=== PATIENT | male | born 1955 | race Caucasian/White ===

== ENCOUNTER 2017-02-14 07:30 | Day surgery (SDC) | payer MEDICARE, OTHER ==
[2017-02-11 13:57] VITALS: BMI 28.8
[~2017-02-14 07:30] MED LIST: LACTATED RINGERS 1,000 ML IV SCH; LIDOCAINE 1% 20 ML VIAL (10MG/ML) FOR IV START INTRADERMA PRN
[2017-02-14 07:47] VITALS: TEMP 98
[2017-02-14] MEDS ORDERED: LACTATED RINGERS 1,000 ML IV ONE ×2 (07:50)
[2017-02-14] MEDS ORDERED: PHENYLEPHRINE-0.9% NACL SYG 1 MG/10 ML SYRINGE ONE (08:23)
[2017-02-14] MEDS ORDERED: LIDOCAINE 1% INJ 10MG/ML (20 ML MDV) ONE (08:23)
[2017-02-14] MEDS ORDERED: PROPOFOL 10 MG/ML 20 ML VIAL IV ONE (08:23)
--- NOTE | 2017-02-14 08:54 | P.OP ---
Date of Procedure: 02/14/17 Preoperative Diagnosis: Screening for colon cancer Postoperative Diagnosis: Descending colon and rectosgmoid polyp Internal hemorrhoids grade 2 not bleeding. Procedure(s) Performed: Colonoscopy with polypectomy using cold biopsy forceps Implants: Anesthesia: VINCENT Surgeon: Bernardo Wong Pathology: other Condition: stable Indications for Procedure: Operative Findings: Description of Procedure: The patient was brought to the endoscopy suite and placed in lateral decubitus position. IV sedation was given as per anesthesia team. A timeout was performed to verify correct patient and correct procedure.Perianal examination did not reveal any external hemorrhoids. Digital rectal examination was performed. moderately enlarged prostate. A well- lubricated endoscope was passed per rectally and was gradually advanced beyond the sigmoid colon, splenic flexure, transverse colon, hepatic flexure and cecum. The ileocecal valve was visualized. The scope was then withdrawn and inspected in detail. There were no diverticula. Polyps were noted in the descending colon and in the lower part of the sigmoid at the rectosigmoid junction. Both polyps were less than 5 mm and completely removed with the help of a cold biopsy forceps. There were no other polyps or masses cluster malformations or diverticula.. Bowel prep was good. No other polyps or masses noted. Retroflexed in the rectum and large internal hemorrhoid was noted which was not bleeding at this time.The scope was gradually withdrawn. Patient tolerated the procedure well and was taken to post anesthesia care unit in stable condition. Recommend repeat colonoscopy in 5 years Plan - Discharge Summary New Discharge Prescriptions: No Action Warfarin [Coumadin] 10 mg PO SUMOWEFRSA Warfarin 12.5 mg PO TUTH Risperdal 1 tab PO BID Metoprolol 1 tab PO TID Discharge Medication List Metoprolol 1 tab PO TID 02/11/17 [History] Risperdal 1 tab PO BID 02/11/17 [History] Warfarin 12.5 mg PO TUTH 02/11/17 [History] Warfarin [Coumadin] 10 mg PO SUMOWEFRSA 02/11/17 [History] Follow up Appointment(s)/Referral(s): Bernardo Wong MD [STAFF PHYSICIAN] - As Needed Patient Instructions/Handouts: *[facility] - (Anesthesia) Endoscopy Discharge Instructions, Colonoscopy (DC)
[2017-02-14 09:08] VITALS: RESP 18
[2017-02-14 09:21] VITALS: BP 99/75; PULSE 71
== END 2017-02-14 09:55 | disposition home or self-care (01) ==
LOC: ORWHC2ENDO 07:30
PROVIDERS: ATTEND Surgery
DX: Z12.11 Encounter for screening for malignant neoplasm of colon (principal); K63.5 Polyp of colon; D12.5 Benign neoplasm of sigmoid colon; K64.1 Second degree hemorrhoids; R19.4 Change in bowel habit; E78.00 Pure hypercholesterolemia, unspecified; F31.9 Bipolar disorder, unspecified; F43.23 Adjustment disorder with mixed anxiety and depressed mood; F34.1 Dysthymic disorder; F43.10 Post-traumatic stress disorder, unspecified; I12.9 Hypertensive chronic kidney disease with stage 1 through stage 4 chronic kidney disease, or unspecified chronic kidney disease; N18.2 Chronic kidney disease, stage 2 (mild); Z95.810 Presence of automatic (implantable) cardiac defibrillator; I25.10 Atherosclerotic heart disease of native coronary artery without angina pectoris; I25.2 Old myocardial infarction; K21.9 Gastro-esophageal reflux disease without esophagitis; J44.9 Chronic obstructive pulmonary disease, unspecified; F17.200 Nicotine dependence, unspecified, uncomplicated; Z79.01 Long term (current) use of anticoagulants; Z79.899 Other long term (current) drug therapy; Z88.8 Allergy status to other drugs, medicaments and biological substances
CPT/HCPCS: 88305; 45380; J2001; J2370; J2704

== ENCOUNTER 2018-02-11 03:06 | Observation (INO) | payer MEDICARE, OTHER ==
[2018-02-11] MEDS ORDERED: NITROGLYCERIN OINT 1 INCH/GM PACKET TOPICAL STA (03:24)
[2018-02-11] MEDS ORDERED: ASPIRIN 81 MG PO STA (03:24)
--- NOTE | 2018-02-11 03:26 | ED ---
General Adult HPI - General Chief complaint: Chest Pain Stated complaint: Chest discomfort Time Seen by Provider: 02/11/18 03:17 Source: patient, RN notes reviewed Mode of arrival: wheelchair Limitations: no limitations - History of Present Illness Initial comments: Patient is a pleasant 62-year-old male presenting to the emergency Department with complaints of chest discomfort. Patient states onset was prior to arrival. Symptoms lasted around 3 minutes and then resolved. Patient has a difficult time describing the type of discomfort he had. Patient states his pacemaker and questions if something was wrong with a pacemaker. Patient states he does not have a defibrillator. No associated dyspnea, nausea, or diaphoresis. - Related Data Home Medications Medication Instructions Recorded Confirmed Warfarin [Coumadin] 10 mg PO SUMOWEFRSA 02/11/17 02/11/18 risperiDONE [RisperDAL] 1 mg PO BID 02/11/18 02/11/18 Allergies Allergy/AdvReac Type Severity Reaction Status Date / Time haloperidol [From Haldol] Allergy Unknown Verified 02/11/17 13:52 haloperidol lactate Allergy Unknown Verified 02/11/17 13:52 [From Haldol] Review of Systems ROS Statement: Those systems with pertinent positive or pertinent negative responses have been documented in the HPI. ROS Other: All systems not noted in ROS Statement are negative. Constitutional: Denies: fever Eyes: Denies: eye pain ENT: Denies: ear pain Respiratory: Denies: cough, dyspnea Cardiovascular: Reports: chest pain Endocrine: Denies: fatigue Gastrointestinal: Denies: abdominal pain Genitourinary: Denies: dysuria Musculoskeletal: Denies: back pain Skin: Denies: rash Neurological: Denies: weakness Past Medical History Past Medical History: Deep Vein Thrombosis (DVT), Hypertension Additional Past Medical History / Comment(s): HX DVT IN LEG History of Any Multi-Drug Resistant Organisms: MRSA Date of last positivie culture/infection: 04/27/2014 MDRO Source:: Right Arm Past Surgical History: Back Surgery, Hernia Repair, Pacemaker, Tonsillectomy Past Anesthesia/Blood Transfusion Reactions: Previous Problems w/ Anesthesia Additional Past Anesthesia/Blood Transfusion Reaction / Comment(s): STATES " HARD TIME BREATHING LAYING FLAT, I'M A MOUTH BREATHER" Type of Cardiac Device: Permanent Pacemaker Device Placement Date:: 2015 Past Psychological History: Bipolar Smoking Status: Current every day smoker Past Alcohol Use History: None Reported, Rare Past Drug Use History: None Reported General Exam Limitations: no limitations General appearance: alert, in no apparent distress Head exam: Present: atraumatic Eye exam: Present: normal appearance, PERRL ENT exam: Present: normal oropharynx Neck exam: Present: normal inspection Respiratory exam: Present: normal lung sounds bilaterally, other (No tenderness or swelling or color changes near the pacemaker site.). Absent: chest wall tenderness Cardiovascular Exam: Present: normal rhythm, tachycardia Expanded Peripheral pulses: 2+: Radial (R), Radial (L), Dorsalis Pedis (R), Dorsalis Pedis (L) GI/Abdominal exam: Present: soft. Absent: tenderness Extremities exam: Present: normal inspection. Absent: pedal edema, calf tenderness Neurological exam: Present: alert Psychiatric exam: Present: manic Skin exam: Present: normal color Course Vital Signs 02/11/18 03:09 Temperature 98.6 F Pulse Rate 110 H Respiratory 20 Rate Blood Pressure 150/90 O2 Sat by Pulse 97 Oximetry - Reevaluation(s) Reevaluation #1: 02/11/18 05:33 Repeat EKG shows sinus tachycardia 108. VT 152. QRS 94. QT 348. QTC 466. Left axis. Normal QRS. No acute ST change. EKG Findings - EKG Comments: EKG Findings:: Sinus tachycardia 108. VT 142. QRS 96. QT 352. QTC 471. Normal axis. Normal QRS. No acute ST change. Medical Decision Making - Medical Decision Making Patient reevaluated and resting comfortably in bed. Patient updated on results and plan. Case discussed with Dr. castañeda, who will admit for Dr. pandey - Lab Data Result diagrams: 02/11/18 04:06 02/11/18 04:06 Lab Results 02/11/18 02/11/18 02/11/18 Range/Units 04:06 04:06 04:06 WBC 9.1 (3.8-10.6) k/uL RBC 4.53 (4.30-5.90) m/uL Hgb 13.3 (13.0-17.5) gm/dL Hct 41.5 (39.0-53.0) % MCV 91.7 (80.0-100.0) fL MCH 29.3 (25.0-35.0) pg MCHC 31.9 (31.0-37.0) g/dL RDW 14.1 (11.5-15.5) % Plt Count 166 (150-450) k/uL Neutrophils % 68 % Lymphocytes % 18 % Monocytes % 9 % Eosinophils % 1 % Basophils % 0 % Neutrophils # 6.2 (1.3-7.7) k/uL Lymphocytes # 1.6 (1.0-4.8) k/uL Monocytes # 0.9 (0-1.0) k/uL Eosinophils # 0.1 (0-0.7) k/uL Basophils # 0.0 (0-0.2) k/uL PT (9.0-12.0) sec INR (<1.2) APTT (22.0-30.0) sec Sodium 137 (137-145) mmol/L Potassium 4.8 (3.5-5.1) mmol/L Chloride 104 (98-107) mmol/L Carbon Dioxide 23 (22-30) mmol/L Anion Gap 10 mmol/L BUN 26 H (9-20) mg/dL Creatinine 1.90 H (0.66-1.25) mg/dL Est GFR (CKD-EPI)AfAm 43 (>60 ml/min/1.73 sqM) Est GFR (CKD-EPI)NonAf 37 (>60 ml/min/1.73 sqM) Glucose 94 (74-99) mg/dL Calcium 9.6 (8.4-10.2) mg/dL Magnesium 1.8 (1.6-2.3) mg/dL Total Bilirubin 0.7 (0.2-1.3) mg/dL AST 64 H (17-59) U/L ALT 32 (21-72) U/L Alkaline Phosphatase 111 (38-126) U/L Total Creatine Kinase 1398 H (55-170) U/L CK-MB (CK-2) 7.6 H* (0.0-2.4) ng/mL CK-MB (CK-2) Rel Index 0.5 Troponin I 0.018 (0.000-0.034) ng/mL Total Protein 7.3 (6.3-8.2) g/dL Albumin 4.3 (3.5-5.0) g/dL 02/11/18 Range/Units 04:06 WBC (3.8-10.6) k/uL RBC (4.30-5.90) m/uL Hgb (13.0-17.5) gm/dL Hct (39.0-53.0) % MCV (80.0-100.0) fL MCH (25.0-35.0) pg MCHC (31.0-37.0) g/dL RDW (11.5-15.5) % Plt Count (150-450) k/uL Neutrophils % % Lymphocytes % % Monocytes % % Eosinophils % % Basophils % % Neutrophils # (1.3-7.7) k/uL Lymphocytes # (1.0-4.8) k/uL Monocytes # (0-1.0) k/uL Eosinophils # (0-0.7) k/uL Basophils # (0-0.2) k/uL PT 16.8 H (9.0-12.0) sec INR 1.8 H (<1.2) APTT 32.4 H (22.0-30.0) sec Sodium (137-145) mmol/L Potassium (3.5-5.1) mmol/L Chloride (98-107) mmol/L Carbon Dioxide (22-30) mmol/L Anion Gap mmol/L BUN (9-20) mg/dL Creatinine (0.66-1.25) mg/dL Est GFR (CKD-EPI)AfAm (>60 ml/min/1.73 sqM) Est GFR (CKD-EPI)NonAf (>60 ml/min/1.73 sqM) Glucose (74-99) mg/dL Calcium (8.4-10.2) mg/dL Magnesium (1.6-2.3) mg/dL Total Bilirubin (0.2-1.3) mg/dL AST (17-59) U/L ALT (21-72) U/L Alkaline Phosphatase (38-126) U/L Total Creatine Kinase (55-170) U/L CK-MB (CK-2) (0.0-2.4) ng/mL CK-MB (CK-2) Rel Index Troponin I (0.000-0.034) ng/mL Total Protein (6.3-8.2) g/dL Albumin (3.5-5.0) g/dL - Radiology Data Radiology results: image reviewed (Chest x-ray shows nonspecific interstitial prominence.) Disposition Clinical Impression: Chest pain Disposition: ADMITTED IP TO THIS HOSP Is patient prescribed a controlled substance at d/c from ED?: No Referrals: Jaspal Melgoza MD [Primary Care Provider] - 1-2 days Decision Time: 05:37
[2018-02-11 04:33] LABS: Basophils % (A) 0 %; Eosinophils # (A) 0.1 k/uL (0-0.7); Eosinophils % (A) 1 %; HCT 41.5 % (39.0-53.0); HGB 13.3 gm/dL (13.0-17.5); Lymphocytes # (A) 1.6 k/uL (1.0-4.8); Lymphocytes % (A) 18 %; MCH 29.3 pg (25.0-35.0); MCHC 31.9 g/dL (31.0-37.0); MCV 91.7 fL (80.0-100.0); Mean Platelet Volume 7.6; Monocytes # (A) 0.9 k/uL (0-1.0); Monocytes % (A) 9 %; Neutrophils # (A) 6.2 k/uL (1.3-7.7); Neutrophils % (A) 68 %; Platelet Count 166 k/uL (150-450); RBC 4.53 m/uL (4.30-5.90); RDW 14.1 % (11.5-15.5); WBC 9.1 k/uL (3.8-10.6)
--- NOTE | 2018-02-11 04:36 | XR ---
EXAM: XR Chest, 2 Views CLINICAL HISTORY: Chest Pain TECHNIQUE: Frontal and lateral views of the chest. COMPARISON: No relevant prior studies available. FINDINGS: Lungs: Bilateral interstitial prominence is nonspecific and can be seen in the setting of mild interstitial edema or chronic interstitial lung disease. No focal consolidation. Pleural space: Unremarkable. No pneumothorax. Heart: Unremarkable. No cardiomegaly. Mediastinum: Unremarkable. Bones/joints: No acute osseous abnormality. Vasculature: Tortuosity and/or ectasia of the thoracic aorta. Tubes, lines and devices: Left chest wall pacemaker. IMPRESSION: Bilateral interstitial prominence is nonspecific and can be seen in the setting of mild interstitial edema or chronic interstitial lung disease.
[2018-02-11 04:43] LABS: Albumin 4.3 g/dL (3.5-5.0); Calcium 9.6 mg/dL (8.4-10.2); Magnesium 1.8 mg/dL (1.6-2.3); Potassium 4.8 mmol/L (3.5-5.1); Total Bilirubin 0.7 mg/dL (0.2-1.3); Total Protein 7.3 g/dL (6.3-8.2)
[2018-02-11 04:58] LABS: INR 1.8 (<1.2); Partial Thromboplastin Time 32.4 sec (22.0-30.0); Prothrombin Time 16.8 sec (9.0-12.0)
[2018-02-11 05:18] LABS: Troponin I 0.018 ng/mL (0.000-0.034)
[2018-02-11 05:19] LABS: Creatine Kinase MB 7.6 ng/mL (0.0-2.4)
[2018-02-11] MEDS ORDERED: NITROGLYCERIN SL TABS 0.4 MG TAB SUBLINGUAL PRN (05:37)
[2018-02-11] MEDS ORDERED: ASPIRIN 325 MG TAB PO SCH (09:00)
--- NOTE | 2018-02-11 10:50 | ECHOF ---
Referral Reason: MEASUREMENTS -------- HEIGHT: 190.5 cm WEIGHT: 106.6 kg BP: 135/84 IVSd: 1.1 cm (0.6 - 1.1) LVIDd: 4.9 cm (3.9 - 5.3) LVPWd: 1.3 cm (0.6 - 1.1) IVSs: 1.6 cm LVIDs: 1.9 cm LVPWs: 1.7 cm LAESV Index (A-L): 15.81 ml/m Ao Diam: 4.4 cm (2.0 - 3.7) AV Cusp: 2.5 cm (1.5 - 2.6) LA Diam: 2.7 cm (2.7 - 3.8) MV E Jae: 0.67 m/s MV DecT: 214 ms MV A Jae: 0.77 m/s MV E/A Ratio: 0.86 RAP: 5.00 mmHg RVSP: 33.75 mmHg FINDINGS -------- Resting tachycardia (HR>100bpm). This was a technically adequate study. The left ventricular size is normal. There is mild concentric left ventricular hypertrophy. Overa ll left ventricular systolic function is normal with, an EF between 55 - 60 %. The right ventricle is normal in size and function. Normal LA size by volume 22+/-6 ml/m2. The right atrium is normal in size. Electronic pacemaker lead seen in the right atrial cavity. Aortic valve is trileaflet and is mildly thickened. There is no evidence of aortic regurgitation. There is no evidence of aortic stenosis. The mitral valve leaflets are mildly thickened. There is trace to mild mitral regurgitation. Trace tricuspid regurgitation present. Right ventricular systolic pressure is normal at < 35 mmHg. There is no evidence of pulmonary hypertension. The pulmonic valve was not well visualized. The aortic root is borderline dilated, up to 3.7 cm. Normal inferior vena cava with normal inspiratory collapse consistent with estimated right atrial pre ssure of 5 mmHg. There is no pericardial effusion. CONCLUSIONS -------- 1. Resting tachycardia (HR>100bpm). 2. This was a technically adequate study. 3. The left ventricular size is normal. 4. There is mild concentric left ventricular hypertrophy. 5. Overall left ventricular systolic function is normal with, an EF between 55 - 60 %. 6. Normal LA size by volume 22+/-6 ml/m2. 7. Electronic pacemaker lead seen in the right atrial cavity. 8. Aortic valve is trileaflet and is mildly thickened. 9. The mitral valve leaflets are mildly thickened. 10. There is trace to mild mitral regurgitation. 11. Trace tricuspid regurgitation present. 12. Right ventricular systolic pressure is normal at < 35 mmHg. 13. There is no evidence of pulmonary hypertension. 14. The pulmonic valve was not well visualized. 15. The aortic root is borderline dilated, up to 3.7 cm. 16. There is no pericardial effusion. SAFETY COMPANION: Mario Alberto Mendiola RDCS
[2018-02-11 11:15] LABS: Troponin I 0.022 ng/mL (0.000-0.034)
[2018-02-11 11:20] LABS: Creatine Kinase MB 9.8 ng/mL (0.0-2.4)
[2018-02-11] MEDS ORDERED: NITROGLYCERIN OINT 1 INCH/GM PACKET TOPICAL SCH (12:00)
--- NOTE | 2018-02-11 12:31 | P.CRDCN ---
History of Present Illness History of present illness: Mr. Arndt is a 62-year-old male past medical history significant paroxysmal atrial fibrillation on long-term anticoagulation, hypertension, bipolar and chronic nicotine dependence. He follows with Dr. Lopez in the office. We have been asked to see him in consultation for chest pain. He states yesterday he felt an odd sensation in his chest lasting less than 4 minutes. He denies that it was a pain but more of a prickly feeling. He denies shortness of breath, nausea, vomiting, diaphoresis, palpitations or dizziness. He is quite manic at the time of my exam walking around the room very aggressively, speaking loudly and being hostile about being in the hospital. Security is present during my exam and he is cooperating. Echocardiogram obtained this morning reveals preserved left ventricular systolic function with ejection fraction 55-60%, pacemaker lead seen in the right atrial cavity and mildly thickened aortic valve. EKG reveals sinus tachycardia [address] or T wave abnormalities noted. Chest x-ray reveals bilateral interstitial prominence. Laboratory data reviewed, hemoglobin 13.3, platelets 166, INR 1.8, sodium 137, potassium 4.8, magnesium 1.8, creatinine 1.9, troponins negative 2, elevated CK -MB 7.6 and 9.8, with a total CK elevation of 1398 and 1441. Current cardiac medications include Coumadin 5 mg daily and Lopressor 25 mg 3 times a day. The patient underwent a Lexiscan stress test October 2016 which was negative for reversible cardiac ischemia. Review of Systems At the time of my exam: CONSTITUTIONAL: Denies fever. Denies chills. EYES: Denies blurred vision. Denies vision changes. Denies eye pain. EARS, NOSE, MOUTH & THROAT: Denies headache. Denies sore throat. Denies ear pain. CARDIOVASCULAR: Denies chest pain. Denies shortness of breath. Denies orthopnea. Denies PND. Denies palpitations. RESPIRATORY: Denies cough. GASTROINTESTINAL: Denies abdominal pain. Denies diarrhea. Denies constipation. Denies nausea. Denies vomiting. MUSCULOSKELETAL: Denies myalgias. INTEGUMENTARY: Denies pruitis. Denies rash. NEUROLOGIC: Denies numbness. Denies tingling. Denies weakness. PSYCHIATRIC: Denies anxiety. Denies depression. ENDOCRINE: Denies fatigue. Denies weight change. Denies polydipsia. Denies polyurina. GENITOURINARY: Denies burning, hematuria or urgency with micturation. HEMATOLOGIC: Denies history of anemia. Denies bleeding. Past Medical History Past Medical History: Deep Vein Thrombosis (DVT), Hypertension Additional Past Medical History / Comment(s): HX DVT IN LEG History of Any Multi-Drug Resistant Organisms: MRSA Date of last positivie culture/infection: 04/27/2014 MDRO Source:: Right Arm Past Surgical History: Back Surgery, Hernia Repair, Pacemaker, Tonsillectomy Past Anesthesia/Blood Transfusion Reactions: Previous Problems w/ Anesthesia Additional Past Anesthesia/Blood Transfusion Reaction / Comment(s): STATES " HARD TIME BREATHING LAYING FLAT, I'M A MOUTH BREATHER" Type of Cardiac Device: Permanent Pacemaker Device Placement Date:: 2015 Past Psychological History: Bipolar Smoking Status: Unknown if ever smoked Past Alcohol Use History: None Reported, Rare Additional Past Alcohol Use History / Comment(s): SMOKES 1/2 PPD FROM TEENS Past Drug Use History: None Reported - Past Family History Father History Unknown: Yes Mother History Unknown: Yes Medications and Allergies Home Medications Medication Instructions Recorded Confirmed Type Doxepin HCl [SINEquan] 200 mg PO HS 02/11/18 02/11/18 History Lubiprostone [Amitiza] 24 mcg PO BID 02/11/18 02/11/18 History Metoprolol Tartrate [Lopressor] 25 mg PO TID 02/11/18 02/11/18 History Warfarin [Coumadin] 5 mg PO HS 02/11/18 02/11/18 History risperiDONE [RisperDAL] 1 mg PO AC-TID 02/11/18 02/11/18 History Allergies Allergy/AdvReac Type Severity Reaction Status Date / Time haloperidol [From Haldol] Allergy Unknown Verified 02/11/18 08:37 haloperidol lactate Allergy Unknown Verified 02/11/18 08:37 [From Haldol] Physical Exam Vitals: Vital Signs Temp Pulse Pulse Resp BP BP Pulse Ox 02/11/18 06:49 97.4 F L 107 H 18 135/84 94 L 02/11/18 06:16 98.3 F 103 H 17 142/88 97 02/11/18 03:09 98.6 F 110 H 20 150/90 97 Intake and Output 02/10/18 02/11/18 02/11/18 22:59 06:59 14:59 Other: Weight 106.594 kg Blood pressure 135/84 heart rate 107 afebrile maintaining oxygen saturation on room air GENERAL: This is a 62-year-old male in no apparent distress at the time of my examination. HEENT: Head is atraumatic, normocephalic. Pupils are equal, round. Sclerae anicteric. Conjunctivae are clear. Mucous membranes of the mouth are moist. Neck is supple. There is no jugular venous distention. No carotid bruit is heard. LUNGS: Clear to auscultation no wheezes, rales or rhonchi. No chest wall tenderness is noted on palpation or with deep breathing. HEART: Regular rate and rhythm without murmurs, rubs or gallops. S1 and S2 heard. ABDOMEN: Soft, nontender. Bowel sounds are heard. No organomegaly noted. EXTREMITIES: No evidence of peripheral edema and no calf tenderness noted. VASCULAR: Radial and dorsalis pedis pulses palpated, no evidence of clubbing. NEUROLOGIC: Patient is awake, alert and oriented x3. Results 02/11/18 04:06 02/11/18 04:06 Cardiac Enzymes 02/11/18 02/11/18 02/11/18 Range/Units 04:06 04:06 10:17 AST 64 H (17-59) U/L CK-MB (CK-2) 7.6 H* 9.8 H* (0.0-2.4) ng/mL Troponin I 0.018 0.022 (0.000-0.034) ng/mL Coagulation 02/11/18 Range/Units 04:06 PT 16.8 H (9.0-12.0) sec APTT 32.4 H (22.0-30.0) sec CBC 02/11/18 Range/Units 04:06 WBC 9.1 (3.8-10.6) k/uL RBC 4.53 (4.30-5.90) m/uL Hgb 13.3 (13.0-17.5) gm/dL Hct 41.5 (39.0-53.0) % Plt Count 166 (150-450) k/uL Comprehensive Metabolic Panel 02/11/18 Range/Units 04:06 Sodium 137 (137-145) mmol/L Potassium 4.8 (3.5-5.1) mmol/L Chloride 104 (98-107) mmol/L Carbon Dioxide 23 (22-30) mmol/L BUN 26 H (9-20) mg/dL Creatinine 1.90 H (0.66-1.25) mg/dL Glucose 94 (74-99) mg/dL Calcium 9.6 (8.4-10.2) mg/dL AST 64 H (17-59) U/L ALT 32 (21-72) U/L Alkaline Phosphatase 111 (38-126) U/L Total Protein 7.3 (6.3-8.2) g/dL Albumin 4.3 (3.5-5.0) g/dL Current Medications Generic Name Dose Route Start Last Admin Trade Name Freq PRN Reason Stop Dose Admin Aspirin 325 mg 02/11/18 09:00 02/11/18 08:42 Aspirin PO 325 mg DAILY GLENNY Administration Nitroglycerin 1 inch 02/11/18 12:00 Nitro-Bid Oint TOPICAL Q6HR GLENNY Nitroglycerin 0.4 mg 02/11/18 05:37 Nitrostat SUBLINGUAL Q5M PRN Chest Pain Sodium Chloride 10 ml 02/11/18 09:00 Saline Flush IV BID GLENNY Intake and Output 02/10/18 02/11/18 02/11/18 22:59 06:59 14:59 Other: Weight 106.594 kg 02/11/18 04:06 02/11/18 04:06 Assessment and Plan Assessment: ASSESSMENT Chest pain, atypical. No EKG evidence of ischemia and negative troponin 2 with elevated CK and CK-MB indicative of musculoskeletal injury. History of paroxysmal atrial fibrillation on intermodal dispatcher anticoagulation, currently maintaining sinus mechanism Hypertension Chronic nicotine dependence Bipolar PLAN Echocardiogram has been reviewed and is normal. Continue to obtain serial cardiac enzymes rule out an acute coronary event. Third set of troponin is negative and acute coronary event will have been ruled out and he is stable from a cardiac perspective for ongoing mental health evaluation. Discontinue aspirin and Nitropaste. Resume Coumadin and Lopressor at home doses. Follow-up with Dr. John delgado. Thank you kindly for this consultation. The above impression and plan of care have been discussed and directed by the signing physician. Judit Marquez, nurse practitioner, acting as scribe for signing physician.
[2018-02-11] MEDS: METOPROLOL TARTRATE 25 MG TAB PO SCH ×2 (16:06→20:33)
[2018-02-11 17:14] LABS: Troponin I 0.018 ng/mL (0.000-0.034)
[2018-02-11 17:20] LABS: Creatine Kinase MB 8.9 ng/mL (0.0-2.4)
--- NOTE | 2018-02-11 18:01 | HP ---
HISTORY AND PHYSICAL DATE OF ADMISSION: 02/11/2018 PRESENTING COMPLAINT: Chest pain. HISTORY OF PRESENTING COMPLAINT: This is a 62-year-old patient of Dr. Melgoza from [place]. The patient's chronic stable medical conditions include left leg DVT for which patient is on Coumadin, hypertension, chronic kidney disease. The patient has a pacemaker. The patient is rather in a manic mood and keeps laughing and talking to himself and keeps going off the topic, difficult to get a history. The patient is having pain over the pacemaker, could not really tell me if he is having dizzy spells or passing out or palpitations and Cardiology was consulted earlier today, who did come to check out the pacemaker. The patient keeps laughing and making jokes and keeps totally going off. Otherwise, patient ate rather well and he laughs loudly, somewhat uncontrollably. REVIEW OF SYSTEMS: CONSTITUTIONAL: None. HEENT: None. CARDIOVASCULAR: As above. GASTROINTESTINAL: None: GENITOURINARY: None. MUSCULOSKELETAL: None. DERMATOLOGICAL: None. HEMATOLOGIC: None. LYMPHATIC: None. PSYCHIATRY: As above. NEUROLOGICAL: None. PAST MEDICAL HISTORY: Left leg DVT, hypertension, MRSA infection, chronic kidney disease, bipolar disorder with manic episodes. PAST SURGICAL HISTORY: Back surgery, hernia repair, pacemaker, tonsillectomy. SOCIAL HISTORY: Notes reflect patient drank 24-ounce beer yesterday, but only drinks occasionally. Used marijuana a long time ago. Smokes about half a pack a day for close to 50 years. It is unclear who he states he lives. Nurse did inform me she did call a number listed on his chart. The patient apparently does not have a legal guardian. We are looking more into that. FAMILY HISTORY: Reviewed with the patient. Noncontributory. HOME MEDICATIONS: 1. Risperdal 1 mg p.o. t.i.d. 2. Coumadin 5 mg q.h.s. 3. Lopressor 25 mg p.o. t.i.d. 4. Amitiza 25 mcg t.i.d. 5. Senokot 200 mg q.h.s. ALLERGIES: To HALDOL. EXAMINATION: Temperature 97.4, pulse 107, respirations 18, blood pressure 135/84, pulse ox 94% on room air. GENERAL APPEARANCE: Average build, lying in bed, laughing loudly, does not appear in any distress. EYES: Pupils equal. Conjunctivae normal. HEENT: External appearance of nose and ears normal. Oral cavity normal. NECK: JVD not raised. Mass not palpable. RESPIRATORY: Effort normal. LUNGS: Slightly decreased breath sounds. CARDIOVASCULAR: First and second sounds normal. No edema. ABDOMEN: Soft, nontender. Liver and spleen not palpable. LYMPHATIC: No lymph node palpable in neck or axillae. PSYCHIATRY: The patient is rather manic, going from one topic to the other topic, laughing out loudly, some time as if talking into the phone on the TV remote. MUSCULOSKELETAL: No tenderness over the pacemaker site. INVESTIGATIONS: White count 9.1, hemoglobin 13.3, INR 1.8. Potassium 4.8, BUN 26, creatinine 1.90, troponin 0.018, 0.022. EKG tracing reviewed by me shows sinus tachycardia. Chest x- ray: Nonspecific bilateral prominence. ASSESSMENT: 1. Bipolar disorder with acute flare-up of manic episode. The patient is rather uncontrolled from the same. 2. Chronic left leg deep venous thrombosis, chronically on Coumadin. 3. Coumadin monitoring. 4. Chronic kidney disease stage 3, probably from nephrosclerosis. 5. Pain over the pacemaker site per Cardiology. The pacemaker is doing fine. PLAN: Home medications are resumed. Coumadin is resumed. Psychiatry is consulted. The patient definitely is having a manic flare-up. The patient may need a psychiatry evaluation for possible admission. MMODL / IJN: [id number] /
[2018-02-11] MEDS: risperiDONE 1 MG TAB PO SCH (18:28)
[2018-02-11 19:15] VITALS: TEMP 98.1
[2018-02-11] MEDS ORDERED: DOXEPIN 25 MG CAP PO SCH (21:00)
[2018-02-11] MEDS ORDERED: WARFARIN 5 MG TAB PO SCH (21:00)
[2018-02-12 01:50] LABS: Cholesterol 251 mg/dL (<200); HDL Cholesterol 39 mg/dL (40-60); LDL Cholesterol,Calculated 143 mg/dL (0-99); Triglycerides 343 mg/dL (<150)
[2018-02-12] MEDS: NON-FORMULARY DRUG (Lubiprostone [Amitiza] 24 MCG) PO SCH ×2 (04:37→09:53)
[2018-02-12 07:59] VITALS: BP 103/73; PULSE 85; RESP 18
[2018-02-12] MEDS: risperiDONE 1 MG TAB PO SCH (09:53)
[2018-02-12] MEDS: METOPROLOL TARTRATE 25 MG TAB PO SCH (09:53)
[2018-02-12] MEDS ORDERED: ZIPRASIDONE 20 MG VIAL IM STA (10:34)
[2018-02-12] MEDS ORDERED: LORazepam 2 MG/ML INJ IM STA (10:35)
--- NOTE | 2018-02-12 21:51 | DS ---
DISCHARGE SUMMARY DATE OF ADMISSION: 02/11/2018 DATE OF DISCHARGE: 02/12/2018 FINAL DIAGNOSES: 1. Bipolar disorder with acute flareup of manic episode, uncontrolled. 2. Chronic left leg deep venous thrombosis, chronically on Coumadin. 3. Coumadin monitoring. 4. Chronic kidney disease, stage III, probably from nephrosclerosis. 5. Musculoskeletal pain over the pacemaker site. CONSULTATION: Dr. Rober Umana from Cardiology. HOSPITAL COURSE: This patient, who has got bipolar, presented with a manic episode, laughing, singing, going from one topic to the other topic, moving about, restless. Also complained of some pain of the left anterior chest wall over the pacemaker site. The patient was seen by Cardiology. Two-D echocardiogram was unremarkable. Cleared by them. Patient was seen by Psychiatry, EPS nurse, and patient will be taken down to Psychiatry for further management. Two-D echo shows preserved LV function. On examination, the patient is rather manic, laughing, joking, going from one topic to another topic. Lungs are clear. CARDIOVASCULAR: First and second sounds normal. DISCHARGE MEDICATIONS: 1. Sinequan 200 mg at bedtime. 2. Amitiza 24 mcg p.o. b.i.d. 3. Lopressor 25 p.o. t.i.d. 4. Coumadin 5 mg p.o. at bedtime. 5. Risperdal 1 mg p.o. before meals t.i.d. DISPOSITION: [facility] at [facility]. Follow up with Dr. Lopez in 1 week. Follow up with Dr. Jaspal Melgoza in [place] after discharge from the hospital. MMODL / IJN: [id number] /
== END 2018-02-12 14:15 ==
LOC: EC 03:06 → EEVIPCON 03:06 → 3OBS 05:37
PROVIDERS: ADMIT Hospitalist; ATTEND Hospitalist
DX: R07.89 Other chest pain (principal); F31.9 Bipolar disorder, unspecified; Z79.01 Long term (current) use of anticoagulants; I82.502 Chronic embolism and thrombosis of unspecified deep veins of left lower extremity; I48.0 Paroxysmal atrial fibrillation; N18.3 Chronic kidney disease, stage 3 (moderate); I12.9 Hypertensive chronic kidney disease with stage 1 through stage 4 chronic kidney disease, or unspecified chronic kidney disease; R74.8 Abnormal levels of other serum enzymes; F17.210 Nicotine dependence, cigarettes, uncomplicated; Z95.0 Presence of cardiac pacemaker; R45.1 Restlessness and agitation; Z79.899 Other long term (current) drug therapy; Z88.8 Allergy status to other drugs, medicaments and biological substances; Z86.14 Personal history of Methicillin resistant Staphylococcus aureus infection
CPT/HCPCS: 99285; 96372; 36415; 93005; 93306; 80061; 80053; 82550; 82553; 83735; 84484; 85025; 85610; 85730; 71046; G0378 ×2; J2060; J3486

== ENCOUNTER 2018-02-12 13:40 | Inpatient (IN) | payer MEDICARE, OTHER ==
[2018-02-12 15:31] VITALS: BMI 28.8
[2018-02-12] MEDS ORDERED: ZIPRASIDONE 20 MG VIAL IM PRN (15:38)
[2018-02-12] MEDS ORDERED: MAGNESIUM HYDROXIDE 2,400 MG/10 ML CUP PO PRN (15:38)
[2018-02-12] MEDS ORDERED: MAG HYDROX/AL HYDROX/SIMETH 30 ML CUP PO PRN (15:38)
[2018-02-12] MEDS ORDERED: ACETAMINOPHEN TAB 325 MG TAB PO PRN (15:38)
[2018-02-12] MEDS ORDERED: LORazepam 2 MG/ML INJ IM PRN (15:45)
[2018-02-12] MEDS ORDERED: NITROGLYCERIN SL TABS 0.4 MG TAB SUBLINGUAL PRN (15:47)
[2018-02-12] MEDS: risperiDONE 1 MG TAB PO SCH (17:39)
[2018-02-12] MEDS: METOPROLOL TARTRATE 25 MG TAB PO SCH ×2 (17:40→21:56)
[2018-02-12] MEDS ORDERED: WARFARIN 5 MG TAB PO SCH (21:00)
[2018-02-12] MEDS: LORazepam 1 MG TAB PO PRN (23:48)
[2018-02-13] MEDS: risperiDONE 1 MG TAB PO SCH ×3 (06:33→16:53)
[2018-02-13 08:27] LABS: INR 1.6 (<1.2); Prothrombin Time 15.1 sec (9.0-12.0)
[2018-02-13] MEDS: METOPROLOL TARTRATE 25 MG TAB PO SCH ×3 (08:49→20:39)
[2018-02-13] MEDS: LORazepam 1 MG TAB PO PRN ×2 (09:18→20:41)
[2018-02-13] MEDS ORDERED: WATER FOR INJECTION, STERILE 10 ML IV ONE (09:38)
--- NOTE | 2018-02-13 10:29 | P.HP ---
Psychiatric H&P - . History & Physical: Allergies Allergy/AdvReac Type Severity Reaction Status Date / Time haloperidol [From Haldol] Allergy Unknown Verified 02/12/18 16:01 haloperidol lactate Allergy Unknown Verified 02/12/18 16:01 [From Haldol] Vital Signs Temp 98.3 F 02/12/18 23:52 Pulse 88 02/13/18 08:54 Resp 18 02/13/18 08:54 BP 115/77 02/13/18 08:54 Pulse Ox 96 02/12/18 15:15 Intake & Output 02/12/18 02/13/18 02/13/18 18:59 06:59 18:59 Weight 107.275 kg Laboratory Last Values PT 15.1 sec (9.0-12.0) H 02/13/18 08:02 INR 1.6 (<1.2) H 02/13/18 08:02 TSH 1.880 mIU/L (0.465-4.680) 02/13/18 08:02 02/13/18 10:19 IDENTIFYING DATA: This patient is a 62-year-old male who presents with symptoms of acute kaley and psychosis. HPI: . The patient presents with a petition completed by the psychiatric nurse stating "the patient is manic and delusional, he states he 1 $2 million and has to go home, he is tangential with flight of ideas and is restless, spit on the floor, says marines are always at carnivals, closes his eyes and started singing." The patient is found in the hallway. He has just received an injection of Geodon because of agitated behavior. The patient does partially cooperate with the session and is seated in the library. He has pressured ongoing speech that is difficult to direct. He is focused on issues related to the [employer]. He is focused on our Pres. Daniel Clancy. He does state that he is very wealthy as he won lottery money and resides with a [facility]. The patient is very disorganized in conversation and struggles with answering questions. Over the years he is well known to this mental health services although he has not been here for approximately 4 years. He has had numerous admissions. He has an established diagnosis of bipolar 1 disorder as he has presented to the hospital with kaley and psychosis previously. PAST PSYCHIATRIC HISTORY: He patient has had at least 10 psychiatric admissions at this hospital. Last admission was in 2013. No documented suicide attempts. No other self-injurious behavior intentionally. He has been on numerous different medications to stabilize his mood. It appears he has most recently been on Risperdal. He is known to stabilize on Depakote over the years. He states he's been on lithium in the past as well. He reports having no outpatient mental health services at this time or for the last year. He has been court ordered several times in the past for treatment. PMH: History of DVT, hypertension ALLERGIES: Haldol MEDICATIONS: Refer to [facility] CHEMICAL DEPENDENCY HISTORY: The patient denies any use of alcohol or illicit drugs FAMILY PSYCHIATRIC HISTORY: None reported, no suicides in the family FAMILY CHEMICAL DEPENDENCY HISTORY: His father was alcohol dependent SOCIAL HISTORY: The patient is 62 years old he was born in [facility] he is a . He was in the [employer] and reports an honorable discharge. He reports having a so security income. He denies history of legal problems he denies history of abuse. He reports living with a male relative. MENTAL STATUS EXAM: The patient's is a disheveled 62-year-old male appearing his stated age. Hygiene and grooming are poor and he is malodorous. He is dressed in his own clothing. He demonstrates bizarre behavior ambulating in the hallway. Speech is fluent spontaneous pressured at times, loud at times. He demonstrates loose associations and flight of ideas. He appears manic. He endorses grandiose delusions and some persecutory thinking. He reports no hallucinations. He denies having any suicidal or homicidal ideation but he is observed to be aggressive at times. He is disoriented. Although he is aware he is in the hospital. He was not aggressive with me during our session. He demonstrates no abnormal involuntary movements. Insight into his current symptoms is poor judgment subsequently impaired. He is not able to tolerate any further cognitive testing at this time. STRENGTHS/WEAKNESSES: Inc.'s: Presumed income, presumed housing weaknesses: Acute kaley and psychosis causing dysfunction INTELLECTUAL FUNCTIONING: Average IMPRESSIONS: [] 1. Bipolar 1 disorder most recent manic with psychosis 2. History of DVT, hypertension 3. Significant psychosocial dysfunction due to current symptoms PLAN: The patient has been admitted to the mental health unit in voluntarily. I will complete a second clinical certificate. The patient will continue on Risperdal 1 mg 3 times daily and I will add Depakote ER 1000 mg at bedtime. He has been known to stabilize with Depakote in the past. Baseline labs reviewed AST mildly elevated we will continue to monitor. He will be seen by internal medicine for routine history and physical exam. The patient will be monitored for safety we will provide reality orientation when possible.
--- NOTE | 2018-02-13 14:19 | CONS ---
CONSULTATION DATE OF CONSULTATION: 02/13/18. REASON FOR CONSULTATION: Medical management requested by Dr. Ramirez. CONSULTATION: This is a pleasant 62-year-old patient who was admitted to the medical service with chest pain over the pacemaker. Pacemaker was checked out. Really patient has had a flare up of her manic episode and bipolar, laughing, joking, jumping from one topic to the another topic, restless, getting about. Therefore patient was transferred to inpatient psychiatry unit. Chronic stable medical conditions include left leg DVT for which patient is on Coumadin, hypertension, chronic kidney disease. The patient is walking about in the hallway. Rather cheerful, in a rather upbeat mood. REVIEW OF SYSTEMS: CONSTITUTIONAL: None. HEENT: None. RESPIRATORY: None. CARDIOVASCULAR: None. GASTROINTESTINAL: None. GENITOURINARY: None. MUSCULOSKELETAL: None. DERMATOLOGIC, HEMATOLOGIC, LYMPHATIC: None. PSYCHIATRY: As above. NEUROLOGICAL: None. PAST MEDICAL HISTORY: Left leg DVT, hypertension, MRSA infection, chronic kidney disease, bipolar disorder with manic episode. PAST SURGICAL HISTORY: Back surgery, hernia repair, pacemaker, tonsillectomy. SOCIAL HISTORY: The patient did marijuana in the past. Smokes a half pack for close to 50 years. Drinks alcohol occasionally. FAMILY HISTORY: Reviewed with the patient, noncontributory. CURRENT MEDICATIONS: Depakote ER 1000 mg q.h.s., Ativan p.r.n., Lopressor 25 mg b.i.d., Nitrostat 0.4 sublingual p.r.n., Amitiza 24 mcg p.o. b.i.d., Risperdal 1 mg t.i.d., Coumadin 5 mg in the evening, Geodon p.r.n. 20 mg IM. ALLERGIES: To HALDOL. PHYSICAL EXAMINATION: Temperature 98.3, pulse 80, respiratory 18, blood pressure 115/77, pulse 96%. GENERAL APPEARANCE: Sitting up comfortable, awake. EYES: Pupils equal. Conjunctivae normal. HEENT: External appearance of nose and ears normal. Oral cavity normal. NECK: JVD not raised. Mass not palpable. RESPIRATORY: Effort normal. Lungs, slightly decreased breath sounds. CARDIOVASCULAR: 1st and 2nd sounds, no edema. ABDOMEN: Soft, nontender. Liver and spleen not palpable. LYMPHATIC: No lymph nod palpable in the neck or axillae. PSYCHIATRY: The patient is rather hyper excited going from one topic to another topic, sometimes not making sense. MUSCULOSKELETAL: None. INVESTIGATIONS: INR 1.6. Recent LDL was 143. TSH was 1.8. ASSESSMENT: 1. Bipolar disorder with acute flare-up of manic episode, recurrent. 2. Chronic leg deep venous thrombosis, chronic, on Coumadin. 3. Coumadin monitoring. 4. Chronic kidney disease stage 3 probably from nephrosclerosis. 5. Chronic nicotine dependence. Patient is a cigarette smoker. PLAN: Continue current medication and treatment plan. The patient will be given a nicotine patch. Thank you, Dr. Ramirez. The patient should follow up with his family doctor upon discharge. MMODL / IJN: [id number] /
[2018-02-13] MEDS ORDERED: WARFARIN 7.5 MG TAB PO ONE (18:00)
[2018-02-13] MEDS: DIVALPROEX ER 500 MG TAB.ER.24H PO SCH (20:39)
[2018-02-14] MEDS: risperiDONE 1 MG TAB PO SCH ×3 (08:39→16:39)
[2018-02-14] MEDS: METOPROLOL TARTRATE 25 MG TAB PO SCH ×3 (08:39→20:21)
[2018-02-14 09:12] LABS: INR 1.7 (<1.2); Prothrombin Time 15.7 sec (9.0-12.0)
[2018-02-14] MEDS: WARFARIN 5 MG TAB PO SCH (17:36)
[2018-02-14] MEDS: DIVALPROEX ER 500 MG TAB.ER.24H PO SCH (20:21)
[2018-02-14] MEDS: LORazepam 1 MG TAB PO PRN (23:09)
[2018-02-15] MEDS: METOPROLOL TARTRATE 25 MG TAB PO SCH ×3 (08:18→21:46)
[2018-02-15] MEDS: risperiDONE 1 MG TAB PO SCH ×3 (08:18→16:25)
[2018-02-15 08:27] LABS: INR 1.6 (<1.2); Prothrombin Time 14.5 sec (9.0-12.0)
--- NOTE | 2018-02-15 12:48 | PN ---
PROGRESS NOTE The patient has been interviewed, found still very hyperverbal. He reports that his mood has been getting a little better. He is not as agitated. He is not as angry. He still hyperverbal. He still has flight of ideas. He brought me a map of his house where he is throwing a Halloween republican. He insisted that I should come there. He is going from 1 topic to another and hard to redirect at times, but fairly well controlled. He did not sleep good last night. He denies hearing voices or seeing things. MENTAL STATUS EXAM: Patient is alert, awake, oriented x3. He has fair eye contact. Speech hyperverbal. Pressured speech. Mood irritable with common affect. He denies any suicidal ideation and I have not seen responding to internal stimuli. Insight and judgment improving slowing gradually. ASSESSMENT: Bipolar disorder type 1, most recent episode manic with psychotic features. PLAN: We will continue to adjust medications accordingly. Encourage to attend groups and meetings. Supportive therapy provided. We may titrate up this Risperdal if his psychosis does not resolve in a few days. MMODL / IJN: [id number] /
[2018-02-15] MEDS: WARFARIN 5 MG TAB PO SCH (18:43)
[2018-02-15] MEDS: DIVALPROEX ER 500 MG TAB.ER.24H PO SCH (21:45)
[2018-02-15] MEDS: LORazepam 1 MG TAB PO PRN (23:22)
[2018-02-16] MEDS: risperiDONE 1 MG TAB PO SCH ×3 (08:44→17:02)
[2018-02-16] MEDS: METOPROLOL TARTRATE 25 MG TAB PO SCH ×3 (08:44→20:42)
[2018-02-16 08:48] LABS: INR 1.5 (<1.2); Prothrombin Time 13.7 sec (9.0-12.0)
[2018-02-16] MEDS: WARFARIN 5 MG TAB PO SCH (17:02)
--- NOTE | 2018-02-16 19:19 | PN ---
PROGRESS NOTE Today is February 16, 2018. SUBJECTIVE: Patient seen and interviewed. Found still hyper. He is still fixated about Halloween democrat who he is planning to have once he gets home. He is inviting everybody on the unit. He still is not sleeping as good, though he claims he has been sleeping better. He denies hearing voices, seeing things. Denies any other issues. Medication compliant. MENTAL STATUS EXAMINATION: Patient is alert and oriented x4. Has fair eye contact. Speech is hyperverbal, pressured speech. Mood is elated, irritable with congruent affect. He denies any suicidal ideations. I have not seen responding to internal stimuli. Insight, judgment, improving slowly and gradually. ASSESSMENT: Bipolar disorder type 1, most recent episode manic with psychotic features. PLAN: We will continue to adjust medications accordingly. Encourage to attend groups and meetings. Support therapy provided. ROSEMARIE / SANDEE: [id number] /
[2018-02-16] MEDS: DIVALPROEX ER 500 MG TAB.ER.24H PO SCH (20:42)
[2018-02-17 08:40] LABS: INR 1.5 (<1.2); Prothrombin Time 14.2 sec (9.0-12.0)
[2018-02-17] MEDS: risperiDONE 1 MG TAB PO SCH ×3 (08:59→17:16)
[2018-02-17] MEDS: METOPROLOL TARTRATE 25 MG TAB PO SCH ×3 (08:59→20:18)
--- NOTE | 2018-02-17 11:02 | P.PN ---
Progress Note - Text Interval history: The patient is found in the hallway he follows me to an interview room. He indicates his mood is better. He states he slept 7 hours last night appetite is stable. He had previously called his energy attorney to call me and again to discuss the option of a deferral. I was informed that the patient did in fact sign a deferral after the second meeting with his energy attorney. We reviewed his psychotropic medications as questions were answered. We discussed that we will draw a Depakote level tomorrow. The patient is focused on being discharged and he is hoping he will leave in the next 1-2 days. Mental status exam: The patient is alert hygiene grooming are improved. He is dressed in his own clothing. He is hyperverbal but more directable. He demonstrated no agitated behavior during the session. He does continue to have grandiose thinking that his known to be part of his Delusional thought content. He is reporting no homicidal ideation intent or plan now suicidal ideation intent or plan. Insight and judgment limited. He is oriented to person place and date. He demonstrates an expansive affect. He is reporting no auditory or visual hallucinations. Plan: We will continue his psychotropic medications as written. We will draw a Depakote level and check his liver enzymes in the morning. We will monitor him for safety. It does appear that he starting to approximate his baseline function. Vital signs reviewed.
[2018-02-17] MEDS: WARFARIN 5 MG TAB PO SCH (17:16)
[2018-02-17] MEDS: DIVALPROEX ER 500 MG TAB.ER.24H PO SCH (20:18)
[2018-02-17] MEDS: LORazepam 1 MG TAB PO PRN (22:37)
[2018-02-18] MEDS: risperiDONE 1 MG TAB PO SCH ×3 (08:36→17:44)
[2018-02-18 08:37] LABS: Valproic Acid (Depakene) 49.6 ug/mL
[2018-02-18] MEDS: METOPROLOL TARTRATE 25 MG TAB PO SCH ×3 (09:21→20:07)
--- NOTE | 2018-02-18 09:33 | P.PN ---
Progress Note - Text Interval history: The patient is found in the desktop publishing operator he follows me to an interview room. He reports his mood is stable. He spontaneously states that he is not having racing thoughts. He had some difficulty sleeping overnight but he states when he adds up the hours he slept throughout the day he slept 6- 7 hours. Appetite is stable. He is compliant with his medication. Depakote levels back at approximate 49. He has been attending groups. He is observed helping other patients by pushing wheelchairs etc. Mental status exam: The patient is a tall overweight male appearing his stated age. He is dressed in his own clothing. Hygiene and grooming are adequate. He is wearing his eyeglasses. Speech is fluent spontaneous he is less verbose. He is able to remain seated in the chair without speaking for longer periods of time. He is reporting no suicidal or homicidal ideation intent or plan. He does continue to have some grandiose thinking but again that is likely part of his chronic baseline. He can have some tangential thinking at times but he is more linear. He demonstrates no verbal or physical aggressiveness he demonstrates no abnormal involuntary movements. Insight and judgment improving. He is fully oriented to person place and date. Plan: The patient will continue on his current medications. We will monitor him for safety. He is stabilizing. Hygiene has improved he is more directable. In our sessions he is demonstrating no aggressiveness verbally or physically. We will consider discharging him in the next 1-2 days. I will confer with the treatment team regarding his behavior over the last 24 hours. Vital signs reviewed.
[2018-02-18] MEDS: WARFARIN 5 MG TAB PO SCH (17:45)
[2018-02-18] MEDS: DIVALPROEX ER 500 MG TAB.ER.24H PO SCH (20:07)
[2018-02-19 06:50] VITALS: TEMP 98.2
--- NOTE | 2018-02-19 08:58 | P.DS ---
Providers Date of admission: 02/12/18 14:24 Expected date of discharge: 02/19/18 Attending physician: Marcel Ramirez Consults: 02/12/18 15:38 Consult Physician Routine Consulting Provider: Earl Curry Consult Reason/Comments: H & P and medical management Do you want consulting provider notified?: Yes Primary care physician: Jaspal Melgoza - Discharge Diagnosis(es) (1) Bipolar I, recurrent manic episode, severe with psychotic behavior Current Visit: Yes Status: Acute Priority: High Hospital Course: Brief summary of admission note: This patient is a 62-year-old male who was admitted with symptoms of acute kaley and psychosis. The patient is well known to this inpatient service. He was reporting grandiose thoughts he demonstrated tangential thinking and flight of ideas. Upon initial evaluation he was found to be manic he had pressured speech and was difficult to direct. He required a Geodon injection in the emergency room due to agitated behavior. He presented with poor ADLs he was malodorous and quite disheveled. For full details please refer to the psychiatric evaluation dated 02/13/2018. Summary of hospital course: The patient was admitted to the mental health unit in voluntarily. A second clinical certificate was completed. An initial deferral conference was held and the patient did not to further court hearing. Subsequently the patient contacted his heat transfer technician again they held another meeting and the patient decided to defer. The patient was continued on his Risperdal 1 mg 3 times daily and Depakote ER was reinstituted at 1000 mg at bedtime. During the hospitalization the patient's acute symptoms of kaley resolved. He is known at baseline to have hypomanic features as well as delusional thought area he has been able to sit through groups and not interrupt he has been pleasant and cooperative and much more directable. He is showering he is eating. He is reporting no thoughts of harming himself or others. He is aware that he is on a deferral agreement and is willing to follow up with outpatient services. Mental status exam: The patient is alert he is dressed in his own clothing hygiene grooming are much improved. Eye contact is appropriate. He is able to sit in his chair and tolerate the interview. He is able to sit quietly while I speak without interrupting. He can be verbose but is easily directed. He is not demonstrating any flight of ideas or loose associations. He will at times demonstrated tangential thought. He reports no suicidal or homicidal ideation intent or plan. He is reporting no auditory or visual hallucinations. He does continue to demonstrate delusional thought that is mainly grandiose. Again the patient is known to have delusional thoughts as part of his baseline. He demonstrates no verbal or physical aggressiveness. He demonstrates no abnormal involuntary movements. He remains oriented to person place and date. Affect is appropriately expressive expansive at times. Impressions 1. Bipolar 1 disorder most recent manic with psychosis 2. History of DVT, hypertension Plan: The patient will be discharged from the mental health unit today and will return to his residence. Social work has conducted a support meeting with his roommate. The patient will continue on Risperdal 1 mg 3 times daily and Depakote ER 1000 mg at bedtime. We discussed the implications of the deferral agreement. He is instructed to use no alcohol marijuana or any other illicit drugs as they can destabilize him and elevate his safety risk area at this time his acute symptoms appear much improved and he is appropriate for transition back to outpatient care. He is instructed to return to the hospital with any acute safety concerns. He will follow up with primary care as needed. Patient Condition at Discharge: Stable Plan - Discharge Summary Discharge Rx Participant: No New Discharge Prescriptions: New Divalproex ER [Depakote ER] 1,000 mg PO HS #60 tab.er.24h Continue Metoprolol Tartrate [Lopressor] 25 mg PO TID Lubiprostone [Amitiza] 24 mcg PO BID Warfarin [Coumadin] 5 mg PO HS risperiDONE [RisperDAL] 1 mg PO AC-TID #45 tab Discontinued Doxepin HCl [SINEquan] 200 mg PO HS Discharge Medication List Lubiprostone [Amitiza] 24 mcg PO BID 02/11/18 [History] Metoprolol Tartrate [Lopressor] 25 mg PO TID 02/11/18 [History] Warfarin [Coumadin] 5 mg PO HS 02/11/18 [History] Divalproex ER [Depakote ER] 1,000 mg PO HS #60 tab.er.24h 02/19/18 [Rx] risperiDONE [RisperDAL] 1 mg PO AC-TID #45 tab 02/19/18 [Rx]
[2018-02-19] MEDS: METOPROLOL TARTRATE 25 MG TAB PO SCH (09:00)
[2018-02-19] MEDS: risperiDONE 1 MG TAB PO SCH ×2 (09:00→12:27)
[2018-02-19 13:08] VITALS: BP 148/91; PULSE 113; RESP 20
== END 2018-02-19 13:34 | disposition home or self-care (01) | DRG 885 ==
LOC: 3MHU 14:24
PROVIDERS: ADMIT Psychiatry & Neurology Psychiatry; ATTEND Psychiatry & Neurology Psychiatry
DX: F31.2 Bipolar disorder, current episode manic severe with psychotic features (principal); F17.210 Nicotine dependence, cigarettes, uncomplicated; I12.9 Hypertensive chronic kidney disease with stage 1 through stage 4 chronic kidney disease, or unspecified chronic kidney disease; N18.3 Chronic kidney disease, stage 3 (moderate); Z79.01 Long term (current) use of anticoagulants; Z79.899 Other long term (current) drug therapy; Z86.14 Personal history of Methicillin resistant Staphylococcus aureus infection; Z86.718 Personal history of other venous thrombosis and embolism; E66.3 Overweight
CPT/HCPCS: 80164; 84443; 84450; 84460; 85610

== ENCOUNTER 2018-02-21 04:14 | Emergency (ER) | payer MEDICARE, OTHER ==
[2018-02-21 04:28] VITALS: BP 174/84; RESP 20; TEMP 97.7
[2018-02-21 04:40] VITALS: PULSE 103
--- NOTE | 2018-02-21 04:40 | ED ---
General Adult HPI - General Chief complaint: Extremity Injury, Lower Stated complaint: Needs leg brace Source: patient Mode of arrival: ambulatory Limitations: no limitations - History of Present Illness Initial comments: Dictation was produced using [employer] dictation software. please excuse any grammatical, word or spelling errors. Chief Complaint: 60-year-old male presents with request for ankle brace. History of Present Illness: Patient is a 62-year-old male with past medical history of hypertension, kidney disease presents with foot pain. He is requesting ankle brace. Patient states he had an ankle brace that he received 5 years ago however he lost it. He states that he got an ankle brace here. Patient complains of pain over the heel of his right ankle. He points to the distal insertion of his Achilles tendon. The ROS documented in this emergency department record has been reviewed and confirmed by me. Those systems with pertinent positive or negative responses have been documented in the HPI. All other systems are other negative and/or noncontributory. - Related Data Home Medications Medication Instructions Recorded Confirmed Lubiprostone [Amitiza] 24 mcg PO BID 02/11/18 02/12/18 Metoprolol Tartrate [Lopressor] 25 mg PO TID 02/11/18 02/12/18 Warfarin [Coumadin] 5 mg PO HS 02/11/18 02/12/18 Previous Rx's Medication Instructions Recorded Divalproex ER [Depakote ER] 1,000 mg PO HS #60 tab.er.24h 02/19/18 risperiDONE [RisperDAL] 1 mg PO AC-TID #45 tab 02/19/18 Allergies Allergy/AdvReac Type Severity Reaction Status Date / Time haloperidol [From Haldol] Allergy Unknown Verified 02/21/18 04:29 haloperidol lactate Allergy Unknown Verified 02/21/18 04:29 [From Haldol] Review of Systems ROS Statement: Those systems with pertinent positive or pertinent negative responses have been documented in the HPI. ROS Other: All systems not noted in ROS Statement are negative. 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 Curry's report) History of Any Multi-Drug Resistant Organisms: MRSA Date of last positivie culture/infection: 04/27/2014 MDRO Source:: Right Arm Past Surgical History: Back Surgery, Hernia Repair, Pacemaker, Tonsillectomy Past Anesthesia/Blood Transfusion Reactions: Previous Problems w/ Anesthesia Additional Past Anesthesia/Blood Transfusion Reaction / Comment(s): STATES " HARD TIME BREATHING LAYING FLAT, I'M A MOUTH BREATHER" Type of Cardiac Device: Permanent Pacemaker Device Placement Date:: 2015 Past Psychological History: Bipolar Smoking Status: Light tobacco smoker Past Alcohol Use History: Rare Past Drug Use History: None Reported - Past Family History Father History Unknown: Yes Mother History Unknown: Yes General Exam - General Exam Comments Initial Comments: PHYSICAL EXAM: General Impression: Alert and oriented x3, not in acute distress HEENT: Normocephalic atraumatic, extra-ocular movements intact, pupils equal and reactive to light bilaterally, mucous membranes moist. Cardiovascular: Heart regular rate and rhythm, S1&S2 audible, no murmurs, rubs or gallops Chest: Lungs clear to auscultation bilaterally, no rhonchi, no wheeze, no rales Abdomen: Bowel sounds present, abdomen soft, non-tender, non-distended, no organomegaly Musculoskeletal: Pulses present and equal in all extremities, no peripheral edema, tenderness with palpation over the right Achilles tendon, patient has intact squeeze test. Patient has normal strength with plantar flexion Motor: Power 5/5 bilaterally, no focal deficits noted Neurological: CN II-XII grossly intact, no focal motor or sensory deficits noted Skin: Intact with no visualized rashes Psych: Normal affect and mood Limitations: no limitations Course Vital Signs 02/21/18 04:26 Temperature 97.7 F Pulse Rate 116 H Respiratory 20 Rate Blood Pressure 174/84 O2 Sat by Pulse 95 Oximetry Medical Decision Making - Medical Decision Making ED course: 62-year-old male presents with request for ankle brace. Patient has chronic ankle pain. Patient's symptoms likely secondary to tendinitis of his Achilles tendon. He is told to follow-up with his primary care physician upon discharge. Patient provided with brace. Initial vital signs shows tachycardia 116, rest of vital signs within normal limits. Repeat vital signs are improved. Patient is well-appearing. Patient told to take Motrin or Tylenol for his pain. Disposition Clinical Impression: Foot pain Disposition: HOME SELF-CARE Instructions: Foot Sprain (ED) Is patient prescribed a controlled substance at d/c from ED?: No Referrals: Jaspal Melgoza MD [Primary Care Provider] - 1-2 days Time of Disposition: 04:39
== END 2018-02-21 04:44 | disposition home or self-care (01) ==
LOC: EC 04:14
DX: M79.671 Pain in right foot (principal); G89.29 Other chronic pain; M25.571 Pain in right ankle and joints of right foot; I12.9 Hypertensive chronic kidney disease with stage 1 through stage 4 chronic kidney disease, or unspecified chronic kidney disease; N18.3 Chronic kidney disease, stage 3 (moderate); F17.200 Nicotine dependence, unspecified, uncomplicated; Z79.01 Long term (current) use of anticoagulants; Z79.899 Other long term (current) drug therapy; Z88.8 Allergy status to other drugs, medicaments and biological substances; Z86.14 Personal history of Methicillin resistant Staphylococcus aureus infection; Z86.718 Personal history of other venous thrombosis and embolism
CPT/HCPCS: 99283; 29515; L4350

== ENCOUNTER 2018-02-24 00:33 | Emergency (ER) | payer MEDICARE, OTHER ==
[2018-02-24 00:40] VITALS: BP 121/72; PULSE 72; RESP 18; TEMP 98.4
--- NOTE | 2018-02-24 00:47 | ED ---
General Adult HPI - General Chief complaint: Psychiatric Symptoms Stated complaint: Mental health Time Seen by Provider: 02/24/18 00:47 Source: patient Mode of arrival: ambulatory Limitations: no limitations - History of Present Illness Initial comments: 62-year-old male with a history of bipolar who came to the emergency department today after his friend urged him to come for evaluation with concern that he may be manic. A she reports that he is just feeling happy, that things are going quite well in his life, he is living with a family member. He does state that he has recently bought some furniture for the home because he didn't like the old fracture. He denies any suicidal or homicidal ideations. - Related Data Home Medications Medication Instructions Recorded Confirmed Lubiprostone [Amitiza] 24 mcg PO BID 02/11/18 02/12/18 Metoprolol Tartrate [Lopressor] 25 mg PO TID 02/11/18 02/12/18 Warfarin [Coumadin] 5 mg PO HS 02/11/18 02/12/18 Previous Rx's Medication Instructions Recorded Divalproex ER [Depakote ER] 1,000 mg PO HS #60 tab.er.24h 02/19/18 risperiDONE [RisperDAL] 1 mg PO AC-TID #45 tab 02/19/18 Allergies Allergy/AdvReac Type Severity Reaction Status Date / Time haloperidol [From Haldol] Allergy Unknown Verified 02/24/18 00:40 haloperidol lactate Allergy Unknown Verified 02/24/18 00:40 [From Haldol] Review of Systems ROS Statement: Those systems with pertinent positive or pertinent negative responses have been documented in the HPI. ROS Other: All systems not noted in ROS Statement are negative. 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 Curry's report) History of Any Multi-Drug Resistant Organisms: MRSA Date of last positivie culture/infection: 04/27/2014 MDRO Source:: Right Arm Past Surgical History: Back Surgery, Hernia Repair, Pacemaker, Tonsillectomy Past Anesthesia/Blood Transfusion Reactions: Previous Problems w/ Anesthesia Additional Past Anesthesia/Blood Transfusion Reaction / Comment(s): STATES " HARD TIME BREATHING LAYING FLAT, I'M A MOUTH BREATHER" Type of Cardiac Device: Permanent Pacemaker Device Placement Date:: 2015 Past Psychological History: Bipolar Smoking Status: Light tobacco smoker Past Alcohol Use History: Rare Past Drug Use History: Marijuana - Past Family History Father History Unknown: Yes Mother History Unknown: Yes General Exam Limitations: no limitations General appearance: alert, in no apparent distress Head exam: Present: atraumatic, normocephalic Eye exam: Present: normal appearance, PERRL ENT exam: Present: normal exam Respiratory exam: Absent: respiratory distress Cardiovascular Exam: Present: regular rate, normal rhythm GI/Abdominal exam: Present: soft. Absent: distended Rectal exam: Present: deferred Extremities exam: Present: full ROM, other (Significant swelling of the right lower extremity, unchanged from previous per the patient) Back exam: Present: full ROM Neurological exam: Present: alert, oriented X3 Psychiatric exam: Present: agitated, manic. Absent: depressed, homicidal ideation, suicidal ideation Skin exam: Present: warm, dry Course Vital Signs 02/24/18 00:37 Temperature 98.4 F Pulse Rate 72 Respiratory 18 Rate Blood Pressure 121/72 O2 Sat by Pulse 98 Oximetry Medical Decision Making - Medical Decision Making The patient was seen and evaluated. Patient was stating that he would only cooperate with the psychiatric nurses he is familiar with them. Psychiatric nurse at bedside encourage the patient to change into a gown and be cooperative. Patient wasn't cooperative with exam. Psychiatric nurse very familiar with the patient as the patient has been admitted for long periods of time in the past. She states that he is at his baseline, not homicidal, not suicidal, she does agree that he may be hypomanic but not a danger to himself or others. She discussed his care with psychiatrist on-call who agrees the patient is stable for follow-up outpatient. Patient continued to interpretive naturalist the doorway of his room, eager for discharge home. Disposition Clinical Impression: Bipolar disorder Disposition: HOME SELF-CARE Condition: Good Instructions: Bipolar Disorder (ED) Is patient prescribed a controlled substance at d/c from ED?: No Referrals: Jaspal Melgoza MD [Primary Care Provider] - 1-2 days Time of Disposition: 02:25
== END 2018-02-24 02:46 | disposition home or self-care (01) ==
LOC: EC 00:33
DX: F30.9 Manic episode, unspecified (principal); I10 Essential (primary) hypertension; F17.200 Nicotine dependence, unspecified, uncomplicated; Z79.01 Long term (current) use of anticoagulants; Z79.899 Other long term (current) drug therapy; Z88.8 Allergy status to other drugs, medicaments and biological substances; Z86.718 Personal history of other venous thrombosis and embolism; Z86.14 Personal history of Methicillin resistant Staphylococcus aureus infection; Z95.0 Presence of cardiac pacemaker
CPT/HCPCS: 82075; 99284

== ENCOUNTER 2018-02-27 09:26 | Inpatient (IN) | payer MEDICARE, OTHER ==
[2018-02-27] MEDS ORDERED: LORazepam 2 MG/ML INJ IM STA (09:55)
[2018-02-27] MEDS ORDERED: IBUPROFEN IV 600 MG in SODIUM CHLORIDE 0.9% 250 ML IV STA (09:56)
[2018-02-27] MEDS ORDERED: ACETAMINOPHEN TAB 500 MG TAB PO STA (09:56)
[2018-02-27] MEDS ORDERED: SODIUM CHLORIDE 0.9% 1,000 ML IV SCH (10:00)
--- NOTE | 2018-02-27 10:03 | ED ---
Extremity Problem HPI - General Chief complaint: Extremity Problem,Nontraumatic Stated complaint: bilat leg swelling Time Seen by Provider: 02/27/18 09:34 Source: patient, EMS, RN notes reviewed, old records reviewed Mode of arrival: EMS Limitations: no limitations - History of Present Illness Initial comments: This is a 62-year-old male presents emergency department with police escort and EMS for altered mental status, infection over his right leg. Patient has been petitioned by his public guardian today for treatment. Patient was refusing to get in the ambulance. Patient has had increased redness and swelling to the right lower extremity, worse over the past 3 days. Patient asked emergency department tachycardic with a fever. Does have history of a pacemaker. Patient was recently evaluated by EPS. Patient's public guardian reports they' re going to get urgency probably guardianship over the Patient and according hearing this afternoon at 1. Patient denies any falls or trauma. - Related Data Home Medications Medication Instructions Recorded Confirmed Lubiprostone [Amitiza] 24 mcg PO BID 02/11/18 02/12/18 Metoprolol Tartrate [Lopressor] 25 mg PO TID 02/11/18 02/12/18 Warfarin [Coumadin] 5 mg PO HS 02/11/18 02/12/18 Previous Rx's Medication Instructions Recorded Divalproex ER [Depakote ER] 1,000 mg PO HS #60 tab.er.24h 02/19/18 risperiDONE [RisperDAL] 1 mg PO AC-TID #45 tab 02/19/18 Allergies Allergy/AdvReac Type Severity Reaction Status Date / Time haloperidol [From Haldol] Allergy Unknown Verified 02/27/18 09:28 haloperidol lactate Allergy Unknown Verified 02/27/18 09:28 [From Haldol] Review of Systems ROS Statement: Those systems with pertinent positive or pertinent negative responses have been documented in the HPI. ROS Other: All systems not noted in ROS Statement are negative. 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 Curry's report) History of Any Multi-Drug Resistant Organisms: MRSA Date of last positivie culture/infection: 04/27/2014 MDRO Source:: Right Arm Past Surgical History: Back Surgery, Hernia Repair, Pacemaker, Tonsillectomy Past Anesthesia/Blood Transfusion Reactions: Previous Problems w/ Anesthesia Additional Past Anesthesia/Blood Transfusion Reaction / Comment(s): STATES " HARD TIME BREATHING LAYING FLAT, I'M A MOUTH BREATHER" Type of Cardiac Device: Permanent Pacemaker Device Placement Date:: 2015 Past Psychological History: Bipolar Smoking Status: Light tobacco smoker Past Alcohol Use History: Rare Past Drug Use History: Marijuana - Past Family History Father History Unknown: Yes Mother History Unknown: Yes General Exam - General Exam Comments Initial Comments: This is a 62-year-old male. He is alert 2. Can state location. Does not know date. When I asked the Patient what day it was Patient states "he has to go get his lunch box". Limitations: no limitations General appearance: alert, in no apparent distress Head exam: Present: atraumatic, normocephalic, normal inspection Eye exam: Present: normal appearance, PERRL, EOMI. Absent: scleral icterus, conjunctival injection, periorbital swelling ENT exam: Present: normal exam, mucous membranes moist Neck exam: Present: normal inspection. Absent: tenderness, meningismus, lymphadenopathy Respiratory exam: Present: normal lung sounds bilaterally. Absent: respiratory distress, wheezes, rales, rhonchi, stridor Cardiovascular Exam: Present: regular rate, normal rhythm, normal heart sounds. Absent: systolic murmur, diastolic murmur, rubs, gallop, clicks GI/Abdominal exam: Present: soft, normal bowel sounds. Absent: distended, tenderness, guarding, rebound, rigid Extremities exam: Present: normal inspection, full ROM, normal capillary refill , other (Patient has significant erythema extending up the right lower extremity tenderness palpation. 4 plus pedal edema. Dorsalis pedis pulse obtained. ). Absent: tenderness, pedal edema, joint swelling, calf tenderness Back exam: Present: normal inspection, full ROM Neurological exam: Present: alert, CN II-XII intact, abnormal gait. Absent: oriented X3, normal gait Psychiatric exam: Present: agitated (Altered). Absent: normal affect, normal mood Skin exam: Present: warm, dry, intact, normal color. Absent: rash Course Vital Signs 02/27/18 09:28 Temperature 99.5 F Pulse Rate 111 H Respiratory 16 Rate Blood Pressure 146/76 O2 Sat by Pulse 96 Oximetry Medical Decision Making - Medical Decision Making 62-year-old male presents emergency department today with altered mental status , and right leg pain and swelling. Worse for the past 3 days. Present with his guardians. He is confused to date time. This is not his baseline. CT brain was completed and negative for any acute process. Patient started on IV fluids labwork obtained. He was tachycardic, slight intermittent 9.5. He does have extensive swelling and erythema of the right leg as well as some erythema on the left leg. Ultrasound was completed on the right leg is worsening swelling. Negative for DVT. X-ray shows soft tissue swelling but no acute process. Patient was started on 2 L bolus of fluids, given Tylenol, did start the Patient on Zosyn and vancomycin for cellulitis of leg. He does have significant pedal edema. Is also noted the patient's troponin is elevated 0.115. Most likely reaction to the fever and sepsis. He complains of no chest pain at this time. Patient will be medicine for altered mental status, sepsis, left leg cellulitis. - Lab Data Result diagrams: 02/27/18 10:10 02/27/18 10:10 Lab Results 02/27/18 02/27/18 02/27/18 Range/Units 10:10 10:10 10:10 WBC 9.3 (3.8-10.6) k/uL RBC 3.82 L (4.30-5.90) m/uL Hgb 11.8 L (13.0-17.5) gm/dL Hct 36.4 L (39.0-53.0) % MCV 95.5 (80.0-100.0) fL MCH 30.8 (25.0-35.0) pg MCHC 32.3 (31.0-37.0) g/dL RDW 15.1 (11.5-15.5) % Plt Count 225 (150-450) k/uL Neutrophils % 78 % Lymphocytes % 12 % Monocytes % 8 % Eosinophils % 2 % Basophils % 0 % Neutrophils # 7.2 (1.3-7.7) k/uL Lymphocytes # 1.1 (1.0-4.8) k/uL Monocytes # 0.7 (0-1.0) k/uL Eosinophils # 0.1 (0-0.7) k/uL Basophils # 0.0 (0-0.2) k/uL PT (9.0-12.0) sec INR (<1.2) APTT (22.0-30.0) sec Sodium 143 (137-145) mmol/L Potassium 4.0 (3.5-5.1) mmol/L Chloride 114 H (98-107) mmol/L Carbon Dioxide 21 L (22-30) mmol/L Anion Gap 8 mmol/L BUN 17 (9-20) mg/dL Creatinine 1.76 H (0.66-1.25) mg/dL Est GFR (CKD-EPI)AfAm 47 (>60 ml/min/1.73 sqM) Est GFR (CKD-EPI)NonAf 41 (>60 ml/min/1.73 sqM) Glucose 112 H (74-99) mg/dL Plasma Lactic Acid Jaya 1.7 (0.7-2.0) mmol/L Calcium 8.9 (8.4-10.2) mg/dL Total Bilirubin 0.8 (0.2-1.3) mg/dL AST 55 (17-59) U/L ALT 35 (21-72) U/L Alkaline Phosphatase 89 (38-126) U/L Troponin I (0.000-0.034) ng/mL Total Protein 6.6 (6.3-8.2) g/dL Albumin 3.6 (3.5-5.0) g/dL Urine Color Urine Appearance (Clear) Urine pH (5.0-8.0) Ur Specific [place] (1.001-1.035) Urine Protein (Negative) Urine Glucose (UA) (Negative) Urine Ketones (Negative) Urine Blood (Negative) Urine Nitrite (Negative) Urine Bilirubin (Negative) Urine Urobilinogen (<2.0) mg/dL Ur Leukocyte Esterase (Negative) Urine Opiates Screen (NotDetected) Ur Oxycodone Screen (NotDetected) Urine Methadone Screen (NotDetected) Ur Propoxyphene Screen (NotDetected) Ur Barbiturates Screen (NotDetected) U Tricyclic Antidepress (NotDetected) Ur Phencyclidine Scrn (NotDetected) Ur Amphetamines Screen (NotDetected) U Methamphetamines Scrn (NotDetected) U Benzodiazepines Scrn (NotDetected) Urine Cocaine Screen (NotDetected) U Marijuana (THC) Screen (NotDetected) 02/27/18 02/27/18 02/27/18 Range/Units 10:10 10:10 11:15 WBC (3.8-10.6) k/uL RBC (4.30-5.90) m/uL Hgb (13.0-17.5) gm/dL Hct (39.0-53.0) % MCV (80.0-100.0) fL MCH (25.0-35.0) pg MCHC (31.0-37.0) g/dL RDW (11.5-15.5) % Plt Count (150-450) k/uL Neutrophils % % Lymphocytes % % Monocytes % % Eosinophils % % Basophils % % Neutrophils # (1.3-7.7) k/uL Lymphocytes # (1.0-4.8) k/uL Monocytes # (0-1.0) k/uL Eosinophils # (0-0.7) k/uL Basophils # (0-0.2) k/uL PT 10.3 (9.0-12.0) sec INR 1.1 (<1.2) APTT 22.4 (22.0-30.0) sec Sodium (137-145) mmol/L Potassium (3.5-5.1) mmol/L Chloride (98-107) mmol/L Carbon Dioxide (22-30) mmol/L Anion Gap mmol/L BUN (9-20) mg/dL Creatinine (0.66-1.25) mg/dL Est GFR (CKD-EPI)AfAm (>60 ml/min/1.73 sqM) Est GFR (CKD-EPI)NonAf (>60 ml/min/1.73 sqM) Glucose (74-99) mg/dL Plasma Lactic Acid Jaya (0.7-2.0) mmol/L Calcium (8.4-10.2) mg/dL Total Bilirubin (0.2-1.3) mg/dL AST (17-59) U/L ALT (21-72) U/L Alkaline Phosphatase (38-126) U/L Troponin I 0.115 H* (0.000-0.034) ng/mL Total Protein (6.3-8.2) g/dL Albumin (3.5-5.0) g/dL Urine Color Light Yellow Urine Appearance Clear (Clear) Urine pH 6.0 (5.0-8.0) Ur Specific [place] 1.004 (1.001-1.035) Urine Protein Trace H (Negative) Urine Glucose (UA) Negative (Negative) Urine Ketones Negative (Negative) Urine Blood Negative (Negative) Urine Nitrite Negative (Negative) Urine Bilirubin Negative (Negative) Urine Urobilinogen <2.0 (<2.0) mg/dL Ur Leukocyte Esterase Negative (Negative) Urine Opiates Screen (NotDetected) Ur Oxycodone Screen (NotDetected) Urine Methadone Screen (NotDetected) Ur Propoxyphene Screen (NotDetected) Ur Barbiturates Screen (NotDetected) U Tricyclic Antidepress (NotDetected) Ur Phencyclidine Scrn (NotDetected) Ur Amphetamines Screen (NotDetected) U Methamphetamines Scrn (NotDetected) U Benzodiazepines Scrn (NotDetected) Urine Cocaine Screen (NotDetected) U Marijuana (THC) Screen (NotDetected) 02/27/18 Range/Units 11:15 WBC (3.8-10.6) k/uL RBC (4.30-5.90) m/uL Hgb (13.0-17.5) gm/dL Hct (39.0-53.0) % MCV (80.0-100.0) fL MCH (25.0-35.0) pg MCHC (31.0-37.0) g/dL RDW (11.5-15.5) % Plt Count (150-450) k/uL Neutrophils % % Lymphocytes % % Monocytes % % Eosinophils % % Basophils % % Neutrophils # (1.3-7.7) k/uL Lymphocytes # (1.0-4.8) k/uL Monocytes # (0-1.0) k/uL Eosinophils # (0-0.7) k/uL Basophils # (0-0.2) k/uL PT (9.0-12.0) sec INR (<1.2) APTT (22.0-30.0) sec Sodium (137-145) mmol/L Potassium (3.5-5.1) mmol/L Chloride (98-107) mmol/L Carbon Dioxide (22-30) mmol/L Anion Gap mmol/L BUN (9-20) mg/dL Creatinine (0.66-1.25) mg/dL Est GFR (CKD-EPI)AfAm (>60 ml/min/1.73 sqM) Est GFR (CKD-EPI)NonAf (>60 ml/min/1.73 sqM) Glucose (74-99) mg/dL Plasma Lactic Acid Jaya (0.7-2.0) mmol/L Calcium (8.4-10.2) mg/dL Total Bilirubin (0.2-1.3) mg/dL AST (17-59) U/L ALT (21-72) U/L Alkaline Phosphatase (38-126) U/L Troponin I (0.000-0.034) ng/mL Total Protein (6.3-8.2) g/dL Albumin (3.5-5.0) g/dL Urine Color Urine Appearance (Clear) Urine pH (5.0-8.0) Ur Specific [place] (1.001-1.035) Urine Protein (Negative) Urine Glucose (UA) (Negative) Urine Ketones (Negative) Urine Blood (Negative) Urine Nitrite (Negative) Urine Bilirubin (Negative) Urine Urobilinogen (<2.0) mg/dL Ur Leukocyte Esterase (Negative) Urine Opiates Screen Not Detected (NotDetected) Ur Oxycodone Screen Not Detected (NotDetected) Urine Methadone Screen Not Detected (NotDetected) Ur Propoxyphene Screen Not Detected (NotDetected) Ur Barbiturates Screen Not Detected (NotDetected) U Tricyclic Antidepress Not Detected (NotDetected) Ur Phencyclidine Scrn Not Detected (NotDetected) Ur Amphetamines Screen Not Detected (NotDetected) U Methamphetamines Scrn Not Detected (NotDetected) U Benzodiazepines Scrn Not Detected (NotDetected) Urine Cocaine Screen Not Detected (NotDetected) U Marijuana (THC) Screen Detected H (NotDetected) - Radiology Data Radiology results: report reviewed EKG shows sinus with occasional PVCs otherwise normal EKG. Ventricular rate 100 beats were noted. Was 150 ms. QRS ration 100 ms. QT QTc is 372/479 ms. Disposition Clinical Impression: Cellulitis, leg, Altered mental status, Elevated troponin, Sepsis Disposition: ADMITTED IP TO THIS HOSP Condition: Good Is patient prescribed a controlled substance at d/c from ED?: No When asked, does pt state using other controlled substances?: No If prescribed controlled substance>3 days was MAPS reviewed?: No If opioid is for acute pain is fill amount 7 days or less?: No If Rx opioid, was Start Talking consent form obtained?: No Referrals: Jaspal Melgoza MD [Primary Care Provider] - 1-2 days Time of Disposition: 13:04
[2018-02-27 10:28] LABS: Basophils % (A) 0 %; Eosinophils # (A) 0.1 k/uL (0-0.7); Eosinophils % (A) 2 %; HCT 36.4 % (39.0-53.0); HGB 11.8 gm/dL (13.0-17.5); Lymphocytes # (A) 1.1 k/uL (1.0-4.8); Lymphocytes % (A) 12 %; MCH 30.8 pg (25.0-35.0); MCHC 32.3 g/dL (31.0-37.0); MCV 95.5 fL (80.0-100.0); Mean Platelet Volume 7.4; Monocytes # (A) 0.7 k/uL (0-1.0); Monocytes % (A) 8 %; Neutrophils # (A) 7.2 k/uL (1.3-7.7); Neutrophils % (A) 78 %; Platelet Count 225 k/uL (150-450); RBC 3.82 m/uL (4.30-5.90); RDW 15.1 % (11.5-15.5); WBC 9.3 k/uL (3.8-10.6)
[2018-02-27 10:38] LABS: INR 1.1 (<1.2); Partial Thromboplastin Time 22.4 sec (22.0-30.0); Prothrombin Time 10.3 sec (9.0-12.0)
[2018-02-27 10:42] LABS: Albumin 3.6 g/dL (3.5-5.0); Calcium 8.9 mg/dL (8.4-10.2); Total Bilirubin 0.8 mg/dL (0.2-1.3); Total Protein 6.6 g/dL (6.3-8.2)
[2018-02-27 11:34] LABS: Appearance,Urine Clear (Clear); Bilirubin,Urine Negative (Negative); Blood,Urine Negative (Negative); Color,Urine Light Yellow; Glucose,Urine (UA) Negative (Negative); Ketones,Urine Negative (Negative); Leukocyte Esterase,Urine Negative (Negative); Nitrite,Urine Negative (Negative); Protein,Urine Trace (Negative); Specific Gravity,Urine 1.004 (1.001-1.035); Urobilinogen,Urine <2.0 mg/dL (<2.0)
--- NOTE | 2018-02-27 11:40 | CT ---
EXAMINATION TYPE: CT brain wo con DATE OF EXAM: 02/27/2018 COMPARISON: None HISTORY: Bilateral leg swelling CT DLP: 1012.[address] of the brain was performed. The ventricles, basal cisterns and sulci overlying the cerebral convexities demonstrate mild enlargem ent. There is no evidence for intracranial hemorrhage or sulcal effacement. There is decreased attenuation about the periventricular white matter and deep white matter of both c erebral hemispheres, compatible with chronic small vessel ischemia. Differential diagnosis does inclu de demyelination. No mass effects are seen.No midline shift. Osseous calvarium is intact. If symptoms persist consider MRI. IMPRESSION: 1. Age related atrophic and chronic small vessel ischemic change without acute intracranial process s een at this time.
--- NOTE | 2018-02-27 12:00 | US ---
EXAMINATION TYPE: US venous doppler duplex LE RT DATE OF EXAM: 02/27/2018 11:48 AM COMPARISON: US 2014 CLINICAL HISTORY: Pain. Right leg redness and swelling SIDE PERFORMED: Right TECHNIQUE: The lower extremity deep venous system is examined utilizing real time linear array sonog zev with graded compression, doppler sonography and color-flow sonography. VESSELS IMAGED: External Iliac Vein (EIV) Common Femoral Vein Deep Femoral Vein Greater Saphenous Vein * Femoral Vein Popliteal Vein Small Saphenous Vein * Proximal Calf Veins (* superficial vessels) Right Leg: No evidence of acute DVT, minimal chronic non-occluding at distal popliteal vein and midp ortion IMPRESSION: No evidence of acute deep venous thrombosis. Minimal echogenicity within the popliteal ve in distally and within its midportion represents chronic thrombosis as seen on prior of 2013 with mechelle r complete compression.
--- NOTE | 2018-02-27 12:02 | XR ---
EXAMINATION TYPE: XR chest 2V DATE OF EXAM: 02/27/2018 COMPARISON: 02/11/2018 HISTORY: Lower extremity edema and hypertension. TECHNIQUE: Frontal and lateral views of the chest are obtained. FINDINGS: There is a widened mediastinum. This could relate to patient rotation as the patient is no aleks. Repeat imaging could be performed. Moderate multilevel degenerative changes of the thoracic spine are seen. Dual lead cardiac device is unchanged over the left hemithorax. No focal consolidation, pleural effusion or pneumothorax. IMPRESSION: No acute pulmonary process. Widened mediastinum likely relates to patient rotation and r epeat chest radiograph could be performed if there is further concern.
--- NOTE | 2018-02-27 12:10 | XR ---
EXAMINATION TYPE: XR tibia fibula RT DATE OF EXAM: 02/27/2018 CLINICAL HISTORY: pain TECHNIQUE: AP and lateral images of the right tibia and fibula are obtained. COMPARISON: None. FINDINGS: There is no acute fracture/dislocation evident. The joint spaces appear within normal coronel its. The overlying soft tissue appears unremarkable. IMPRESSION: There is no acute fracture or dislocation seen. ICD 10 NO FRACTURE, INITIAL EVALUATION
[2018-02-27] MEDS ORDERED: LORazepam 2 MG/ML INJ IV STA (12:13)
[2018-02-27] MEDS: SODIUM CHLORIDE 0.9% 500 ML IV SCH ×4 (12:16→14:32)
[2018-02-27] MEDS ORDERED: PIPERACILLIN-TAZOBACTAM 3.375 GM in DEXTROSE/WATER 1 50ML.BAG IVPB STA (12:33)
[2018-02-27] MEDS ORDERED: VANCOMYCIN IV PER PHARMACY 1 EACH MISC MISCELLANE PRN (12:33)
[2018-02-27] MEDS ORDERED: VANCOMYCIN 2,000 MG in SODIUM CHLORIDE 0.9% 500 ML IVPB STA (12:44)
[2018-02-27 12:47] LABS: Amphetamine Screen,Urine Not Detected (NotDetected); Barbiturate Screen,Urine Not Detected (NotDetected); Benzodiazepines Screen,Urine Not Detected (NotDetected); Cocaine Screen,Urine Not Detected (NotDetected); Methadone Screen, Urine Not Detected (NotDetected); Opiate Screen,Urine Not Detected (NotDetected); Oxycodone Screen, Urine Not Detected (NotDetected); Phencyclidine Screen,Urine Not Detected (NotDetected); Tricyclic Antidepressant,Urine Not Detected (NotDetected); Urn Cannabinoid Scrn Detected (NotDetected)
[2018-02-27] MEDS ORDERED: ONDANSETRON 4 MG/2 ML VIAL IVP PRN (13:05)
[2018-02-27] MEDS ORDERED: IBUPROFEN 400 MG TAB PO PRN (13:05)
[2018-02-27] MEDS ORDERED: NALOXONE 0.4 MG/ML 1 ML VIAL IV PRN (13:05)
[2018-02-27] MEDS ORDERED: ACETAMINOPHEN TAB 325 MG TAB PO PRN (13:05)
[2018-02-27] MEDS ORDERED: KETOROLAC 30 MG/ML 1 ML VIAL IVP PRN (13:05)
[2018-02-27] MEDS ORDERED: HEPARIN SODIUM,PORCINE 5,000 UNIT/ML 1 ML VIAL IV PRN (13:09)
[2018-02-27] MEDS ORDERED: HEPARIN SODIUM,PORCINE 5,000 UNIT/ML 1 ML VIAL IV ONE (13:09)
[2018-02-27] MEDS ORDERED: HEPARIN SOD,PORK IN 0.45% NACL 25,000 UNIT in 0.45% NACL 1 500ML.BAG IV SCH (13:15)
--- NOTE | 2018-02-27 17:12 | P.HPIM ---
History of Present Illness Chief Complaint: Right leg swelling, manic behavior, altered mental status This is a 62-year-old gentleman with history all CKD stage III, right lower extremity DVT 2 years ago on warfarin, pacemaker insertion 2 years ago, bipolar disorder with kaley who was brought in by police due to bizarre and manic behavior. He was also noted to have right lower extremity swelling. He was also apparently with some alteration in mental status and agitation and emergency department receive Ativan and currently he is somnolent and I cannot obtain much of the history from the patient himself. When I ask patient opens his eyes and denies any headache neck pain vision changes nausea vomiting chest pain abdominal pain like pain diarrhea dizziness. Patient is able to tell me that he is in [place] and amount is overdosed. He denies any drug use. He states that he does not take Depakote but he takes Risperdal and denies taking any extra doses today he easily falls back asleep but when called in normal tone peñaloza he opens his eyes and follows commands. I spoke with his relative over the phone by calling the phone number listed in the chart. The gentleman provided me with more history. He stated that patient 's problem started about couple weeks ago when his behavior became more bizarre , erratic and consistent with manic ideation and grandiose ideation. Patient had problems sleeping he was out walking all the time. Apparently he bought $ 6100 worth of furniture and $600 worth of lottery tickets. He had difficulties with his thought process was talking a lot and all was quite agitated occasionally been threatening his relative. Patient also noticed for the last few days some swelling his right lower extremity. He had DVT in that leg that he relative thinks was about 2 years ago at a time and he received a pacemaker. The swelling was not accompanied by any particular pain tenderness or warmth. Patient did not take denied any trauma. He ascribed this swelling to the fact that during his manic episodes he walks a lot and spends a lot of time on his feet. He did not experience any numbness or tingling in that leg or foot. He did not experience any skin changes in his foot. There relative patient has been taking only Risperdal and has been refusing to take Depakote due to some of the side effects he experienced many years ago. Also he is been eating marijuana cookies and over the last 2-3 days family noted that he's been having some slowing down in his thought process garbled speech and lethargy. On the day of admission his relative reported heme taking some marijuana cookies and after that started threatening him hence police were called and they came in and brought him to the emergency department. Emergency department he was sleepy but occasionally agitated and received some Ativan. Blood work showed normal white blood cell count, hemoglobin of 11 and normal platelet count, creatinine 1.76 which is at patient's baseline, normal BUNs and electrolytes, INR 1.1, and troponin of 0.15. His vital signs on admission were stable without any fever. EKG showed normal sinus rhythm with heart rate about 100 and some nonpathological old small Q waves in aVL and lead [address] T-segment changes. Chest x-ray was unremarkable as well x-ray of his right lower extremity. Doppler ultrasound of the right lower extremity showed chronic old clot improved with her pain unchanged from imaging in 2014. Review of Systems REVIEW OF SYSTEMS: Review of system is quite limited as patient is lethargic and he usually provides answers no or yes and denies most of the complaints. The below is a quick summary of some of the symptoms that he basically denied CONSTITUTIONAL: No fever or chills HEENT: No changes in vision or voice CARDIOVASCULAR: no chest pain or abnormal heart beats, or any swelling in ankles or feet. RESPIRATORY: No wheezing or coughing. GASTROINTESTINAL: No abdominal pain, no nausea no vomiting no constipation or diarrhea GENITOURINARY: no any urinary urgency, frequency or burning, and there has been no blood in her urine. no flank pain. MUSCULOSKELETAL: Right leg swelling but otherwise no pain or swelling in other joints or extremities NEUROLOGICAL: , no headache. no vision changes, or fainting. No numbness or tingling. 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; Chronic kidney disease stage 3, bipolar depressino History of Any Multi-Drug Resistant Organisms: MRSA Date of last positivie culture/infection: 04/27/2014 MDRO Source:: Right Arm Past Surgical History: Back Surgery, Hernia Repair, Pacemaker, Tonsillectomy Past Anesthesia/Blood Transfusion Reactions: Previous Problems w/ Anesthesia Additional Past Anesthesia/Blood Transfusion Reaction / Comment(s): STATES " HARD TIME BREATHING LAYING FLAT, I'M A MOUTH BREATHER" Type of Cardiac Device: Permanent Pacemaker Device Placement Date:: 2015 Smoking Status: Current every day smoker - Past Family History Father History Unknown: Yes Mother History Unknown: Yes Medications and Allergies Home Medications Medication Instructions Recorded Confirmed Type Lubiprostone [Amitiza] 24 mcg PO BID 02/11/18 02/27/18 History Metoprolol Tartrate [Lopressor] 25 mg PO TID 02/11/18 02/27/18 History Warfarin [Coumadin] 5 mg PO DAILY 02/11/18 02/27/18 History Divalproex ER [Depakote ER] 1,000 mg PO HS #60 tab.er.24h 02/19/18 02/27/18 Rx risperiDONE [RisperDAL] 1 mg PO AC-TID #45 tab 02/19/18 02/27/18 Rx Doxepin HCl [SINEquan] 200 mg PO HS 02/27/18 02/27/18 History Sodium Chloride [Macdoel] 1 spray EA NOSTRIL DAILY PRN 02/27/18 02/27/18 History Allergies Allergy/AdvReac Type Severity Reaction Status Date / Time haloperidol [From Haldol] Allergy Unknown Verified 02/27/18 09:28 haloperidol lactate Allergy Unknown Verified 02/27/18 09:28 [From Haldol] Physical Exam Vitals: Vital Signs Temp Pulse Resp BP Pulse Ox 02/27/18 16:37 98.2 F 63 18 152/88 99 02/27/18 14:30 72 18 118/72 95 02/27/18 13:00 98.2 F 74 18 146/85 99 02/27/18 09:28 99.5 F 111 H 16 146/76 96 Intake and Output 02/27/18 02/27/18 02/27/18 06:59 14:59 22:59 Other: Weight 119.748 kg Vital Signs: I have reviewed the vital signs. GENERAL: Well-nourished, Well-developed , no apparent distress, somnolent, follows simple commands and answer simple questions Eyes: PERRL, extraoculry movements intact, clear conjunctiva Head: : Atraumatic external nose and ears, oropharyngeal mucosa is moist without lesions or exudates Neck: Symmetric, trachea midline, No thyromegaly, no masses or neck vain pulsation, no neck rigidity CVS: +S1/S2, No murmurs or gallops. Peripheral pulses 2+ and equal in all extremities. RESP: Unlabored respiratory effort. Clear to auscultation bilaterally. Abdomen: Bowel sounds present in all 4 quadrants, Soft to palpation, Nontender/ Nondistended, No hepatosplenomegaly, no hernias or masses, no CVA tnderness Musculoskeletal: Extremities w/o deformity, No cyanosis or clubbing, right lower extremity 1+ pitting edema mild redness around area with small abrasion no tenderness with squeezing; results. His pulses are present.. He is warned well perfused, there is no cyanosis in the leg, the knee and ankle and the right side are not swollen or warm Skin: Warm, Dry. 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, motor strenght 5/5 i upper and lower extremities, no asterixis ,no clonus, patellar DTRs 1+ and sympetrical, plantar is flexor bilaterally, patient localizes and reports sensitivity to light touch All-Flex Psych: He is somnolent but easily arousable and follows simple commands and answer questions orientated to place date, Results CBC & Chem 7: 02/27/18 10:10 02/27/18 10:10 Labs: Abnormal Lab Results - Last 24 Hours (Table) 02/27/18 02/27/18 02/27/18 Range/Units 10:10 10:10 10:10 RBC 3.82 L (4.30-5.90) m/uL Hgb 11.8 L (13.0-17.5) gm/dL Hct 36.4 L (39.0-53.0) % Chloride 114 H (98-107) mmol/L Carbon Dioxide 21 L (22-30) mmol/L Creatinine 1.76 H (0.66-1.25) mg/dL Glucose 112 H (74-99) mg/dL Troponin I 0.115 H* (0.000-0.034) ng/mL Urine Protein (Negative) U Marijuana (THC) Screen (NotDetected) 02/27/18 02/27/18 Range/Units 11:15 11:15 RBC (4.30-5.90) m/uL Hgb (13.0-17.5) gm/dL Hct (39.0-53.0) % Chloride (98-107) mmol/L Carbon Dioxide (22-30) mmol/L Creatinine (0.66-1.25) mg/dL Glucose (74-99) mg/dL Troponin I (0.000-0.034) ng/mL Urine Protein Trace H (Negative) U Marijuana (THC) Screen Detected H (NotDetected) Assessment and Plan Plan: 1. 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 There is a possibility off mild cellulitis around small abrasion. Doppler is negative for acute DVT in that site. Patient is nontoxic and nonseptic appearing Recommend supportive care leg elevation compressive stocking if patient can tolerate, short course of by mouth Keflex, we will resume anticoagulation If this continues to be bothersome and not improving will consider imaging his iliac veins to assess if he has any new clots or obstruction in the pelvic pain area which would require contrast and for now would like to defer this up until his absolute necessary due to his renal insufficiency 2. Acute encephalopathy toxic in nature Suspect due to ingestion of marijuana cookies along with Risperdal Neurological exam is nonfocal there is no headache vision changes neck stiffness or fever Currently we will admit the patient check ammonia level as well Neurochecks q4 Monitor for any possibility of seizure activity or less likely See third bedside Hold all home sent medications with sedating effects for next 24 hours 3. Bipolar disorder with acute kaley Psychiatric service will be consulted Sitter at bedside 4. Elevated troponin No chest pain or shortness of breath EKG is stable and unchanged from before Patient does have renal insufficiency and this could be a reason For now we will not stop his heparin drip and trend troponin If troponin continues to rise we will certainly obtain cardiology consultation and further treatment as needed 5. CK be stage III Patient appears euvolemic with stable creatinine and electrolytes Continue to monitor urine output and minimize use of nephrotoxic agents 6. Sick sinus syndrome Status post pacemaker 2 years ago Lopressor Currently in normal sinus rhythm not spaced with softer blood pressures Will hold Lopressor for 24 hours and restart tomorrow Patient is a full code He has public guardianship established although he lives with his sister Divina He currently does not oppose to be admitted to the hospital Expected length of stay 2 or more midnights Time with Patient: Greater than 30 (Greater than 75 minutes spent on this admission including at least 50% of this time [id number] in the rest of it coordination of care and discussing this is with family)
[2018-02-27] MEDS ORDERED: WARFARIN 5 MG TAB PO ONE (18:00)
[2018-02-27] MEDS: CEPHALEXIN 500 MG CAP PO SCH ×2 (19:24→22:49)
[2018-02-27] MEDS: HEPARIN SODIUM,PORCINE 5,000 UNIT/ML 1 ML VIAL SQ SCH (22:52)
[2018-02-28 04:17] LABS: Calcium 8.5 mg/dL (8.4-10.2); Magnesium 1.8 mg/dL (1.6-2.3)
[2018-02-28 04:32] LABS: Prothrombin Time 10.2 sec (9.0-12.0)
[2018-02-28] MEDS ORDERED: VANCOMYCIN 2,000 MG in SODIUM CHLORIDE 0.9% 500 ML IVPB SCH (06:00)
[2018-02-28] MEDS: CEPHALEXIN 500 MG CAP PO SCH ×2 (08:50→12:21)
[2018-02-28] MEDS: METOPROLOL TARTRATE 25 MG TAB PO SCH ×2 (08:50→21:16)
[2018-02-28] MEDS: HEPARIN SODIUM,PORCINE 5,000 UNIT/ML 1 ML VIAL SQ SCH ×3 (08:58→23:52)
[2018-02-28] MEDS ORDERED: METOPROLOL TARTRATE 25 MG TAB PO SCH (09:00)
--- NOTE | 2018-02-28 11:33 | P.PN ---
Subjective Ration was admitted yesterday afternoon with some alteration in mental status. He has a history of bipolar disease and in discussion with family they're very concerned about him being very manic and doing bizarre things and having very very on behavior. Apparently he was eating lots of marijuana cookies and after that he would be somnolent with some garbled speech. Interval history: Patient is now completely baseline he is awake and alert and oriented 3 and does not report any discomfort. We discussed about swelling in his right leg and I explained him that this is a consequence of his previous DVT and there is no new blood clot there. Actually he reported that his legs do not look that bad and they're as usual. Also talked to him about maybe occasionally needing diuretic given his chronic renal insufficiency in case of leg swelling. Also he denied any chest pain or shortness of breath. Patient feels that regarding his bipolar disease that he is at his usual baseline and does not feel that that pain any worsening in his kaley REVIEW OF SYSTEMS: CONSTITUTIONAL: No fever or chills HEENT: No changes in vision or voice CARDIOVASCULAR: no chest pain or abnormal heart beats, or any swelling in ankles or feet. RESPIRATORY: No wheezing or coughing. GASTROINTESTINAL: No abdominal pain, no nausea no vomiting no constipation or diarrhea GENITOURINARY: no any urinary urgency, frequency or burning, and there has been no blood in her urine. no flank pain. MUSCULOSKELETAL: full range of motion of all her joints without pain or swelling. NEUROLOGICAL: , no headache. no vision changes, or fainting. No numbness or tingling. Objective - Vital Signs Vital signs: Vital Signs Temp 98.5 F 02/28/18 08:00 Pulse 91 02/28/18 08:00 Resp 16 02/28/18 08:00 BP 113/82 02/28/18 08:00 Pulse Ox 97 02/28/18 08:00 Intake & Output 02/27/18 02/28/18 02/28/18 18:59 06:59 18:59 Intake Total 360 240 Balance 360 240 Weight 119.748 kg 113.1 kg Intake: Oral 360 240 Other: Voiding Method Toilet # Voids 2 2 - Exam Vital Signs: I have reviewed the vital signs. GENERAL: Well-nourished, Well-developed , no apparent distress, cooperative very talkative and tangential Eyes: PERRL, extraoculry movements intact, clear conjunctiva Head: : Atraumatic external nose and ears, oropharyngeal mucosa is moist without lesions or exudates Neck: Symmetric, trachea midline, No thyromegaly, no masses or neck vain pulsation, no neck rigidity CVS: +S1/S2, No murmurs or gallops. Peripheral pulses 2+ and equal in all extremities. RESP: Unlabored respiratory effort. Clear to auscultation bilaterally. Abdomen: Bowel sounds present in all 4 quadrants, Soft to palpation, Nontender/ Nondistended, No hepatosplenomegaly, no hernias or masses, no CVA tnderness Musculoskeletal: Extremities w/o deformity, No cyanosis or clubbing, no joint swelling, is 1+ edema in her lower extremities right more than left there is no warmth tenderness or any erythema there. Skin: Warm, Dry. 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, motor strenght 5/5 i upper and lower extremities, no clonus, patellar DTRs 2+ and sympetrical Psych: Awake, Alert, & Oriented (AAO) x3 - Labs CBC & Chem 7: 02/27/18 10:10 02/28/18 03:57 Labs: Abnormal Lab Results - Last 24 Hours (Table) 02/27/18 02/27/18 02/27/18 Range/Units 11:15 11:15 16:55 Chloride (98-107) mmol/L Creatinine (0.66-1.25) mg/dL Troponin I 0.103 H* (0.000-0.034) ng/mL Urine Protein Trace H (Negative) U Marijuana (THC) Screen Detected H (NotDetected) 02/27/18 02/28/18 Range/Units 22:21 03:57 Chloride 117 H (98-107) mmol/L Creatinine 1.54 H (0.66-1.25) mg/dL Troponin I 0.064 H* (0.000-0.034) ng/mL Urine Protein (Negative) U Marijuana (THC) Screen (NotDetected) Microbiology - Last 24 Hours (Table) 02/27/18 11:15 Urine Culture - Preliminary Urine,Voided Assessment and Plan Plan: 1. Right lower extremity edema related to post-thrombotic syndrome, chronic in nature Doubt cellulitis discontinue antibiotics Leg elevation and compressive stockings Lasix when necessary for increasing leg swelling giving history of chronic renal insufficiency 2. Acute encephalopathy toxic Suspect due to ingestion of marijuana cookies along with Risperdal Neurological exam is nonfocal there is no headache vision changes neck stiffness or fever Restart his home medications 3. Bipolar disorder with acute kaley Psychiatric service will be consulted Sitter at bedside 4. Elevated troponin Stable without any further elevation No chest pain or shortness of breath EKG is stable and unchanged from before This is likely related to his renal insufficiency 5. CKD stage III Due to toxic effects of lithium Patient appears euvolemic with stable creatinine and electrolytes Custody the patient that he might need Lasix on when necessary basis but has worsening in the leg swelling 6. Sick sinus syndrome with history of atrial fibrillation Currently normal sinus rhythm Restart Lopressor Restart warfarin, 5 mg given yesterday we will provide dosing for the patient over the weekend and he will need to follow-up with cardiology's clinic for further dosing on Saturday From internal medicine standpoint patient is stable to be discharged. We will provide instructions for dosing his warfarin over the weekend. We will await evaluation by psychiatry to determine if patient is safe to be discharged home or he will need to be transferred to mental health unit.
--- NOTE | 2018-02-28 14:42 | P.CN ---
Psychiatric Consult - . Consult date: 02/28/18 Consult:: 02/28/18 14:24 Identification: Patient is a 62-year-old male who is admitted with confusion, manic behavior and he reported complaints that his right leg with swelling Reason for Consult: Manic, bipolar History of Present Illness: Patient's chart was reviewed the patient was seen and interviewed in his room no family members were present. Patient states he came to the emergency room by ambulance after an ambulance was called at [facility]. Patient was petitioned by his public guardian that it just been appointed on February 27. The petition states that the patient was arguing with the police, it is unclear to me whether or not he is been taking his medications as the patient's Depakote level was less than 10 on February 27 at 5 PM. Patient was supposed to follow with jeyson Lawton on February 20 at 11:30 AM patient states that he kept the appointment. Patient states that he was supposed to be living with Jarad Moore the uncle of his half-sister but he states that 4-5 days ago Jarad Moore asked him to leave the house and he said that he has been staying with other people but could not tell me who. Patient then stated he is gone a live in a hotel room because he is in the process of buying a house. Patient states that he was using marijuana on a marijuana cookie and took a small piece of it for his leg pain. The attending physician contacted a family member listed on the chart as stated that the patient had been spending a lot of money recently, been walking and showing other manic behaviors and become increasingly irritable and agitated. It is unclear who petitioned to have a temporary guardian appointed but one was appointed on February 27. Patient was seen today and he stated that he is not having any racing thoughts, states that he's been compliant with his medication and stated that his medications and everything including his next appointment are all in his vehicle. Patient states that he's been walking around a lot and really could not tell me where he had been living. Patient states that he has a lot of money and is able to afford to buy a house. Patient was unaware that a guardian has been appointed for him. Patient was recently discharged from the psychiatric unit earlier this month and was to be taking Risperdal 1 mg 3 times a day and Depakote 1000 mg extended release. Past Psychiatric History: Patient has had 10 prior psychiatric admissions at this hospital his last was in 2013. He has no history of suicide attempts. Patient has been on multiple medications in the past to stabilize his mood and his most recent combination of Risperdal and Depakote have been the most effective. Patient had not been followed by any outpatient mental health agency prior to his last admission here in February of this year. Past Medical/Surgical History: Patient has a history of hypertension, DVT, chronic renal disease, pacemaker placed for 6 sinus syndrome. Patient also uses hearing aids Social History: Patient is a and states that he was living with Jarad Moore who is his half-sister's uncle but the patient states that he asked him to leave the house because he is too many other people living there the patient stated that he was going to be living in a hotel and then had purchased a house. Patient is honorably discharged from the [employer] Substance Use History: Patient denies any alcohol use and states that he recently bought a marijuana cookie and took a bit of it for his pain in his leg denies any other drug use Mental status: Appearance/Attitude: Patient is dressed in a hospital gown, has some difficulty hearing, makes good eye contact and was cooperative. Behavior: Patient does not exhibit any psychomotor agitation or retardation. Speech/Language: Patient's speech is of normal volume and rhythm, he is coherent Thought Process: patient is tangential Thought Content: Patient denies any auditory or visual hallucination and the patient does exhibit grandiose ideation stating that he is ready to buy a house that he has a lot of money over $100,000 in the bank and money elsewhere however on his last admission he stated to the psychiatrist that he had no income at all. Patient states that he was asked to leave his half-sister's uncle's home because her too many people living there, he states that he would be living in a hotel for the next month and still his home is ready or him to move into. Patient states he's been taking his meds and has been sleeping and eating well. Suicidal/Homicidal Ideation: patient denies any current suicidal or homicidal ideation Sensorium/Cognition: patient is alert and oriented to person, place and situation Mood/Affect: patient's mood is pleasant and his affect is expansive Insight/Judgment: patient's insight and judgment appear impaired as the patient is talking about having a lot of money being able to purchase a home Assessment: Patient was recently discharged from the inpatient psychiatric unit on Risperdal 1 mg 3 times a day and Depakote 1000 mg extended release at bedtime , patient was to return to live with Jarad Moore his half-sister's uncle patient is reporting now that he left that house because he was asked to. Per information obtained by the attending physician the patient had been spending a normal sums of money, patient's behavior is becoming increasingly bizarre erratic. Patient was having difficulty sleeping without walking all the time and had spent $6000 on furniture and $600 on lottery tickets. Patient was talking a lot was quite agitated occasionally having been threatening with that person. Per the patient's relative the patient has only been taking his Risperdal and has been refusing his Depakote due to some of the side effects. Patient's relative also reported he has been eating marijuana cookies over the last 2-3 days. Due to the patient's low Depakote level on admission I agree that the patient has not been compliant with his medication especially the Depakote. Patient was also recently appointed a temporary guardian on February 27 and the guardian petitioned the patient. Patient signed a deferral on his last admission. Diagnosis: Bipolar disorder, type I current episode manic Plan: Patient will require an inpatient psychiatric admission to further stabilize his mood and patient will be restarted on his Risperdal 1 mg 3 times a day and Depakote 1000 mg extended release. Patient now has a public guardian appointed, these papers were obtained from the court and sent to the medical floor for insertion into his medical record. Patient is also on a deferral from his psychiatric admission in February of this year. 02/28/18 14:28 02/28/18 14:30 02/28/18 14:32 02/28/18 14:38
[2018-02-28] MEDS: risperiDONE 1 MG TAB PO SCH (17:50)
[2018-02-28] MEDS ORDERED: WARFARIN 7.5 MG TAB PO ONE (18:00)
[2018-02-28] MEDS: DIVALPROEX ER 500 MG TAB.ER.24H PO SCH (21:15)
[2018-03-01 06:50] LABS: INR 1.1 (<1.2); Prothrombin Time 10.6 sec (9.0-12.0)
[2018-03-01] MEDS: risperiDONE 1 MG TAB PO SCH ×3 (07:07→17:41)
[2018-03-01] MEDS: METOPROLOL TARTRATE 25 MG TAB PO SCH ×2 (09:08→20:10)
[2018-03-01] MEDS: HEPARIN SODIUM,PORCINE 5,000 UNIT/ML 1 ML VIAL SQ SCH ×2 (09:08→15:51)
--- NOTE | 2018-03-01 16:02 | P.PN ---
Subjective Progress Note Date: 03/01/18 Patient reports that he is feeling fine and did stated that his right calf is swollen since his deep venous thrombosis years ago. Patient stated that he was given ankle-foot arthrosis support in the emergency department and that helped in the past and he is requesting that support again to be given in the hospital to help right leg pain. Patient denies chest pain, palpitation, nausea, vomiting, fever, chills, diarrhea, diaphoresis and denies rest of the review of system. Patient was evaluated by mental health team and recommended inpatient psychiatric admission. Coronary with patient's nurse who reported that there is no open beds available at this facility and property developer are working to find out place in the surrounding facilities to transfer him for inpatient treatment for his mental condition. Objective - Vital Signs Vital signs: Vital Signs Temp 98.6 F 03/01/18 12:00 Pulse 60 03/01/18 12:00 Resp 18 03/01/18 12:00 BP 118/80 03/01/18 12:00 Pulse Ox 96 03/01/18 12:00 Intake & Output 02/28/18 03/01/18 03/01/18 18:59 06:59 18:59 Intake Total 720 1120 240 Balance 720 1120 240 Weight 114.1 kg Intake: Oral 720 1120 240 Other: Voiding Method Toilet Toilet # Voids 0 2 - Constitutional General appearance: Present: average body habitus, cooperative, no acute distress, obese - EENT Eyes: Present: EOMI, normal appearance - Neck Neck: Present: normal ROM - Respiratory Respiratory: bilateral: CTA, negative: rales, rhonchi, wheezing - Cardiovascular Rhythm: regular Heart sounds: normal: S1, S2 - Gastrointestinal General gastrointestinal: Present: normal bowel sounds, soft. Absent: organomegaly, tenderness - Neurologic Neurologic: Present: CNII-XII intact. Absent: focal deficits - Psychiatric Psychiatric Comment(s): Patient has legal guardian. Psychiatric: Present: A&O x's 3, appropriate affect - Labs CBC & Chem 7: 02/27/18 10:10 02/28/18 03:57 Labs: Microbiology - Last 24 Hours (Table) 02/27/18 10:10 Blood Culture - Preliminary Blood No Growth after 48 hours 02/27/18 11:15 Urine Culture - Final Urine,Voided Assessment and Plan (1) Altered mental status Narrative/Plan: Now resolved and patient was evaluated by psychiatrist with recommendation of inpatient psych management for his acute lyly. Patient's altered mental status was multifactorial and toxic and now it has resolved. Patient has legal guardianship due to his psychiatric condition. Current Visit: Yes Status: Resolved Priority: Medium Code(s): R41.82 - ALTERED MENTAL STATUS, UNSPECIFIED SNOMED Code(s): 145396654 (2) Cellulitis Narrative/Plan: Chronic swelling of the right of which started after his DVT years ago and patient is preoccupied that he has MRSA infection over there. Patient was reassured about his right cough and advised that we will continue to monitor. Current Visit: No Status: Acute Code(s): L03.90 - CELLULITIS, UNSPECIFIED SNOMED Code(s): 544989824 (3) Foot pain Narrative/Plan: Patient did complain of right ankle pain mainly related to his right bowel swelling and requested a arthrosis that he was given in the emergency department in the past. Nurses was advised to check with the therapy department if some sort of orthosis can be prescribed for the patient to support his right ankle. Current Visit: Yes Status: Chronic Priority: Low Code(s): M79.673 - PAIN IN UNSPECIFIED FOOT SNOMED Code(s): 52059588 (4) Lyly (monopolar) single episode or unspecified Narrative/Plan: Patient will be continued on current psych management and and case management is working for the placement for the inpatient psychiatric treatment for his condition. Current Visit: Yes Status: Acute Priority: Medium Code(s): F30.9 - MANIC EPISODE, UNSPECIFIED SNOMED Code(s): 139862705 Plan: Patient will be continued on his current management for now until the inpatient mental health facility placement issues are clarified. Time with Patient: Less than 30
[2018-03-01] MEDS ORDERED: WARFARIN 7.5 MG TAB PO ONE (18:00)
[2018-03-01] MEDS: DIVALPROEX ER 500 MG TAB.ER.24H PO SCH (20:09)
[2018-03-02] MEDS: HEPARIN SODIUM,PORCINE 5,000 UNIT/ML 1 ML VIAL SQ SCH ×4 (00:41→22:59)
[2018-03-02] MEDS: risperiDONE 1 MG TAB PO SCH ×3 (06:33→17:07)
[2018-03-02 06:40] LABS: INR 1.1 (<1.2); Prothrombin Time 10.8 sec (9.0-12.0)
[2018-03-02] MEDS: METOPROLOL TARTRATE 25 MG TAB PO SCH ×2 (08:11→20:55)
--- NOTE | 2018-03-02 14:48 | P.PN ---
Subjective Progress Note Date: 03/02/18 Patient reported he is feeling fine and eating good and he wants to go home. Patient has been seen by psychiatry and they recommended inpatient psych treatment for his acute lyly/bipolar disorder. Patient was given treatment but he quit taking his medications as prescribed and went through acute manic episode with too much expenditures unnecessarily. Today during the interview patient speech was high and pressure, he had tangentiality in his his speech and was difficult to redirect him. Patient INR today is 1.1 and pharmacy is dosing and monitoring. Patient denies headache, dizziness, diaphoresis, chest pain, palpitation, shortness of breath, nausea, vomiting, diarrhea, fever, chills and denies rest of the review system. Objective - Vital Signs Vital signs: Vital Signs Temp 97.4 F L 03/02/18 11:38 Pulse 66 03/02/18 11:47 Resp 18 03/02/18 11:47 BP 132/82 03/02/18 11:38 Pulse Ox 98 03/02/18 11:38 Intake & Output 03/01/18 03/02/18 03/02/18 18:59 06:59 18:59 Intake Total 1560 740 180 Balance 1560 740 180 Weight 112.3 kg Intake: Oral 1560 740 180 Other: Voiding Method Toilet Toilet Toilet # Voids 2 - Constitutional General appearance: Present: average body habitus, cooperative, no acute distress - EENT Eyes: Present: EOMI, normal appearance - Respiratory Respiratory: bilateral: CTA, negative: rales, rhonchi, wheezing - Cardiovascular Rhythm: irregularly irregular Heart sounds: normal: S1, S2 - Gastrointestinal General gastrointestinal: Present: normal bowel sounds, soft - Neurologic Neurologic: Present: CNII-XII intact. Absent: focal deficits - Psychiatric Psychiatric: Present: A&O x's 3 - Labs CBC & Chem 7: 02/27/18 10:10 02/28/18 03:57 Labs: Microbiology - Last 24 Hours (Table) 02/27/18 10:10 Blood Culture - Preliminary Blood No Growth after 72 hours Assessment and Plan (1) Foot pain Narrative/Plan: Patient is walking in the [place] without any problem with his ankle or foot but when he sits he start complaining of ankle issues and his right calf swelling. Patient is preoccupied that his previous MRSA infection is certainly in his leg and causing all these problems. We will continue to monitor. Current Visit: Yes Status: Chronic Priority: Low Code(s): M79.673 - PAIN IN UNSPECIFIED FOOT SNOMED Code(s): 60624962 (2) Lyly (monopolar) single episode or unspecified Narrative/Plan: Patient lyly is not well controlled until now, he definitely needs inpatient psychiatric treatment before he can be discharged home safely. Case management working to find bed and then surrounding facilities so that patient can receive his psychiatric management as an inpatient. No beds available at the behavioral health unit at this hospital. Current Visit: Yes Status: Acute Priority: Medium Code(s): F30.9 - MANIC EPISODE, UNSPECIFIED SNOMED Code(s): 550883036 (3) Altered mental status Narrative/Plan: Resolve. Current Visit: Yes Status: Resolved Priority: Medium Code(s): R41.82 - ALTERED MENTAL STATUS, UNSPECIFIED SNOMED Code(s): 261722370 (4) Cellulitis Narrative/Plan: Chronic right calf swelling from DVT and no clinical or laboratory evidence of acute infection. Current Visit: No Status: Resolved Priority: Low Code(s): L03.90 - CELLULITIS, UNSPECIFIED SNOMED Code(s): 393610780 Plan: Patient will be In the hospital until disposition is arranged to inpatient psychiatric facility for the management of his acute lyly. Patient does not require one-to-one monitoring at this point in time as his altered mental status is significantly improved. Time with Patient: Less than 30
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
[2018-03-02] MEDS ORDERED: WARFARIN 7.5 MG TAB PO ONE (18:00)
[2018-03-02] MEDS: DIVALPROEX ER 500 MG TAB.ER.24H PO SCH (20:55)
[2018-03-02 22:18] VITALS: RESP 18
[2018-03-03] MEDS: risperiDONE 1 MG TAB PO SCH ×3 (06:21→17:00)
[2018-03-03 06:33] LABS: INR 1.2 (<1.2); Prothrombin Time 11.6 sec (9.0-12.0)
[2018-03-03] MEDS: METOPROLOL TARTRATE 25 MG TAB PO SCH ×2 (07:53→19:39)
--- NOTE | 2018-03-03 10:10 | P.PN ---
Progress Note - Text Progress Note Date: 03/03/18 Hope to discharge to psych today. Awaiting bed placement. Formal note or discharge summary to follow.
[2018-03-03] MEDS: HEPARIN SODIUM,PORCINE 5,000 UNIT/ML 1 ML VIAL SQ SCH ×2 (11:51→15:34)
[2018-03-03] MEDS ORDERED: LORazepam 2 MG/ML INJ IV PRN (15:07)
--- NOTE | 2018-03-03 16:41 | P.DS ---
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 fib Subtherapeutic Coumadin coagulopathy Hospital Course: Patient is a 62-year-old male with a court-appointed guardian and a history of chronic kidney disease stage III, right lower extremity DVT on Coumadin, pacemaker due to sick sinus syndrome, and bipolar disorder who presented to the ER by police for bizarre behavior and possible manic episode. He underwent a complete evaluation in the emergency department. There was concern about possible right lower extremity cellulitis and slightly elevated troponin. He was admitted to the medical floor for further monitoring. On evaluation and was determined that patient did not have cellulitis but had not post thrombotic syndrome. He had a short course of Keflex. His encephalopathy resolved by the next day though he still demonstrated signs of kaley. His troponins were trended and were decreasing. He was felt that these are likely secondary to his chronic kidney disease as patient did not have any chest pain. He was determined medically stable for discharge. He was seen by psychiatry who recommended inpatient psych placement. There was a delay in his discharge due to awaiting an open bed at a psychiatric facility. He was subsequently discharged on 03/03/18. His metoprolol was changed to twice daily, and he will continue on Coumadin therapy. I have asked him to monitor his INR every 2 days until it becomes therapeutic. Patient seen and examined at bedside. No chest pain, shortness breath, nausea, or vomiting. He states that the infection in his lower extremity is resolved. He made accusations that the nurses and other patient primary health care nurse may be lying in that he needs to go to the psych hospital. We discussed the fact of his behaviors prior to admission searches excessive spending, lying lottery tickets , pacing, and insomnia. Patient is unaware of why these would be abnormal or worrisome. He states he will take his medications. Vital signs reviewed and stable. General: non toxic, no distress, appears at stated age Derm: warm, dry Head: atraumatic, normocephalic, symmetric Eyes: EOMI, no lid lag, anicteric sclera Mouth: no lip lesion, mucus membranes moist Cardiovascular: S1S2 reg, no murmur, positive posterior tibial pulse bilateral, Lungs: CTA bilateral, no rhonchi, no rales , no accessory muscle use Abdominal: soft, nontender to palpation, no guarding, no appreciable organomegaly Ext: no gross muscle atrophy, [trace edema right lower extremity, no contractures Neuro: CN II-XI grossly intact, no focal neuro deficits Psych: Alert, oriented, appropriate affect A total of 35 minutes of time were spent preparing this complex discharge summary . Pertinent Studies: Chest x-ray-no acute process, widened mediastinum related to patient rotation CT [id number] atrophy and chronic small vessel changes Tib-fib x-ray-no acute fracture Ultrasound right lower extremity-No evidence of acute DVT, minimal chronic nonoccluding distal popliteal vein and mid portion DVT Patient Condition at Discharge: Good Plan - Discharge Summary Discharge Rx Participant: No New Discharge Prescriptions: New Metoprolol Tartrate [Lopressor] 25 mg PO BID #60 tab Continue Lubiprostone [Amitiza] 24 mcg PO BID Warfarin [Coumadin] 5 mg PO DAILY Divalproex ER [Depakote ER] 1,000 mg PO HS #60 tab.er.24h risperiDONE [RisperDAL] 1 mg PO AC-TID #45 tab Sodium Chloride [Relampago] 1 spray EA NOSTRIL DAILY PRN PRN Reason: Nasal Congestion Discontinued Metoprolol Tartrate [Lopressor] 25 mg PO TID Doxepin HCl [SINEquan] 200 mg PO HS Discharge Medication List Lubiprostone [Amitiza] 24 mcg PO BID 02/11/18 [History] Warfarin [Coumadin] 5 mg PO DAILY 02/11/18 [History] Divalproex ER [Depakote ER] 1,000 mg PO HS #60 tab.er.24h 02/19/18 [Rx] risperiDONE [RisperDAL] 1 mg PO AC-TID #45 tab 02/19/18 [Rx] Sodium Chloride [Relampago] 1 spray EA NOSTRIL DAILY PRN 02/27/18 [History] Metoprolol Tartrate [Lopressor] 25 mg PO BID #60 tab 03/03/18 [Rx] Follow up Appointment(s)/Referral(s): Jaspal Melgoza MD [Primary Care Provider] - 1-2 days Activity/Diet/Wound Care/Special Instructions: heart healthy diet Compression stockings to lower extremities when ambulating INR every 2 days until greater than 2 Discharge Disposition: TRANSFER TO PSYCH HOSP/UNIT
[2018-03-03] MEDS ORDERED: WARFARIN 10 MG TAB PO ONE (18:00)
[2018-03-03] MEDS: DIVALPROEX ER 500 MG TAB.ER.24H PO SCH (19:39)
[2018-03-03 21:31] VITALS: PULSE 103
[2018-03-03 21:35] VITALS: BP 130/77; TEMP 97.3
== END 2018-03-03 20:50 | DRG 299 ==
LOC: EC 09:26 → 6SEL 12:55 → EEVIPCON 12:55 → 6SEL 16:22
PROVIDERS: ADMIT Family Medicine; ATTEND Family Medicine
DX: I87.001 Postthrombotic syndrome without complications of right lower extremity (principal); G92 Toxic encephalopathy; I82.532 Chronic embolism and thrombosis of left popliteal vein; N18.3 Chronic kidney disease, stage 3 (moderate); T43.595A Adverse effect of other antipsychotics and neuroleptics, initial encounter; T40.7X5A Adverse effect of cannabis (derivatives), initial encounter; I12.9 Hypertensive chronic kidney disease with stage 1 through stage 4 chronic kidney disease, or unspecified chronic kidney disease; R79.1 Abnormal coagulation profile; F17.210 Nicotine dependence, cigarettes, uncomplicated; F31.9 Bipolar disorder, unspecified; G47.00 Insomnia, unspecified; I48.91 Unspecified atrial fibrillation; M19.90 Unspecified osteoarthritis, unspecified site; M25.571 Pain in right ankle and joints of right foot; R77.9 Abnormality of plasma protein, unspecified; E66.9 Obesity, unspecified; Z68.31 Body mass index [BMI] 31.0-31.9, adult; Z79.01 Long term (current) use of anticoagulants; Z79.899 Other long term (current) drug therapy; Z86.14 Personal history of Methicillin resistant Staphylococcus aureus infection; Z95.0 Presence of cardiac pacemaker; Z88.8 Allergy status to other drugs, medicaments and biological substances; Y92.009 Unspecified place in unspecified non-institutional (private) residence as the place of occurrence of the external cause
CPT/HCPCS: 36415; 70450; 71046; 80048; 80053; 80164; 80306; 81003; 82075; 82140; 83605; 83735; 83880; 84484; 85025; 85610; 85730; 87040; 87086; 93005; 96365; 96366; 96367; 96375; 96376; 99285

== ENCOUNTER 2018-03-18 21:48 | Inpatient (IN) | payer MEDICARE, OTHER ==
[2018-03-18 22:36] LABS: Amphetamine Screen,Urine Not Detected (NotDetected); Barbiturate Screen,Urine Not Detected (NotDetected); Benzodiazepines Screen,Urine Not Detected (NotDetected); Cocaine Screen,Urine Not Detected (NotDetected); Methadone Screen, Urine Not Detected (NotDetected); Opiate Screen,Urine Not Detected (NotDetected); Oxycodone Screen, Urine Not Detected (NotDetected); Phencyclidine Screen,Urine Not Detected (NotDetected); Tricyclic Antidepressant,Urine Not Detected (NotDetected); Urn Cannabinoid Scrn Not Detected (NotDetected)
--- NOTE | 2018-03-18 23:18 | ED ---
Psych HPI - General Chief Complaint: Psychiatric Symptoms Stated Complaint: brass pickler order Time Seen by Provider: 03/18/18 22:21 Source: patient, police Mode of arrival: ambulatory - History of Present Illness Initial Comments: This patient is a 62-year-old man who comes to the emergency department to have psychiatric evaluation. The patient has history of previous psychiatric disease. He is brought to have Court ordered evaluation. It is reported that his guardian feels he is becoming more psychotic. The patient is denying any suicidal or homicidal ideation. MD Complaint: other -: unknown Associated Psychiatric Symptoms: delusions History of same: Yes Quality: getting worse Improves With: none Worsens With: none - Related Data Home Medications Medication Instructions Recorded Confirmed Lubiprostone [Amitiza] 24 mcg PO BID 02/11/18 03/21/18 Warfarin [Coumadin] 5 mg PO DAILY 02/11/18 03/21/18 Sodium Chloride [[place]] 1 spray EA NOSTRIL DAILY PRN 02/27/18 03/21/18 Previous Rx's Medication Instructions Recorded Divalproex ER [Depakote ER] 1,000 mg PO HS #60 tab.er.24h 02/19/18 risperiDONE [RisperDAL] 1 mg PO AC-TID #45 tab 02/19/18 Metoprolol Tartrate [Lopressor] 25 mg PO BID #60 tab 03/03/18 Allergies Allergy/AdvReac Type Severity Reaction Status Date / Time divalproex sodium Allergy Unknown Verified 03/21/18 05:54 [From Depakote] haloperidol [From Haldol] Allergy Unknown Verified 03/21/18 05:54 haloperidol lactate Allergy Unknown Verified 03/21/18 05:54 [From Haldol] lithium Allergy Unknown Verified 03/21/18 05:54 Review of Systems ROS Statement: Those systems with pertinent positive or pertinent negative responses have been documented in the HPI. ROS Other: All systems not noted in ROS Statement are negative. Constitutional: Denies: fever Respiratory: Denies: cough, dyspnea Cardiovascular: Denies: chest pain Gastrointestinal: Denies: abdominal pain, vomiting, diarrhea Musculoskeletal: Denies: back pain Skin: Denies: rash Neurological: Denies: headache Psychiatric: Denies: anxiety, depression, auditory hallucinations, visual hallucinations, homicidal thoughts, suicidal thoughts 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; Chronic kidney disease stage 3, bipolar depressino History of Any Multi-Drug Resistant Organisms: MRSA Date of last positivie culture/infection: 04/27/2014 MDRO Source:: Right Arm Past Surgical History: Back Surgery, Hernia Repair, Pacemaker, Tonsillectomy Past Anesthesia/Blood Transfusion Reactions: Previous Problems w/ Anesthesia Additional Past Anesthesia/Blood Transfusion Reaction / Comment(s): STATES " HARD TIME BREATHING LAYING FLAT, I'M A MOUTH BREATHER" Type of Cardiac Device: Permanent Pacemaker Device Placement Date:: 2015 Past Psychological History: Bipolar Smoking Status: Current every day smoker Past Alcohol Use History: Rare - Past Family History Father History Unknown: Yes Mother History Unknown: Yes General Exam Limitations: no limitations General appearance: alert, in no apparent distress Head exam: Present: atraumatic, normocephalic Eye exam: Present: normal appearance. Absent: scleral icterus, conjunctival injection Respiratory exam: Present: normal lung sounds bilaterally. Absent: respiratory distress, wheezes, rales, rhonchi, stridor Cardiovascular Exam: Present: regular rate, normal rhythm, normal heart sounds. Absent: systolic murmur, diastolic murmur, rubs, gallop GI/Abdominal exam: Present: soft. Absent: distended, tenderness, guarding, rebound, mass Back exam: Present: normal inspection. Absent: tenderness Neurological exam: Present: alert, normal gait Psychiatric exam: Present: normal affect, normal mood. Absent: homicidal ideation, suicidal ideation Skin exam: Present: warm, dry, intact, normal color. Absent: rash Course Vital Signs 03/18/18 03/19/18 03/19/18 21:53 06:35 18:05 Temperature 98.4 F 97.9 F Pulse Rate 109 H 106 H 76 Respiratory 18 16 16 Rate Blood Pressure 144/84 129/66 119/77 O2 Sat by Pulse 97 99 95 Oximetry 03/20/18 03/20/18 03/20/18 00:30 04:18 07:34 Temperature Pulse Rate 80 Respiratory 19 16 19 Rate Blood Pressure 131/73 O2 Sat by Pulse 98 Oximetry 03/20/18 14:01 Temperature 97 F L Pulse Rate 80 Respiratory 18 Rate Blood Pressure 138/93 O2 Sat by Pulse 98 Oximetry Medical Decision Making - Lab Data Result diagrams: 03/19/18 06:45 03/19/18 06:45 Lab Results 03/18/18 03/19/18 03/19/18 Range/Units 22:05 06:15 06:45 WBC (3.8-10.6) k/uL RBC (4.30-5.90) m/uL Hgb (13.0-17.5) gm/dL Hct (39.0-53.0) % MCV (80.0-100.0) fL MCH (25.0-35.0) pg MCHC (31.0-37.0) g/dL RDW (11.5-15.5) % Plt Count (150-450) k/uL Neutrophils % % Lymphocytes % % Monocytes % % Eosinophils % % Basophils % % Neutrophils # (1.3-7.7) k/uL Lymphocytes # (1.0-4.8) k/uL Monocytes # (0-1.0) k/uL Eosinophils # (0-0.7) k/uL Basophils # (0-0.2) k/uL PT (9.0-12.0) sec INR (<1.2) Sodium 140 (137-145) mmol/L Potassium 4.9 (3.5-5.1) mmol/L Chloride 112 H (98-107) mmol/L Carbon Dioxide 19 L (22-30) mmol/L Anion Gap 9 mmol/L BUN 49 H (9-20) mg/dL Creatinine 1.80 H (0.66-1.25) mg/dL Est GFR (CKD-EPI)AfAm 46 (>60 ml/min/1.73 sqM) Est GFR (CKD-EPI)NonAf 39 (>60 ml/min/1.73 sqM) Glucose 97 (74-99) mg/dL Calcium 9.5 (8.4-10.2) mg/dL Urine Opiates Screen Not Detected Not Detected (NotDetected) Ur Oxycodone Screen Not Detected Not Detected (NotDetected) Urine Methadone Screen Not Detected Not Detected (NotDetected) Ur Propoxyphene Screen Not Detected Not Detected (NotDetected) Ur Barbiturates Screen Not Detected Not Detected (NotDetected) Valproic Acid <10.0 ug/mL U Tricyclic Antidepress Not Detected Not Detected (NotDetected) Ur Phencyclidine Scrn Not Detected Not Detected (NotDetected) Ur Amphetamines Screen Not Detected Not Detected (NotDetected) U Methamphetamines Scrn Not Detected Not Detected (NotDetected) U Benzodiazepines Scrn Not Detected Not Detected (NotDetected) Urine Cocaine Screen Not Detected Not Detected (NotDetected) U Marijuana (THC) Screen Not Detected Not Detected (NotDetected) 03/19/18 03/19/18 Range/Units 06:45 19:37 WBC 7.5 (3.8-10.6) k/uL RBC 3.75 L (4.30-5.90) m/uL Hgb 11.4 L (13.0-17.5) gm/dL Hct 36.5 L (39.0-53.0) % MCV 97.3 (80.0-100.0) fL MCH 30.5 (25.0-35.0) pg MCHC 31.4 (31.0-37.0) g/dL RDW 14.6 (11.5-15.5) % Plt Count 267 (150-450) k/uL Neutrophils % 67 % Lymphocytes % 17 % Monocytes % 8 % Eosinophils % 5 % Basophils % 0 % Neutrophils # 5.1 (1.3-7.7) k/uL Lymphocytes # 1.3 (1.0-4.8) k/uL Monocytes # 0.6 (0-1.0) k/uL Eosinophils # 0.4 (0-0.7) k/uL Basophils # 0.0 (0-0.2) k/uL PT 15.8 H (9.0-12.0) sec INR 1.7 H (<1.2) Sodium (137-145) mmol/L Potassium (3.5-5.1) mmol/L Chloride (98-107) mmol/L Carbon Dioxide (22-30) mmol/L Anion Gap mmol/L BUN (9-20) mg/dL Creatinine (0.66-1.25) mg/dL Est GFR (CKD-EPI)AfAm (>60 ml/min/1.73 sqM) Est GFR (CKD-EPI)NonAf (>60 ml/min/1.73 sqM) Glucose (74-99) mg/dL Calcium (8.4-10.2) mg/dL Urine Opiates Screen (NotDetected) Ur Oxycodone Screen (NotDetected) Urine Methadone Screen (NotDetected) Ur Propoxyphene Screen (NotDetected) Ur Barbiturates Screen (NotDetected) Valproic Acid ug/mL U Tricyclic Antidepress (NotDetected) Ur Phencyclidine Scrn (NotDetected) Ur Amphetamines Screen (NotDetected) U Methamphetamines Scrn (NotDetected) U Benzodiazepines Scrn (NotDetected) Urine Cocaine Screen (NotDetected) U Marijuana (THC) Screen (NotDetected) Disposition Clinical Impression: Acute psychosis Disposition: TRANSFER TO PSYCH HOSP/UNIT Condition: Fair Is patient prescribed a controlled substance at d/c from ED?: No
[2018-03-19 06:55] LABS: Basophils % (A) 0 %; Eosinophils # (A) 0.4 k/uL (0-0.7); Eosinophils % (A) 5 %; HCT 36.5 % (39.0-53.0); HGB 11.4 gm/dL (13.0-17.5); Lymphocytes # (A) 1.3 k/uL (1.0-4.8); Lymphocytes % (A) 17 %; MCH 30.5 pg (25.0-35.0); MCHC 31.4 g/dL (31.0-37.0); MCV 97.3 fL (80.0-100.0); Mean Platelet Volume 7.4; Monocytes # (A) 0.6 k/uL (0-1.0); Monocytes % (A) 8 %; Neutrophils # (A) 5.1 k/uL (1.3-7.7); Neutrophils % (A) 67 %; Platelet Count 267 k/uL (150-450); RBC 3.75 m/uL (4.30-5.90); RDW 14.6 % (11.5-15.5); WBC 7.5 k/uL (3.8-10.6)
[2018-03-19 06:55] LABS: Amphetamine Screen,Urine Not Detected (NotDetected); Barbiturate Screen,Urine Not Detected (NotDetected); Benzodiazepines Screen,Urine Not Detected (NotDetected); Cocaine Screen,Urine Not Detected (NotDetected); Methadone Screen, Urine Not Detected (NotDetected); Opiate Screen,Urine Not Detected (NotDetected); Oxycodone Screen, Urine Not Detected (NotDetected); Phencyclidine Screen,Urine Not Detected (NotDetected); Tricyclic Antidepressant,Urine Not Detected (NotDetected); Urn Cannabinoid Scrn Not Detected (NotDetected)
[2018-03-19 07:04] LABS: Anion Gap 9 mmol/L; Blood Urea Nitrogen 49 mg/dL (9-20); Calcium 9.5 mg/dL (8.4-10.2); Carbon Dioxide 19 mmol/L (22-30); Chloride 112 mmol/L (98-107); Glucose 97 mg/dL (74-99); Potassium 4.9 mmol/L (3.5-5.1); Sodium 140 mmol/L (137-145)
[2018-03-19 07:09] LABS: Valproic Acid (Depakene) <10.0 ug/mL
[2018-03-19] MEDS ORDERED: LORazepam 1 MG TAB PO STA (10:31)
[2018-03-19 20:15] LABS: INR 1.7 (<1.2); Prothrombin Time 15.8 sec (9.0-12.0)
[2018-03-19] MEDS: METOPROLOL TARTRATE 25 MG TAB PO SCH (20:16)
[2018-03-19] MEDS: WARFARIN 5 MG TAB PO SCH (20:16)
[2018-03-19] MEDS: DIVALPROEX ER 500 MG TAB.ER.24H PO SCH (20:16)
[2018-03-20] MEDS ORDERED: MAG HYDROX/AL HYDROX/SIMETH 30 ML CUP PO PRN (15:01)
[2018-03-20] MEDS ORDERED: LORazepam 1 MG TAB PO PRN (15:01)
[2018-03-20] MEDS ORDERED: ACETAMINOPHEN TAB 325 MG TAB PO PRN (15:01)
[2018-03-20] MEDS ORDERED: MAGNESIUM HYDROXIDE 2,400 MG/10 ML CUP PO PRN (15:01)
[2018-03-20] MEDS ORDERED: ZIPRASIDONE 20 MG VIAL IM PRN (15:01)
[2018-03-20] MEDS ORDERED: SODIUM CHLORIDE 0.65% NASAL SPRAY 44 ML BTL NASAL PRN (15:04)
[2018-03-20] MEDS: DIVALPROEX ER 500 MG TAB.ER.24H PO SCH (19:51)
[2018-03-20] MEDS: METOPROLOL TARTRATE 25 MG TAB PO SCH ×2 (19:54→20:11)
[2018-03-20] MEDS: risperiDONE 1 MG TAB PO SCH ×3 (19:54→20:11)
[2018-03-20] MEDS: WARFARIN 5 MG TAB PO SCH (20:01)
[2018-03-21] MEDS: METOPROLOL TARTRATE 25 MG TAB PO SCH ×2 (07:52→20:23)
[2018-03-21] MEDS: risperiDONE 1 MG TAB PO SCH ×3 (07:53→17:08)
[2018-03-21 08:28] LABS: INR 1.3 (<1.2); Prothrombin Time 12.3 sec (9.0-12.0)
--- NOTE | 2018-03-21 11:20 | P.HP ---
Psychiatric H&P - . History & Physical: Allergies Allergy/AdvReac Type Severity Reaction Status Date / Time divalproex sodium Allergy Unknown Verified 03/21/18 05:54 [From Depakote] haloperidol [From Haldol] Allergy Unknown Verified 03/21/18 05:54 haloperidol lactate Allergy Unknown Verified 03/21/18 05:54 [From Haldol] lithium Allergy Unknown Verified 03/21/18 05:54 Vital Signs Temp 97.7 F 03/21/18 05:41 Pulse 98 03/21/18 05:41 Resp 18 03/21/18 05:41 BP 137/78 03/21/18 05:41 Pulse Ox 98 03/21/18 05:41 Laboratory Last Values WBC 7.5 k/uL (3.8-10.6) 03/19/18 06:45 RBC 3.75 m/uL (4.30-5.90) L 03/19/18 06:45 Hgb 11.4 gm/dL (13.0-17.5) L 03/19/18 06:45 Hct 36.5 % (39.0-53.0) L 03/19/18 06:45 MCV 97.3 fL (80.0-100.0) 03/19/18 06:45 MCH 30.5 pg (25.0-35.0) 03/19/18 06:45 MCHC 31.4 g/dL (31.0-37.0) 03/19/18 06:45 RDW 14.6 % (11.5-15.5) 03/19/18 06:45 Plt Count 267 k/uL (150-450) 03/19/18 06:45 Neutrophils % 67 % 03/19/18 06:45 Lymphocytes % 17 % 03/19/18 06:45 Monocytes % 8 % 03/19/18 06:45 Eosinophils % 5 % 03/19/18 06:45 Basophils % 0 % 03/19/18 06:45 Neutrophils # 5.1 k/uL (1.3-7.7) 03/19/18 06:45 Lymphocytes # 1.3 k/uL (1.0-4.8) 03/19/18 06:45 Monocytes # 0.6 k/uL (0-1.0) 03/19/18 06:45 Eosinophils # 0.4 k/uL (0-0.7) 03/19/18 06:45 Basophils # 0.0 k/uL (0-0.2) 03/19/18 06:45 PT 12.3 sec (9.0-12.0) H 03/21/18 08:12 INR 1.3 (<1.2) H 03/21/18 08:12 Sodium 140 mmol/L (137-145) 03/19/18 06:45 Potassium 4.9 mmol/L (3.5-5.1) 03/19/18 06:45 Chloride 112 mmol/L (98-107) H 03/19/18 06:45 Carbon Dioxide 19 mmol/L (22-30) L 03/19/18 06:45 Anion Gap 9 mmol/L 03/19/18 06:45 BUN 49 mg/dL (9-20) H 03/19/18 06:45 Creatinine 1.80 mg/dL (0.66-1.25) H 03/19/18 06:45 Est GFR (CKD-EPI)AfAm 46 (>60 ml/min/1.73 sqM) 03/19/18 06:45 Est GFR (CKD-EPI)NonAf 39 (>60 ml/min/1.73 sqM) 03/19/18 06:45 Glucose 97 mg/dL (74-99) 03/19/18 06:45 Calcium 9.5 mg/dL (8.4-10.2) 03/19/18 06:45 Triglycerides 109 mg/dL (<150) 03/21/18 08:12 Cholesterol 161 mg/dL (<200) 03/21/18 08:12 LDL Cholesterol, Calc 94 mg/dL (0-99) 03/21/18 08:12 HDL Cholesterol 45 mg/dL (40-60) 03/21/18 08:12 TSH 1.750 mIU/L (0.465-4.680) 03/21/18 08:12 Urine Opiates Screen Not Detected (NotDetected) 03/19/18 06:15 Ur Oxycodone Screen Not Detected (NotDetected) 03/19/18 06:15 Urine Methadone Screen Not Detected (NotDetected) 03/19/18 06:15 Ur Propoxyphene Screen Not Detected (NotDetected) 03/19/18 06:15 Ur Barbiturates Screen Not Detected (NotDetected) 03/19/18 06:15 Valproic Acid <10.0 ug/mL 03/19/18 06:45 U Tricyclic Antidepress Not Detected (NotDetected) 03/19/18 06:15 Ur Phencyclidine Scrn Not Detected (NotDetected) 03/19/18 06:15 Ur Amphetamines Screen Not Detected (NotDetected) 03/19/18 06:15 U Methamphetamines Scrn Not Detected (NotDetected) 03/19/18 06:15 U Benzodiazepines Scrn Not Detected (NotDetected) 03/19/18 06:15 Urine Cocaine Screen Not Detected (NotDetected) 03/19/18 06:15 U Marijuana (THC) Screen Not Detected (NotDetected) 03/19/18 06:15 03/21/18 11:10 IDENTIFYING DATA: This patient is a 62-year-old male who was admitted to the mental health unit again with symptoms of acute kaley and psychosis. HPI: The patient is well known to the psychiatric service. He does have a history of bipolar disorder. He presents with continued symptoms of kaley and psychosis. He was recently on the mental health unit and was stabilized with Depakote and Risperdal. He presents with a Depakote level of 0. It appears he has been noncompliant with medication. He was on a deferral agreement through another county and we are requesting a demand for hearing. He reports that he has not been sleeping his energy is elevated. He continues to report grandiose delusions of having significant wealth. His thought process is quite disorganized he has constant speech with loose associations and flight of ideas. His affect is labile. He has been refusing medications so far. He states that he put Depakote on his ALLERGY list however he took that medication for the duration of his stay last time. PAST PSYCHIATRIC HISTORY: The patient has had numerous inpatient psychiatric hospitalizations at least 11. He was here last month. He carries a bipolar diagnosis rule out schizoaffective disorder. No history of suicide attempts. He has been on numerous medications in the past. He was discharged on Risperdal 1 mg 3 times daily and Depakote ER thousand milligrams at bedtime. PMH: History of DVT, hypertension ALLERGIES: Haldol, he has reported an ALLERGY to Depakote but he does not have a true ALLERGY to that medication MEDICATIONS: Refer to MAR CHEMICAL DEPENDENCY HISTORY: He denies any use of alcohol or marijuana or any other illicit drugs FAMILY PSYCHIATRIC HISTORY: None reported, no suicides in the family FAMILY CHEMICAL DEPENDENCY HISTORY: His father was known to have an alcohol use disorder SOCIAL HISTORY: The patient's is 62 years old he states he is a . His housing situation is unclear he may be homeless. He is on a disability income. He states that he was in the [employer] and had an honorable discharge. He denies any history of legal charges. Abuse history unknown MENTAL STATUS EXAM: The patient is a tall overweight male appearing his stated age. He is dressed in his own clothing. He has a orthopedic boot on his right foot in his right lower extremity is noticeably larger than his left. He has a labile affect and appears euphoric for the most part. He reports no suicidal or homicidal thoughts. He demonstrates tangential thinking loose associations and flight of ideas. He describes grandiose thoughts that are delusional in nature. He demonstrates no verbal or physical aggressiveness. He demonstrates psychomotor hyperactivity and is very demonstrative with speech. Insight and judgment are poor. He is not able to tolerate cognitive testing today. STRENGTHS/WEAKNESSES: Strengths: Income, he now has a public guardian and we are pursuing a treatment order weaknesses: Medication noncompliance INTELLECTUAL FUNCTIONING: Average IMPRESSIONS: [] #1. Bipolar 1 disorder most recent manic with psychosis, rule out schizoaffective disorder bipolar type #2. History of DVT, hypertension #3. Significant psychosocial dysfunction due to symptoms of kaley and psychosis PLAN: The patient has been admitted to the mental health unit in voluntarily. We will request a demand for hearing to obtain a treatment order. We are offering Risperdal 1 mg 3 times daily and Depakote ER 1000 mg at bedtime. He has been refusing psychotropic medication. He will be seen by internal medicine for routine history and physical exam. Social work will attempt to meet with him to complete a psychosocial assessment. Reality orientation will be provided when possible. Vital signs reviewed laboratory values reviewed. We will monitor him for safety. Confer with his guardian regarding treatment and discharge planning.
--- NOTE | 2018-03-21 15:22 | CONS ---
CONSULTATION DATE OF CONSULTATION: 03/21/2018 REASON FOR CONSULTATION: Medical management requested by Dr. Ramirez. CONSULTATION: This is a 62-year-old patient of Dr. Wheeler whose chronic stable medical conditions include chronic kidney disease stage III from nephrosclerosis, chronic left leg DVT, unstable right ankle joint. Patient was admitted to the ER for the court order. Apparently, patient may not be taking his medications. Patient is hyperactive, manic with loose associated thoughts and admitted for the same. Patient does wear a brace on the right foot and patient's lower extremities are chronically swollen. Currently, no different than at his baseline. Patient tolerating a diet. No pain. No nausea, vomiting. No fever. No chills. REVIEW OF SYSTEMS: CONSTITUTIONAL: None. HEENT: None. RESPIRATORY: None. CARDIOVASCULAR: None. GENITOURINARY none. MUSCULOSKELETAL: Chronic dislocation right ankle for which he wears a brace. Additionally, patient has got chronic swelling of the lower extremity. DERMATOLOGICAL: Some chronic redness on the lower extremities. HEMATOLOGICAL: None. LYMPHATICS: None. PSYCHIATRY: As above. NEUROLOGICAL: None. PAST MEDICAL HISTORY: Left leg DVT, hypertension, chronic kidney disease, bipolar disorder with manic episodes, chronic right ankle dislocation. PAST SURGICAL HISTORY: Back surgery, hernia repair, pacemaker, tonsillectomy. SOCIAL HISTORY: The patient smokes about half a pack a day. Now, he states a few cigarettes a day for close to 50 years. His living situation is unclear. Occasionally drinks alcohol. Used to work in the [employer] but he was discharged, honorably, he states. FAMILY HISTORY: Reviewed with patient, does not remember. HOME MEDICATIONS: 1. Risperdal 1 mg p.o. t.i.d. 2. Coumadin 5 mg p.o. daily. 3. Lopressor 25 p.o. b.i.d. 4. Amitiza 24 mcg p.o. b.i.d. 5. Depakote ER 1000 mg p.o. q.h.s. ALLERGIES: To DEPAKOTE, HALDOL, LITHIUM. DEPAKOTE allergy is unclear. PHYSICAL EXAMINATION: Temperature 97.7, pulse 90, respiratory 18, blood pressure 137/78, pulse ox 98% on room air. GENERAL APPEARANCE: Well built, BMI 31.1, sitting up, talking really fast. EYES: Pupils equal, conjunctivae normal. HEENT: External appearance of nose and ears normal, oral cavity normal. NECK: JVD not raised. Mass not palpable. RESPIRATORY: Effort normal. LUNGS: Slightly decreased breath sounds. CARDIOVASCULAR: First and second sounds are normal. Mild edema. ABDOMEN: Soft, nontender. Liver and spleen not palpable. LYMPHATIC: No lymph node palpable in neck or axillae. PSYCHIATRY: Patient remains , he jumps from one topic to the other topic. EXTREMITIES: Some redness in the lower extremity below the knee down to the foot. The patient has got a brace on the right ankle and some redness. There is no tenderness, edema is present. INVESTIGATIONS: White count 7.5, hemoglobin 11.4 potassium 4.9, BUN 49, creatinine 1.8. Creatinine was 1.5 back on 02/28/2018 and in January the creatinine was 1.9. INR is 1.3. ASSESSMENT: 1. Chronic kidney disease stage III from nephrosclerosis. 2. Chronic left leg deep venous thrombosis for which patient is chronically on Coumadin. 3. Coumadin monitoring. 4. Right ankle chronic instability for which he uses a brace. 5. Bilateral lower extremity venous insufficiency. 6. Bipolar disorder with manic episodes with psychosis. 7. Paroxysmal atrial fibrillation, currently in sinus rhythm. Has got a permanent pacemaker. PLAN: Continue medication and treatment plan. INR to be followed twice a week. Patient remained on 5 mg of Coumadin. I am not sure actually if he has been taking it regularly. Should follow up with his family doctor upon discharge. MMODL / IJN: [id number] /
[2018-03-21] MEDS: WARFARIN 5 MG TAB PO SCH (17:07)
[2018-03-21] MEDS: DIVALPROEX ER 500 MG TAB.ER.24H PO SCH (20:24)
[2018-03-22] MEDS: METOPROLOL TARTRATE 25 MG TAB PO SCH ×2 (09:05→20:49)
[2018-03-22] MEDS: risperiDONE 1 MG TAB PO SCH ×3 (09:05→18:07)
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
[2018-03-22] MEDS: WARFARIN 5 MG TAB PO SCH (18:07)
[2018-03-22] MEDS: DIVALPROEX ER 500 MG TAB.ER.24H PO SCH (20:48)
[2018-03-23] MEDS: METOPROLOL TARTRATE 25 MG TAB PO SCH ×2 (07:50→21:04)
[2018-03-23] MEDS: risperiDONE 1 MG TAB PO SCH ×3 (07:51→18:04)
--- NOTE | 2018-03-23 09:24 | US ---
EXAMINATION TYPE: US venous doppler duplex LE DATE OF EXAM: 03/23/2018 9:14 AM COMPARISON: Previous study dated 02/27/2018. CLINICAL HISTORY: pain and redness. Pain, edema, redness bilateral lower legs, worse on the right. Hi story of DVT right leg. Patient on Coumadin SIDE PERFORMED: Bilateral TECHNIQUE: The lower extremity deep venous system is examined utilizing real time linear array sonog zev with graded compression, doppler sonography and color-flow sonography. VESSELS IMAGED: External Iliac Vein (EIV) Common Femoral Vein Deep Femoral Vein Greater Saphenous Vein * Femoral Vein Popliteal Vein Small Saphenous Vein * Proximal Calf Veins (* superficial vessels) Right Leg: Positive for DVT. Incomplete compression with thready flow right popliteal vein Left Leg: No evidence of DVT No popliteal fossa lesion is seen. IMPRESSION: 1. THIS EXAMINATION IS POSITIVE FOR DVT WITHIN THE RIGHT POPLITEAL VEIN. THE AGE OF THIS IS NOT DETER MINED. IT WAS PRESENT ON THE PREVIOUS STUDY. 2. THIS EXAMINATION IS NEGATIVE FOR DVT IN THE LEFT LEG.
--- NOTE | 2018-03-23 11:11 | P.PN ---
Progress Note - Text Progress Note Date: 03/23/18 Interval history: Patient seen in [facility] today. He reports that he slept 8 hours last night. He seems to be eating well. He does not voice any adverse psychotropic medication side effects. Mental status exam: He is alert and cooperative with the interview. His speech is fluent, not rapid or pressured. His thought processes overall are organized today. He does not verbalize any thoughts of harm to self or others. She does not verbalize any hallucinations. He does not show any agitation. Plan patient will be maintained on current psychotropic medication regimen. Continue to monitor for any medication side effects and monitor his ongoing response to treatment.
--- NOTE | 2018-03-23 17:22 | CONS ---
CONSULTATION HISTORY: This is a 62-year-old gentleman, I was consulted by the psych unit for DVT of the right lower extremity. The patient has a history of chronic kidney disease stage 3. The patient also has a history of chronic left leg and right leg swelling. The patient has a history of venous hypertension and bipolar disorder with manic episode with psychosis. The patient also has a history of paroxysmal atrial tachycardia. The patient also has a history of permanent pacemaker. PHYSICAL EXAMINATION: The patient was in the psych unit. Brachial, radial and femoral pulses are present. Patient has marked swelling of both lower extremities. Ultrasound showed there is a DVT of the popliteal vein and age of clot is undetermined. he popliteal artery was small in caliber. The patient has no vascular compromise noted in both lower extremity. PLAN: The patient will be on Coumadin. His Coumadin level is subtherapeutic. Both leg elevation and compression stocking. Have discussed. MMTRINITY / IJN: [id number] /
[2018-03-23] MEDS: WARFARIN 5 MG TAB PO SCH (18:03)
[2018-03-23] MEDS: DIVALPROEX ER 500 MG TAB.ER.24H PO SCH (21:02)
[2018-03-24] MEDS: risperiDONE 1 MG TAB PO SCH (08:54)
[2018-03-24] MEDS: METOPROLOL TARTRATE 25 MG TAB PO SCH ×2 (08:54→20:56)
[2018-03-24 09:39] LABS: INR 1.1 (<1.2); Prothrombin Time 10.8 sec (9.0-12.0)
--- NOTE | 2018-03-24 11:31 | P.PN ---
Progress Note - Text Interval history: The patient is found in group he follows me to an interview room. He has started complying with the Risperdal but is not taking the Depakote. He states that the physician who placed his pacemaker told him never to take Depakote again. His INR continues to be subtherapeutic. He has been seen by Dr. Zavala for evaluation of his lower extremities. Ultrasound showed evidence of a residual venous clot age undetermined. There was no vascular compromise found in his lower extremities. The patient is focused on being discharged. We discussed that he is on a demand for hearing. Mental status exam: The patient is a tall overweight male appearing his stated age she is wearing eyeglasses. His left lower extremities wrapped in a gauze bandage. He does have a constant stream of speech. He is circumstantial and tangential at times. He continues to demonstrate delusional thoughts that are grandiose in nature. He is verbalizing no suicidal or homicidal ideation. He is reporting no auditory or visual hallucinations. He demonstrates no abnormal involuntary movements. He demonstrates no verbal or physical aggressiveness. His affect can get irritable fairly quickly but he responds to redirection. Plan: At this point the patient is refusing the Depakote. He is willing to continue with Risperdal I'll titrate the dose to 2 mg twice daily. We are awaiting a court date for the demand for hearing. Vital signs reviewed. We will continue to look for input from internal medicine regarding management of his Coumadin.
[2018-03-24] MEDS: ENOXAPARIN 150 MG/ML SYRINGE SQ SCH (13:54)
[2018-03-24] MEDS: WARFARIN 5 MG TAB PO SCH (18:06)
[2018-03-24] MEDS: risperiDONE 2 MG TAB PO SCH (20:56)
[2018-03-24] MEDS: DIVALPROEX ER 500 MG TAB.ER.24H PO SCH (20:56)
[2018-03-25] MEDS: ENOXAPARIN 150 MG/ML SYRINGE SQ SCH ×2 (08:38→13:39)
[2018-03-25] MEDS: risperiDONE 2 MG TAB PO SCH ×2 (08:40→20:58)
[2018-03-25] MEDS: METOPROLOL TARTRATE 25 MG TAB PO SCH ×2 (08:40→20:58)
--- NOTE | 2018-03-25 11:14 | P.PN ---
Progress Note - Text Interval history: The patient is found at the front man he follows me to an interview room. He reports that he slept well last night staff recorded that he did not sleep well. Appetite reportedly stable. He has been attending groups. He is demonstrated no aggressive behavior. He has been compliant with the Risperdal. He is primarily focused on being discharged. He states his court date is tomorrow and we will confirm. He plans to return to the same room and board facility upon discharge. Mental status exam: The patient is a tall overweight male appearing his stated age. He is wearing his eyeglasses. He has both legs wrapped. His lower extremities appear edematous. He reports his mood is good. He was able to remain seated in the chair without any agitated behavior. He denies having any suicidal or homicidal thoughts. He was able to demonstrate a more linear thought process as I was asking questions and he provided brief answers. When left to speak more spontaneously he demonstrates tangential thinking. He does continue to have some grandiose thinking. Insight and judgment limited. He is reporting no auditory or visual hallucinations. He maintains a bright affect. Plan: The patient will continue on his current psychotropic medication. We will discontinue the Depakote as he is unwilling to take that and there is no injectable form. We will continue with the Risperdal and this was titrated just yesterday. We will consider using the Risperdal Consta if a court order is obtained. He is not complying with the Lovenox but is complying with Coumadin. His INR is decreased again. We will confer with internal medicine. Vital signs reviewed. We will monitor him for safety. It does appear that he is approaching his baseline function although that is symptomatic.
[2018-03-25] MEDS: WARFARIN 5 MG TAB PO SCH (17:39)
--- NOTE | 2018-03-25 22:29 | PN ---
PROGRESS NOTE DATE OF SERVICE: March 25, 2018. PRESENT COMPLAINT: Leg swelling. INTERVAL HISTORY: This is a patient admitted to the psych unit with manic episode. The patient's INR has been subtherapeutic. Patient seen by Dr. Zavala. He was not sure the timing of the DVT. The patient started on Lovenox 2 days ago to bridge but the patient refusing his Lovenox. The patient otherwise has been up and about tolerating his diet. Breathing is stable. REVIEW OF SYSTEMS: Done for constitutional, cardiovascular, GI, pulmonary and relevant findings as above. CURRENT MEDICATIONS: Reviewed that include Coumadin 5 mg. EXAMINATION: VITAL SIGNS: Temperature 98.1, pulse 72, respiratory 18, blood pressure 121/77, pulse ox 99 percent on room air. GENERAL APPEARANCE: Sitting up comfortable. EYES: Pupils equal. Conjunctivae normal. HEENT: External appearance of nose and ears normal. Oral cavity normal. NECK JVD not raised. Mass not palpable. RESPIRATORY: Effort normal. LUNGS slightly decreased breath sounds. CARDIOVASCULAR 1st and 2nd sounds normal. Some edema is present. ABDOMEN: Soft, nontender. Liver and spleen not palpable. PSYCHIATRY: The patient appears to be less manic. EXTREMITIES: Swelling in both the lower extremities. INVESTIGATIONS: INR 1.1. ASSESSMENT: 1. Chronic kidney disease stage 3 from nephrosclerosis. 2. Chronic left leg deep vein thrombosis, acute deep vein thrombosis still possible. 3. Coumadin monitoring. 4. Right ankle chronic instability for which patient uses a brace. 5. Bilateral lower extremity venous insufficiency. 6. Bipolar disorder with manic episode with psychosis on presentation. 7. Paroxysmal atrial fibrillation currently in sinus rhythm. The patient has got a pacemaker. PLAN: I had a lengthy talk with the patient. Now he is agreeable to take the Lovenox which he initially refused. Increase the Coumadin to 7.5 mg every other day, give an additional 2.5 tonight. Change to daily INR. MMODL / IJN: [id number] /
[2018-03-25 23:03] LABS: INR 1.1 (<1.2); Prothrombin Time 10.6 sec (9.0-12.0)
[2018-03-25] MEDS ORDERED: WARFARIN 2.5 MG TAB PO ONE (23:59)
[2018-03-26] MEDS: METOPROLOL TARTRATE 25 MG TAB PO SCH ×2 (07:47→20:06)
[2018-03-26] MEDS: risperiDONE 2 MG TAB PO SCH ×2 (07:47→20:06)
[2018-03-26] MEDS: ENOXAPARIN 150 MG/ML SYRINGE SQ SCH (07:47)
[2018-03-26 09:58] LABS: INR 1.2 (<1.2); Prothrombin Time 11.2 sec (9.0-12.0)
--- NOTE | 2018-03-26 10:48 | P.PN ---
Progress Note - Text Interval history: The patient is found in the hallway he follows me to an interview room. He reports that he feels well rested and slept well at night. Staff state that he slept at most 2 hours. He is observed appearing very fatigued and in group he was sitting upright with his eyes closed. He states that he did take some naps yesterday and is encouraged to try to wait until nighttime to sleep. He has been trying to attend groups. His INR remains low the Coumadin dose was increased and he was more amenable to using the Lovenox last evening. He is scheduled to have court this afternoon and he believes it' s for a guardianship issue rather than related to his hospitalization. Mental status exam: The patient is a tall overweight male he is dressed in his own clothing he is wearing eyeglasses. His lower extremities are wrapped and Conrad bandages for compression. He describes his mood as being good. He appears tired but not lethargic. He has spontaneous speech. With ongoing spontaneous speech. His thought process appears more disorganized and he does continue to have some delusional thoughts mostly grandiose. He is reporting no suicidal or homicidal ideation. He demonstrates no verbal or physical aggressiveness. Insight and judgment limited. He demonstrates no abnormal involuntary movements other than movement of his fingers on his right hand. Plan: The patient will continue on the Risperdal. The patient is known to have significant symptoms at baseline. We are trying to reduce his current symptoms of kaley and psychosis to approximate baseline function. We will continue to monitor him for safety. We will continue to follow the INR results.
[2018-03-26] MEDS: WARFARIN 7.5 MG TAB PO SCH (16:48)
[2018-03-27] MEDS: METOPROLOL TARTRATE 25 MG TAB PO SCH ×2 (08:29→20:18)
[2018-03-27] MEDS: ENOXAPARIN 150 MG/ML SYRINGE SQ SCH (08:29)
[2018-03-27] MEDS: risperiDONE 2 MG TAB PO SCH ×2 (08:30→20:18)
--- NOTE | 2018-03-27 11:27 | P.PN ---
Progress Note - Text Interval history: The patient is found in group he follows me to an interview room. He was able to remain seated in group and participate without being disruptive. He states that he slept better last night staff recorded he slept 4 hours but he may have gotten closer to 5. Appetite stable. He is aware that he has court tomorrow regarding his hospitalization. We discussed possibly using a Risperdal Consta injection but he offered some resistance to that. Mental status exam: The patient is a tall overweight male appearing his stated age. He is dressed in his own clothing. He is pleasant cooperative. He maintains a constricted affect. He reports his mood is good. He denies having any suicidal or homicidal ideation. During our interaction he was able to maintain a more linear thought process. He could become tangential was spontaneous speech but was redirected. He demonstrated no verbal or physical aggressiveness. He is reporting no auditory or visual hallucinations. He does chronically have grandiose thinking. He is oriented to person place and date. He does still struggle with maintaining focus and concentration at times. Insight and judgment improving. Plan: The patient will continue on his current medication. We will consider utilizing the Risperdal Consta injection. He does have a court hearing scheduled for tomorrow. It appears he is approximating his baseline function and may be appropriate for discharge soon. I will confer with staff regarding his behavior over the last 24 hours. Vital signs reviewed.
[2018-03-27 13:45] LABS: INR 1.1 (<1.2); Prothrombin Time 10.9 sec (9.0-12.0)
[2018-03-27] MEDS: WARFARIN 7.5 MG TAB PO SCH (18:04)
[2018-03-28] MEDS: risperiDONE 2 MG TAB PO SCH ×2 (08:17→20:16)
[2018-03-28] MEDS: ENOXAPARIN 150 MG/ML SYRINGE SQ SCH (08:17)
[2018-03-28] MEDS: METOPROLOL TARTRATE 25 MG TAB PO SCH ×2 (08:17→20:16)
[2018-03-28 08:19] LABS: INR 1.2 (<1.2); Prothrombin Time 11.3 sec (9.0-12.0)
--- NOTE | 2018-03-28 11:02 | P.PN ---
Progress Note - Text Interval history: The patient is found in the hallway he follows me to an interview room. He reports his mood is good he is looking forward to discharge. The patient's guardian contacted social work and indicated that they do not feel he is appropriate for discharge. We suggested she come in for a meeting so we can discuss this as a team and she was agreeable. A meeting is scheduled for Saturday. The patient again slept better last night getting 5-5-1/2 hours. He has been attending groups he's demonstrated no agitated behavior. He does continue to have disorganization of thought and does continue to have grandiose thinking. Again that is largely part of his baseline function for as long as we have known him. Mental status exam: The patient is a tall male appearing his stated age. He is cooperative pleasant. He expresses feelings of frustration in learning that he will not be discharged today but is able to redirect himself. He indicates that he is able to stay until Saturday. He is reporting no suicidal or homicidal thoughts. Thought process can be linear with brief questions he does become tangential with spontaneous speech. He demonstrates no verbal or physical aggressiveness he reports no auditory or visual hallucinations. He is oriented to person place and date. Plan: The patient will continue on the oral Risperdal. We are initiating Risperdal Consta today 25 mg IM. He did participate in court today and stipulated to a treatment order. We will monitor him for safety and encourage his continued participation in the milieu. He may be appropriate for discharge Saturday following the discharge planning meeting involving his guardian.
[2018-03-28] MEDS ORDERED: WARFARIN 10 MG TAB PO ONE (18:00)
[2018-03-29] MEDS: risperiDONE 2 MG TAB PO SCH ×2 (08:49→21:03)
[2018-03-29] MEDS: METOPROLOL TARTRATE 25 MG TAB PO SCH ×2 (08:49→21:03)
[2018-03-29] MEDS: ENOXAPARIN 150 MG/ML SYRINGE SQ SCH (08:50)
[2018-03-29 09:26] LABS: INR 1.2 (<1.2); Prothrombin Time 11.5 sec (9.0-12.0)
[2018-03-29] MEDS ORDERED: WARFARIN 10 MG TAB PO ONE (18:00)
--- NOTE | 2018-03-29 19:43 | PN ---
PROGRESS NOTE The patient is seen and interviewed in detail, was found still hyperverbal and has some flight of ideas. He went on one thing to another and spent a lot of time discussing about his plans. He is still holding a big republican. Last time when I took care of him, he was thinking about having a Halloween republican. This time, he has another plan. He is still getting irritable at times, but fairly well-controlled, very impulsive. MENTAL STATUS EXAMINATION: Patient is alert, oriented x4, has fair eye contact. Speech hyperverbal, somewhat pressured. Mood elated, irritable with congruent affect. Denies suicidal ideation. I do see him responding to internal stimuli. Insight and judgement improving slowly and gradually. ASSESSMENT: Bipolar disorder type I, most recent episode manic. PLAN: Will continue with oral Risperdal, may use if the patient does respond well to risperidone. Encouraged to attend groups and meetings. Support therapy provided. ROSEMARIE / SANDEE: [id number] /
[2018-03-30] MEDS: risperiDONE 2 MG TAB PO SCH ×2 (08:57→21:04)
[2018-03-30] MEDS: METOPROLOL TARTRATE 25 MG TAB PO SCH ×2 (08:57→21:04)
[2018-03-30] MEDS: ENOXAPARIN 150 MG/ML SYRINGE SQ SCH (08:57)
[2018-03-30 09:16] LABS: INR 1.3 (<1.2); Prothrombin Time 12.4 sec (9.0-12.0)
--- NOTE | 2018-03-30 13:08 | PN ---
PROGRESS NOTE HISTORY: The patient is seen and interviewed. Continues to be hyperverbal. Continues a flight of ideas. Though his pressured speech is much better, he continues to have rambling thoughts and he changes topics from one to another very quick. Sometimes hard to redirect, very impulsive. MENTAL STATUS EXAMINATION: The patient is alert, oriented x4. Fair eye contact. Speech is hyperverbal, not pressured. Mood elated, irritable, with congruent affect. Denies suicidal ideation. I did not see him responding to internal stimuli. Insight and judgement improving slowly and gradually. ASSESSMENT: Bipolar disorder type 1, most recent episode manic. PLAN: Will continue with oral Risperdal and continue to adjust medications accordingly. Encouraged groups and meetings. Supportive therapy provided. ROSEMARIE / SANDEE: [id number] /
[2018-03-30] MEDS ORDERED: WARFARIN 7.5 MG TAB PO SCH (18:00)
[2018-03-30] MEDS ORDERED: WARFARIN 10 MG TAB PO ONE (18:00)
[2018-03-31 07:14] VITALS: BP 148/89; PULSE 85; RESP 16; TEMP 98.6
[2018-03-31] MEDS: ENOXAPARIN 150 MG/ML SYRINGE SQ SCH (08:19)
[2018-03-31] MEDS: METOPROLOL TARTRATE 25 MG TAB PO SCH (08:19)
[2018-03-31] MEDS: risperiDONE 2 MG TAB PO SCH (08:19)
[2018-03-31 09:39] LABS: INR 1.4 (<1.2); Prothrombin Time 13.3 sec (9.0-12.0)
--- NOTE | 2018-03-31 11:25 | P.DS ---
Providers Date of admission: 03/20/18 14:08 Expected date of discharge: 03/31/18 Attending physician: Marcel Ramirez Consults: 03/20/18 15:01 Consult Physician Routine Consulting Provider: Earl Curry Consult Reason/Comments: history and physical Do you want consulting provider notified?: Yes 03/23/18 08:33 Consult Physician Routine Consulting Provider: Claude Zavala Consult Reason/Comments: lower bilat extremities, edema and redness, hx of DVT Do you want consulting provider notified?: Yes Primary care physician: Jaspal Melgoza - Discharge Diagnosis(es) (1) Bipolar I, recurrent manic episode, severe with psychotic behavior Current Visit: No Status: Acute Priority: High Hospital Course: Brief summary of admission note: This patient is a 62-year-old who was admitted again to the mental health unit with symptoms of kaley and psychosis. The patient is well-known to the psychiatric service. He does have a history of bipolar disorder rule out schizoaffective disorder. He presented with symptoms of kaley and psychosis. He had been previously stabilized on Depakote and Risperdal he presented with a Depakote level of essentially 0. He was refusing to take Depakote any longer but would comply with the Risperdal he stated. He had not been sleeping energy had been elevated he continued to have grandiose delusions. Thought process was quite disorganized. For full details please refer to my psychiatric evaluation dated 03/21/2018. Summary of hospital course: The patient was admitted to the mental health unit a demand for hearing loss filed. The patient stipulated to the treatment order. He was placed back on his Risperdal and the dosage was titrated to 2 mg twice a day. He ultimately refused to take the Depakote any further and that was discontinued. With some reluctance he was willing to take the Risperdal Consta injection and he was given a 25 mg injection on 03/28/2018. The patient is known to have baseline symptoms of psychosis most notably grandiose delusions. He is known to have a chronic disorganization of thought. We feel that he has stabilized to his baseline function again. For several nights in a row now he has been sleeping over 5 hours which again is part of his baseline function. He has been seen by internal medicine. Studies demonstrated an ongoing venous thrombus. He has been treated with Coumadin but it has been challenging getting him to the correct therapeutic range. Internal medicine has provided support as well as pharmacy dosing the Coumadin. The patient does have a guardian and she will participate in a discharge meeting today. Mental status exam: The patient is a tall overweight male he is dressed in his own clothing. Hygiene and grooming are adequate. He does have his lower extremities wrapped. He seated calmly in the chair. He demonstrates no verbal or physical aggressiveness. He is reporting no suicidal or homicidal ideation intent or plan. He does continue to have grandiose thoughts such as having significant financial wealth. He reports no paranoid or persecutory thinking. He reports feeling safe. He can provide linear answers to questions. At times he will demonstrate tangential thinking. Affect is constricted. Speech is fluent and spontaneous and maintains a consistent tone of voice. He demonstrates future oriented thinking. He is easily directed during the interview. Impressions 1. Bipolar 1 disorder most recent manic with psychosis, rule out schizoaffective disorder bipolar type 2. History of DVT, hypertension Plan: The patient will be discharged mental health unit today to return to the room and board facility. He will continue on Risperdal 2 mg twice daily. He will be due for a Risperdal constant injection on 04/11/2018 37-1/2 mg. After he has been on the oral Risperdal for a sufficient amount of time that may be discontinued. He is instructed not to use any alcohol or marijuana or any other illicit drugs as they can exacerbate his symptoms of psychosis and/or elevate his safety risk. We will hold a discharge meeting including social work and his guardian prior to discharge. He will follow up with community mental health upon discharge and may benefit from use of ACT services. There is no imminent safety risk. The patient has approximated his baseline function although that is still symptomatic. He is instructed to return to the hospital with any acute safety concerns. Patient Condition at Discharge: Stable Plan - Discharge Summary Discharge Rx Participant: No New Discharge Prescriptions: New risperiDONE [RisperDAL] 2 mg PO BID #42 tab risperiDONE MICROSPHERES [RisperDAL CONSTA] 37.5 mg IM ONCE #1 syringe Warfarin [Coumadin] 10 mg PO ONCE tab Continue Lubiprostone [Amitiza] 24 mcg PO BID Sodium Chloride [Haralson] 1 spray EA NOSTRIL DAILY PRN PRN Reason: Nasal Congestion Metoprolol Tartrate [Lopressor] 25 mg PO BID #60 tab Discontinued Warfarin [Coumadin] 5 mg PO DAILY Divalproex ER [Depakote ER] 1,000 mg PO HS #60 tab.er.24h risperiDONE [RisperDAL] 1 mg PO AC-TID #45 tab Discharge Medication List Lubiprostone [Amitiza] 24 mcg PO BID 02/11/18 [History] Sodium Chloride [Haralson] 1 spray EA NOSTRIL DAILY PRN 02/27/18 [History] Metoprolol Tartrate [Lopressor] 25 mg PO BID #60 tab 03/03/18 [Rx] Warfarin [Coumadin] 10 mg PO ONCE tab 03/31/18 [Rx] risperiDONE MICROSPHERES [RisperDAL CONSTA] 37.5 mg IM ONCE #1 syringe 03/31/18 [Rx] risperiDONE [RisperDAL] 2 mg PO BID #42 tab 03/31/18 [Rx] Follow up Appointment(s)/Referral(s): [facility] [Outside] - 1-2 Days (walk in intake today until 300pm Saturday 830 -300 Saturday 1030 - 5pm) Jaspal Melgoza MD [Primary Care Provider] - 1-2 days Activity/Diet/Wound Care/Special Instructions: Activity and Diet as tolerated. Avoid the use of street drugs and alcohol. Take all medications as prescribed, when you are in need of refills contact your medical doctor or psychiatrist. Please go to all scheduled outpatient appointments for aftercare treatment. If symptoms return or worsen you can call the crisis line @ and/or return to the nearest emergency room for evaluation.
[2018-03-31] MEDS ORDERED: WARFARIN 10 MG TAB PO ONE (18:00)
== END 2018-03-31 13:45 | disposition home or self-care (01) | DRG 885 ==
LOC: EC 21:48 → 3MHU 03-20 14:08
PROVIDERS: ADMIT Psychiatry & Neurology Psychiatry; ATTEND Psychiatry & Neurology Psychiatry
DX: F31.2 Bipolar disorder, current episode manic severe with psychotic features (principal); I82.501 Chronic embolism and thrombosis of unspecified deep veins of right lower extremity; I47.1 Supraventricular tachycardia; E66.3 Overweight; Z68.33 Body mass index [BMI] 33.0-33.9, adult; F17.210 Nicotine dependence, cigarettes, uncomplicated; H91.90 Unspecified hearing loss, unspecified ear; I12.9 Hypertensive chronic kidney disease with stage 1 through stage 4 chronic kidney disease, or unspecified chronic kidney disease; I48.0 Paroxysmal atrial fibrillation; Z79.01 Long term (current) use of anticoagulants; I87.2 Venous insufficiency (chronic) (peripheral); M25.371 Other instability, right ankle; N18.3 Chronic kidney disease, stage 3 (moderate); Z91.14 Patient's other noncompliance with medication regimen; Z95.0 Presence of cardiac pacemaker; Z79.899 Other long term (current) drug therapy
CPT/HCPCS: 36415; 80048; 80061; 80164; 80306; 82075; 84443; 85025; 85610; 93970; 99285

== ENCOUNTER 2018-04-04 10:53 | Inpatient (IN) | payer MEDICARE, OTHER ==
[2018-04-04 11:58] LABS: Amphetamine Screen,Urine Not Detected (NotDetected); Barbiturate Screen,Urine Not Detected (NotDetected); Benzodiazepines Screen,Urine Not Detected (NotDetected); Cocaine Screen,Urine Not Detected (NotDetected); Methadone Screen, Urine Not Detected (NotDetected); Opiate Screen,Urine Not Detected (NotDetected); Oxycodone Screen, Urine Not Detected (NotDetected); Phencyclidine Screen,Urine Not Detected (NotDetected); Tricyclic Antidepressant,Urine Not Detected (NotDetected); Urn Cannabinoid Scrn Not Detected (NotDetected)
--- NOTE | 2018-04-04 12:47 | ED ---
General Adult HPI - General Chief complaint: Psychiatric Symptoms Stated complaint: EPS eval Source: patient Mode of arrival: ambulatory Limitations: no limitations - History of Present Illness Initial comments: Dictation was produced using [employer] dictation software. please excuse any grammatical, word or spelling errors. Chief Complaint: 62-year-old male with past medical history of deep venous thrombosis, hypertension, kidney disease presents with law enforcement for petition. History of Present Illness: It is a 62-year-old male well-known to emergency department for psychiatric complaints. He is brought in by law enforcement for petition. He has a court order to come to the emergency department because he is not taking his medications. Patient denies any suicidal or homicidal ideation. Patient is well-known to emergency department for multiple visitations for a myriad of complaints. Patient is a poor historian. He denies any complaints at this time. States that he is hungry The ROS documented in this emergency department record has been reviewed and confirmed by me. Those systems with pertinent positive or negative responses have been documented in the HPI. All other systems are other negative and/or noncontributory. - Related Data Home Medications Medication Instructions Recorded Confirmed Lubiprostone [Amitiza] 24 mcg PO BID 02/11/18 04/04/18 Sodium Chloride [[place]] 1 spray EA NOSTRIL DAILY PRN 02/27/18 04/04/18 Previous Rx's Medication Instructions Recorded Metoprolol Tartrate [Lopressor] 25 mg PO BID #60 tab 03/03/18 Warfarin [Coumadin] 10 mg PO DAILY #5 tab 03/31/18 risperiDONE MICROSPHERES 37.5 mg IM ONCE #1 syringe 03/31/18 [RisperDAL CONSTA] risperiDONE [RisperDAL] 2 mg PO BID #42 tab 03/31/18 Allergies Allergy/AdvReac Type Severity Reaction Status Date / Time divalproex sodium Allergy Unknown Verified 04/04/18 11:25 [From Depakote] haloperidol [From Haldol] Allergy Unknown Verified 04/04/18 11:25 haloperidol lactate Allergy Unknown Verified 04/04/18 11:25 [From Haldol] lithium Allergy Unknown Verified 04/04/18 11:25 Review of Systems ROS Statement: Those systems with pertinent positive or pertinent negative responses have been documented in the HPI. ROS Other: All systems not noted in ROS Statement are negative. 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; Chronic kidney disease stage 3, bipolar depressino History of Any Multi-Drug Resistant Organisms: MRSA Date of last positivie culture/infection: 04/27/2014 MDRO Source:: Right Arm Past Surgical History: Back Surgery, Hernia Repair, Pacemaker, Tonsillectomy Past Anesthesia/Blood Transfusion Reactions: Previous Problems w/ Anesthesia Additional Past Anesthesia/Blood Transfusion Reaction / Comment(s): STATES " HARD TIME BREATHING LAYING FLAT, I'M A MOUTH BREATHER" Type of Cardiac Device: Permanent Pacemaker Device Placement Date:: 2015 Past Psychological History: Bipolar Smoking Status: Current every day smoker Past Alcohol Use History: Rare - Past Family History Father History Unknown: Yes Mother History Unknown: Yes General Exam - General Exam Comments Initial Comments: PHYSICAL EXAM: General Impression: Alert and oriented x3, not in acute distress HEENT: Normocephalic atraumatic, extra-ocular movements intact, pupils equal and reactive to light bilaterally, mucous membranes moist. Cardiovascular: Heart regular rate and rhythm, S1&S2 audible, no murmurs, rubs or gallops Chest: Lungs clear to auscultation bilaterally, no rhonchi, no wheeze, no rales Abdomen: Bowel sounds present, abdomen soft, non-tender, non-distended, no organomegaly Musculoskeletal: Pulses present and equal in all extremities, no peripheral edema Motor: Power 5/5 bilaterally, no focal deficits noted Neurological: CN II-XII grossly intact, no focal motor or sensory deficits noted Skin: Intact with no visualized rashes Psych: Normal affect and mood Limitations: no limitations Course Vital Signs 04/04/18 04/04/18 04/05/18 11:03 17:47 07:02 Temperature 98.9 F 97.6 F 97.9 F Pulse Rate 83 75 68 Respiratory 18 16 16 Rate Blood Pressure 123/82 138/71 133/72 O2 Sat by Pulse 98 96 97 Oximetry 04/05/18 04/05/18 04/06/18 17:21 20:08 04:00 Temperature 99.1 F 99.1 F Pulse Rate 103 H 85 87 Respiratory 18 16 20 Rate Blood Pressure 157/85 147/77 113/64 O2 Sat by Pulse 98 98 95 Oximetry 04/06/18 04/07/18 22:00 10:00 Temperature Pulse Rate 76 78 Respiratory 18 18 Rate Blood Pressure 171/98 112/57 O2 Sat by Pulse 96 99 Oximetry Medical Decision Making - Medical Decision Making ED course: 62-year-old male presents with a court order secondary to not taking his medications. Vital signs upon arrival are within normal limits. Patient is no complete at this time.Laboratory evaluation obtained. CBC is unremarkable. INR is 1.0. Creatinine is 1.96 which is slightly above patient' s normal baseline. Metabolic panel is otherwise unremarkable. Rapid urine drug screen is negative. Patient is allegedly taking his medications on a regular basis. Patient is supposed be on Coumadin for DVT treatment. His INR today is 1.0. Patient to be treated with Lovenox. It is unclear patient has been taking his Coumadin and unclear if patient can be safely restarted on Coumadin without bridging. Patient resting comfortably in the room. Patient is sent out to oncoming physician for follow-up of EPS recommendations. Patient medically cleared for evaluation. Was in the emergency department for almost 4 days. Finally he was admitted to inpatient psychiatry. - Lab Data Result diagrams: 04/04/18 13:05 04/04/18 13:05 Lab Results 04/04/18 04/04/18 04/04/18 Range/Units 11:33 11:33 13:05 WBC (3.8-10.6) k/uL RBC (4.30-5.90) m/uL Hgb (13.0-17.5) gm/dL Hct (39.0-53.0) % MCV (80.0-100.0) fL MCH (25.0-35.0) pg MCHC (31.0-37.0) g/dL RDW (11.5-15.5) % Plt Count (150-450) k/uL Neutrophils % % Lymphocytes % % Monocytes % % Eosinophils % % Basophils % % Neutrophils # (1.3-7.7) k/uL Lymphocytes # (1.0-4.8) k/uL Monocytes # (0-1.0) k/uL Eosinophils # (0-0.7) k/uL Basophils # (0-0.2) k/uL PT (9.0-12.0) sec INR (<1.2) Sodium 140 (137-145) mmol/L Potassium 4.3 (3.5-5.1) mmol/L Chloride 112 H (98-107) mmol/L Carbon Dioxide 21 L (22-30) mmol/L Anion Gap 7 mmol/L BUN 26 H (9-20) mg/dL Creatinine 1.96 H (0.66-1.25) mg/dL Est GFR (CKD-EPI)AfAm 41 (>60 ml/min/1.73 sqM) Est GFR (CKD-EPI)NonAf 36 (>60 ml/min/1.73 sqM) Glucose 95 (74-99) mg/dL Calcium 9.2 (8.4-10.2) mg/dL Urine Color Light Yellow Urine Appearance Clear (Clear) Urine pH 5.5 (5.0-8.0) Ur Specific [place] 1.007 (1.001-1.035) Urine Protein Negative (Negative) Urine Glucose (UA) Negative (Negative) Urine Ketones Negative (Negative) Urine Blood Negative (Negative) Urine Nitrite Negative (Negative) Urine Bilirubin Negative (Negative) Urine Urobilinogen <2.0 (<2.0) mg/dL Ur Leukocyte Esterase Negative (Negative) Urine Opiates Screen Not Detected (NotDetected) Ur Oxycodone Screen Not Detected (NotDetected) Urine Methadone Screen Not Detected (NotDetected) Ur Propoxyphene Screen Not Detected (NotDetected) Ur Barbiturates Screen Not Detected (NotDetected) U Tricyclic Antidepress Not Detected (NotDetected) Ur Phencyclidine Scrn Not Detected (NotDetected) Ur Amphetamines Screen Not Detected (NotDetected) U Methamphetamines Scrn Not Detected (NotDetected) U Benzodiazepines Scrn Not Detected (NotDetected) Urine Cocaine Screen Not Detected (NotDetected) U Marijuana (THC) Screen Not Detected (NotDetected) 04/04/18 04/04/18 04/05/18 Range/Units 13:05 13:05 14:00 WBC 7.3 (3.8-10.6) k/uL RBC 3.60 L (4.30-5.90) m/uL Hgb 11.0 L (13.0-17.5) gm/dL Hct 34.2 L (39.0-53.0) % MCV 95.0 (80.0-100.0) fL MCH 30.5 (25.0-35.0) pg MCHC 32.1 (31.0-37.0) g/dL RDW 14.3 (11.5-15.5) % Plt Count 220 (150-450) k/uL Neutrophils % 70 % Lymphocytes % 17 % Monocytes % 8 % Eosinophils % 3 % Basophils % 0 % Neutrophils # 5.1 (1.3-7.7) k/uL Lymphocytes # 1.3 (1.0-4.8) k/uL Monocytes # 0.6 (0-1.0) k/uL Eosinophils # 0.2 (0-0.7) k/uL Basophils # 0.0 (0-0.2) k/uL PT 9.8 10.1 (9.0-12.0) sec INR 1.0 1.0 (<1.2) Sodium (137-145) mmol/L Potassium (3.5-5.1) mmol/L Chloride (98-107) mmol/L Carbon Dioxide (22-30) mmol/L Anion Gap mmol/L BUN (9-20) mg/dL Creatinine (0.66-1.25) mg/dL Est GFR (CKD-EPI)AfAm (>60 ml/min/1.73 sqM) Est GFR (CKD-EPI)NonAf (>60 ml/min/1.73 sqM) Glucose (74-99) mg/dL Calcium (8.4-10.2) mg/dL Urine Color Urine Appearance (Clear) Urine pH (5.0-8.0) Ur Specific [place] (1.001-1.035) Urine Protein (Negative) Urine Glucose (UA) (Negative) Urine Ketones (Negative) Urine Blood (Negative) Urine Nitrite (Negative) Urine Bilirubin (Negative) Urine Urobilinogen (<2.0) mg/dL Ur Leukocyte Esterase (Negative) Urine Opiates Screen (NotDetected) Ur Oxycodone Screen (NotDetected) Urine Methadone Screen (NotDetected) Ur Propoxyphene Screen (NotDetected) Ur Barbiturates Screen (NotDetected) U Tricyclic Antidepress (NotDetected) Ur Phencyclidine Scrn (NotDetected) Ur Amphetamines Screen (NotDetected) U Methamphetamines Scrn (NotDetected) U Benzodiazepines Scrn (NotDetected) Urine Cocaine Screen (NotDetected) U Marijuana (THC) Screen (NotDetected) 04/06/18 04/07/18 Range/Units 07:18 08:31 WBC (3.8-10.6) k/uL RBC (4.30-5.90) m/uL Hgb (13.0-17.5) gm/dL Hct (39.0-53.0) % MCV (80.0-100.0) fL MCH (25.0-35.0) pg MCHC (31.0-37.0) g/dL RDW (11.5-15.5) % Plt Count (150-450) k/uL Neutrophils % % Lymphocytes % % Monocytes % % Eosinophils % % Basophils % % Neutrophils # (1.3-7.7) k/uL Lymphocytes # (1.0-4.8) k/uL Monocytes # (0-1.0) k/uL Eosinophils # (0-0.7) k/uL Basophils # (0-0.2) k/uL PT 10.2 10.6 (9.0-12.0) sec INR 1.0 1.1 (<1.2) Sodium (137-145) mmol/L Potassium (3.5-5.1) mmol/L Chloride (98-107) mmol/L Carbon Dioxide (22-30) mmol/L Anion Gap mmol/L BUN (9-20) mg/dL Creatinine (0.66-1.25) mg/dL Est GFR (CKD-EPI)AfAm (>60 ml/min/1.73 sqM) Est GFR (CKD-EPI)NonAf (>60 ml/min/1.73 sqM) Glucose (74-99) mg/dL Calcium (8.4-10.2) mg/dL Urine Color Urine Appearance (Clear) Urine pH (5.0-8.0) Ur Specific [place] (1.001-1.035) Urine Protein (Negative) Urine Glucose (UA) (Negative) Urine Ketones (Negative) Urine Blood (Negative) Urine Nitrite (Negative) Urine Bilirubin (Negative) Urine Urobilinogen (<2.0) mg/dL Ur Leukocyte Esterase (Negative) Urine Opiates Screen (NotDetected) Ur Oxycodone Screen (NotDetected) Urine Methadone Screen (NotDetected) Ur Propoxyphene Screen (NotDetected) Ur Barbiturates Screen (NotDetected) U Tricyclic Antidepress (NotDetected) Ur Phencyclidine Scrn (NotDetected) Ur Amphetamines Screen (NotDetected) U Methamphetamines Scrn (NotDetected) U Benzodiazepines Scrn (NotDetected) Urine Cocaine Screen (NotDetected) U Marijuana (THC) Screen (NotDetected) Disposition Clinical Impression: Psychosis Disposition: ADMITTED IP TO THIS [facility] Condition: Good Decision Time: 16:53
[2018-04-04 13:18] LABS: Basophils % (A) 0 %; Eosinophils # (A) 0.2 k/uL (0-0.7); Eosinophils % (A) 3 %; HCT 34.2 % (39.0-53.0); Lymphocytes # (A) 1.3 k/uL (1.0-4.8); Lymphocytes % (A) 17 %; MCH 30.5 pg (25.0-35.0); MCHC 32.1 g/dL (31.0-37.0); Mean Platelet Volume 7.8; Monocytes # (A) 0.6 k/uL (0-1.0); Monocytes % (A) 8 %; Neutrophils # (A) 5.1 k/uL (1.3-7.7); Neutrophils % (A) 70 %; Platelet Count 220 k/uL (150-450); RDW 14.3 % (11.5-15.5); WBC 7.3 k/uL (3.8-10.6)
[2018-04-04 13:27] LABS: Prothrombin Time 9.8 sec (9.0-12.0)
[2018-04-04 13:35] LABS: Calcium 9.2 mg/dL (8.4-10.2); Potassium 4.3 mmol/L (3.5-5.1)
[2018-04-04] MEDS ORDERED: ENOXAPARIN 100 MG/ML SYRINGE SQ STA (14:50)
[2018-04-04 15:48] LABS: Appearance,Urine Clear (Clear); Bilirubin,Urine Negative (Negative); Blood,Urine Negative (Negative); Color,Urine Light Yellow; Glucose,Urine (UA) Negative (Negative); Ketones,Urine Negative (Negative); Leukocyte Esterase,Urine Negative (Negative); Nitrite,Urine Negative (Negative); PH, Urine 5.5 (5.0-8.0); Protein,Urine Negative (Negative); Specific Gravity,Urine 1.007 (1.001-1.035); Urobilinogen,Urine <2.0 mg/dL (<2.0)
[2018-04-04] MEDS ORDERED: LORazepam 1 MG TAB PO STA (16:33)
[2018-04-05 14:26] LABS: Prothrombin Time 10.1 sec (9.0-12.0)
[2018-04-05] MEDS ORDERED: LORazepam 1 MG TAB PO STA (16:49)
[2018-04-05] MEDS: METOPROLOL TARTRATE 25 MG TAB PO SCH (19:39)
[2018-04-05] MEDS ORDERED: WARFARIN 10 MG TAB PO ONE (21:00)
[2018-04-05] MEDS: risperiDONE 2 MG TAB PO SCH (21:08)
[2018-04-06 07:53] LABS: Prothrombin Time 10.2 sec (9.0-12.0)
[2018-04-06] MEDS: METOPROLOL TARTRATE 25 MG TAB PO SCH (11:18)
[2018-04-06] MEDS: risperiDONE 2 MG TAB PO SCH (11:19)
[2018-04-06] MEDS ORDERED: WARFARIN 10 MG TAB PO ONE (18:00)
[2018-04-07] MEDS: METOPROLOL TARTRATE 25 MG TAB PO SCH ×3 (00:11→20:44)
[2018-04-07] MEDS: risperiDONE 2 MG TAB PO SCH ×3 (00:11→20:44)
[2018-04-07 09:03] LABS: INR 1.1 (<1.2); Prothrombin Time 10.6 sec (9.0-12.0)
[2018-04-07] MEDS ORDERED: SODIUM CHLORIDE 0.65% NASAL SPRAY 44 ML BTL NASAL PRN (14:52)
[2018-04-07] MEDS ORDERED: MAGNESIUM HYDROXIDE 2,400 MG/10 ML CUP PO PRN (14:54)
[2018-04-07] MEDS ORDERED: ACETAMINOPHEN TAB 325 MG TAB PO PRN (14:54)
[2018-04-07] MEDS ORDERED: MAG HYDROX/AL HYDROX/SIMETH 30 ML CUP PO PRN (14:54)
[2018-04-07] MEDS ORDERED: risperiDONE ODT 2 MG TAB PO STA (16:37)
[2018-04-07] MEDS ORDERED: WARFARIN 10 MG TAB PO ONE (18:00)
[2018-04-07] MEDS: WARFARIN 10 MG TAB PO SCH (18:05)
[2018-04-07] MEDS: LORazepam 1 MG TAB PO PRN (23:56)
[2018-04-08] MEDS: NICOTINE POLACRILEX 2 MG GUM BUCCAL PRN ×5 (01:53→21:15)
[2018-04-08] MEDS: METOPROLOL TARTRATE 25 MG TAB PO SCH ×2 (08:39→21:12)
[2018-04-08] MEDS: risperiDONE 2 MG TAB PO SCH ×2 (08:39→21:12)
[2018-04-08 09:53] LABS: Basophils % (A) 0 %; Eosinophils # (A) 0.2 k/uL (0-0.7); Eosinophils % (A) 3 %; HCT 34.3 % (39.0-53.0); Lymphocytes # (A) 1.2 k/uL (1.0-4.8); Lymphocytes % (A) 20 %; MCH 30.4 pg (25.0-35.0); MCHC 32.1 g/dL (31.0-37.0); MCV 94.8 fL (80.0-100.0); Mean Platelet Volume 7.4; Monocytes # (A) 0.4 k/uL (0-1.0); Monocytes % (A) 7 %; Neutrophils % (A) 67 %; Platelet Count 244 k/uL (150-450); RBC 3.62 m/uL (4.30-5.90); RDW 14.2 % (11.5-15.5)
[2018-04-08 10:11] LABS: INR 1.2 (<1.2); Partial Thromboplastin Time 25.1 sec (22.0-30.0); Prothrombin Time 11.5 sec (9.0-12.0)
[2018-04-08 10:23] LABS: Albumin 3.4 g/dL (3.5-5.0); Calcium 9.3 mg/dL (8.4-10.2); Potassium 4.7 mmol/L (3.5-5.1); Total Bilirubin 0.4 mg/dL (0.2-1.3); Total Protein 6.7 g/dL (6.3-8.2)
--- NOTE | 2018-04-08 12:23 | HP ---
HISTORY AND PHYSICAL DATE OF SERVICE: 04/08/2018 IDENTIFYING DATA: This patient is a 62-year-old who was admitted again to the mental health unit through the emergency room. HISTORY OF PRESENT ILLNESS: The patient presented to the emergency room after he was brought in by police. There were reports that the patient had been sleeping on the porch of a stranger's home. He had been agitated at the courthouse and possibly agitated when interacting with his guardian. The patient has a long history of bipolar disorder versus schizoaffective disorder. He has been on this mental health unit numerous times. He states that he is sleeping. He feels that he has been brought up here unnecessarily. He states he has been complying with medication. With his last admission, he was given a Risperdal Consta injection. He is due for his next injection on 04/11/2018. He has little insight into presenting symptoms. Staff reports that the patient has been pleasant and cooperative. He has demonstrated no aggressive behavior. He chronically does have disorganization of thought with some grandiose thinking. He is reporting no thoughts of harming others. He is endorsing no hallucinations. PAST PSYCHIATRIC HISTORY: The patient has had numerous inpatient admissions. This is his sixth admission since January of 2014. It is his third admission since February of this year. The patient was last prescribed Risperdal Consta and his next dose is due 04/11/2018. He was to continue taking the oral Risperdal 2 mg twice daily until told otherwise. 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 He has been on several other psychotropics in the past including lithium, Haldol, etc. He is open with [facility]. He is on a current treatment order. PAST MEDICAL HISTORY: History of DVT, hypertension, kidney disease. He is on Coumadin. His INR remains subtherapeutic. ALLERGIES: HALDOL, He has reported an allergy to LITHIUM and now reports an allergy to DEPAKOTE, although there is no true allergy. MEDICATIONS: Metoprolol 25 mg twice daily, Coumadin 10 mg daily. CHEMICAL DEPENDENCY HISTORY: Denies any use of alcohol, marijuana, or any other illicit drug. His urine drug screen was negative. FAMILY PSYCHIATRIC HISTORY: None reported. No suicides in the family. FAMILY CHEMICAL DEPENDENCY HISTORY: His father was known to have alcohol use disorder. SOCIAL HISTORY: The patient is 62 years old. He is a . He has been residing at a room and board/[facility] facility. He is on a disability income. He states that he was in the [employer] and had an honorable discharge. He denies any history of recent legal charges. ABUSE HISTORY: Unknown. The patient has limited support. He does have a guardian. MENTAL STATUS EXAM: The patient is a tall, overweight male. He is dressed in his own clothing. He has edema of his lower extremities. He is wearing eyeglasses. He is seated calmly in the chair. Speech is fluent, spontaneous. He is verbose. He is not pressured. He demonstrates no verbal or physical aggressiveness. He reports no suicidal or homicidal ideation, intent, or plan. He maintains a constricted affect. He lacks insight into his symptoms. He chronically will have grandiose delusions. He chronically has disorganization of his thought process as he can become tangential. He demonstrates no abnormal involuntary movements. He is oriented to person, place, and date. He is able to name the days of the week backwards. STRENGTHS: Income, housing, public guardian. WEAKNESSES: Impaired insight into illness. INTELLECTUAL FUNCTIONING: Average. IMPRESSION: 1. Bipolar 1 disorder, most recent manic with psychosis. Rule out schizoaffective disorder, bipolar type. 2. History of deep venous thrombosis, hypertension, kidney disease. 3. Psychosocial dysfunction due to ongoing psychiatric symptoms. PLAN: The patient has been admitted to the mental health unit on an existing court order. The patient will continue the Risperdal 2 mg twice daily. We will titrate the Risperdal Consta dose with his next injection. We will add Trileptal 150 mg twice daily and will titrate the dose. He will be seen by Internal Medicine for routine history and physical exam. We will continue drawing an INR. Vital signs reviewed. Social Work will meet with the patient to complete a psychosocial assessment. We will discuss treatment and discharge planning with the patient's guardian. MMODL / IJN: [id number] /
[2018-04-08] MEDS: OXcarbazepine 150 MG TAB PO SCH ×2 (13:05→21:12)
[2018-04-08] MEDS: ENOXAPARIN 100 MG/ML SYRINGE SQ SCH ×2 (13:37→21:12)
--- NOTE | 2018-04-08 14:25 | CONS ---
CONSULTATION DATE OF CONSULTATION: 04/08/2018 REASON FOR CONSULTATION: Medical management requested by Dr. Ramirez. CONSULTATION: This is a pleasant, unfortunate gentleman who has underlying history of bipolar disorder with manic episode with psychotic behavior. Chronic stable medical conditions include chronic kidney disease stage III, chronic left leg DVT, unstable right ankle joint. Patient was here not too long ago by a court order as patient is not taking his medications. Patient is put back on Coumadin, his INR was subtherapeutic with the question of recurrent DVT. Patient is put on Lovenox and is discharged on Coumadin. The patient again is not taking his medications, rather manic, not able to stay on one topic in, rattles off including talking about boards, fishing, etc. Actually come in last night and swelling of the lower extremities gone down. REVIEW OF SYSTEMS: CONSTITUTIONAL: None. HEENT: None. RESPIRATORY: None. CARDIOVASCULAR: None. GASTROINTESTINAL: None. GENITOURINARY: None. MUSCULOSKELETAL: Chronic dislocation right ankle for which he wears a brace and chronic swelling of the lower extremity. DERMATOLOGICAL: Some chronic redness of the lower extremities. HEMATOLOGICAL: None. LYMPHATICS: None. PSYCHIATRY: None. NEUROLOGICAL: None. PAST MEDICAL HISTORY: Left leg DVT, hypertension, chronic kidney disease stage III, bipolar disorder with manic episodes, chronic right ankle dislocation. PAST SURGICAL HISTORY: Back surgery, hernia repair, pacemaker, tonsillectomy. SOCIAL HISTORY: The patient smokes about 1/2 pack a day and a few cigarettes a day for close to 50 years. Patient denies alcohol, use to work in the [employer], was discharge honorably per the patient. FAMILY HISTORY: Reviewed. The patient does not remember. HOME MEDICATIONS: Risperdal 2 mg b.i.d., Risperdal Consta 37.5 mg IM, Coumadin 10 mg a day, sodium chloride [place] each nostril daily p.r.n., Lopressor 25 mg b.i.d., Amitiza 24 mcg p.o. daily b.i.d. Allergy to DEPAKOTE, HALDOL, . PHYSICAL EXAMINATION: Temperature 97.9, pulse 87, respiration 20, blood pressure 126/93, pulse 99% on room air. GENERAL APPEARANCE: Well built, BMI of 33.4. Able to walk around. EYES: Pupils equal, conjunctivae are normal. HEENT: External appearance of nose and ear normal, oral cavity normal. NECK: JVD not raised. Mass not palpable. Respiratory effort normal. LUNGS: Diminished breath sounds. CARDIOVASCULAR: First and second sounds are normal, minimal edema. ABDOMEN: Soft, nontender. Liver and spleen not palpable. LYMPHATICS: No lymph palpable in neck or axillae. PSYCHIATRY: Patient is very hyperactive, jumping from one topic to the other topic. NEUROLOGICAL: Pupils equal, no facial asymmetry. Moving all 4 limbs. INVESTIGATIONS: White count 16, hemoglobin 11. INR 1.2. Potassium 4.7, BUN 28, creatinine 1.7. ASSESSMENT: 1. Chronic kidney disease stage III from nephrosclerosis. 2. Left leg deep venous thrombosis for which patient is chronically on Coumadin. 3. Coumadin monitoring with INR being subtherapeutic. 4. Right ankle chronic instability for which the patient uses a brace. 5. Bilateral lower extremity venous insufficiency. 6. Bipolar disorder, manic episodes with psychosis. 7. Paroxysmal atrial fibrillation currently in sinus rhythm. PLAN: Patient will continue 10 mg of Coumadin. Will add Lovenox 100 mg subcutaneous q.12 until INR therapeutic. Care was discussed with the patient. Questions were answered. MMODL / IJN: [id number] /
[2018-04-08] MEDS: WARFARIN 10 MG TAB PO SCH (17:48)
[2018-04-08] MEDS: BACITRACIN 500 UNIT/GM OINT 28.4 GM TUBE TOPICAL SCH (21:48)
[2018-04-09] MEDS: NICOTINE POLACRILEX 2 MG GUM BUCCAL PRN ×7 (00:04→15:46)
[2018-04-09] MEDS: ENOXAPARIN 100 MG/ML SYRINGE SQ SCH ×2 (07:43→20:47)
[2018-04-09] MEDS: risperiDONE 2 MG TAB PO SCH ×2 (07:44→20:46)
[2018-04-09] MEDS: OXcarbazepine 150 MG TAB PO SCH ×2 (07:44→20:46)
[2018-04-09] MEDS: METOPROLOL TARTRATE 25 MG TAB PO SCH ×2 (07:44→20:46)
[2018-04-09] MEDS: BACITRACIN 500 UNIT/GM OINT 28.4 GM TUBE TOPICAL SCH ×2 (08:00→20:47)
--- NOTE | 2018-04-09 08:57 | P.PN ---
Progress Note - Text Interval history: The patient is found at the front maker lockstitch he follows me to an interview room. He states he shouldn't be here he hasn't done anything wrong. He did not sleep well last night which is typical for him he will typically nap during the day. He has no questions regarding his psychotropic medication. He describes having more ankle pain in his right foot we will discuss that further. He was seen by internal medicine. He was continued on the same dose of Coumadin and Lovenox was added. Mental status exam: The patient is a tall overweight male appearing his stated age. He is dressed in shorts and a hooded sweatshirt. He is wearing eyeglasses. His left lower extremities wrapped in an Conrad bandage overall his lower extremity edema is improved. He reports no suicidal or homicidal ideation. He continues to state that he doesn't belong here. He feels this is a misunderstanding. He is reporting no auditory or visual hallucinations. He does have baseline delusional thought that is usually grandiose in nature. He demonstrates no verbal or physical aggressiveness. In fact he appears tired. He is observed ambulating with a limp. He is demonstrating no abnormal involuntary movements. Was spontaneous speech she can demonstrate a tangential thought process. He is redirectable. He maintains a constant tone of voice without becoming loud. Plan: The patient will continue on his current medication. We will plan to titrate the Trileptal during the course of his stay as well as the dose of the Risperdal Consta. We will monitor him for safety encourage his participation in the milieu. Vital signs reviewed. Input from internal medicine appreciated.
[2018-04-09 09:50] LABS: INR 1.4 (<1.2); Prothrombin Time 13.3 sec (9.0-12.0)
[2018-04-09] MEDS: WARFARIN 10 MG TAB PO SCH (16:49)
[2018-04-09] MEDS ORDERED: WARFARIN 2 MG TAB PO ONE (18:00)
[2018-04-10] MEDS: BACITRACIN 500 UNIT/GM OINT 28.4 GM TUBE TOPICAL SCH ×2 (07:43→20:17)
[2018-04-10] MEDS: ENOXAPARIN 100 MG/ML SYRINGE SQ SCH ×2 (07:43→20:17)
[2018-04-10] MEDS: OXcarbazepine 150 MG TAB PO SCH (07:43)
[2018-04-10] MEDS: risperiDONE 2 MG TAB PO SCH (07:43)
[2018-04-10] MEDS: METOPROLOL TARTRATE 25 MG TAB PO SCH ×2 (07:44→20:17)
[2018-04-10 09:12] LABS: INR 1.6 (<1.2); Prothrombin Time 14.5 sec (9.0-12.0)
--- NOTE | 2018-04-10 10:55 | P.PN ---
Progress Note - Text Interval history: The patient is found in group he follows me to an interview room. He states he slept all night however staff reported he slept 5 hours. He asks questions regarding psychotropic medication and those are addressed. We discussed her plan of continuing with the Risperdal Consta and at this point we can discontinue the oral dose of Risperdal. We discussed titrating the Trileptal further and he is agreeable. He continues to assert that he was admitted here unnecessarily. Staff report no behavioral disturbances. Mental status exam: The patient is a tall overweight male. He is dressed in his own clothing. He is ambulating with a limp. He continues to demonstrate spontaneous speech. At times he can sit quietly and at other times he becomes pressured. He is redirectable. He will demonstrate tangential thinking. He demonstrates no verbal or physical aggressiveness. He is reporting no suicidal or homicidal thoughts. Insight and judgment continues to be impaired as he does not appreciate the symptoms noted above. He continues to demonstrate grandiose thinking. He states that he is a millionaire will by [email or web address] for several people when he plans on buying a house upon discharge. Plan: The patient will continue on the Risperdal Consta we will inject that today 50 mg, we will titrate the Trileptal to 300 mg twice daily. The oral Risperdal will be discontinued at this time. We will monitor him for safety. The patient is known to have symptoms at baseline but we are looking for improvement in symptoms of kaley and psychosis. Vital signs reviewed. Labs reviewed. Last INR was 1.6.
[2018-04-10] MEDS: WARFARIN 10 MG TAB PO SCH (17:06)
[2018-04-10] MEDS ORDERED: WARFARIN 2 MG TAB PO ONE (18:00)
[2018-04-10] MEDS: OXcarbazepine 300 MG TAB PO SCH (20:17)
[2018-04-10] MEDS: NICOTINE POLACRILEX 2 MG GUM BUCCAL PRN (22:50)
[2018-04-11] MEDS: NICOTINE POLACRILEX 2 MG GUM BUCCAL PRN ×5 (04:44→21:28)
[2018-04-11] MEDS: METOPROLOL TARTRATE 25 MG TAB PO SCH ×2 (09:16→20:29)
[2018-04-11] MEDS: OXcarbazepine 300 MG TAB PO SCH ×2 (09:16→20:27)
[2018-04-11] MEDS: ENOXAPARIN 100 MG/ML SYRINGE SQ SCH ×2 (09:16→20:27)
[2018-04-11] MEDS: BACITRACIN 500 UNIT/GM OINT 28.4 GM TUBE TOPICAL SCH (09:18)
[2018-04-11 09:51] LABS: INR 1.7 (<1.2); Prothrombin Time 15.8 sec (9.0-12.0)
--- NOTE | 2018-04-11 11:47 | P.PN ---
Progress Note - Text Interval history: The patient is found in group he reluctantly follows me to an interview room. He indicates his mood is okay but is frustrated that he was admitted here. He states he is tired of the police officers coming to his home and taking him to the hospital. He continues to refute sleeping on anybody's porch or having any agitated behavior prior to this admission. Sleep remains impaired at night appetite is stable. He is making an effort to attend groups. He has questions regarding his psychotropic medications and those are dressed. Mental status exam: The patient is a tall overweight male he stressors own clothing. He appears tired but not lethargic. He has ongoing pressured speech but at a quiet tone. He demonstrates tangential thinking. 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 He reports no suicidal or homicidal thoughts. He demonstrates no verbal or physical aggressiveness. Insight and judgment impaired. He reports no suicidal or homicidal ideation intent or plan. Affect remains constricted throughout the session. He is oriented to person place and date. Plan: The patient will continue on his current psychotropic medication. We will monitor him for safety. We will encourage continued appropriate participation in the milieu. Vital signs reviewed.
[2018-04-11] MEDS ORDERED: WARFARIN 2 MG TAB PO ONE (18:00)
[2018-04-11] MEDS: WARFARIN 10 MG TAB PO SCH (18:22)
[2018-04-12] MEDS: BACITRACIN 500 UNIT/GM OINT 28.4 GM TUBE TOPICAL SCH ×4 (00:23→22:38)
[2018-04-12] MEDS: NICOTINE POLACRILEX 2 MG GUM BUCCAL PRN ×7 (01:08→23:17)
[2018-04-12] MEDS: LORazepam 1 MG TAB PO PRN (09:32)
[2018-04-12] MEDS: OXcarbazepine 300 MG TAB PO SCH ×2 (09:32→20:58)
[2018-04-12] MEDS: ENOXAPARIN 100 MG/ML SYRINGE SQ SCH ×2 (09:32→21:00)
[2018-04-12] MEDS: METOPROLOL TARTRATE 25 MG TAB PO SCH ×2 (09:32→20:58)
[2018-04-12 13:55] LABS: Prothrombin Time 17.7 sec (9.0-12.0)
--- NOTE | 2018-04-12 15:40 | P.PN ---
Progress Note - Text Progress Note Date: 04/12/18 IDENTIFICATION DATA: 62-year-old male who is on a court order was petitioned due to not taking his medications. He is a poor historian and is well known to emergency department for psychiatric complaints and multiple visitations. INTERVAL HISTORY: Behavioral problems Patient states somebody lied on him and said he was sleeping on the porch and wasnt taking his medications . He states he is very upset and frustrated about being in the hospital. He states he doesnt belong in the hospital. He claims to have been taking his medications as prescribed. He states there are cameras where he stays and claims he wasnt sleeping on the porch. He claims there are fifteen more residents where he stays. He reports his guardian/conservator is taking all his money and claims he has to go begging on the streets for money. He reports to have been petitioned few weeks ago due to missing his [facility] appointments due to lack of transportation. Mood disorder: He states he is mad with the world and feels like punching some one, but states he wont do it because he is a good person. He states because the housing court judge gave him a court order for treatment police brought him here. He states next time police come to his door he will ask them for a warrant and will fight them. 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 He states he will start living in a tent or go on a camp where no one can find him as he is very frustrated about being petitioned to the hospital again and again. He is grandiose and states he is a millionaire. His speech is pressured with flight of ideas. He states holy spirit goes though him. He talks about being in twenty different love . He reports getting five hours of sleep. He reports good appetite. He reports going to all his groups. 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 Psychosis He denies auditory or visual hallucinations. He denies paranoia. MENTAL STATUS EXAMINATION: 62-year-old male. He appeared his stated age in fair grooming and hygiene. He is dressed casually. No abnormal movements noted. He has nicole bandage wrapped around both his legs. He claims he needs ankle braces to be able to walk. He claims he has poor circulation in his legs due to blood clots. The patient is alert and oriented 4 and in no apparent distress. His speech and thought process are pressured with flight of ideas. . Mood is UPSET " and affect is APPROPRIATE. Denies suicidal or homicidal ideation. Has grandiose delusions. Denies auditory or visual hallucaintions. insight and judgment are LIMITED ASSESSMENT AND PLAN: Continue current medications Continue all precuations Monitor for symptoms Medicine consult for ankle brace and evaluation. Social work/ case monitor to look into his living situation and arrangements for his transportation to [facility] appointments.
[2018-04-12] MEDS: WARFARIN 10 MG TAB PO SCH (17:43)
[2018-04-13] MEDS: NICOTINE POLACRILEX 2 MG GUM BUCCAL PRN ×6 (01:47→23:30)
[2018-04-13 08:59] LABS: INR 1.9 (<1.2)
[2018-04-13 09:00] LABS: Prothrombin Time 17.2 sec (9.0-12.0)
[2018-04-13] MEDS ORDERED: LORazepam 2 MG/ML INJ IM STA (09:17)
[2018-04-13] MEDS ORDERED: WATER FOR INJECTION, STERILE 10 ML IV ONE (09:18)
[2018-04-13] MEDS: BACITRACIN 500 UNIT/GM OINT 28.4 GM TUBE TOPICAL SCH ×2 (09:30→21:24)
[2018-04-13] MEDS: ZIPRASIDONE 20 MG VIAL IM PRN (09:30)
[2018-04-13] MEDS: METOPROLOL TARTRATE 25 MG TAB PO SCH ×2 (09:32→21:16)
[2018-04-13] MEDS: ENOXAPARIN 100 MG/ML SYRINGE SQ SCH ×2 (09:32→21:24)
[2018-04-13] MEDS: OXcarbazepine 300 MG TAB PO SCH ×2 (09:32→21:16)
[2018-04-13] MEDS: WARFARIN 10 MG TAB PO SCH (16:59)
[2018-04-13] MEDS ORDERED: WARFARIN 1 MG TAB PO ONE (18:00)
[2018-04-13] MEDS ORDERED: WARFARIN 10 MG TAB PO ONE (18:00)
--- NOTE | 2018-04-13 18:34 | P.PN ---
Progress Note - Text Progress Note Date: 04/13/18 IDENTIFICATION DATA : 62-year-old male who is on a court order was petitioned due to not taking his medications. He is a poor historian and is well known to emergency department for psychiatric complaints and multiple visitations. INTERVAL HISTORY: Patient received ativan and geodon this morning for agitation spiting on floor , purposely spilling his water, being sexually inappropriate with female patients and refusing to cooperate with staff. He continues to be intrusive, hyperverbal. He however apologizes for his behaviors. He feels being hospitalized on wrong accusations and is frustrated about it. He says he is not a harmful person, just wants others know about his frustrations. He feels he hasnt anything wrong to be hospitalized. MENTAL STATUS EXAMINATION: 62-year-old male. He appeared his stated age in fair grooming and hygiene. He is dressed casually. No abnormal movements noted. He has nicole bandage wrapped around both his legs. patient is alert and oriented 4 and in no apparent distress. His speech and thought process are pressured. . Mood is FRUSTRATED" and affect is APPROPRIATE. Denies suicidal or homicidal ideation. Has grandiose delusions. Denies auditory or visual hallucaintions. insight and judgment are LIMITED ASSESSMENT AND PLAN: Continue current medications Continue all precuations Monitor for symptoms Social work/ director of casework department to look into his living situation and arrangements for his transportation to [facility] appointments.
[2018-04-13] MEDS: LORazepam 1 MG TAB PO PRN (21:34)
[2018-04-14] MEDS: NICOTINE POLACRILEX 2 MG GUM BUCCAL PRN ×5 (01:42→16:42)
[2018-04-14] MEDS: METOPROLOL TARTRATE 25 MG TAB PO SCH ×2 (08:00→21:11)
[2018-04-14] MEDS: BACITRACIN 500 UNIT/GM OINT 28.4 GM TUBE TOPICAL SCH ×2 (08:00→21:12)
[2018-04-14] MEDS: ENOXAPARIN 100 MG/ML SYRINGE SQ SCH ×2 (08:00→21:06)
[2018-04-14] MEDS: OXcarbazepine 300 MG TAB PO SCH ×2 (08:00→21:10)
[2018-04-14 09:28] LABS: Prothrombin Time 18.2 sec (9.0-12.0)
--- NOTE | 2018-04-14 11:40 | P.PN ---
Progress Note - Text Interval history: The patient is found in the hallway he follows me to an interview room. He spends the first several minutes of the session going through a car magazine as he wants to show me the vehicle that he will purchase for me once he is discharged. He continues to sleep poorly in the evening. Staff report that he is been more preoccupied with female peers and has required some redirection although there is been no reported physical agitation. The patient continues to lack insight into his current symptoms and expects to be discharged today or tomorrow. He reports compliance with his medication. Mental status exam: The patient is alert but tired appearing. He is dressed in layers he has Conrad bandages on his lower extremities. Eye contact is intermittent. He is initially focused on his magazine then he speaks of a situation in the past that is totally unrelated to our conversation. We discussed his medication and the need to titrate to a therapeutic dose. He is reporting no hallucinations. Spontaneously he describes grandiose thoughts of being a multimillionaire and describes several things he would purchase. Thought process is tangential he will demonstrate loose associations area he can provide some linear answers to questions asked. He demonstrates no verbal or physical aggressiveness during our interaction. He does have a tremor of his right hand with 2 of his fingers consistently moving. He reports no suicidal or homicidal ideation. Plan: The patient will continue on his current medication we will draw a Trileptal level as we may need to titrate that medicine further. We will consider other augmentation strategies.
[2018-04-14] MEDS: WARFARIN 10 MG TAB PO SCH (16:41)
[2018-04-14] MEDS ORDERED: WARFARIN 2 MG TAB PO ONE (18:00)
[2018-04-14] MEDS: LORazepam 1 MG TAB PO PRN (21:10)
[2018-04-15] MEDS: NICOTINE POLACRILEX 2 MG GUM BUCCAL PRN ×4 (05:54→23:58)
[2018-04-15] MEDS: ENOXAPARIN 100 MG/ML SYRINGE SQ SCH ×2 (08:52→20:08)
[2018-04-15] MEDS: METOPROLOL TARTRATE 25 MG TAB PO SCH ×2 (08:52→20:07)
[2018-04-15] MEDS: BACITRACIN 500 UNIT/GM OINT 28.4 GM TUBE TOPICAL SCH ×2 (08:54→20:07)
--- NOTE | 2018-04-15 11:00 | P.PN ---
Progress Note - Text Interval history: The patient is found in the hallway he follows me to an interview room. He indicates his mood is fine. He continues to sleep poorly at night but appears tired throughout the day. Staff state that he is still intrusive and others personal space. He is demonstrated no aggressive behavior. We are drawing a Trileptal level this morning and we'll consider titrating that medication further. We discussed adding something at bedtime to assist with sleep at night to get his sleep cycle back on track and he offered some resistance. Mental status exam: The patient is a tall overweight male hygiene grooming impaired. He is dressed in his own clothing is wearing a towel around his neck. He has intermittent eye contact. He has psychomotor slowing he appears tired but is not lethargic. He continues to verbalize grandiose thinking he continues to demonstrate a disorganized thought process. In discussing his sleep at one time he becomes irritated and raises his voice but he was easily redirectable. He is demonstrating no verbal or physical aggressiveness. He is reporting no auditory or visual hallucinations. Insight and judgment are impaired. Plan: We will await the results of the Trileptal level. We will consider adding another medication at bedtime to improve his sleep at night. Continue to monitor for safety and encourage participation in the milieu. Vital signs reviewed lab results reviewed.
[2018-04-15] MEDS: OXcarbazepine 300 MG TAB PO SCH ×2 (11:12→20:07)
[2018-04-15 16:32] LABS: INR 2.2 (<1.2); Prothrombin Time 19.6 sec (9.0-12.0)
[2018-04-15] MEDS: WARFARIN 10 MG TAB PO SCH (19:20)
[2018-04-15] MEDS: WARFARIN 2 MG TAB PO SCH (19:21)
[2018-04-15] MEDS: LORazepam 1 MG TAB PO PRN (21:36)
[2018-04-16] MEDS: BACITRACIN 500 UNIT/GM OINT 28.4 GM TUBE TOPICAL SCH ×2 (08:31→20:06)
[2018-04-16] MEDS: METOPROLOL TARTRATE 25 MG TAB PO SCH ×2 (08:31→20:04)
[2018-04-16] MEDS: ENOXAPARIN 100 MG/ML SYRINGE SQ SCH (08:32)
[2018-04-16] MEDS: OXcarbazepine 300 MG TAB PO SCH ×2 (08:32→20:04)
[2018-04-16 11:16] LABS: INR 2.2 (<1.2); Prothrombin Time 20.3 sec (9.0-12.0)
--- NOTE | 2018-04-16 12:00 | P.PN ---
Progress Note - Text Interval history: The patient is found in the hallway he follows me to an interview room. He indicates that he is frustrated and angry. Staff report that the patient has been more disorganized more intrusive. He's been preoccupied with female peers. He reportedly has been urinating in cups and stuck a piece of Nicorette gum in one of the door locks. The patient's states that he feels harassed by the foil wrapper and he should be discharged. He demonstrates no insight into his recent symptoms. He states he did take Ativan last night and did sleep better. Mental status exam: The patient is alert he is tired appearing he has a more irritable affect he raises his voice but demonstrates no aggressiveness. He reports no suicidal or homicidal thoughts he reports no auditory or visual hallucinations. He reports grandiose delusions as well as persecutory thoughts. Insight and judgment are poor. He has a disheveled appearance he is dressed in layers. He continues to ambulate with a limp. Thought process is disorganized he has tangential thinking with loose associations. Plan: The patient's remains quite symptomatic. We are waiting blood work regarding the Trileptal level. We will consider a trial of Clozaril. We will continue monitoring him for safety and encourage appropriate participation in the milieu
[2018-04-16] MEDS: WARFARIN 2 MG TAB PO SCH (17:19)
[2018-04-16] MEDS: WARFARIN 10 MG TAB PO SCH (17:20)
[2018-04-16] MEDS: NICOTINE POLACRILEX 2 MG GUM BUCCAL PRN ×2 (18:06→21:43)
[2018-04-16] MEDS: LORazepam 1 MG TAB PO PRN (20:07)
[2018-04-17] MEDS: NICOTINE POLACRILEX 2 MG GUM BUCCAL PRN ×5 (04:07→23:15)
[2018-04-17] MEDS: METOPROLOL TARTRATE 25 MG TAB PO SCH ×2 (09:48→20:10)
[2018-04-17] MEDS: OXcarbazepine 300 MG TAB PO SCH ×2 (09:48→20:09)
[2018-04-17] MEDS: BACITRACIN 500 UNIT/GM OINT 28.4 GM TUBE TOPICAL SCH ×2 (09:49→20:12)
--- NOTE | 2018-04-17 11:44 | P.PN ---
Progress Note - Text Interval history: The patient is found in group he follows me to an interview room reluctantly. Staff report that the patient's been confused intrusive and psychotic appearing. He reportedly continues to urinate in Styrofoam cups and staff believed that he was drinking his urine last evening. They are now no longer giving him cups. I attempted to discuss his psychotropic medication with him. He becomes agitated and does not want to discuss any further changes. We are considering using Clozaril. We will need a recent CBC with differential. He has had 2 earlier in the admission that were within normal limits in terms of white blood count total and absolute neutrophil count. The patient sleep at night remains significantly impaired. Mental status exam: The patient is alert he is an overweight male he is dressed in layers he ambulates with a significant limp. Eye contact is intermittent. He is more irritable today especially when discussing making changes to his psychotropic medication. He is reporting no suicidal or homicidal thoughts. Process demonstrates tangential thinking loose associations. Insight and judgment are poor. He is reporting no auditory or visual hallucinations. He continues to demonstrate grandiose and paranoid thinking. He demonstrated no physical aggressiveness during the session. Plan: The patient will continue on the Trileptal his level was subtherapeutic at 1.5, I will increase his dose to 600 mg twice daily. We will consider initiating Clozaril. We will get a more recent CBC with differential. Vital signs are reviewed. The patient does not wish to have any medication prescribed for pain. We will monitor him for safety and encourage appropriate participation in the milieu.
[2018-04-17 12:04] LABS: INR 2.1 (<1.2); Prothrombin Time 18.7 sec (9.0-12.0)
[2018-04-17] MEDS: WARFARIN 2 MG TAB PO SCH (17:56)
[2018-04-17] MEDS: WARFARIN 10 MG TAB PO SCH (17:56)
[2018-04-18] MEDS: LORazepam 1 MG TAB PO PRN (00:36)
[2018-04-18] MEDS: NICOTINE POLACRILEX 2 MG GUM BUCCAL PRN ×4 (01:18→22:19)
[2018-04-18] MEDS: BACITRACIN 500 UNIT/GM OINT 28.4 GM TUBE TOPICAL SCH ×2 (09:42→20:55)
[2018-04-18] MEDS: METOPROLOL TARTRATE 25 MG TAB PO SCH ×2 (09:42→20:54)
[2018-04-18] MEDS: OXcarbazepine 300 MG TAB PO SCH ×2 (09:43→20:54)
[2018-04-18 10:35] LABS: Basophils % (A) 0 %; Eosinophils # (A) 0.3 k/uL (0-0.7); Eosinophils % (A) 4 %; HCT 39.5 % (39.0-53.0); HGB 12.1 gm/dL (13.0-17.5); Hypochromasia Slight; Lymphocytes # (A) 1.3 k/uL (1.0-4.8); Lymphocytes % (A) 20 %; MCH 29.2 pg (25.0-35.0); MCHC 30.7 g/dL (31.0-37.0); MCV 94.9 fL (80.0-100.0); Mean Platelet Volume 7.6; Monocytes # (A) 0.5 k/uL (0-1.0); Monocytes % (A) 8 %; Neutrophils # (A) 4.1 k/uL (1.3-7.7); Neutrophils % (A) 65 %; Platelet Count 266 k/uL (150-450); RBC 4.16 m/uL (4.30-5.90); RDW 13.9 % (11.5-15.5); WBC 6.4 k/uL (3.8-10.6)
[2018-04-18 10:45] LABS: INR 2.4 (<1.2); Prothrombin Time 21.4 sec (9.0-12.0)
--- NOTE | 2018-04-18 11:16 | P.PN ---
Progress Note - Text Interval history: The patient is found in the hallway he reluctantly follows me to an interview room. He is more agitated today. Staff report the patient has been more agitated and more intrusive. He is openly discussing delusional thoughts. These are more paranoid and persecutory in nature than grandiose lately. I was informed that the patient is not able to return to his previous residence and is in need of new placement once clinically stabilized. We discussed the patient's right lower extremity during team and we will get another evaluation from internal medicine. The patient continues to demand to be discharged. I attempted to discuss initiating Clozaril to treat symptoms of psychosis and to help with aggressiveness but the patient is refusing to participate in the conversation. He demands to stay on Risperdal. He has been compliant with the Trileptal. A CBC has been performed this morning and the white blood count and absolute neutrophil count are within normal limits. Mental status exam: The patient is a tired appearing but not lethargic male. He is dressed in hospital gowns. He ambulates with a limp. Eye contact is staring in nature. He has an irritable affect. He is verbalizing a delusional thought content that is grandiose and persecutory in nature. Insight and judgment are poor. He raises his voice during our interaction but is redirectable. He demonstrates no physical aggressiveness. Concentration and short-term memory are impaired. He demonstrates psychomotor slowing. He endorses no thoughts of self-harm or harm to others he endorses no hallucinations. He is not a reliable historian. Plan: The patient will continue on the Trileptal 600 mg twice daily, we will initiate claws role 25 mg at bedtime and plan to titrate the dose during the course of the hospitalization. The patient continues to demonstrate symptoms of psychosis and thought disorganization. We will request another medical evaluation of his right lower extremity. Vital signs reviewed. The patient requires continued psychiatric hospitalization. Social work will begin exploring placement options for him once he is appropriate for discharge.
[2018-04-18 12:01] LABS: Albumin 3.8 g/dL (3.5-5.0); Calcium 9.6 mg/dL (8.4-10.2); Total Bilirubin 0.5 mg/dL (0.2-1.3); Total Protein 7.3 g/dL (6.3-8.2)
[2018-04-18] MEDS ORDERED: LORazepam 2 MG/ML INJ IM STA (14:16)
[2018-04-18] MEDS ORDERED: ZIPRASIDONE 20 MG VIAL IM ONE (14:16)
[2018-04-18] MEDS: ZIPRASIDONE 20 MG VIAL IM PRN (14:17)
[2018-04-18] MEDS ORDERED: WATER FOR INJECTION, STERILE 10 ML IV ONE (14:17)
[2018-04-18] MEDS ORDERED: LORazepam 2 MG/ML INJ ONE (14:19)
[2018-04-18] MEDS: WARFARIN 2 MG TAB PO SCH (16:47)
[2018-04-18] MEDS: WARFARIN 10 MG TAB PO SCH (16:47)
[2018-04-18] MEDS: DOXYCYCLINE 100 MG CAP PO SCH (20:54)
[2018-04-18] MEDS: cloZAPine 25 MG TAB PO SCH (20:54)
--- NOTE | 2018-04-18 22:44 | PN ---
PROGRESS NOTE DATE OF SERVICE: 04/18/2018 PRESENTING COMPLAINT: Redness of the right foot toe. INTERVAL HISTORY: This patient presented with a manic episode with psychotic behavior; now appears to have flareup of his psychotic behavior. The patient apparently was trying to drink his urine, using rather foul language. The patient was noted to have some redness in the right foot toe. Otherwise, tolerating his meals well. Able to walk about. The patient did have a boot for his foot he gave to his friends, he said, and now his friend has lost the same or has thrown it away. REVIEW OF SYSTEMS: Done for constitutional, cardiovascular, GI, pulmonary; relevant findings as above. CURRENT MEDICATIONS: Reviewed. They include Coumadin. PHYSICAL EXAMINATION: Temperature 97.9, pulse 74, respiration 20, blood pressure 130/74, pulse ox 99% on room air. GENERAL APPEARANCE: Sitting up, comfortable. EYES: Pupils equal. Conjunctivae normal. HEENT: External appearance of nose and ears normal. Oral cavity normal. NECK: JVD not raised. Mass not palpable. RESPIRATORY: Effort normal. LUNGS: Decreased breath sounds. CARDIOVASCULAR: First and second sounds normal. Minimal edema. ABDOMEN: Soft, non-tender. Liver and spleen not palpable. DERMATOLOGICAL: Some redness around the right foot toes, destruction of the nails, which is chronic, with some evidence of onychomycosis. INVESTIGATIONS: INR 2.4, potassium 5, BUN 27, creatinine 1.64. ASSESSMENT: 1. Chronic kidney disease, stage III, from nephrosclerosis. 2. Left leg deep venous thrombosis, for which patient is chronically on Coumadin. 3. Coumadin monitoring with INR being therapeutic. 4. Right ankle chronic instability, for which patient uses a brace, now claiming it has been lost by a friend. 5. Bilateral lower extremity venous insufficiency. 6. Bipolar disorder, manic episodes with psychosis, getting worse. 7. Paroxysmal atrial fibrillation, currently in sinus rhythm. 8. Acute cellulitis of right foot toes. PLAN: At this point, will add doxycycline. Patient is known to Dr. Platt. Will get an opinion from him for the same. Did speak to the nurse to have the social science teacher call [facility] telephone #[phone] to see which boot the patient was using before we can order the same. MMODL / IJN: [id number] /
--- NOTE | 2018-04-18 23:54 | P.CONS ---
History of Present Illness - Reason for Consult Consult date: 04/18/18 - Chief Complaint Wound of the right great toe - History of Present Illness 62-year-old male with a long-standing history of bipolar disorder with some psychotic features presents to hospital with further psychiatric needed. He has difficulties with some chronic lower extremity edema. There has been some irritation to the right lower extremity for which a Silvadene wrap was applied. There is concerned to the right great toe which the patient does not want care. He is refusing any type of ointment or cream to the toe. He relates it is not painful and does not have drainage. Review of Systems ROS unobtainable: due to mental status 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; Chronic kidney disease stage 3, bipolar depressino History of Any Multi-Drug Resistant Organisms: MRSA Year Discovered:: 04/27/2014 MDRO Source:: Right Arm Past Surgical History: Back Surgery, Hernia Repair, Pacemaker, Tonsillectomy Past Anesthesia/Blood Transfusion Reactions: Previous Problems w/ Anesthesia Additional Past Anesthesia/Blood Transfusion Reaction / Comm: STATES "HARD TIME BREATHING LAYING FLAT, I'M A MOUTH BREATHER" Type of Cardiac Device: Permanent Pacemaker Device Placement Date:: 2015 Past Psychological History: Bipolar Smoking Status: Current every day smoker Past Alcohol Use History: Rare - Past Family History Father History Unknown: Yes Mother History Unknown: Yes Medications and Allergies Home Medications and Allergies Comment(s): Laboratory Results WBC 6.4 k/uL (3.8-10.6) 04/18/18 10:05 RBC 4.16 m/uL (4.30-5.90) L 04/18/18 10:05 Hgb 12.1 gm/dL (13.0-17.5) L 04/18/18 10:05 Hct 39.5 % (39.0-53.0) 04/18/18 10:05 MCV 94.9 fL (80.0-100.0) 04/18/18 10:05 MCH 29.2 pg (25.0-35.0) 04/18/18 10:05 MCHC 30.7 g/dL (31.0-37.0) L 04/18/18 10:05 RDW 13.9 % (11.5-15.5) 04/18/18 10:05 Plt Count 266 k/uL (150-450) 04/18/18 10:05 Neutrophils % 65 % 04/18/18 10:05 Lymphocytes % 20 % 04/18/18 10:05 Monocytes % 8 % 04/18/18 10:05 Eosinophils % 4 % 04/18/18 10:05 Basophils % 0 % 04/18/18 10:05 Neutrophils # 4.1 k/uL (1.3-7.7) 04/18/18 10:05 Lymphocytes # 1.3 k/uL (1.0-4.8) 04/18/18 10:05 Monocytes # 0.5 k/uL (0-1.0) 04/18/18 10:05 Eosinophils # 0.3 k/uL (0-0.7) 04/18/18 10:05 Basophils # 0.0 k/uL (0-0.2) 04/18/18 10:05 Hypochromasia Slight 04/18/18 10:05 PT 21.4 sec (9.0-12.0) H 04/18/18 10:05 INR 2.4 (<1.2) H 04/18/18 10:05 APTT 25.1 sec (22.0-30.0) 04/08/18 09:14 Sodium 143 mmol/L (137-145) 04/18/18 10:05 Potassium 5.0 mmol/L (3.5-5.1) 04/18/18 10:05 Chloride 111 mmol/L (98-107) H 04/18/18 10:05 Carbon Dioxide 21 mmol/L (22-30) L 04/18/18 10:05 Anion Gap 11 mmol/L 04/18/18 10:05 BUN 27 mg/dL (9-20) H 04/18/18 10:05 Creatinine 1.64 mg/dL (0.66-1.25) H 04/18/18 10:05 Est GFR (CKD-EPI)AfAm 51 (>60 ml/min/1.73 sqM) 04/18/18 10:05 Est GFR (CKD-EPI)NonAf 44 (>60 ml/min/1.73 sqM) 04/18/18 10:05 Glucose 94 mg/dL (74-99) 10/05/18 10:05 Calcium 9.6 mg/dL (8.4-10.2) 04/18/18 10:05 Total Bilirubin 0.5 mg/dL (0.2-1.3) 04/18/18 10:05 AST 74 U/L (17-59) H 04/18/18 10:05 ALT 48 U/L (21-72) 04/18/18 10:05 Alkaline Phosphatase 93 U/L (38-126) 04/18/18 10:05 Total Protein 7.3 g/dL (6.3-8.2) 04/18/18 10:05 Albumin 3.8 g/dL (3.5-5.0) 04/18/18 10:05 Urine Color Light Yellow 04/04/18 11:33 Urine Appearance Clear (Clear) 04/04/18 11:33 Urine pH 5.5 (5.0-8.0) 04/04/18 11:33 Ur Specific [place] 1.007 (1.001-1.035) 04/04/18 11:33 Urine Protein Negative (Negative) 04/04/18 11:33 Urine Glucose (UA) Negative (Negative) 04/04/18 11:33 Urine Ketones Negative (Negative) 04/04/18 11:33 Urine Blood Negative (Negative) 04/04/18 11:33 Urine Nitrite Negative (Negative) 04/04/18 11:33 Urine Bilirubin Negative (Negative) 04/04/18 11:33 Urine Urobilinogen <2.0 mg/dL (<2.0) 04/04/18 11:33 Ur Leukocyte Esterase Negative (Negative) 04/04/18 11:33 Urine Opiates Screen Not Detected (NotDetected) 04/04/18 11:33 Ur Oxycodone Screen Not Detected (NotDetected) 04/04/18 11:33 Urine Methadone Screen Not Detected (NotDetected) 04/04/18 11:33 Ur Propoxyphene Screen Not Detected (NotDetected) 04/04/18 11:33 Ur Barbiturates Screen Not Detected (NotDetected) 04/04/18 11:33 Oxcarbazepine 1.5 ug/mL (10-35) L 04/15/18 15:42 U Tricyclic Antidepress Not Detected (NotDetected) 04/04/18 11:33 Ur Phencyclidine Scrn Not Detected (NotDetected) 04/04/18 11:33 Ur Amphetamines Screen Not Detected (NotDetected) 04/04/18 11:33 U Methamphetamines Scrn Not Detected (NotDetected) 04/04/18 11:33 U Benzodiazepines Scrn Not Detected (NotDetected) 04/04/18 11:33 Urine Cocaine Screen Not Detected (NotDetected) 04/04/18 11:33 U Marijuana (THC) Screen Not Detected (NotDetected) 04/04/18 11:33 Home Medications Medication Instructions Recorded Confirmed Type Lubiprostone [Amitiza] 24 mcg PO BID 02/11/18 04/04/18 History Sodium Chloride [Mojave] 1 spray EA NOSTRIL DAILY PRN 02/27/18 04/04/18 History Metoprolol Tartrate [Lopressor] 25 mg PO BID #60 tab 03/03/18 04/04/18 Rx Warfarin [Coumadin] 10 mg PO DAILY #5 tab 03/31/18 04/04/18 Rx risperiDONE MICROSPHERES 37.5 mg IM ONCE #1 syringe 03/31/18 04/04/18 Rx [RisperDAL CONSTA] risperiDONE [RisperDAL] 2 mg PO BID #42 tab 03/31/18 04/04/18 Rx Allergies Allergy/AdvReac Type Severity Reaction Status Date / Time divalproex sodium Allergy Unknown Verified 04/04/18 11:25 [From Depakote] haloperidol [From Haldol] Allergy Unknown Verified 04/04/18 11:25 haloperidol lactate Allergy Unknown Verified 04/04/18 11:25 [From Haldol] lithium Allergy Unknown Verified 04/04/18 11:25 Physical Exam Vitals: Vital Signs Temp Pulse Resp BP Pulse Ox 04/18/18 21:48 87 15 136/87 97 04/18/18 10:35 97.9 F 74 20 135/74 99 62-year-old male evaluated in the psychiatric unit who is not cooperative. It appears that since he has been on the unit that he has showered. Dentition was poor Few expiratory wheezes are heard Abdomen is mildly obese was not tender No tenderness over the back or flanks Lower extremities have some chronic edema Did not allow the dressings should be removed from the lower extremities. Right great toe has evidence of the partially removed nail at the great toe there is some chronic changes to the area. It is minimally tender but there is no expressible purulence no abscesses seen there is no significant ascending erythema at this time. Physical is of a chronic fungal infection to the skin of the bilateral feet as well as to the nails. Results CBC & Chem 7: 04/18/18 10:05 04/18/18 10:05 Labs: Abnormal Lab Results - Last 24 Hours (Table) 04/18/18 04/18/18 04/18/18 Range/Units 10: 10:05 10:05 RBC 4.16 L (4.30-5.90) m/uL Hgb 12.1 L (13.0-17.5) gm/dL MCHC 30.7 L (31.0-37.0) g/dL PT 21.4 H (9.0-12.0) sec INR 2.4 H (<1.2) Chloride 111 H (98-107) mmol/L Carbon Dioxide 21 L (22-30) mmol/L BUN 27 H (9-20) mg/dL Creatinine 1.64 H (0.66-1.25) mg/dL AST 74 H (17-59) U/L Laboratory Results WBC 6.4 k/uL (3.8-10.6) 04/18/18 10:05 RBC 4.16 m/uL (4.30-5.90) L 04/18/18 10:05 Hgb 12.1 gm/dL (13.0-17.5) L 04/18/18 10:05 Hct 39.5 % (39.0-53.0) 04/18/18 10:05 MCV 94.9 fL (80.0-100.0) 04/18/18 10:05 MCH 29.2 pg (25.0-35.0) 04/18/18 10:05 MCHC 30.7 g/dL (31.0-37.0) L 04/18/18 10:05 RDW 13.9 % (11.5-15.5) 04/18/18 10:05 Plt Count 266 k/uL (150-450) 04/18/18 10:05 Neutrophils % 65 % 04/18/18 10:05 Lymphocytes % 20 % 04/18/18 10:05 Monocytes % 8 % 04/18/18 10:05 Eosinophils % 4 % 04/18/18 10:05 Basophils % 0 % 04/18/18 10:05 Neutrophils # 4.1 k/uL (1.3-7.7) 04/18/18 10:05 Lymphocytes # 1.3 k/uL (1.0-4.8) 04/18/18 10:05 Monocytes # 0.5 k/uL (0-1.0) 04/18/18 10:05 Eosinophils # 0.3 k/uL (0-0.7) 04/18/18 10:05 Basophils # 0.0 k/uL (0-0.2) 04/18/18 10:05 Hypochromasia Slight 04/18/18 10:05 PT 21.4 sec (9.0-12.0) H 04/18/18 10:05 INR 2.4 (<1.2) H 04/18/18 10:05 APTT 25.1 sec (22.0-30.0) 04/08/18 09:14 Sodium 143 mmol/L (137-145) 04/18/18 10:05 Potassium 5.0 mmol/L (3.5-5.1) 04/18/18 10:05 Chloride 111 mmol/L (98-107) H 04/18/18 10:05 Carbon Dioxide 21 mmol/L (22-30) L 04/18/18 10:05 Anion Gap 11 mmol/L 04/18/18 10:05 BUN 27 mg/dL (9-20) H 04/18/18 10:05 Creatinine 1.64 mg/dL (0.66-1.25) H 04/18/18 10:05 Est GFR (CKD-EPI)AfAm 51 (>60 ml/min/1.73 sqM) 04/18/18 10:05 Est GFR (CKD-EPI)NonAf 44 (>60 ml/min/1.73 sqM) 04/18/18 10:05 Glucose 94 mg/dL (74-99) 04/18/18 10:05 Calcium 9.6 mg/dL (8.4-10.2) 04/18/18 10:05 Total Bilirubin 0.5 mg/dL (0.2-1.3) 04/18/18 10:05 AST 74 U/L (17-59) H 04/18/18 10:05 ALT 48 U/L (21-72) 04/18/18 10:05 Alkaline Phosphatase 93 U/L (38-126) 04/18/18 10:05 Total Protein 7.3 g/dL (6.3-8.2) 04/18/18 10:05 Albumin 3.8 g/dL (3.5-5.0) 04/18/18 10:05 Urine Color Light Yellow 04/04/18 11:33 Urine Appearance Clear (Clear) 04/04/18 11:33 Urine pH 5.5 (5.0-8.0) 04/04/18 11:33 Ur Specific [place] 1.007 (1.001-1.035) 04/04/18 11:33 Urine Protein Negative (Negative) 04/04/18 11:33 Urine Glucose (UA) Negative (Negative) 04/04/18 11:33 Urine Ketones Negative (Negative) 04/04/18 11:33 Urine Blood Negative (Negative) 04/04/18 11:33 Urine Nitrite Negative (Negative) 04/04/18 11:33 Urine Bilirubin Negative (Negative) 04/04/18 11:33 Urine Urobilinogen <2.0 mg/dL (<2.0) 04/04/18 11:33 Ur Leukocyte Esterase Negative (Negative) 04/04/18 11:33 Urine Opiates Screen Not Detected (NotDetected) 04/04/18 11:33 Ur Oxycodone Screen Not Detected (NotDetected) 04/04/18 11:33 Urine Methadone Screen Not Detected (NotDetected) 04/04/18 11:33 Ur Propoxyphene Screen Not Detected (NotDetected) 04/04/18 11:33 Ur Barbiturates Screen Not Detected (NotDetected) 04/04/18 11:33 Oxcarbazepine 1.5 ug/mL (10-35) L 04/15/18 15:42 U Tricyclic Antidepress Not Detected (NotDetected) 04/04/18 11:33 Ur Phencyclidine Scrn Not Detected (NotDetected) 04/04/18 11:33 Ur Amphetamines Screen Not Detected (NotDetected) 04/04/18 11:33 U Methamphetamines Scrn Not Detected (NotDetected) 04/04/18 11:33 U Benzodiazepines Scrn Not Detected (NotDetected) 04/04/18 11:33 Urine Cocaine Screen Not Detected (NotDetected) 04/04/18 11:33 U Marijuana (THC) Screen Not Detected (NotDetected) 04/04/18 11:33 Assessment and Plan (1) Psychosis Current Visit: Yes Status: Acute Code(s): F29 - UNSP PSYCHOSIS NOT DUE TO A SUBSTANCE OR KNOWN PHYSIOL COND SNOMED Code(s): 46512750 (2) Dermatophytoses Narrative/Plan: 62-year-old male with bipolar disorder with psychotic features presents to Hospital for further treatment of his underlying psychoses. The patient does have some chronic bilateral lower extremity edema that appears to be well-controlled at this point in time with nursing noting no significant drainage occurring at this time to the right lower extremity. There was concerns of the right great toe. The patient refuses any further treatment to that area. However does have evidence of a fungal infection of the skin to the feet which she will allow a topical cream. He does not want any further pills. Current Visit: Yes Status: Acute Code(s): B35.9 - DERMATOPHYTOSIS, UNSPECIFIED SNOMED Code(s): 14201361
[2018-04-19] MEDS: NICOTINE POLACRILEX 2 MG GUM BUCCAL PRN ×3 (06:57→20:12)
[2018-04-19] MEDS: TRIAMCINOLONE 0.1% CREAM 80 GM TUBE TOPICAL SCH ×2 (08:05→20:12)
[2018-04-19] MEDS: DOXYCYCLINE 100 MG CAP PO SCH ×2 (08:05→20:12)
[2018-04-19] MEDS: BACITRACIN 500 UNIT/GM OINT 28.4 GM TUBE TOPICAL SCH ×2 (08:05→20:14)
[2018-04-19] MEDS: OXcarbazepine 300 MG TAB PO SCH ×2 (08:05→20:12)
[2018-04-19] MEDS: METOPROLOL TARTRATE 25 MG TAB PO SCH ×2 (08:05→20:12)
[2018-04-19] MEDS: NYSTATIN 100,000UNIT/GM CREAM 30 GM TUBE TOPICAL SCH ×2 (08:06→20:12)
--- NOTE | 2018-04-19 08:32 | P.PN ---
Subjective Progress Note Date: 04/19/18 Objective - Vital Signs Vital signs: Vital Signs Temp 97.9 F 04/18/18 10:35 Pulse 91 04/19/18 08:04 Resp 18 04/19/18 08:04 BP 133/66 04/19/18 08:04 Pulse Ox 97 04/18/18 21:48 - Labs CBC & Chem 7: 04/18/18 10:05 04/18/18 10:05 Labs: Abnormal Lab Results - Last 24 Hours (Table) 04/18/18 04/18/18 04/18/18 Range/Units 10: 10: 10:05 RBC 4.16 L (4.30-5.90) m/uL Hgb 12.1 L (13.0-17.5) gm/dL MCHC 30.7 L (31.0-37.0) g/dL PT 21.4 H (9.0-12.0) sec INR 2.4 H (<1.2) Chloride 111 H (98-107) mmol/L Carbon Dioxide 21 L (22-30) mmol/L BUN 27 H (9-20) mg/dL Creatinine 1.64 H (0.66-1.25) mg/dL AST 74 H (17-59) U/L Assessment and Plan Assessment: claudine Note - Text Interval history: The patient is found in the hallway he reluctantly follows me to an interview room. He is more agitated today. Staff report the patient has been more agitated and more intrusive. He is openly discussing delusional thoughts. These are more paranoid and persecutory in nature than grandiose lately. I was informed that the patient is not able to return to his previous residence and is in need of new placement once clinically stabilized. We discussed the patient's right lower extremity during team and we will get another evaluation from internal medicine. The patient continues to demand to be discharged. I attempted to discuss initiating Clozaril to treat symptoms of psychosis and to help with aggressiveness but the patient is refusing to participate in the conversation. He demands to stay on Risperdal. He has been compliant with the Trileptal. A CBC has been performed this morning and the white blood count and absolute neutrophil count are within normal limits. Mental status exam: The patient is a tired appearing but not lethargic male. He is dressed in hospital gowns. He ambulates with a limp. Eye contact is staring in nature. He has an irritable affect. He is verbalizing a delusional thought content that is grandiose and persecutory in nature. Insight and judgment are poor. He raises his voice during our interaction but is redirectable. He demonstrates no physical aggressiveness. Concentration and short-term memory are impaired. He demonstrates psychomotor slowing. He endorses no thoughts of self-harm or harm to others he endorses no hallucinations. He is not a reliable historian. Plan: The patient will continue on the Trileptal 600 mg twice daily, we will initiate claws role 25 mg at bedtime and plan to titrate the dose during the course of the hospitalization. The patient continues to demonstrate symptoms of psychosis and thought disorganization. We will request another medical evaluation of his right lower extremity. Vital signs reviewed. The patient requires continued psychiatric hospitalization. Social work will begin exploring placement options for him once he is appropriate for discharge. Plan: continue current treatment Time with Patient: Less than 30
[2018-04-19 12:18] LABS: INR 2.7 (<1.2); Prothrombin Time 24.5 sec (9.0-12.0)
[2018-04-19] MEDS: WARFARIN 2 MG TAB PO SCH (16:30)
[2018-04-19] MEDS: WARFARIN 10 MG TAB PO SCH (16:30)
[2018-04-19] MEDS: cloZAPine 25 MG TAB PO SCH (20:12)
[2018-04-20] MEDS: NICOTINE POLACRILEX 2 MG GUM BUCCAL PRN ×4 (06:50→17:12)
[2018-04-20] MEDS: DOXYCYCLINE 100 MG CAP PO SCH ×2 (07:49→20:12)
[2018-04-20] MEDS: OXcarbazepine 300 MG TAB PO SCH ×2 (07:49→20:11)
[2018-04-20] MEDS: BACITRACIN 500 UNIT/GM OINT 28.4 GM TUBE TOPICAL SCH ×2 (07:49→20:12)
[2018-04-20] MEDS: METOPROLOL TARTRATE 25 MG TAB PO SCH ×2 (07:49→20:12)
[2018-04-20] MEDS: TRIAMCINOLONE 0.1% CREAM 80 GM TUBE TOPICAL SCH ×2 (07:52→20:12)
[2018-04-20] MEDS: NYSTATIN 100,000UNIT/GM CREAM 30 GM TUBE TOPICAL SCH ×2 (07:52→20:12)
--- NOTE | 2018-04-20 09:22 | P.PN ---
Subjective Progress Note Date: 04/20/18 Assessment and Plan Assessment: claudine Note - Text Interval history: The patient is found in the hallway he reluctantly follows me to an interview room. He is more agitated today. Staff report the patient has been more agitated and more intrusive. He is openly discussing delusional thoughts. These are more paranoid and persecutory in nature than grandiose lately. I was informed that the patient is not able to return to his previous residence and is in need of new placement once clinically stabilized. We discussed the patient's right lower extremity during team and we will get another evaluation from internal medicine. The patient continues to demand to be discharged. I attempted to discuss initiating Clozaril to treat symptoms of psychosis and to help with aggressiveness but the patient is refusing to participate in the conversation. He demands to stay on Risperdal. He has been compliant with the Trileptal. A CBC has been performed this morning and the white blood count and absolute neutrophil count are within normal limits. Mental status exam: The patient is a tired appearing but not lethargic male. He is dressed in hospital gowns. He ambulates with a limp. Eye contact is staring in nature. He has an irritable affect. He is verbalizing a delusional thought content that is grandiose and persecutory in nature. Insight and judgment are poor. He raises his voice during our interaction but is redirectable. He demonstrates no physical aggressiveness. Concentration and short-term memory are impaired. He demonstrates psychomotor slowing. He endorses no thoughts of self-harm or harm to others he endorses no hallucinations. He is not a reliable historian. Plan: The patient will continue on the Trileptal 600 mg twice daily, we will initiate claws role 25 mg at bedtime and plan to titrate the dose during the course of the hospitalization. The patient continues to demonstrate symptoms of psychosis and thought disorganization. We will request another medical evaluation of his right lower extremity. Vital signs reviewed. The patient requires continued psychiatric hospitalization. Social work will begin exploring placement options for him once he is appropriate for discharge. Plan: continue current treatment Time with Patient: Less than 30 Objective - Vital Signs Vital signs: Vital Signs Temp 97.5 F L 04/20/18 05:58 Pulse 99 04/19/18 22:19 Resp 18 04/19/18 08:04 BP 139/74 04/19/18 22:19 Pulse Ox 97 04/18/18 21:48 - Labs CBC & Chem 7: 04/18/18 10:05 04/18/18 10:05 Labs: Abnormal Lab Results - Last 24 Hours (Table) 04/19/18 Range/Units 11:51 PT 24.5 H (9.0-12.0) sec INR 2.7 H (<1.2)
[2018-04-20 12:13] LABS: INR 3.5 (<1.2); Prothrombin Time 31.1 sec (9.0-12.0)
[2018-04-20] MEDS: cloZAPine 25 MG TAB PO SCH (20:12)
[2018-04-21] MEDS: NICOTINE POLACRILEX 2 MG GUM BUCCAL PRN ×3 (00:51→08:50)
[2018-04-21] MEDS: DOXYCYCLINE 100 MG CAP PO SCH ×2 (08:46→20:20)
[2018-04-21] MEDS: OXcarbazepine 300 MG TAB PO SCH ×2 (08:47→20:21)
[2018-04-21] MEDS: METOPROLOL TARTRATE 25 MG TAB PO SCH ×2 (08:47→20:21)
[2018-04-21] MEDS: NYSTATIN 100,000UNIT/GM CREAM 30 GM TUBE TOPICAL SCH ×2 (11:13→20:22)
[2018-04-21] MEDS: TRIAMCINOLONE 0.1% CREAM 80 GM TUBE TOPICAL SCH ×2 (11:13→20:22)
--- NOTE | 2018-04-21 11:23 | P.PN ---
Progress Note - Text Interval history: The patient is found in his room. The patient spontaneously states he wants to be discharged. He feels he is being held here wrongly. He states that people are trying to kill him here. He insists that this care can be provided on an outpatient basis demonstrating poor insight into his current symptoms. He was seen by Dr. Curry and that note was reviewed. The patient has been complying with the clozapine. Attempted to discuss the patient's medications with him. Staff continue to report that the patient is irritable and these making several delusional statements throughout the day. Mental status exam: The patient is seen in his room. He is found standing but sits on his bed during our interaction. Earlier today he was observed using a wheelchair. Eye contact is intermittent. He is awake but appears tired he is not lethargic. Speech is fluent and spontaneous pressured at times. He uses an irritable tone of voice at times. He denies any suicidal thoughts. He states that he has fears that people will try to kill him here and he will defend himself. He is endorsing no auditory or visual hallucinations. Insight and judgment are poor. Affect is irritable throughout the interaction. He demonstrates no physical aggressiveness. He continues to talk and yell even after our interaction has concluded. Plan: The patient will continue on the Clozaril I will titrate this to 75 mg at bedtime. Our plan will be to replace the Risperdal with Clozaril. He will continue on the Trileptal that has been recently titrated. We will monitor him for safety and encourage appropriate behavior on the mental health unit. Vital signs reviewed. He requires continued psychiatric hospitalization.
[2018-04-21] MEDS: BACITRACIN 500 UNIT/GM OINT 28.4 GM TUBE TOPICAL SCH ×2 (11:50→20:22)
[2018-04-21 13:10] LABS: INR 2.4 (<1.2); Prothrombin Time 21.4 sec (9.0-12.0)
[2018-04-21] MEDS: WARFARIN 2 MG TAB PO SCH (17:44)
[2018-04-21] MEDS: WARFARIN 10 MG TAB PO SCH (17:45)
[2018-04-21] MEDS: cloZAPine 25 MG TAB PO SCH (20:21)
[2018-04-22] MEDS: METOPROLOL TARTRATE 25 MG TAB PO SCH ×2 (07:47→20:58)
[2018-04-22] MEDS: OXcarbazepine 300 MG TAB PO SCH ×2 (07:47→20:58)
[2018-04-22] MEDS: DOXYCYCLINE 100 MG CAP PO SCH ×2 (07:47→20:58)
[2018-04-22] MEDS: TRIAMCINOLONE 0.1% CREAM 80 GM TUBE TOPICAL SCH ×2 (08:21→21:00)
[2018-04-22] MEDS: NYSTATIN 100,000UNIT/GM CREAM 30 GM TUBE TOPICAL SCH ×2 (08:21→20:59)
[2018-04-22] MEDS: BACITRACIN 500 UNIT/GM OINT 28.4 GM TUBE TOPICAL SCH ×2 (08:21→21:00)
[2018-04-22] MEDS: NICOTINE POLACRILEX 2 MG GUM BUCCAL PRN ×3 (08:50→23:37)
[2018-04-22 12:23] LABS: INR 2.2 (<1.2); Prothrombin Time 19.7 sec (9.0-12.0)
--- NOTE | 2018-04-22 14:25 | P.PN ---
Progress Note - Text Interval history: The patient is found in the hallway in his wheelchair. He follows me to the [facility] to speak. Staff report that the patient remains disorganized delusional and irritable at times. At other times he is reportedly laughing out loud for now explained reason. Staff report that the patient has been urinating on the floor and on a variety of objects. He states that he would like to be discharged . He states that the blood levels of his medication should be fine by then. He continues to have poor insight into his current symptoms. We attempted to review his psychotropic medications. He does get agitated during that conversation. Mental status exam: The patient is a tall overweight male he is mobile with a wheelchair. His lower extremities are wrapped with Conrad bandages. Eye contact is appropriate. He appears tired but is not lethargic. He reports no suicidal or homicidal thoughts. He is endorsing no auditory or visual hallucinations. He continues to verbalize grandiose and first 20 thoughts. Insight and judgment are poor. He demonstrates no verbal or physical aggressiveness but does raise his voice at times. Plan: The patient will continue on his current medications. Our plan is to continue titrating the Clozaril as tolerated to a therapeutic dose. Vital signs reviewed. The patient requires continued psychiatric hospitalization.
[2018-04-22] MEDS: WARFARIN 2 MG TAB PO SCH ×3 (15:53→18:12)
[2018-04-22] MEDS: WARFARIN 10 MG TAB PO SCH (15:55)
[2018-04-22] MEDS: cloZAPine 25 MG TAB PO SCH (20:58)
[2018-04-23] MEDS: LORazepam 1 MG TAB PO PRN ×3 (00:28→23:10)
[2018-04-23] MEDS: NICOTINE POLACRILEX 2 MG GUM BUCCAL PRN ×7 (03:31→19:00)
[2018-04-23] MEDS: OXcarbazepine 300 MG TAB PO SCH ×2 (08:38→20:25)
[2018-04-23] MEDS: METOPROLOL TARTRATE 25 MG TAB PO SCH ×2 (08:38→20:25)
[2018-04-23] MEDS: DOXYCYCLINE 100 MG CAP PO SCH ×2 (08:38→20:25)
[2018-04-23] MEDS: NYSTATIN 100,000UNIT/GM CREAM 30 GM TUBE TOPICAL SCH ×2 (08:39→20:26)
[2018-04-23] MEDS: TRIAMCINOLONE 0.1% CREAM 80 GM TUBE TOPICAL SCH ×2 (08:39→20:26)
[2018-04-23] MEDS: BACITRACIN 500 UNIT/GM OINT 28.4 GM TUBE TOPICAL SCH ×2 (08:39→20:25)
--- NOTE | 2018-04-23 11:38 | P.PN ---
Progress Note - Text Interval history: The patient is found in his room. He reports that he slept last night in his wheelchair. He states his bed is uncomfortable. He continues to request to be discharged not appreciating his current symptoms. Staff report that the patient continues to be sexually preoccupied and demonstrates disorganized thinking. He continues to verbalize grandiose and persecutory thoughts. There has been less agitation in terms of his affect over the last 24 hours. Mental status exam: The patient is a tall overweight male he is dressed in his own clothing he has Conrad bandages on his lower extremities. Eye contact is intermittent he has ongoing speech. He appears tired but not lethargic. Thought process demonstrates loose associations and flight of ideas. He is verbose and he will continue speaking for numerous minutes consecutively if uninterrupted. Insight and judgment poor. He demonstrates no verbal or physical aggressiveness. He is reporting no suicidal or homicidal ideation. He endorses no hallucinations. Plan: The patient will continue on his current psychotropic medications we will titrate the Clozaril to 100 mg at bedtime. Vital signs reviewed. His Coumadin is being managed by pharmacy his INR is in the therapeutic range. We will continue to monitor him for safety. He requires continued psychiatric hospitalization.
[2018-04-23 13:33] LABS: Basophils % (A) 0 %; Eosinophils # (A) 0.3 k/uL (0-0.7); Eosinophils % (A) 5 %; HCT 37.1 % (39.0-53.0); HGB 11.7 gm/dL (13.0-17.5); Lymphocytes # (A) 1.2 k/uL (1.0-4.8); Lymphocytes % (A) 19 %; MCH 29.1 pg (25.0-35.0); MCHC 31.5 g/dL (31.0-37.0); MCV 92.4 fL (80.0-100.0); Mean Platelet Volume 7.4; Monocytes # (A) 0.6 k/uL (0-1.0); Monocytes % (A) 9 %; Neutrophils # (A) 4.2 k/uL (1.3-7.7); Neutrophils % (A) 66 %; Platelet Count 251 k/uL (150-450); RBC 4.02 m/uL (4.30-5.90); RDW 13.9 % (11.5-15.5); WBC 6.4 k/uL (3.8-10.6)
[2018-04-23 13:41] LABS: INR 2.3 (<1.2); Prothrombin Time 21.1 sec (9.0-12.0)
[2018-04-23] MEDS: WARFARIN 10 MG TAB PO SCH (17:20)
[2018-04-23] MEDS: WARFARIN 2 MG TAB PO SCH (17:20)
[2018-04-23] MEDS: cloZAPine 100 MG TAB PO SCH (20:25)
[2018-04-24] MEDS: NICOTINE POLACRILEX 2 MG GUM BUCCAL PRN ×4 (04:30→21:06)
[2018-04-24] MEDS: DOXYCYCLINE 100 MG CAP PO SCH ×2 (09:04→20:54)
[2018-04-24] MEDS: OXcarbazepine 300 MG TAB PO SCH ×2 (09:04→21:10)
[2018-04-24] MEDS: METOPROLOL TARTRATE 25 MG TAB PO SCH ×2 (09:04→21:14)
[2018-04-24] MEDS: BACITRACIN 500 UNIT/GM OINT 28.4 GM TUBE TOPICAL SCH ×4 (09:05→21:09)
[2018-04-24] MEDS: NYSTATIN 100,000UNIT/GM CREAM 30 GM TUBE TOPICAL SCH ×2 (09:05→21:12)
[2018-04-24] MEDS: TRIAMCINOLONE 0.1% CREAM 80 GM TUBE TOPICAL SCH ×2 (09:05→21:22)
--- NOTE | 2018-04-24 09:06 | P.PN ---
Progress Note - Text Interval history: The patient is found in the hallway he follows me to an interview room. The patient states that his foot feels better since he has been using the wheelchair and resting at. He indicates he slept all night staff recorded he slept 4 hours. The patient states he would like to be discharged. He states if he doesn't leave by Saturday he wants an appointment with the sports activities foul judge to get himself released. The patient states that he wants me to sit down with his guardian tomorrow and have them release $60,000 so he can throw his Halloween alliance party that he is invited the whole town to. Mental status exam: The patient is a tall overweight male he is dressed in hospital gowns. Eye contact is intermittent. He is wearing eyeglasses. He has socks on and has a pen stuck in a sock. He uses the wheelchair for mobility and he also ambulates. For the most part he ventilates his frustration that he is on the mental health unit and feels that this is inappropriate that he has been admitted. He continues to describe grandiose and persecutory thoughts. Thought process remains disorganized. He has a more irritable affect this morning. He does require some redirection when he becomes irritable and to leave the office once the session has concluded. He is reporting no suicidal or homicidal thoughts. He is endorsing no auditory or visual hallucinations. Plan: The patient will continue on his current medication we will continue titrating the clozapine. Vital signs reviewed. He requires continued psychiatric hospitalization. I will confer with staff regarding his recent behavior during treatment team meeting. We will continue monitoring him for safety.
[2018-04-24 10:07] LABS: INR 2.4 (<1.2); Prothrombin Time 21.5 sec (9.0-12.0)
[2018-04-24] MEDS: WARFARIN 2 MG TAB PO SCH (17:39)
[2018-04-24] MEDS: WARFARIN 10 MG TAB PO SCH (17:39)
[2018-04-24] MEDS: cloZAPine 100 MG TAB PO SCH (20:54)
[2018-04-24] MEDS: LORazepam 1 MG TAB PO PRN (22:27)
[2018-04-25] MEDS: NICOTINE POLACRILEX 2 MG GUM BUCCAL PRN ×3 (06:27→20:13)
[2018-04-25] MEDS: DOXYCYCLINE 100 MG CAP PO SCH ×2 (08:01→20:11)
[2018-04-25] MEDS: OXcarbazepine 300 MG TAB PO SCH ×2 (08:01→20:11)
[2018-04-25] MEDS: METOPROLOL TARTRATE 25 MG TAB PO SCH ×2 (08:01→20:11)
[2018-04-25] MEDS: TRIAMCINOLONE 0.1% CREAM 80 GM TUBE TOPICAL SCH ×2 (11:08→22:12)
[2018-04-25] MEDS: NYSTATIN 100,000UNIT/GM CREAM 30 GM TUBE TOPICAL SCH ×2 (11:08→22:12)
--- NOTE | 2018-04-25 11:15 | P.PN ---
Progress Note - Text Interval history: The patient is found in the hallway he follows me to the library to speak. 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 He speaks at length regarding past experiences. Staff report that the patient demonstrated no behavioral issues yesterday. He did not urinate in any inappropriate places yesterday. He demonstrated no aggressive behavior. Mental status exam: The patient is an alert overweight male appearing his stated age. He is dressed in his own clothing. He ambulates with a limp and also uses a wheelchair for assistance. Eye contact is intermittent. He has some psychomotor slowing. He has pressured speech she is verbose. He is more redirectable today. He demonstrates no aggressiveness or irritability. He reports no suicidal or homicidal ideation intent or plan. He continues to endorse the same grandiose and persecutory thoughts. Insight and judgment are impaired. He is reporting no suicidal or homicidal ideation he endorses no hallucinations. Plan: The patient will continue on his current medication I will titrate the claws role again to 125 mg at bedtime. We will monitor him for safety and encourage appropriate participation in the milieu. He is not yet appropriate for discharge. Social work has been in communication with his guardian.
[2018-04-25 11:27] LABS: INR 2.5 (<1.2); Prothrombin Time 22.2 sec (9.0-12.0)
[2018-04-25] MEDS: WARFARIN 2 MG TAB PO SCH (17:20)
[2018-04-25] MEDS: WARFARIN 10 MG TAB PO SCH (17:20)
[2018-04-25] MEDS: cloZAPine 25 MG TAB PO SCH (20:11)
[2018-04-25] MEDS: cloZAPine 100 MG TAB PO SCH (20:11)
[2018-04-26] MEDS: NICOTINE POLACRILEX 2 MG GUM BUCCAL PRN ×3 (07:17→16:35)
[2018-04-26] MEDS: DOXYCYCLINE 100 MG CAP PO SCH ×2 (09:15→20:09)
[2018-04-26] MEDS: NYSTATIN 100,000UNIT/GM CREAM 30 GM TUBE TOPICAL SCH ×2 (09:15→22:14)
[2018-04-26] MEDS: METOPROLOL TARTRATE 25 MG TAB PO SCH ×2 (09:15→20:09)
[2018-04-26] MEDS: OXcarbazepine 300 MG TAB PO SCH ×2 (09:15→20:09)
[2018-04-26] MEDS: BACITRACIN 500 UNIT/GM OINT 28.4 GM TUBE TOPICAL SCH ×2 (09:16→22:14)
[2018-04-26] MEDS: TRIAMCINOLONE 0.1% CREAM 80 GM TUBE TOPICAL SCH ×2 (09:16→22:14)
[2018-04-26 09:21] LABS: INR 2.8 (<1.2); Prothrombin Time 25.2 sec (9.0-12.0)
--- NOTE | 2018-04-26 13:10 | P.PN ---
Progress Note - Text Progress Note Date: 04/26/18 Interval history: Patient is seen in [facility] today. He is seated in a wheelchair in the hallway. He does ambulate to one of the group programs. He seems to relay that he is eating well. Makes reference to wanting to go home. He does not voice any adverse psychotropic medication side effects. Seems to relay that his mood is doing good. Mental status exam: He is alert and cooperative with the interview. Speech is somewhat pressured. He seems to describe his mood is doing good. He denies any thoughts of harm to self. He denies any thoughts of harm to others, made a reference regarding killing somebody but then explains that someone on the unit in the past wanted to kill him and makes a reference to defending himself. His thought processes are disorganized. He denies any current auditory hallucinations. He was somewhat focused on wanting to go home. Plan: We'll maintain current psychotropic medication regimen. Continue to monitor for any medication side effects monitor his ongoing response to treatment.
[2018-04-26] MEDS: WARFARIN 2 MG TAB PO SCH (17:50)
[2018-04-26] MEDS: WARFARIN 10 MG TAB PO SCH (17:50)
[2018-04-26] MEDS: cloZAPine 25 MG TAB PO SCH (20:09)
[2018-04-26] MEDS: cloZAPine 100 MG TAB PO SCH (20:09)
[2018-04-27] MEDS: NICOTINE POLACRILEX 2 MG GUM BUCCAL PRN ×5 (00:39→20:21)
[2018-04-27 07:42] LABS: INR 3.4 (<1.2); Prothrombin Time 30.4 sec (9.0-12.0)
[2018-04-27] MEDS: OXcarbazepine 300 MG TAB PO SCH ×2 (08:46→20:18)
[2018-04-27] MEDS: METOPROLOL TARTRATE 25 MG TAB PO SCH ×2 (08:46→20:18)
[2018-04-27] MEDS: DOXYCYCLINE 100 MG CAP PO SCH ×2 (08:46→20:18)
[2018-04-27] MEDS: TRIAMCINOLONE 0.1% CREAM 80 GM TUBE TOPICAL SCH ×3 (08:47→20:19)
[2018-04-27] MEDS: BACITRACIN 500 UNIT/GM OINT 28.4 GM TUBE TOPICAL SCH ×3 (08:47→20:18)
[2018-04-27] MEDS: NYSTATIN 100,000UNIT/GM CREAM 30 GM TUBE TOPICAL SCH ×3 (08:47→20:18)
--- NOTE | 2018-04-27 15:23 | P.PN ---
Progress Note - Text Progress Note Date: 04/27/18 Interval history: Patient is seen again in cross coverage today. He seems to make reference to Depakote and concerns of side effects with that. He talks about the medication making him feel tired. Mental status exam: He is alert and overall cooperative with the interview. He does not show any agitation. His thought processes show some disorganization. He makes reference to Depakote and concern of side effects, makes reference to a voice coach, he has not verbalize any thoughts of harm to self or others. Plan: Patient will be maintained on current psychotropic medication regimen. Continue to monitor for any medication side effects and monitor his ongoing response.
[2018-04-27] MEDS: cloZAPine 100 MG TAB PO SCH (20:18)
[2018-04-27] MEDS: cloZAPine 25 MG TAB PO SCH (20:18)
[2018-04-28] MEDS: NICOTINE POLACRILEX 2 MG GUM BUCCAL PRN ×4 (06:15→21:04)
[2018-04-28] MEDS: OXcarbazepine 300 MG TAB PO SCH ×2 (07:47→20:10)
[2018-04-28] MEDS: DOXYCYCLINE 100 MG CAP PO SCH ×2 (07:47→20:09)
[2018-04-28] MEDS: METOPROLOL TARTRATE 25 MG TAB PO SCH ×2 (07:47→20:10)
[2018-04-28] MEDS: BACITRACIN 500 UNIT/GM OINT 28.4 GM TUBE TOPICAL SCH ×2 (07:47→20:09)
[2018-04-28] MEDS: NYSTATIN 100,000UNIT/GM CREAM 30 GM TUBE TOPICAL SCH ×2 (07:48→20:10)
[2018-04-28] MEDS: TRIAMCINOLONE 0.1% CREAM 80 GM TUBE TOPICAL SCH ×2 (07:49→20:10)
--- NOTE | 2018-04-28 11:06 | P.PN ---
Progress Note - Text Interval history: The patient is found in the hallway he follows me to an interview room. The patient indicates he feels he stable and would like to be discharged. He states he needs to plan for his hollowing alliance party that he is invited the community to. Staff report that the patient has been improving in terms of intrusiveness and verbal aggressiveness. They report he has been more redirectable. Mental status exam: The patient has been using a wheelchair for mobility but also ambulating. He is dressed in his own clothing. He has a disheveled appearance hygiene is adequate. Eye contact is intermittent. He does have spontaneous speech. He expresses that he would like to be discharged as soon as possible. He continues to feel that this entire hospitalization was inappropriate. He verbalizes it is willing to follow our direction and comply with medication. He is reporting no suicidal or homicidal ideation intent or plan. He is expressing no verbal or physical aggressiveness during our interaction. He continues to have grandiose and persecutory type delusions. He was not pressured today he does ruminate on certain topics but did not appear disorganized. Insight and judgment impaired. Plan: The patient appears to be responding to the claws role I will titrate this again no 150 mg at bedtime. We will monitor him for safety and encourage his participation in the milieu. His Trileptal level has returned 11.6. Social work has begun communicating with his guardian last week regarding the need for placement option. If the patient demonstrates sufficient improvement he could be appropriate for discharge towards the end of the week. Again the patient does have symptoms of psychosis specifically delusions as part of his baseline function.
[2018-04-28 11:36] LABS: INR 2.5 (<1.2); Prothrombin Time 22.4 sec (9.0-12.0)
[2018-04-28] MEDS: WARFARIN 10 MG TAB PO SCH (17:13)
[2018-04-28] MEDS: WARFARIN 2 MG TAB PO SCH (17:13)
[2018-04-28] MEDS: cloZAPine 100 MG TAB PO SCH (20:09)
--- NOTE | 2018-04-29 05:06 | CT ---
EXAM: CT Head Without Intravenous Contrast CLINICAL HISTORY: Right sided weakness TECHNIQUE: Axial computed tomography images of the head/brain without intravenous contrast. CTDI is 57.4 mGy and DLP is 1202.1 mGy-cm. This CT exam was performed using one or more of the following dose reduction techniques: automated exposure control, adjustment of the mA and/or kV according to patient size, and/or use of iterative reconstruction technique. Coronal and sagittal reconstructions are performed COMPARISON: 02/27/18 FINDINGS: Brain: Unremarkable. No hemorrhage. No significant white matter disease. No edema. Ventricles: Unremarkable. No ventriculomegaly. Bones/joints: Unremarkable. No acute fracture. Soft tissues: Unremarkable. Sinuses: Unremarkable as visualized. No acute sinusitis. Mastoid air cells: Unremarkable as visualized. No mastoid effusion. IMPRESSION: No acute intracranial findings or substantial change. If acute intracranial infarction remains a concern, MRI may help to further evaluate if patient is a candidate.
[2018-04-29] MEDS: OXcarbazepine 300 MG TAB PO SCH ×2 (08:45→21:44)
[2018-04-29] MEDS: BACITRACIN 500 UNIT/GM OINT 28.4 GM TUBE TOPICAL SCH ×2 (08:45→21:59)
[2018-04-29] MEDS: METOPROLOL TARTRATE 25 MG TAB PO SCH ×2 (08:45→21:44)
[2018-04-29] MEDS: DOXYCYCLINE 100 MG CAP PO SCH ×2 (08:45→21:44)
[2018-04-29] MEDS: TRIAMCINOLONE 0.1% CREAM 80 GM TUBE TOPICAL SCH ×2 (08:48→22:03)
[2018-04-29] MEDS: NYSTATIN 100,000UNIT/GM CREAM 30 GM TUBE TOPICAL SCH ×2 (08:48→22:03)
--- NOTE | 2018-04-29 11:20 | P.PN ---
Progress Note - Text Interval history: The patient is found in the hallway seated in a wheelchair. He follows me to the library to speak. Last evening he reported right arm weakness. He underwent a computed tomography scan of his head without contrast with no acute findings. Neurology is consulted to evaluate further. Vital signs and labs are within normal limits. His Coumadin is in the therapeutic range. He is reporting no symptoms at this time. He reports feeling tired because of the Clozaril. Staff report that the patient has been less verbally intrusive. His placement remains undetermined as his guardians are exploring options. Mental status exam: The patient is an overweight male he seated in a wheelchair. He is dressed in his own clothing he is disheveled. Eye contact is intermittent. He does appear tired. He demonstrates no pressured speech she demonstrates no verbal or physical aggressiveness. He wheels himself in the library utilizing both upper extremities and wheels himself back out at the conclusion of our interaction. He is reporting no suicidal or homicidal thoughts sees reporting no auditory or visual hallucinations. He continues to have grandiose delusions that are mainly financial in nature. He does have persecutory thoughts. Insight and judgment are chronically limited. Plan: The patient will continue on the Clozaril as written. We will monitor him for safety. It seems unlikely that he is experiencing an ischemic event but neurology has been consulted we will await their evaluation. Social work will contact the patient's guardian to continue discussing the patient's placement upon discharge.
[2018-04-29 11:36] LABS: Prothrombin Time 18.1 sec (9.0-12.0)
--- NOTE | 2018-04-29 16:01 | P.CONS ---
History of Present Illness - Reason for Consult Consult date: 04/29/18 Right hand weakness - Chief Complaint Right hand weakness - History of Present Illness This is a pleasant 62-year-old male being evaluated by the neurology service for an episode of right hand weakness. He is currently in the mental health unit at the [facility]. He has a long history of bipolar manic disorder with psychosis. It was noticed by a member of the staff that he was having some right hand weakness because he dropped a cup of yogurt. He says this is happened before he spends a prolonged time in the wheelchair. He has a history of cardiac pacemaker and chronic DVTs. He is on Coumadin. There was no loss of consciousness and no other focal neurological symptoms noted. He says he still feels a little bit of tingling in an ulnar nerve distribution of the hand. A CT of the brain was done and showed no acute intracranial abnormalities. In fact his CT was perfectly normal. At the time my exam he is up and walking in his room in no acute distress. Review of Systems All systems: negative Constitutional: Reports as per HPI 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; Chronic kidney disease stage 3, bipolar depressino History of Any Multi-Drug Resistant Organisms: MRSA Year Discovered:: 04/27/2014 MDRO Source:: Right Arm Past Surgical History: Back Surgery, Hernia Repair, Pacemaker, Tonsillectomy Past Anesthesia/Blood Transfusion Reactions: Previous Problems w/ Anesthesia Additional Past Anesthesia/Blood Transfusion Reaction / Comm: STATES "HARD TIME BREATHING LAYING FLAT, I'M A MOUTH BREATHER" Type of Cardiac Device: Permanent Pacemaker Device Placement Date:: 2015 Past Psychological History: Bipolar Smoking Status: Current every day smoker Past Alcohol Use History: Rare - Past Family History Father History Unknown: Yes Mother History Unknown: Yes Medications and Allergies Home Medications Medication Instructions Recorded Confirmed Type Lubiprostone [Amitiza] 24 mcg PO BID 02/11/18 04/04/18 History Sodium Chloride [[place]] 1 spray EA NOSTRIL DAILY PRN 02/27/18 04/04/18 History Metoprolol Tartrate [Lopressor] 25 mg PO BID #60 tab 03/03/18 04/04/18 Rx Warfarin [Coumadin] 10 mg PO DAILY #5 tab 03/31/18 04/04/18 Rx risperiDONE MICROSPHERES 37.5 mg IM ONCE #1 syringe 03/31/18 04/04/18 Rx [RisperDAL CONSTA] risperiDONE [RisperDAL] 2 mg PO BID #42 tab 03/31/18 04/04/18 Rx Allergies Allergy/AdvReac Type Severity Reaction Status Date / Time divalproex sodium Allergy Unknown Verified 04/04/18 11:25 [From Depakote] haloperidol [From Haldol] Allergy Unknown Verified 04/04/18 11:25 haloperidol lactate Allergy Unknown Verified 04/04/18 11:25 [From Haldol] lithium Allergy Unknown Verified 04/04/18 11:25 Physical Exam Vitals: Vital Signs Pulse Resp BP BP 04/29/18 14:24 73 16 130/73 04/29/18 07:21 89 20 144/85 04/29/18 03:55 88 18 158/88 145/89 04/29/18 02:44 88 20 155/88 04/28/18 22:07 103 H 143/74 - Constitutional General appearance: average body habitus, cooperative, no acute distress - EENT Eyes: no abnormal pupil, EOMI, PERRLA ENT: hearing grossly normal - Neck Neck: normal ROM, no rigidity - Respiratory Respiratory: negative: prolonged expiration, prolonged inspiration - Cardiovascular Rhythm: regular - Gastrointestinal General gastrointestinal: no distended, no tenderness - Neurologic The patient is alert awake and oriented 3. Speech and accelerated and language is normal. There is no facial asymmetry. Strength is 5 out of 5 in bilateral upper and lower extremities. There is no sensory deficit. No tremors or seizures are seen. Cranial nerves II through XII are intact globally. Results CBC & Chem 7: 04/23/18 12:16 04/18/18 10:05 Labs: Abnormal Lab Results - Last 24 Hours (Table) 04/29/18 Range/Units 11:05 PT 18.1 H (9.0-12.0) sec INR 2.0 H (<1.2) Assessment and Plan (1) Right hand weakness Current Visit: Yes Status: Resolved Code(s): R29.898 - OTH SYMPTOMS AND SIGNS INVOLVING THE MUSCULOSKELETAL SYSTEM SNOMED Code(s): 710237318 (2) Numbness of right hand Current Visit: Yes Status: Resolved Code(s): R20.0 - ANESTHESIA OF SKIN SNOMED Code(s): 934621959 (3) Ulnar nerve compression Current Visit: Yes Status: Suspected Code(s): G56.20 - LESION OF ULNAR NERVE , UNSPECIFIED UPPER LIMB SNOMED Code(s): 301696616 (4) Psychosis Current Visit: Yes Status: Chronic Code(s): F29 - UNSP PSYCHOSIS NOT DUE TO A SUBSTANCE OR KNOWN PHYSIOL COND SNOMED Code(s): 61404802 (5) Bipolar I, recurrent manic episode, severe with psychotic behavior Current Visit: No Status: Chronic Priority: High Code(s): F30.8 - OTHER MANIC EPISODES SNOMED Code(s): 066972053 Plan: We will reconsult did to evaluate this patient for some right hand weakness. At this point is not concerning for any episode of cerebral ischemia. His CT was normal. He says this has happened before with prolonged time in his wheelchair. It likely represents compression of the ulnar nerve passing through the cubital tunnel. His Tinel sign is pretty positive for this on the right. I have educated him on the cause and he will try and keep pressure off the compression site at the elbow. We can be consulted as needed for any other concerning neurological deficits. Otherwise recommend outpatient evaluation with a nerve conduction study and electromyelogram. No Further neurological workup is needed. I have performed a history and physical on the above patient. I have reviewed the above note, and agree.
[2018-04-29] MEDS: WARFARIN 2 MG TAB PO SCH (17:45)
[2018-04-29] MEDS: WARFARIN 10 MG TAB PO SCH (17:45)
[2018-04-29] MEDS: NICOTINE POLACRILEX 2 MG GUM BUCCAL PRN (18:52)
[2018-04-29] MEDS: cloZAPine 100 MG TAB PO SCH (21:44)
[2018-04-30] MEDS: METOPROLOL TARTRATE 25 MG TAB PO SCH ×2 (07:42→20:23)
[2018-04-30] MEDS: OXcarbazepine 300 MG TAB PO SCH ×2 (07:42→20:24)
[2018-04-30] MEDS: DOXYCYCLINE 100 MG CAP PO SCH ×2 (07:43→20:24)
[2018-04-30] MEDS: BACITRACIN 500 UNIT/GM OINT 28.4 GM TUBE TOPICAL SCH ×2 (07:44→20:24)
[2018-04-30] MEDS: TRIAMCINOLONE 0.1% CREAM 80 GM TUBE TOPICAL SCH ×2 (07:46→20:24)
[2018-04-30] MEDS: NYSTATIN 100,000UNIT/GM CREAM 30 GM TUBE TOPICAL SCH ×2 (07:47→20:24)
--- NOTE | 2018-04-30 11:24 | P.PN ---
Progress Note - Text Interval history: The patient is found in group he follows me to an interview room. Staff report the patient slept over 5 hours last night. He is participating in groups he is eating. The patient's guardian is requesting a long-term psychiatric admission for him through the [facility] system. Social work will explore this as an option. It is likely he will not qualify for this type of placement however. I continue to feel that the patient's psychosis as part of his baseline. We are using the Clozaril to address his agitation and thought disorganization. As well there could be neurocognitive symptoms that are developing over the last several years that are contributing to his current presentation. The patient ventilate his frustration that he continues to be hospitalized. He is demanding to be discharged as soon as possible. Mental status exam: The patient is alert he is more awake today than yesterday. He is dressed in his own clothing. He is wearing a T-shirt that is inside out and backwards. He is dressed in shorts. He is wearing eyeglasses. Hygiene is adequate it appears he has showered. Speech is fluent spontaneous. He can be pressured at times but he is redirectable. He continues to have grandiose and persecutory thoughts that seem unwavering. He is reporting no suicidal or homicidal ideation. He is reporting no auditory or visual hallucinations. It does not appear that he is responding to hallucinations. He demonstrates no verbal or physical aggressiveness. He does raise his voice for short period of time but again is redirected. Insight and judgment are chronically impaired. He only demonstrates a tremor of his fingers on his right hand. Plan: We will continue to titrate the Clozaril during the course of the hospitalization. We will explore any resources available to him through the [facility] system. Vital signs reviewed. Laboratory results reviewed. We will continue to monitor him for safety.
[2018-04-30 12:18] LABS: Basophils % (A) 0 %; Eosinophils # (A) 0.3 k/uL (0-0.7); Eosinophils % (A) 4 %; HCT 37.4 % (39.0-53.0); HGB 11.5 gm/dL (13.0-17.5); Hypochromasia Slight; Lymphocytes # (A) 1.6 k/uL (1.0-4.8); Lymphocytes % (A) 22 %; MCH 29.1 pg (25.0-35.0); MCHC 30.6 g/dL (31.0-37.0); Mean Platelet Volume 6.9; Monocytes # (A) 0.6 k/uL (0-1.0); Monocytes % (A) 9 %; Neutrophils # (A) 4.3 k/uL (1.3-7.7); Neutrophils % (A) 61 %; Platelet Count 255 k/uL (150-450); RBC 3.94 m/uL (4.30-5.90); RDW 14.1 % (11.5-15.5); WBC 7.1 k/uL (3.8-10.6)
[2018-04-30 12:27] LABS: INR 2.2 (<1.2); Prothrombin Time 20.2 sec (9.0-12.0)
[2018-04-30] MEDS: NICOTINE POLACRILEX 2 MG GUM BUCCAL PRN ×2 (16:16→18:43)
[2018-04-30] MEDS: WARFARIN 10 MG TAB PO SCH (18:09)
[2018-04-30] MEDS: WARFARIN 2 MG TAB PO SCH (18:10)
[2018-04-30] MEDS: cloZAPine 100 MG TAB PO SCH (20:24)
[2018-05-01] MEDS: NICOTINE POLACRILEX 2 MG GUM BUCCAL PRN ×6 (00:11→18:47)
[2018-05-01] MEDS: DOXYCYCLINE 100 MG CAP PO SCH ×2 (08:31→20:10)
[2018-05-01] MEDS: OXcarbazepine 300 MG TAB PO SCH ×2 (08:31→20:10)
[2018-05-01] MEDS: METOPROLOL TARTRATE 25 MG TAB PO SCH ×2 (08:31→20:10)
[2018-05-01] MEDS: NYSTATIN 100,000UNIT/GM CREAM 30 GM TUBE TOPICAL SCH (08:32)
[2018-05-01] MEDS: BACITRACIN 500 UNIT/GM OINT 28.4 GM TUBE TOPICAL SCH (08:32)
[2018-05-01] MEDS: TRIAMCINOLONE 0.1% CREAM 80 GM TUBE TOPICAL SCH (08:38)
[2018-05-01 10:16] LABS: INR 2.6 (<1.2); Prothrombin Time 23.7 sec (9.0-12.0)
--- NOTE | 2018-05-01 11:08 | P.PN ---
Progress Note - Text Interval history: The patient is found in the hallway he follows me to an interview room. He indicates his mood is okay. He states he's going to return to his previous residence. We discussed that he may require a different residential setting but he does not except that idea. Staff report that he attended groups today and he has been more appropriate in terms of behavior and verbal input. With me he is more jovial today. He speaks at length about past experiences in the . He has no questions or concerns regarding medication. Mental status exam: The patient is an overweight male he is dressed in his own clothing he is ambulating with a limp. At other times he is observed using a wheelchair for mobility. Eye contact is appropriate speech is fluent spontaneous he is pressured at times. He is directable today. He is verbose with his content of speech he demonstrates tangential thinking. He has a more jovial affect today. He does not appear irritable during our session. He reports no suicidal or homicidal ideation intent or plan. Reporting no hallucinations. He continues to express delusional thoughts in the form of grandiose and paranoid thinking. Plan: The patient will continue on his current medication we will continue titrating the claws role as appropriate. The patient's guardian has been given an application to complete for the patient to apply for housing at a [facility] in [place]. We will communicate with them further on this issue. We will monitor him for safety and encourage his continued participation in the milieu.
[2018-05-01] MEDS: WARFARIN 10 MG TAB PO SCH (17:41)
[2018-05-01] MEDS: WARFARIN 1 MG TAB PO SCH (17:41)
[2018-05-01] MEDS: cloZAPine 100 MG TAB PO SCH (20:10)
[2018-05-02] MEDS: BACITRACIN 500 UNIT/GM OINT 28.4 GM TUBE TOPICAL SCH ×3 (01:50→19:51)
[2018-05-02] MEDS: TRIAMCINOLONE 0.1% CREAM 80 GM TUBE TOPICAL SCH ×3 (01:51→19:51)
[2018-05-02] MEDS: NYSTATIN 100,000UNIT/GM CREAM 30 GM TUBE TOPICAL SCH ×3 (01:51→19:51)
[2018-05-02] MEDS: NICOTINE POLACRILEX 2 MG GUM BUCCAL PRN ×3 (05:14→23:43)
[2018-05-02] MEDS: DOXYCYCLINE 100 MG CAP PO SCH ×2 (07:45→19:52)
[2018-05-02] MEDS: METOPROLOL TARTRATE 25 MG TAB PO SCH ×2 (07:45→19:52)
[2018-05-02] MEDS: OXcarbazepine 300 MG TAB PO SCH ×2 (07:45→19:52)
[2018-05-02 09:46] LABS: INR 2.7 (<1.2); Prothrombin Time 24.3 sec (9.0-12.0)
--- NOTE | 2018-05-02 11:50 | P.PN ---
Progress Note - Text Interval history: The patient is found in group he follows me to an interview room. He indicates his mood is good. He is not feeling irritable. He continues to request being discharged. He states he is can return to his prior residence and purchase a variety of items as he has a significant amount of money. Again we try to discuss that he may require a different placement but he is resistant to that idea. He does have a guardian in place. We reviewed his psychotropic medications. The patient has been participating in group and has been directable. Mental status exam: The patient is alert he seated upright in the chair he cooperates during this interaction. Speech is fluent spontaneous nonpressured. He continues to demonstrate some tangential thinking. He continues to have grandiose delusions evidenced during our conversation today. Insight and judgment are poor. He demonstrates no verbal or physical aggressiveness. He endorses no suicidal or homicidal thoughts he endorses no auditory or visual hallucinations. He is oriented to person place and day of the week. Plan: The patient will continue on his current psychotropic medication. We will consider titrating the clozaril further. We continued to research appropriate placement options for him with guidance from his guardian's office. Vital signs reviewed. We will continue to monitor him for safety.
[2018-05-02] MEDS: WARFARIN 10 MG TAB PO SCH (17:04)
[2018-05-02] MEDS: WARFARIN 1 MG TAB PO SCH (17:05)
[2018-05-02] MEDS: cloZAPine 100 MG TAB PO SCH (19:52)
[2018-05-03] MEDS: NICOTINE POLACRILEX 2 MG GUM BUCCAL PRN ×3 (04:41→22:52)
[2018-05-03] MEDS: BACITRACIN 500 UNIT/GM OINT 28.4 GM TUBE TOPICAL SCH ×2 (08:37→21:06)
[2018-05-03] MEDS: METOPROLOL TARTRATE 25 MG TAB PO SCH ×2 (08:37→21:05)
[2018-05-03] MEDS: OXcarbazepine 300 MG TAB PO SCH ×2 (08:38→21:05)
[2018-05-03] MEDS: NYSTATIN 100,000UNIT/GM CREAM 30 GM TUBE TOPICAL SCH ×2 (08:38→21:06)
[2018-05-03] MEDS: TRIAMCINOLONE 0.1% CREAM 80 GM TUBE TOPICAL SCH ×2 (08:38→21:06)
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
[2018-05-03 09:22] LABS: INR 2.8 (<1.2); Prothrombin Time 25.2 sec (9.0-12.0)
[2018-05-03] MEDS: cloZAPine 25 MG TAB PO SCH (17:52)
[2018-05-03] MEDS: cloZAPine 100 MG TAB PO SCH (17:52)
[2018-05-03] MEDS: WARFARIN 1 MG TAB PO SCH (17:53)
[2018-05-03] MEDS: WARFARIN 10 MG TAB PO SCH (17:53)
[2018-05-04] MEDS: METOPROLOL TARTRATE 25 MG TAB PO SCH ×2 (08:34→21:04)
[2018-05-04] MEDS: OXcarbazepine 300 MG TAB PO SCH ×2 (08:35→21:04)
[2018-05-04 10:00] LABS: INR 2.8 (<1.2); Prothrombin Time 25.2 sec (9.0-12.0)
[2018-05-04] MEDS: TRIAMCINOLONE 0.1% CREAM 80 GM TUBE TOPICAL SCH ×2 (10:14→21:08)
[2018-05-04] MEDS: BACITRACIN 500 UNIT/GM OINT 28.4 GM TUBE TOPICAL SCH ×2 (10:14→21:09)
[2018-05-04] MEDS: NYSTATIN 100,000UNIT/GM CREAM 30 GM TUBE TOPICAL SCH ×2 (10:14→21:08)
--- NOTE | 2018-05-04 12:28 | P.PN ---
Progress Note - Text Interval history: The patient is found in the hallway he follows me to the library to speak. He states he slept great all night staff recorded he slept 4 hours. He states that he has been attending groups. He is hoping to be discharged soon. We reviewed his psychotropic medications his questions were answered. There is been no verbal or physical aggressiveness lately per staff. Mental status exam: The patient is a tall overweight male he is dressed in his own clothing. He is ambulating by pushing a wheelchair. Eye contact is appropriate speech is fluent and spontaneous mildly pressured. He is verbose. He continues to be tangential. He is redirectable. He continues to have grandiose thinking with pursed Flores thinking. Today his affect is brighter and he demonstrates no irritability. Insight and judgment impaired. He demonstrates no verbal or physical aggressiveness. He is demonstrating no abnormal repetitive movements other than frequent movement of his third and fourth digit on his right hand at rest. Plan: The patient will continue on his current medication we have been titrating the Clozaril. We will continue to monitor him for safety and encourage participation in the milieu. We are exploring placement at a [facility] facility in [place]. Vital signs reviewed.
[2018-05-04] MEDS: cloZAPine 25 MG TAB PO SCH (16:58)
[2018-05-04] MEDS: cloZAPine 100 MG TAB PO SCH (16:58)
[2018-05-04] MEDS: WARFARIN 10 MG TAB PO SCH (16:59)
[2018-05-04] MEDS: WARFARIN 1 MG TAB PO SCH (16:59)
[2018-05-04] MEDS: NICOTINE POLACRILEX 2 MG GUM BUCCAL PRN (21:06)
[2018-05-05] MEDS: NICOTINE POLACRILEX 2 MG GUM BUCCAL PRN ×2 (00:17→06:17)
[2018-05-05] MEDS: METOPROLOL TARTRATE 25 MG TAB PO SCH ×2 (08:39→19:52)
[2018-05-05] MEDS: OXcarbazepine 300 MG TAB PO SCH ×2 (08:39→19:52)
[2018-05-05] MEDS: NYSTATIN 100,000UNIT/GM CREAM 30 GM TUBE TOPICAL SCH ×2 (08:40→19:50)
[2018-05-05] MEDS: BACITRACIN 500 UNIT/GM OINT 28.4 GM TUBE TOPICAL SCH ×2 (08:40→19:50)
[2018-05-05] MEDS: TRIAMCINOLONE 0.1% CREAM 80 GM TUBE TOPICAL SCH ×2 (08:41→19:51)
--- NOTE | 2018-05-05 11:09 | P.PN ---
Progress Note - Text Interval history: The patient is found in the hallway he follows me to an interview room. He reports that he slept better last night staff recorded he slept over 5 hours. He has been attempting to participate in groups. He takes pride in trying to help other people on the mental health unit. He is demonstrating no aggressive behavior. We discussed his psychotropic medication he has no questions regarding them. Mental status exam: The patient is alert he is dressed in his own clothing he is ambulating by pushing a wheelchair. Eye contact is appropriate speech is fluent spontaneous he is verbose but not pressured today. He continues to have a tangential thought process and is circumstantial at other times. He is reporting no suicidal or homicidal ideation intent or plan. He continues to have grandiose thinking he is less focused on paranoid thinking today. He demonstrates no verbal or physical aggressiveness he is demonstrating no abnormal repetitive movements as he seated today. Insight and judgment are improved from time of admission but chronically limited. Plan: The patient will continue on his current medication we will plan to titrate the Clozaril further. We are awaiting input from the potential placement at the [facility] in [place]. Vital signs reviewed. We will continue to monitor him for safety.
[2018-05-05 11:42] LABS: INR 2.7 (<1.2); Prothrombin Time 24.6 sec (9.0-12.0)
[2018-05-05] MEDS: cloZAPine 25 MG TAB PO SCH (19:49)
[2018-05-05] MEDS: WARFARIN 1 MG TAB PO SCH (19:49)
[2018-05-05] MEDS: cloZAPine 100 MG TAB PO SCH (19:49)
[2018-05-05] MEDS: WARFARIN 10 MG TAB PO SCH (19:49)
[2018-05-06] MEDS: NICOTINE POLACRILEX 2 MG GUM BUCCAL PRN ×4 (00:15→21:43)
[2018-05-06] MEDS: BACITRACIN 500 UNIT/GM OINT 28.4 GM TUBE TOPICAL SCH (07:47)
[2018-05-06] MEDS: METOPROLOL TARTRATE 25 MG TAB PO SCH ×2 (07:48→21:40)
[2018-05-06] MEDS: TRIAMCINOLONE 0.1% CREAM 80 GM TUBE TOPICAL SCH (07:49)
[2018-05-06] MEDS: NYSTATIN 100,000UNIT/GM CREAM 30 GM TUBE TOPICAL SCH (07:49)
[2018-05-06] MEDS: OXcarbazepine 300 MG TAB PO SCH ×2 (07:49→21:41)
[2018-05-06 09:34] LABS: INR 2.7 (<1.2); Prothrombin Time 24.7 sec (9.0-12.0)
--- NOTE | 2018-05-06 09:35 | P.PN ---
Progress Note - Text Interval history: The patient is found in the library he follows me to an interview room. He reports that he slept last night staff recorded he slept more than 5 hours. Appetite stable. He states that he is aware that he is not able to return to his previous placement and he is upset. He continues to not recognize the authority of his temporary guardian at this time. He has no questions or concerns regarding his medications. He has been attending groups he is demonstrating no agitated behavior. Mental status exam: The patient is alert he ambulates by pushing a wheelchair. He is dressed in his own clothing hygiene is adequate. Eye contact is good speech is fluent and spontaneous mildly pressured. He is verbose. He continues to demonstrate circumstantial and tangential thinking. He demonstrates no flight of ideas. He reports no suicidal or homicidal ideation intent or plan. He is reporting no auditory or visual hallucinations. He continues to have grandiose delusions and continues to have persecutory thoughts as well. Insight and judgment limited. He demonstrates no verbal or physical aggressiveness. He demonstrates no abnormal repetitive movements during our interaction. Plan: The patient will continue on his current medication we will continue titrating the Clozaril. We will monitor him for safety and encourage participation in the milieu. We continue to collaborate with his guardian regarding the placement process. Vital signs reviewed, lab work reviewed.
[2018-05-06] MEDS: WARFARIN 1 MG TAB PO SCH (17:21)
[2018-05-06] MEDS: WARFARIN 10 MG TAB PO SCH (17:22)
[2018-05-06] MEDS: cloZAPine 100 MG TAB PO SCH (17:23)
[2018-05-06] MEDS: cloZAPine 25 MG TAB PO SCH (17:23)
[2018-05-07] MEDS: NICOTINE POLACRILEX 2 MG GUM BUCCAL PRN ×4 (01:06→22:33)
[2018-05-07] MEDS: BACITRACIN 500 UNIT/GM OINT 28.4 GM TUBE TOPICAL SCH ×3 (02:07→20:50)
[2018-05-07] MEDS: NYSTATIN 100,000UNIT/GM CREAM 30 GM TUBE TOPICAL SCH ×3 (02:07→20:48)
[2018-05-07] MEDS: TRIAMCINOLONE 0.1% CREAM 80 GM TUBE TOPICAL SCH ×3 (02:07→20:48)
[2018-05-07] MEDS: METOPROLOL TARTRATE 25 MG TAB PO SCH ×2 (07:48→20:06)
[2018-05-07] MEDS: OXcarbazepine 300 MG TAB PO SCH ×2 (07:48→20:06)
[2018-05-07 10:07] LABS: Basophils % (A) 1 %; Eosinophils # (A) 0.3 k/uL (0-0.7); Eosinophils % (A) 4 %; HCT 33.7 % (39.0-53.0); HGB 10.8 gm/dL (13.0-17.5); Lymphocytes # (A) 1.3 k/uL (1.0-4.8); Lymphocytes % (A) 22 %; MCH 29.4 pg (25.0-35.0); MCHC 31.9 g/dL (31.0-37.0); Mean Platelet Volume 7.4; Monocytes # (A) 0.6 k/uL (0-1.0); Monocytes % (A) 9 %; Neutrophils # (A) 3.9 k/uL (1.3-7.7); Neutrophils % (A) 62 %; Platelet Count 207 k/uL (150-450); RBC 3.67 m/uL (4.30-5.90); RDW 14.2 % (11.5-15.5); WBC 6.2 k/uL (3.8-10.6)
[2018-05-07 10:10] LABS: INR 2.8 (<1.2); Prothrombin Time 24.9 sec (9.0-12.0)
--- NOTE | 2018-05-07 13:12 | P.PN ---
Progress Note - Text Progress Note Date: 05/07/18 Clinical Problems: Bipolar 1 disorder most recent episode manic with psychosis, rule out schizoaffective disorder bipolar type, history of deep vein thrombosis , hypertension, chronic renal failure, bilateral lower extremity venous insufficiency, paroxysmal atrial fibrillation currently in sinus rhythm Interim history: I reviewed the medical record, interviewed the patient and discuss his treatment and treatment plan during team meeting. He denied the need for this psychiatric hospitalization and requested my assistance with coordinating his discharge. He complained about increasing sedation with his current medications. He talked about planning to obtain an apartment after discharge and having access to large sums of money. He became distressed when I attempted to discuss his guardian. He corrected me several times to clarify that the guardian is only "temporary". He denied thoughts of or suicide. He denied experiencing such psychotic symptoms as auditory, visual or olfactory hallucinations. He slept 3 hours last night and has been attending therapeutic groups and activities. At the behest of his guarding the medical social worker has submitted an application to a veterans home in [facility]. WBC and absolute neutrophils today were 6.2 and 3.9 respectively. PT and INR or 24.9 and 2.8. Mental status exam: He presented as a casually groomed elderly male who was pleasant on approach. He made eye contact and attended to the interview. He walked with a stooped slow shuffling gait. He had a calm facial expression. He was alert and oriented to person, place and time. He showed slight psychomotor retardation but no abnormal movements. His speech was spontaneous with increased rate but normal rhythm and volume. His affect was dysphoric consisting of mixture of anger and irritability. He denied suicidal ideations, wishes or homicidal ideation. He denied feeling hopeless, helpless or worthless. He ruminated about the continued hospitalization and the presence of the guardian. He did not express clear ideas reference, paranoid ideation or delusional thoughts. His thinking was concrete but his associations were coherent and logical. He did not demonstrate clang associations or neologisms. He did not appear to be responding to internal stimuli. Assessment: He is chronically and severely mentally ill and moderately improve from admission. He shows no insight or understanding of his mental illness or need for continued mental health treatment. Plan: Continue inpatient psychiatric hospitalization. Social work to coordinate discharge and aftercare with his guardian. Continue clozapine 100 mg daily and 75 mg at bedtime. Continue Trileptal 600 mg twice a day. Continue medications for his multiple medical problems as recommended by the mental health consultant scada engineer. Monitor WBC and absolute neutrophil weekly. Encourage participation in therapeutic groups and activities. Evaluate clinical status response to treatment daily basis.
[2018-05-07] MEDS: WARFARIN 1 MG TAB PO SCH (17:55)
[2018-05-07] MEDS: cloZAPine 100 MG TAB PO SCH (17:55)
[2018-05-07] MEDS: WARFARIN 10 MG TAB PO SCH (17:55)
[2018-05-07] MEDS: cloZAPine 25 MG TAB PO SCH (17:55)
[2018-05-08] MEDS: NICOTINE POLACRILEX 2 MG GUM BUCCAL PRN (05:11)
[2018-05-08] MEDS: METOPROLOL TARTRATE 25 MG TAB PO SCH ×2 (07:59→21:56)
[2018-05-08] MEDS: OXcarbazepine 300 MG TAB PO SCH ×2 (08:00→21:56)
[2018-05-08] MEDS: TRIAMCINOLONE 0.1% CREAM 80 GM TUBE TOPICAL SCH ×2 (08:00→22:21)
[2018-05-08] MEDS: NYSTATIN 100,000UNIT/GM CREAM 30 GM TUBE TOPICAL SCH ×2 (08:00→22:21)
[2018-05-08] MEDS: BACITRACIN 500 UNIT/GM OINT 28.4 GM TUBE TOPICAL SCH ×2 (08:00→21:55)
[2018-05-08 09:27] LABS: INR 2.6 (<1.2); Prothrombin Time 23.5 sec (9.0-12.0)
--- NOTE | 2018-05-08 14:37 | P.PN ---
Progress Note - Text Progress Note Date: 05/08/18 Clinical Problems: Bipolar disorder most recent episode manic with psychosis, rule out schizoaffective disorder bipolar type, history of deep vein thrombosis , hypertension, chronic renal failure, bilateral lower extremity venous insufficiency, paroxysmal atrial fibrillation currently in sinus rhythm. Interim history: I reviewed the medical record, interviewed the patient and discuss his treatment and treatment plan during team meeting. Patient was upbeat because she developed a fixed false belief that I had agreed to discharge him today. After explained that I did not agree to discharge him today he became angry but did not act out his displeasure. I explained that we will follow-up the recommendations of his guardian. As noted in prior notes by Dr. Ramirez he continues to refuse the authority of the guardian. The guardian's current recommendation is placement at a [facility]. He replied that he will go to [facility] if he is allowed to bring his car. I replied that he would need to speak with his guardian about his car. His certified social workers in health care submitted the admission application to the [place] home and we are awaiting decision of their admissions committee. He denies side effects to clozapine except for some morning sedation. Mental status exam: He presented as a tall moderately obese male who was initially pleasant on approach. He made eye contact and attended to the interview. He has bipedal edema and enlarged knees. He walks with a stooped and unsteady gait. His speech was spontaneous with increased rate but normal volume. His affect was labile but stable and appropriate. He did not express suicidal ideation, wishes or homicidal ideation. He did not express feelings of hopelessness or helplessness. He did not express clear ideas reference or paranoid ideation. He expresses fleeting fixed false beliefs such as described above. His thinking was concrete but his associations were coherent and logical. He did not demonstrate neologisms or blocking. He denied hallucinations and did not appear to be responding to internal stimuli. Assessment: He remains severely mentally ill and moderately improve from admission. Plan: Continue inpatient hospitalization. Continue safety precautions. Continue current dose of clozapine (175 mg at bedtime) and continued titrated according to clinical response and tolerance. The last increase was on 2017. Continue weekly CBC with differential. Continue Trileptal 600 mg twice a day. Continue other medications as recommended 19 medicine fashion consultant. Encourage continued participation in therapeutic groups and activities. Evaluate clinical status response to treatment on a daily basis.
[2018-05-08] MEDS: cloZAPine 100 MG TAB PO SCH (17:55)
[2018-05-08] MEDS: WARFARIN 10 MG TAB PO SCH (17:55)
[2018-05-08] MEDS: WARFARIN 1 MG TAB PO SCH (17:56)
[2018-05-08] MEDS: cloZAPine 25 MG TAB PO SCH (18:05)
[2018-05-09] MEDS: BACITRACIN 500 UNIT/GM OINT 28.4 GM TUBE TOPICAL SCH ×2 (09:36→21:18)
[2018-05-09] MEDS: OXcarbazepine 300 MG TAB PO SCH ×2 (09:37→21:16)
[2018-05-09] MEDS: METOPROLOL TARTRATE 25 MG TAB PO SCH ×2 (09:37→21:16)
[2018-05-09] MEDS: NYSTATIN 100,000UNIT/GM CREAM 30 GM TUBE TOPICAL SCH ×2 (09:37→21:18)
[2018-05-09] MEDS: TRIAMCINOLONE 0.1% CREAM 80 GM TUBE TOPICAL SCH ×2 (09:39→21:18)
[2018-05-09 09:42] LABS: INR 2.6 (<1.2); Prothrombin Time 23.6 sec (9.0-12.0)
[2018-05-09] MEDS: NICOTINE POLACRILEX 2 MG GUM BUCCAL PRN ×2 (12:50→21:17)
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
[2018-05-09] MEDS: WARFARIN 10 MG TAB PO SCH (18:23)
[2018-05-09] MEDS: cloZAPine 100 MG TAB PO SCH (18:23)
[2018-05-09] MEDS: WARFARIN 1 MG TAB PO SCH (18:23)
[2018-05-10] MEDS: NICOTINE POLACRILEX 2 MG GUM BUCCAL PRN ×3 (04:59→20:59)
[2018-05-10] MEDS: OXcarbazepine 300 MG TAB PO SCH ×2 (08:21→20:58)
[2018-05-10] MEDS: METOPROLOL TARTRATE 25 MG TAB PO SCH ×2 (08:21→20:58)
[2018-05-10 09:19] LABS: INR 2.5 (<1.2); Prothrombin Time 22.3 sec (9.0-12.0)
[2018-05-10] MEDS: BACITRACIN 500 UNIT/GM OINT 28.4 GM TUBE TOPICAL SCH ×2 (09:30→21:06)
[2018-05-10] MEDS: NYSTATIN 100,000UNIT/GM CREAM 30 GM TUBE TOPICAL SCH ×2 (09:30→21:06)
[2018-05-10] MEDS: TRIAMCINOLONE 0.1% CREAM 80 GM TUBE TOPICAL SCH ×2 (09:42→21:06)
[2018-05-10] MEDS: WARFARIN 1 MG TAB PO SCH (18:26)
[2018-05-10] MEDS: WARFARIN 10 MG TAB PO SCH (18:26)
[2018-05-10] MEDS: cloZAPine 100 MG TAB PO SCH (18:26)
--- NOTE | 2018-05-10 21:15 | P.PN ---
Progress Note - Text Progress Note Date: 05/10/18 IDENTIFICATION DATA: 62-year-old male with an involuntary treatment order brought in by law enforcement due to not taking his medications. INTERVAL HISTORY: He complains about his ankle and need for an ankle brace. He reports being compliant with his medications. No side effects reported. He perseverates about not sleeping on the porch. No major behavioral problems reported. MENTAL STATUS EXAMINATION: The patient is alert and oriented 4 and in no apparent distress. Motor and speech behaviors are within normal limits. Mood is "okay" and affect is neutral with some range and reactivity. thought processes is disorganized thought content is negative for suicidal or homicidal ideation. insight and judgment are limited. ASSESSMENT AND PLAN: Continue safety precautions. Continue clozapine Continue Trileptal 600 mg twice a day. Encourage continued participation in therapeutic groups and activities. His social work instructor submitted the admission application to the [place] home and are awaiting decision of their admissions committee.
[2018-05-11] MEDS: LORazepam 1 MG TAB PO PRN (01:58)
[2018-05-11] MEDS: OXcarbazepine 300 MG TAB PO SCH ×2 (07:52→20:11)
[2018-05-11] MEDS: METOPROLOL TARTRATE 25 MG TAB PO SCH ×2 (07:52→20:11)
[2018-05-11 08:10] LABS: INR 2.8 (<1.2); Prothrombin Time 24.8 sec (9.0-12.0)
[2018-05-11] MEDS: NYSTATIN 100,000UNIT/GM CREAM 30 GM TUBE TOPICAL SCH ×2 (12:51→21:23)
[2018-05-11] MEDS: BACITRACIN 500 UNIT/GM OINT 28.4 GM TUBE TOPICAL SCH ×2 (12:51→21:23)
[2018-05-11] MEDS: TRIAMCINOLONE 0.1% CREAM 80 GM TUBE TOPICAL SCH ×2 (12:52→21:23)
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
[2018-05-11] MEDS: cloZAPine 100 MG TAB PO SCH (17:00)
[2018-05-11] MEDS: WARFARIN 10 MG TAB PO SCH (17:00)
[2018-05-11] MEDS: NICOTINE POLACRILEX 2 MG GUM BUCCAL PRN ×2 (17:01→21:59)
[2018-05-11] MEDS: WARFARIN 1 MG TAB PO SCH (17:01)
[2018-05-12] MEDS: NICOTINE POLACRILEX 2 MG GUM BUCCAL PRN (05:28)
[2018-05-12] MEDS: OXcarbazepine 300 MG TAB PO SCH ×2 (07:46→21:04)
[2018-05-12] MEDS: METOPROLOL TARTRATE 25 MG TAB PO SCH ×2 (07:46→21:04)
[2018-05-12] MEDS: BACITRACIN 500 UNIT/GM OINT 28.4 GM TUBE TOPICAL SCH ×2 (07:51→21:03)
[2018-05-12] MEDS: NYSTATIN 100,000UNIT/GM CREAM 30 GM TUBE TOPICAL SCH ×2 (07:51→21:04)
[2018-05-12] MEDS: TRIAMCINOLONE 0.1% CREAM 80 GM TUBE TOPICAL SCH ×2 (07:51→21:04)
[2018-05-12 12:11] LABS: INR 2.9 (<1.2); Prothrombin Time 26.4 sec (9.0-12.0)
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
[2018-05-12] MEDS: cloZAPine 100 MG TAB PO SCH (17:25)
[2018-05-12] MEDS: WARFARIN 1 MG TAB PO SCH (17:25)
[2018-05-12] MEDS: WARFARIN 10 MG TAB PO SCH (17:25)
[2018-05-13] MEDS: NYSTATIN 100,000UNIT/GM CREAM 30 GM TUBE TOPICAL SCH ×3 (07:50→20:00)
[2018-05-13] MEDS: BACITRACIN 500 UNIT/GM OINT 28.4 GM TUBE TOPICAL SCH ×2 (07:50→20:00)
[2018-05-13] MEDS: OXcarbazepine 300 MG TAB PO SCH ×2 (07:50→19:58)
[2018-05-13] MEDS: METOPROLOL TARTRATE 25 MG TAB PO SCH ×3 (07:50→19:58)
[2018-05-13] MEDS: TRIAMCINOLONE 0.1% CREAM 80 GM TUBE TOPICAL SCH ×3 (07:51→20:00)
[2018-05-13] MEDS: NICOTINE POLACRILEX 2 MG GUM BUCCAL PRN (07:52)
--- NOTE | 2018-05-13 11:17 | P.PN ---
Progress Note - Text Interval history: The patient is found in the hallway he follows me to an interview room. He reports his mood is good. He continues to comply with medication he is showering. Labs reviewed which are within normal limits regarding his Coumadin dosing and the use of Clozaril. Staff report that the patient has demonstrated no agitated behavior. He was denied placement at the [facility]. We are requesting a meeting with his guardian as we do need to find appropriate placement for him. Staff report that the patient's been directable and attending groups. Mental status exam: The patient is alert he is pleasant cooperative he remains seated in his chair. He is verbose he does demonstrate some tangential thinking he continues to have grandiose thought with some persecutory thoughts. He is demonstrating no verbal or physical aggressiveness. He reports no suicidal or homicidal ideation intent or plan. He is endorsing no hallucinations. He is demonstrating no involuntary repetitive movements. He is oriented to person place and date. He appropriately uses humor during the session. He demonstrates no intrusiveness today. Plan: Considering the patient's baseline he is stabilizing psychiatrically. We are calling for a meeting with his guardian and is placement needs to be established and we need to transition him back to outpatient care. We will monitor him for safety he will continue on her psychotropic medications as written. Vital signs reviewed.
[2018-05-13 12:35] LABS: INR 2.8 (<1.2)
[2018-05-13] MEDS: WARFARIN 1 MG TAB PO SCH (17:48)
[2018-05-13] MEDS: cloZAPine 100 MG TAB PO SCH (17:48)
[2018-05-13] MEDS: WARFARIN 10 MG TAB PO SCH (17:48)
[2018-05-14] MEDS: OXcarbazepine 300 MG TAB PO SCH ×2 (07:42→20:07)
[2018-05-14] MEDS: METOPROLOL TARTRATE 25 MG TAB PO SCH ×2 (07:42→20:07)
[2018-05-14] MEDS: NYSTATIN 100,000UNIT/GM CREAM 30 GM TUBE TOPICAL SCH ×2 (07:43→20:08)
[2018-05-14] MEDS: TRIAMCINOLONE 0.1% CREAM 80 GM TUBE TOPICAL SCH ×2 (07:43→20:08)
[2018-05-14] MEDS: BACITRACIN 500 UNIT/GM OINT 28.4 GM TUBE TOPICAL SCH ×2 (07:44→20:08)
[2018-05-14] MEDS: NICOTINE POLACRILEX 2 MG GUM BUCCAL PRN (08:38)
--- NOTE | 2018-05-14 10:25 | P.PN ---
Progress Note - Text Interval history: The patient is found in the hallway he follows me to an interview room. He states that he wants to go back to his prior residence he states he plans on petitioning the court to become his own guardian again. He does not feel that he needs a guardian. The patient has been compliant with medication he is demonstrated no agitated behavior. He is aware that there is a meeting tomorrow involving his guardian to discuss placement. He has no questions regarding his psychotropic medication. Mental status exam: The patient is alert he is dressed in his own clothing he is ambulating with the assistance of pushing a wheelchair. Eye contact is appropriate speech is fluent and spontaneous nonpressured. He continues to demonstrate circumstantial thinking and some tangential thinking. He is able to provide some linear answers to questions asked. He is reporting no auditory or visual hallucinations area he denies any delusional thoughts however he continues to demonstrate grandiose and paranoid thoughts. These are believed to be part of his baseline function. Insight and judgment chronically limited. He demonstrates no verbal or physical aggressiveness. He is oriented to person place and date. Affect is constricted. He demonstrates repetitive movement of fingers on his right hand at rest. Plan: The patient will continue on his current psychotropic medications we will draw a Clozaril level. We will monitor him for safety. We are meeting with his guardian tomorrow to discuss appropriate placement area vital signs reviewed.
[2018-05-14 10:56] LABS: Basophils % (A) 1 %; Eosinophils # (A) 0.3 k/uL (0-0.7); Eosinophils % (A) 4 %; HCT 35.3 % (39.0-53.0); HGB 11.1 gm/dL (13.0-17.5); Lymphocytes # (A) 1.2 k/uL (1.0-4.8); Lymphocytes % (A) 18 %; MCH 28.8 pg (25.0-35.0); MCHC 31.5 g/dL (31.0-37.0); MCV 91.2 fL (80.0-100.0); Mean Platelet Volume 7.6; Monocytes # (A) 0.6 k/uL (0-1.0); Monocytes % (A) 9 %; Neutrophils # (A) 4.2 k/uL (1.3-7.7); Neutrophils % (A) 65 %; Platelet Count 226 k/uL (150-450); RBC 3.87 m/uL (4.30-5.90); RDW 14.6 % (11.5-15.5); WBC 6.5 k/uL (3.8-10.6)
[2018-05-14] MEDS: WARFARIN 1 MG TAB PO SCH (17:03)
[2018-05-14] MEDS: cloZAPine 100 MG TAB PO SCH (17:03)
[2018-05-14] MEDS: WARFARIN 10 MG TAB PO SCH (17:03)
[2018-05-15] MEDS: BACITRACIN 500 UNIT/GM OINT 28.4 GM TUBE TOPICAL SCH ×2 (08:31→21:35)
[2018-05-15] MEDS: METOPROLOL TARTRATE 25 MG TAB PO SCH ×2 (08:31→21:24)
[2018-05-15] MEDS: NYSTATIN 100,000UNIT/GM CREAM 30 GM TUBE TOPICAL SCH ×2 (08:31→21:35)
[2018-05-15] MEDS: OXcarbazepine 300 MG TAB PO SCH ×2 (08:31→21:24)
[2018-05-15] MEDS: NICOTINE POLACRILEX 2 MG GUM BUCCAL PRN (08:32)
[2018-05-15] MEDS: TRIAMCINOLONE 0.1% CREAM 80 GM TUBE TOPICAL SCH ×2 (08:32→21:35)
--- NOTE | 2018-05-15 10:20 | P.PN ---
Progress Note - Text Interval history: The patient is found in the hallway he follows me to an interview room. The patient reports she is doing well he is looking forward to discharge. He continues to assert that he wants to return to his prior residence. He has been cooperative with medication. It is documented that he slept 5-6 hours last night. He has been demonstrating no agitated behavior. He is not been inappropriate or intrusive with female staff or other people on the mental health unit. He does continue to spontaneously describe grandiose thoughts. Additionally I did participate in a discharge planning meeting which included our staff his guardian staff and community mental health representatives. We discussed that Justin does not require further psychiatric hospitalization on an involuntary basis and is appropriate for transition to outpatient care but in a supported structured manner. It was determined that he would be appropriate for temporary longterm placement. During that team meeting we discussed his current medication management and those questions were answered. Mental status exam: The patient is alert he is a tall overweight male appearing his stated age. He is dressed in his own clothing hygiene is adequate as he has been showering. He ambulates with a limp and sometimes pushes a wheelchair for stability. He is pleasant upon approach he is directable. He does have spontaneous speech she is verbose. He can provide information in a linear fashion but at times demonstrate circumstantial and tangential thinking. He is reporting no auditory or visual hallucinations. He demonstrates no verbal or physical aggressiveness. He demonstrates movement of fingers on his right hand while at rest. Affect is appropriately expressive today. Plan: The patient will continue on his current medication we have drawn a claws role level and we will await the results. Our plan at this point is for him to transition to a longterm setting with close [facility] support as part of an outpatient management trial. Vital signs reviewed. He requires continued psychiatric hospitalization until placement is established as he would likely decompensate and be at risk if discharged without that level of care.
[2018-05-15] MEDS: cloZAPine 100 MG TAB PO SCH (17:33)
[2018-05-15] MEDS: WARFARIN 1 MG TAB PO SCH (17:33)
[2018-05-15] MEDS: WARFARIN 10 MG TAB PO SCH (17:33)
[2018-05-16 07:45] LABS: Clozapine (Clozaril) 40 ng/mL (200-700); Norclozapine 30 ng/mL (200-700)
[2018-05-16] MEDS: METOPROLOL TARTRATE 25 MG TAB PO SCH ×2 (08:29→20:55)
[2018-05-16] MEDS: OXcarbazepine 300 MG TAB PO SCH ×2 (08:30→20:55)
[2018-05-16] MEDS: TRIAMCINOLONE 0.1% CREAM 80 GM TUBE TOPICAL SCH ×2 (08:32→20:56)
[2018-05-16] MEDS: BACITRACIN 500 UNIT/GM OINT 28.4 GM TUBE TOPICAL SCH ×2 (08:32→20:55)
[2018-05-16] MEDS: NYSTATIN 100,000UNIT/GM CREAM 30 GM TUBE TOPICAL SCH ×2 (08:32→20:55)
[2018-05-16 08:48] LABS: INR 2.2 (<1.2); Prothrombin Time 19.6 sec (9.0-12.0)
--- NOTE | 2018-05-16 11:11 | P.PN ---
Progress Note - Text Interval history: The patient is found in the hallway he follows me to an interview room. He reports his mood is better. He has an understanding of what was decided during the meeting yesterday. He is aware that he will have a brief residential placement and then be transitioned to an assisted living type environment. The patient reports he slept last night staff recorded he slept 6 hours. Appetite is stable. He is participating in groups he has been directable. He has no questions or concerns regarding his medication. Mental status exam: The patient is a tall overweight male he is ambulating on his own with a limp. Eye contact is appropriate speech is fluent spontaneous nonpressured. He is verbose. He is improving in terms of demonstrating more linear answers to questions. He will still become circumstantial and tangential at times. He is reporting no hallucinations. He has chronic delusional thoughts of grandiosity and sometimes paranoia. He is demonstrating no verbal or physical aggressiveness. Affect is bright today. He demonstrates laughter appropriately. Insight and judgment slowly improving again there is some impairment of insight and judgment at baseline. Plan: The patient will continue on his current medication we will monitor him for safety and encourage appropriate participation in the milieu. We are waiting a residential placement for him to transition him to outpatient care. Vital signs reviewed.
[2018-05-16] MEDS: WARFARIN 10 MG TAB PO SCH (17:10)
[2018-05-16] MEDS: WARFARIN 1 MG TAB PO SCH (17:10)
[2018-05-16] MEDS: cloZAPine 100 MG TAB PO SCH (17:13)
[2018-05-16] MEDS: NICOTINE POLACRILEX 2 MG GUM BUCCAL PRN (17:13)
--- NOTE | 2018-05-17 07:47 | P.PN ---
Progress Note - Text Progress Note Date: 05/17/18 Interval history: Patient is seen in cross coverage today. He makes reference to having a shelter placement. He relates that his mood is doing okay. Mental status exam: He is alert and cooperative with the interview. His speech is pressured at times. He seems to describe his mood is okay. He does not verbalize any thoughts of harm to self or others. He does not verbalize any hallucinations. He does not show any agitation. Plan: We'll maintain current psychotropic medication regimen. We'll continue to cover this patient throughout the weekend. Continue to monitor for any adverse psychotropic medication side effects and his ongoing response to treatment.
[2018-05-17] MEDS: OXcarbazepine 300 MG TAB PO SCH ×2 (07:56→20:38)
[2018-05-17] MEDS: BACITRACIN 500 UNIT/GM OINT 28.4 GM TUBE TOPICAL SCH ×2 (07:57→20:38)
[2018-05-17] MEDS: METOPROLOL TARTRATE 25 MG TAB PO SCH ×2 (07:57→20:38)
[2018-05-17] MEDS: TRIAMCINOLONE 0.1% CREAM 80 GM TUBE TOPICAL SCH ×2 (07:58→20:39)
[2018-05-17] MEDS: NYSTATIN 100,000UNIT/GM CREAM 30 GM TUBE TOPICAL SCH ×2 (07:58→20:39)
[2018-05-17 09:37] LABS: INR 1.7 (<1.2); Prothrombin Time 15.7 sec (9.0-12.0)
[2018-05-17] MEDS: WARFARIN 1 MG TAB PO SCH (16:46)
[2018-05-17] MEDS: NICOTINE POLACRILEX 2 MG GUM BUCCAL PRN ×2 (16:46→20:57)
[2018-05-17] MEDS: cloZAPine 100 MG TAB PO SCH (16:46)
[2018-05-17] MEDS: WARFARIN 10 MG TAB PO SCH (16:47)
[2018-05-18] MEDS: METOPROLOL TARTRATE 25 MG TAB PO SCH ×2 (07:49→21:02)
[2018-05-18] MEDS: OXcarbazepine 300 MG TAB PO SCH ×2 (07:49→21:03)
[2018-05-18] MEDS: BACITRACIN 500 UNIT/GM OINT 28.4 GM TUBE TOPICAL SCH ×2 (07:50→21:05)
[2018-05-18] MEDS: NYSTATIN 100,000UNIT/GM CREAM 30 GM TUBE TOPICAL SCH ×2 (07:50→21:05)
[2018-05-18] MEDS: TRIAMCINOLONE 0.1% CREAM 80 GM TUBE TOPICAL SCH ×2 (07:50→21:05)
[2018-05-18 13:13] LABS: INR 2.1 (<1.2); Prothrombin Time 18.7 sec (9.0-12.0)
--- NOTE | 2018-05-18 16:03 | P.PN ---
Progress Note - Text Progress Note Date: 05/18/18 Interval history: [facility] is [facility] in [facility]. He reports that [facility] found a place for him to go, [facility] for a week. He says he feels like he doesn't need a mood stabilizer but he is taking the medication. Mental status exam: He is alert and cooperative with the interview. His speech is fluent, somewhat pressured at times. He denies any thoughts of harm to self or others. He does not show any agitation. His mood currently appears to fairly stable. Plan: Patient will be maintained on current psychotropic medication regimen. Continue to monitor for any medication side effects and monitor his ongoing response.
[2018-05-18] MEDS: cloZAPine 100 MG TAB PO SCH (17:06)
[2018-05-18] MEDS: NICOTINE POLACRILEX 2 MG GUM BUCCAL PRN (17:40)
[2018-05-18] MEDS ORDERED: WARFARIN 2 MG TAB PO ONE (18:00)
[2018-05-18] MEDS ORDERED: WARFARIN 10 MG TAB PO ONE (18:00)
[2018-05-19 00:18] VITALS: BP 132/65; PULSE 75; RESP 16; TEMP 98.1
[2018-05-19] MEDS: OXcarbazepine 300 MG TAB PO SCH (08:31)
[2018-05-19] MEDS: METOPROLOL TARTRATE 25 MG TAB PO SCH (08:31)
[2018-05-19] MEDS: BACITRACIN 500 UNIT/GM OINT 28.4 GM TUBE TOPICAL SCH (08:32)
[2018-05-19] MEDS: NYSTATIN 100,000UNIT/GM CREAM 30 GM TUBE TOPICAL SCH (08:32)
[2018-05-19] MEDS: TRIAMCINOLONE 0.1% CREAM 80 GM TUBE TOPICAL SCH (08:33)
--- NOTE | 2018-05-19 09:09 | P.DS ---
Providers Date of admission: 04/07/18 14:20 Expected date of discharge: 05/19/18 Attending physician: Marcel Ramirez Consults: 04/07/18 15:40 Consult Physician Routine Consulting Provider: Earl Curry Consult Reason/Comments: H & P and medical managment Do you want consulting provider notified?: Already Contacted 04/18/18 10:23 Consult Physician Urgent Consulting Provider: Claude Zavala Consult Reason/Comments: pt legs and left greater toe nail, appears to be worse, possible gangrene? Do you want consulting provider notified?: Yes 04/18/18 13:25 Consult Physician Routine Consulting Provider: Tano Platt Consult Reason/Comments: foot cellulitis Do you want consulting provider notified?: Yes 04/29/18 05:26 Consult Physician Routine Consulting Provider: Terrence Owens Consult Reason/Comments: right sided weakness Do you want consulting provider notified?: Yes, Notify in am Primary care physician: Jaspal Melgoza - Discharge Diagnosis(es) (1) Severe manic bipolar 1 disorder with psychotic behavior Current Visit: Yes Status: Acute Priority: High Hospital Course: Brief summary of admission note: This patient is a 62-year-old were who was readmitted to the mental health unit through the emergency room. The patient was brought to emergency room by police. There were reports he had been sleeping on porches of strangers homes he reportedly had been agitated at the court house and agitated when interacting with his guardian. He has a long history of bipolar disorder versus schizoaffective disorder. He had stated he was admitted unnecessarily. He reported he was compliant with his medication. This was the patient's third presentation to a psychiatric unit in a short period of time. He had returned back to the room and board residence after his last admission. Summary of hospital course: The patient was admitted involuntarily on an existing treatment order issued by the court. We briefly continued the Risperdal and started Trileptal titrating to 600 mg daily. His Trileptal level was checked twice during the hospitalization which was in the therapeutic range. It was decided that we would trial Clozaril in the place of Risperdal. Over the last several weeks we have titrated the clozapine to 200 mg in the evening. Over the course of this stay the patient demonstrated an improvement in behavior. His sleep has improved at night. He has fixed delusions that can be grandiose in nature and suspicious and those are known to be part of his baseline. [employer] worker kept in contact with the patient's guardian. A placement meeting was held last week to discuss ongoing care for Justin. His guardian wanted him [facility] at a [facility] but the patient was not accepted there. We discussed that it he would likely benefit from intermediate support at least temporarily after discharge. [facility] was involved in the discharge planning and facilitated a intermediate placement. The hope is that the patient can transition to assisted living after a brief stay at a intermediate. The patient was seen by internal medicine during his stay. The patient required no use of seclusion or restraint. His symptoms have improved and he has approximated his known baseline. For full detail regarding the admission please refer to daily progress notes as he was admitted here for an extended period of time. Mental status exam: The patient is a tall overweight male appearing his stated age. He is adequate hygiene he is dressed in his own clothing. He ambulates with a limp he ambulates better with use of a wheelchair for stability. Eye contact is good speech is spontaneous verbose nonpressured. He can answer questions in a linear fashion but he will oftentimes become circumstantial at times tangential. Affect is bright. He is reporting no auditory or visual hallucinations. He does have grandiose and persecutory thoughts at times which are thought to be fixed. He reports feeling safe. Today he demonstrates no involuntary repetitive movements. He is oriented to person place and date. He reports no suicidal or homicidal ideation intent or plan. He demonstrates no verbal or physical aggressiveness. Impressions 1. Bipolar 1 disorder most recent manic with psychosis rule out schizoaffective disorder 2. History of deep vein thrombosis on Coumadin therapy, hypertension, kidney disease Plan: The patient will be discharged from the mental health unit today to reside at a intermediate temporarily. This plan has been approved by [facility] and his guardian. We will continue the patient on Clozaril 200 mg in the evening, Trileptal 600 mg twice daily. He will need to follow-up with primary care regarding his INR. At this time there is no imminent safety risk he is appropriate for transition outpatient care. He is instructed to return to the hospital with any acute safety concerns. Patient Condition at Discharge: Stable Plan - Discharge Summary New Discharge Prescriptions: New cloZAPine [Clozaril] 200 mg PO DAILY@1800 #60 tab Nicotine Polacrilex [Nicorette] 2 mg BUCCAL Q2HR PRN #30 gum PRN Reason: Nicotine Cravings OXcarbazepine [Trileptal] 600 mg PO BID #60 tab SILVER sulfADIAZINE CREAM [Silvadene Cream] 1 applic TOPICAL DAILY #1 applic Continue Sodium Chloride [[place]] 1 spray EA NOSTRIL DAILY PRN PRN Reason: Nasal Congestion Metoprolol Tartrate [Lopressor] 25 mg PO BID #60 tab Discontinued Lubiprostone [Amitiza] 24 mcg PO BID risperiDONE [RisperDAL] 2 mg PO BID #42 tab risperiDONE MICROSPHERES [RisperDAL CONSTA] 37.5 mg IM ONCE #1 syringe No Action Warfarin [Coumadin] 10 mg PO DAILY #5 tab Discharge Medication List Sodium Chloride [[place]] 1 spray EA NOSTRIL DAILY PRN 02/27/18 [History] Warfarin [Coumadin] 10 mg PO DAILY #5 tab 03/31/18 [Rx] Metoprolol Tartrate [Lopressor] 25 mg PO BID #60 tab 05/19/18 [Rx] Nicotine Polacrilex [Nicorette] 2 mg BUCCAL Q2HR PRN #30 gum 05/19/18 [Rx] OXcarbazepine [Trileptal] 600 mg PO BID #60 tab 05/19/18 [Rx] SILVER sulfADIAZINE CREAM [Silvadene Cream] 1 applic TOPICAL DAILY #1 applic 11/29 [Rx] cloZAPine [Clozaril] 200 mg PO DAILY@1800 #60 tab 05/19/18 [Rx] Follow up Appointment(s)/Referral(s): Jaspal Melgoza MD [Primary Care Provider] - 1-2 days Activity/Diet/Wound Care/Special Instructions: Per Neurology, follow up with a neurologist upon discharge for a nerve conduction study and electromyelogram.
[2018-05-19 10:08] LABS: INR 2.3 (<1.2); Prothrombin Time 20.7 sec (9.0-12.0)
[2018-05-19 14:15] VITALS: BMI 34.9
== END 2018-05-19 15:40 | disposition home or self-care (01) | DRG 885 ==
LOC: EC 10:53 → 3MHU 04-07 14:20
PROVIDERS: ADMIT Psychiatry & Neurology Psychiatry; ATTEND Psychiatry & Neurology Psychiatry
DX: F31.2 Bipolar disorder, current episode manic severe with psychotic features (principal); I82.502 Chronic embolism and thrombosis of unspecified deep veins of left lower extremity; L03.115 Cellulitis of right lower limb; I96 Gangrene, not elsewhere classified; B35.3 Tinea pedis; B35.1 Tinea unguium; B35.9 Dermatophytosis, unspecified; E66.3 Overweight; Z68.34 Body mass index [BMI] 34.0-34.9, adult; F17.210 Nicotine dependence, cigarettes, uncomplicated; G56.21 Lesion of ulnar nerve, right upper limb; I12.9 Hypertensive chronic kidney disease with stage 1 through stage 4 chronic kidney disease, or unspecified chronic kidney disease; I48.0 Paroxysmal atrial fibrillation; I87.2 Venous insufficiency (chronic) (peripheral); L03.031 Cellulitis of right toe; M25.371 Other instability, right ankle; N18.3 Chronic kidney disease, stage 3 (moderate); Z79.01 Long term (current) use of anticoagulants; Z95.0 Presence of cardiac pacemaker; Z81.1 Family history of alcohol abuse and dependence; R60.0 Localized edema; Z86.14 Personal history of Methicillin resistant Staphylococcus aureus infection; Z79.899 Other long term (current) drug therapy; Z88.8 Allergy status to other drugs, medicaments and biological substances; K08.9 Disorder of teeth and supporting structures, unspecified
CPT/HCPCS: 36415; 70450; 80048; 80053; 80159; 80183; 80306; 81003; 82075; 85025; 85610; 85730; 99285

== ENCOUNTER → 2018-06-06 | Outpatient (CLI) | payer MEDICARE, OTHER ==
[2018-06-06 19:34] LABS: Hemoglobin A1C 6.3 % (4.0-6.0)
== END ==
LOC: LABWHC1 08:58
PROVIDERS: ATTEND Psychiatry & Neurology Psychiatry
DX: F31.2 Bipolar disorder, current episode manic severe with psychotic features (principal); Z79.899 Other long term (current) drug therapy
CPT/HCPCS: 36415; 83036

== ENCOUNTER 2018-06-16 10:05 | Emergency (ER) | payer MEDICARE, OTHER ==
--- NOTE | 2018-06-16 10:22 | ED ---
General Adult HPI - General Stated complaint: Leg Pain Time Seen by Provider: 06/16/18 10:05 Source: patient, EMS, RN notes reviewed Mode of arrival: EMS Limitations: no limitations - History of Present Illness Initial comments: 62-year-old male presents emergency department via EMS chief plan left leg pain. Patient seen here 2 days ago for similar complaints that have CT. Patient states that the pain starts in his hip and radiates down. Patient states that he has swelling of his legs in which this is normal for him. Patient denies any worsening swelling. He does have a history DVT. Denies any chest pain or shortness breath. Patient states he takes Coumadin though he does not remember less than he had a checked. Patient denies any melena med she is a. Patient denies any lower extremity paresthesias or decreased strength. He states it's from increased walking. Patient states that he does not have a vehicle so he has to walk everywhere. - Related Data Home Medications Medication Instructions Recorded Confirmed Warfarin Sodium [Coumadin] 2.5 mg PO MOWEFR 06/13/18 06/16/18 Warfarin [Coumadin] 10 mg PO DAILY 06/13/18 06/16/18 Previous Rx's Medication Instructions Recorded Metoprolol Tartrate [Lopressor] 25 mg PO BID #60 tab 05/19/18 Nicotine Polacrilex [Nicorette] 2 mg BUCCAL Q2HR PRN #30 gum 05/19/18 OXcarbazepine [Trileptal] 600 mg PO BID #60 tab 05/19/18 SILVER sulfADIAZINE CREAM 1 applic TOPICAL DAILY #1 applic 05/19/18 [Silvadene Cream] cloZAPine [Clozaril] 200 mg PO DAILY@1800 #60 tab 05/19/18 Allergies Allergy/AdvReac Type Severity Reaction Status Date / Time divalproex sodium Allergy Unknown Verified 06/16/18 10:14 [From Depakote] haloperidol [From Haldol] Allergy Unknown Verified 06/16/18 10:14 haloperidol lactate Allergy Unknown Verified 06/16/18 10:14 [From Haldol] lithium Allergy Unknown Verified 06/16/18 10:14 Review of Systems ROS Statement: Those systems with pertinent positive or pertinent negative responses have been documented in the HPI. ROS Other: All systems not noted in ROS Statement are negative. 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; Chronic kidney disease stage 3, bipolar depression History of Any Multi-Drug Resistant Organisms: MRSA Date of last positivie culture/infection: 04/27/2014 MDRO Source:: Right Arm Past Surgical History: Back Surgery, Hernia Repair, Pacemaker, Tonsillectomy Past Anesthesia/Blood Transfusion Reactions: Previous Problems w/ Anesthesia Additional Past Anesthesia/Blood Transfusion Reaction / Comment(s): STATES " HARD TIME BREATHING LAYING FLAT, I'M A MOUTH BREATHER" Type of Cardiac Device: Permanent Pacemaker Device Placement Date:: 2015 Past Psychological History: Bipolar Smoking Status: Current every day smoker Past Alcohol Use History: Rare Past Drug Use History: None Reported - Past Family History Father History Unknown: Yes Mother History Unknown: Yes General Exam General appearance: alert, in no apparent distress Head exam: Present: atraumatic, normocephalic, normal inspection Eye exam: Present: normal appearance, PERRL, EOMI. Absent: scleral icterus, conjunctival injection, periorbital swelling Respiratory exam: Present: normal lung sounds bilaterally. Absent: respiratory distress, wheezes, rales, rhonchi, stridor Cardiovascular Exam: Present: regular rate, normal rhythm, normal heart sounds. Absent: systolic murmur, diastolic murmur, rubs, gallop, clicks Extremities exam: Present: other (Bilateral lower extremity swelling noted, 2+ pitting edema, pulses equal bilaterally there is no increased warmth lower extremities, there is mild tenderness to the left hip patient has minimal discomfort with range of motion. Patient has mild discomfort with left straight leg raise. Pulses refill lower extremities) Back exam: Present: normal inspection, full ROM, tenderness (Lower left lumbar/ buttocks region), paraspinal tenderness. Absent: vertebral tenderness Skin exam: Present: warm, dry, intact, normal color. Absent: rash Course Vital Signs 06/16/18 10:08 Temperature 98.6 F Pulse Rate 76 Respiratory 18 Rate Blood Pressure 141/86 O2 Sat by Pulse 96 Oximetry Medical Decision Making - Medical Decision Making 62-year-old male presented emergency from for left leg pain. Patient seen here 2 days ago had a lumbar CT. CT shows degenerative changes. This most likely is causing lumbar radiculopathy symptoms. Patient did have an ultrasound of his leg there is no evidence DVT. He refused lab draw for PT/INR. I did explain this leads issues including uncontrolled bleeding if hypercoagulable. Patient states he understands. Patient will be discharged. Disposition Clinical Impression: Lumbar radiculopathy, Leg pain, left Disposition: HOME SELF-CARE Condition: Stable Instructions: Lumbar Radiculopathy (ED) Additional Instructions: Take [id number] Tylenol. Please return to the Emergency Department if symptoms worsen or any other concerns. Is patient prescribed a controlled substance at d/c from ED?: No Referrals: Jaspal Melgoza MD [Primary Care Provider] - 1-2 days Janice Kwong DO [Doctor of Osteopathic Medicine] - 1-2 days Time of Disposition: 11:25
[2018-06-16 10:23] VITALS: RESP 18
--- NOTE | 2018-06-16 11:15 | US ---
EXAMINATION TYPE: US venous doppler duplex LE LT DATE OF EXAM: 06/16/2018 11:08 AM COMPARISON: NONE CLINICAL HISTORY: Pain. SIDE PERFORMED: Left TECHNIQUE: The lower extremity deep venous system is examined utilizing real time linear array sonog zev with graded compression, doppler sonography and color-flow sonography. VESSELS IMAGED: External Iliac Vein (EIV) Common Femoral Vein Deep Femoral Vein Greater Saphenous Vein * Femoral Vein Popliteal Vein Small Saphenous Vein * Proximal Calf Veins (* superficial vessels) Patient of large body habitus. Left Leg: Negative for DVT IMPRESSION: 1. No diagnostic evidence of DVT as visualized.
[2018-06-16 11:52] VITALS: BP 145/89; PULSE 84; TEMP 98.3
== END 2018-06-16 11:46 | disposition home or self-care (01) ==
LOC: EC 10:05
DX: M47.26 Other spondylosis with radiculopathy, lumbar region (principal); R60.0 Localized edema; F17.200 Nicotine dependence, unspecified, uncomplicated; Z88.8 Allergy status to other drugs, medicaments and biological substances; Z79.01 Long term (current) use of anticoagulants; Z86.14 Personal history of Methicillin resistant Staphylococcus aureus infection; Z86.718 Personal history of other venous thrombosis and embolism
CPT/HCPCS: 99284

== ENCOUNTER 2018-07-03 12:06 | Inpatient (IN) | payer MEDICARE, OTHER ==
[2018-07-03 13:25] LABS: Amphetamine Screen,Urine Not Detected (NotDetected); Barbiturate Screen,Urine Not Detected (NotDetected); Benzodiazepines Screen,Urine Not Detected (NotDetected); Cocaine Screen,Urine Not Detected (NotDetected); Methadone Screen, Urine Not Detected (NotDetected); Opiate Screen,Urine Not Detected (NotDetected); Oxycodone Screen, Urine Not Detected (NotDetected); Phencyclidine Screen,Urine Not Detected (NotDetected); Tricyclic Antidepressant,Urine Not Detected (NotDetected); Urn Cannabinoid Scrn Not Detected (NotDetected)
--- NOTE | 2018-07-03 14:00 | ED ---
Psych HPI - General Chief Complaint: Psychiatric Symptoms Stated Complaint: EPS eval Time Seen by Provider: 07/03/18 12:12 Source: patient, EMS, RN notes reviewed Mode of arrival: EMS Limitations: no limitations - History of Present Illness Initial Comments: 62-year-old male presents emergency from for psychiatric evaluation. Patient states he is at [facility]. Patient reportedly was aggressive, through a walker. Patient states he does not remember doing this. Patient has had issues like this in the past doesn't have a history of bipolar disorder. Patient denies suicidal or homicidal ideation. Denies any drug or alcohol abuse. - Related Data Home Medications Medication Instructions Recorded Confirmed Calcium Carbonate/Vitamin D3 1 tab PO DAILY 07/03/18 07/03/18 [Calcium 500-Vit D3 200 Tablet] OXcarbazepine 600 mg PO BID@0700,1600 07/03/18 07/03/18 OXcarbazepine [Trileptal] 150 mg PO BID@0700,1600 07/03/18 07/03/18 Warfarin [Coumadin] 2.5 mg PO MOWE 07/03/18 07/03/18 Warfarin [Coumadin] 10 mg PO SUTUTHFRSA 07/03/18 07/03/18 cloZAPine [Clozaril] 100 mg PO BID@0700,1600 07/03/18 07/03/18 Previous Rx's Medication Instructions Recorded Metoprolol Tartrate [Lopressor] 25 mg PO BID #60 tab 05/19/18 Allergies Allergy/AdvReac Type Severity Reaction Status Date / Time divalproex sodium Allergy Unknown Verified 07/03/18 12:17 [From Depakote] haloperidol [From Haldol] Allergy Unknown Verified 07/03/18 12:17 haloperidol lactate Allergy Unknown Verified 07/03/18 12:17 [From Haldol] lithium Allergy Unknown Verified 07/03/18 12:17 Review of Systems ROS Statement: Those systems with pertinent positive or pertinent negative responses have been documented in the HPI. ROS Other: All systems not noted in ROS Statement are negative. 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; Chronic kidney disease stage 3, bipolar depression History of Any Multi-Drug Resistant Organisms: MRSA Date of last positivie culture/infection: 04/27/2014 MDRO Source:: Right Arm Past Surgical History: Back Surgery, Hernia Repair, Pacemaker, Tonsillectomy Past Anesthesia/Blood Transfusion Reactions: Previous Problems w/ Anesthesia Additional Past Anesthesia/Blood Transfusion Reaction / Comment(s): STATES " HARD TIME BREATHING LAYING FLAT, I'M A MOUTH BREATHER" Type of Cardiac Device: Permanent Pacemaker Device Placement Date:: 2015 Past Psychological History: Bipolar, Depression Smoking Status: Current some day smoker Past Alcohol Use History: Rare Past Drug Use History: None Reported - Past Family History Father History Unknown: Yes Mother History Unknown: Yes General Exam General appearance: alert, in no apparent distress Head exam: Present: atraumatic, normocephalic, normal inspection Eye exam: Present: normal appearance, PERRL, EOMI. Absent: scleral icterus, conjunctival injection, periorbital swelling Respiratory exam: Present: normal lung sounds bilaterally. Absent: respiratory distress, wheezes, rales, rhonchi, stridor Cardiovascular Exam: Present: regular rate, normal rhythm, normal heart sounds. Absent: systolic murmur, diastolic murmur, rubs, gallop, clicks GI/Abdominal exam: Present: soft, normal bowel sounds. Absent: distended, tenderness, guarding, rebound, rigid Neurological exam: Present: alert, oriented X3, CN II-XII intact Psychiatric exam: Present: normal affect, normal mood Skin exam: Present: warm, dry, intact, normal color. Absent: rash Course Vital Signs 07/03/18 12:09 Temperature 97.8 F Pulse Rate 86 Respiratory 18 Rate O2 Sat by Pulse 95 Oximetry Medical Decision Making - Lab Data Lab Results 07/03/18 Range/Units 12:31 Urine Opiates Screen Not Detected (NotDetected) Ur Oxycodone Screen Not Detected (NotDetected) Urine Methadone Screen Not Detected (NotDetected) Ur Propoxyphene Screen Not Detected (NotDetected) Ur Barbiturates Screen Not Detected (NotDetected) U Tricyclic Antidepress Not Detected (NotDetected) Ur Phencyclidine Scrn Not Detected (NotDetected) Ur Amphetamines Screen Not Detected (NotDetected) U Methamphetamines Scrn Not Detected (NotDetected) U Benzodiazepines Scrn Not Detected (NotDetected) Urine Cocaine Screen Not Detected (NotDetected) U Marijuana (THC) Screen Not Detected (NotDetected) Disposition Clinical Impression: Lyly (monopolar) single episode or unspecified Disposition: ADMITTED IP TO THIS HOSP Condition: Stable Referrals: Jaspal Melgoza MD [Primary Care Provider] - 1-2 days
[2018-07-03 19:22] LABS: INR 1.2 (<1.2); Partial Thromboplastin Time 27.5 sec (22.0-30.0); Prothrombin Time 12.1 sec (9.0-12.0)
[2018-07-03] MEDS ORDERED: MAG HYDROX/AL HYDROX/SIMETH 30 ML CUP PO PRN (20:16)
[2018-07-03] MEDS ORDERED: MAGNESIUM HYDROXIDE 2,400 MG/10 ML CUP PO PRN (20:16)
[2018-07-03] MEDS ORDERED: LORazepam 2 MG/ML INJ IM PRN (20:26)
[2018-07-03 21:02] LABS: Basophils % (A) 1 %; Eosinophils # (A) 0.4 k/uL (0-0.7); Eosinophils % (A) 5 %; HCT 38.6 % (39.0-53.0); HGB 12.2 gm/dL (13.0-17.5); Lymphocytes # (A) 1.5 k/uL (1.0-4.8); Lymphocytes % (A) 22 %; MCH 27.9 pg (25.0-35.0); MCHC 31.7 g/dL (31.0-37.0); MCV 87.8 fL (80.0-100.0); Mean Platelet Volume 7.3; Monocytes # (A) 0.5 k/uL (0-1.0); Monocytes % (A) 7 %; Neutrophils # (A) 4.5 k/uL (1.3-7.7); Neutrophils % (A) 64 %; Platelet Count 243 k/uL (150-450); RBC 4.39 m/uL (4.30-5.90); RDW 15.6 % (11.5-15.5); WBC 7.1 k/uL (3.8-10.6)
[2018-07-03 21:16] LABS: Albumin 3.7 g/dL (3.5-5.0); Calcium 9.5 mg/dL (8.4-10.2); Potassium 4.5 mmol/L (3.5-5.1); Total Bilirubin 0.3 mg/dL (0.2-1.3); Total Protein 7.2 g/dL (6.3-8.2)
[2018-07-03] MEDS: WARFARIN 10 MG TAB PO SCH (21:27)
[2018-07-03] MEDS: METOPROLOL TARTRATE 25 MG TAB PO SCH (21:27)
[2018-07-03] MEDS: cloZAPine 100 MG TAB PO SCH (21:28)
[2018-07-03] MEDS: LORazepam 1 MG TAB PO PRN (21:28)
[2018-07-03] MEDS: ENOXAPARIN 150 MG/ML SYRINGE SQ SCH (22:25)
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
[2018-07-04] MEDS: METOPROLOL TARTRATE 25 MG TAB PO SCH ×2 (08:36→19:54)
[2018-07-04] MEDS: CALCIUM CARB-VIT D 500MG-200UN 1 EACH TAB PO SCH (08:36)
[2018-07-04] MEDS: cloZAPine 100 MG TAB PO SCH ×2 (08:36→19:54)
[2018-07-04 09:19] LABS: INR 1.2 (<1.2); Prothrombin Time 12.3 sec (9.0-12.0)
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
[2018-07-04] MEDS ORDERED: WARFARIN 2.5 MG TAB PO ONE (18:00)
[2018-07-04] MEDS: WARFARIN 10 MG TAB PO SCH (18:47)
[2018-07-04] MEDS: ENOXAPARIN 150 MG/ML SYRINGE SQ SCH ×2 (19:55→19:57)
[2018-07-05] MEDS: cloZAPine 100 MG TAB PO SCH ×2 (08:44→21:13)
[2018-07-05] MEDS: METOPROLOL TARTRATE 25 MG TAB PO SCH ×2 (08:44→21:13)
[2018-07-05] MEDS: CALCIUM CARB-VIT D 500MG-200UN 1 EACH TAB PO SCH (08:44)
[2018-07-05 08:53] LABS: INR 1.3 (<1.2); Prothrombin Time 13.3 sec (9.0-12.0)
[2018-07-05] MEDS: WARFARIN 10 MG TAB PO SCH (17:48)
[2018-07-05] MEDS ORDERED: WARFARIN 2.5 MG TAB PO ONE (18:00)
--- NOTE | 2018-07-05 19:18 | P.PN ---
Progress Note - Text Progress Note Date: 07/05/18 Found him very angry and irritable. Demands to be discharged back to [facility]. Reports not sleeping as good last night due to racing thoughts. MSE : He is alert, awake and oriented in all spheres. Irritable and anxious. Fair eye contact. Speech loud and pressured. Mood irritable and depressed with congruent affect. Denies any suicidal or homicidal ideation. Paranoid delusional. Has no auditory/Visual hallucinations. Insight and judgment impaired. Bipolar Disorder Will continue to adjust medications accordingly
[2018-07-05] MEDS: ENOXAPARIN 150 MG/ML SYRINGE SQ SCH (21:13)
[2018-07-06] MEDS: LORazepam 1 MG TAB PO PRN (06:17)
[2018-07-06 08:00] LABS: INR 1.5 (<1.2); Prothrombin Time 14.9 sec (9.0-12.0)
[2018-07-06] MEDS: CALCIUM CARB-VIT D 500MG-200UN 1 EACH TAB PO SCH (09:27)
[2018-07-06] MEDS: cloZAPine 100 MG TAB PO SCH ×2 (09:27→20:09)
[2018-07-06] MEDS: METOPROLOL TARTRATE 25 MG TAB PO SCH ×2 (09:27→20:09)
--- NOTE | 2018-07-06 11:58 | P.PN ---
Progress Note - Text Progress Note Date: 07/06/18 Found him much calmer and relax today. Still wants to be discharged back to [facility]. Reports not sleeping as good last night due to racing thoughts. MSE : He is alert, awake and oriented in all spheres. Irritable and anxious. Fair eye contact. Speech loud and pressured. Mood irritable and depressed with congruent affect. Denies any suicidal or homicidal ideation. Paranoid delusional. Has no auditory/Visual hallucinations. Insight and judgment impaired. Bipolar Disorder Will continue to adjust medications accordingly
[2018-07-06] MEDS: WARFARIN 10 MG TAB PO SCH (16:28)
[2018-07-06] MEDS ORDERED: WARFARIN 2.5 MG TAB PO ONE (18:00)
[2018-07-06] MEDS: ENOXAPARIN 150 MG/ML SYRINGE SQ SCH (20:10)
[2018-07-06] MEDS: ACETAMINOPHEN TAB 325 MG TAB PO PRN (20:56)
[2018-07-07] MEDS: CALCIUM CARB-VIT D 500MG-200UN 1 EACH TAB PO SCH (08:04)
[2018-07-07] MEDS: cloZAPine 100 MG TAB PO SCH ×2 (08:04→19:41)
[2018-07-07] MEDS: METOPROLOL TARTRATE 25 MG TAB PO SCH ×2 (08:04→19:41)
[2018-07-07] MEDS: ACETAMINOPHEN TAB 325 MG TAB PO PRN ×2 (08:27→15:28)
[2018-07-07 12:58] LABS: INR 1.6 (<1.2); Prothrombin Time 16.1 sec (9.0-12.0)
--- NOTE | 2018-07-07 17:02 | P.PN ---
Progress Note - Text Progress Note Date: 07/07/18 Found him much calmer and relax today. Still wants to be discharged back to [facility]. Reports now sleeping better on his medications. MSE : He is alert, awake and oriented in all spheres. Irritable and anxious. Fair eye contact. Speech loud and pressured. Mood irritable and depressed with congruent affect. Denies any suicidal or homicidal ideation. Paranoid delusional. Has no auditory/Visual hallucinations. Insight and judgment impaired. Bipolar Disorder Will continue to adjust medications accordingly
[2018-07-07] MEDS ORDERED: WARFARIN 2.5 MG TAB PO SCH (18:00)
[2018-07-07] MEDS ORDERED: WARFARIN 10 MG TAB PO ONE (18:00)
[2018-07-07] MEDS ORDERED: WARFARIN 2.5 MG TAB PO ONE (18:00)
[2018-07-07] MEDS: ENOXAPARIN 150 MG/ML SYRINGE SQ SCH (19:41)
[2018-07-08] MEDS: ACETAMINOPHEN TAB 325 MG TAB PO PRN (03:10)
[2018-07-08] MEDS: METOPROLOL TARTRATE 25 MG TAB PO SCH ×2 (08:38→21:53)
[2018-07-08] MEDS: CALCIUM CARB-VIT D 500MG-200UN 1 EACH TAB PO SCH (08:39)
[2018-07-08] MEDS: cloZAPine 100 MG TAB PO SCH ×2 (08:39→21:53)
[2018-07-08 11:16] LABS: INR 1.9 (<1.2); Prothrombin Time 19.1 sec (9.0-12.0)
--- NOTE | 2018-07-08 11:55 | P.PN ---
Progress Note - Text Progress Note Date: 07/08/18 Found him much calmer and relax today. Still wants to be discharged back to [facility]. Reports now sleeping better on his medications. MSE : He is alert, awake and oriented in all spheres. Irritable and anxious. Fair eye contact. Speech loud and pressured. Mood anxious with congruent affect. Denies any suicidal or homicidal ideation. Grandiose delusional. Has no auditory/Visual hallucinations. Insight and judgment improving. Bipolar Disorder Will continue to adjust medications accordingly
[2018-07-08] MEDS ORDERED: WARFARIN 10 MG TAB PO ONE (18:00)
[2018-07-08] MEDS ORDERED: WARFARIN 2.5 MG TAB PO ONE (18:00)
[2018-07-08] MEDS: ENOXAPARIN 150 MG/ML SYRINGE SQ SCH (21:56)
[2018-07-09] MEDS: CALCIUM CARB-VIT D 500MG-200UN 1 EACH TAB PO SCH (08:35)
[2018-07-09] MEDS: METOPROLOL TARTRATE 25 MG TAB PO SCH ×2 (08:35→20:05)
[2018-07-09] MEDS: cloZAPine 100 MG TAB PO SCH ×2 (08:35→20:05)
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
[2018-07-09 11:57] LABS: Prothrombin Time 19.9 sec (9.0-12.0)
[2018-07-09 12:06] LABS: Albumin 3.6 g/dL (3.5-5.0); Calcium 9.6 mg/dL (8.4-10.2); Potassium 4.5 mmol/L (3.5-5.1); Total Bilirubin 0.2 mg/dL (0.2-1.3); Total Protein 7.1 g/dL (6.3-8.2)
[2018-07-09 13:09] LABS: Basophils % (A) 0 %; Eosinophils # (A) 0.4 k/uL (0-0.7); Eosinophils % (A) 6 %; HCT 36.8 % (39.0-53.0); HGB 11.4 gm/dL (13.0-17.5); Hypochromasia Slight; Lymphocytes # (A) 1.4 k/uL (1.0-4.8); Lymphocytes % (A) 21 %; MCH 27.5 pg (25.0-35.0); MCHC 30.9 g/dL (31.0-37.0); MCV 89.1 fL (80.0-100.0); Mean Platelet Volume 7.4; Monocytes # (A) 0.6 k/uL (0-1.0); Monocytes % (A) 9 %; Neutrophils # (A) 4.1 k/uL (1.3-7.7); Neutrophils % (A) 62 %; Platelet Count 220 k/uL (150-450); RBC 4.14 m/uL (4.30-5.90); RDW 15.6 % (11.5-15.5); WBC 6.7 k/uL (3.8-10.6)
[2018-07-09] MEDS: WARFARIN 10 MG TAB PO SCH (17:38)
[2018-07-09] MEDS: WARFARIN 1 MG TAB PO SCH (17:38)
[2018-07-09] MEDS: ENOXAPARIN 150 MG/ML SYRINGE SQ SCH (20:09)
[2018-07-10] MEDS: cloZAPine 100 MG TAB PO SCH ×2 (09:13→20:15)
[2018-07-10] MEDS: METOPROLOL TARTRATE 25 MG TAB PO SCH ×2 (09:13→20:15)
[2018-07-10] MEDS: CALCIUM CARB-VIT D 500MG-200UN 1 EACH TAB PO SCH (09:15)
[2018-07-10] MEDS: ACETAMINOPHEN TAB 325 MG TAB PO PRN (11:05)
[2018-07-10 11:21] LABS: Basophils % (A) 1 %; Eosinophils # (A) 0.4 k/uL (0-0.7); Eosinophils % (A) 6 %; HCT 39.7 % (39.0-53.0); HGB 12.3 gm/dL (13.0-17.5); Lymphocytes # (A) 1.2 k/uL (1.0-4.8); Lymphocytes % (A) 20 %; MCH 27.1 pg (25.0-35.0); MCHC 30.9 g/dL (31.0-37.0); MCV 87.8 fL (80.0-100.0); Mean Platelet Volume 6.8; Monocytes # (A) 0.5 k/uL (0-1.0); Monocytes % (A) 9 %; Neutrophils # (A) 3.9 k/uL (1.3-7.7); Neutrophils % (A) 62 %; Platelet Count 248 k/uL (150-450); RBC 4.53 m/uL (4.30-5.90); RDW 15.7 % (11.5-15.5); WBC 6.2 k/uL (3.8-10.6)
[2018-07-10 11:25] LABS: INR 2.1 (<1.2); Prothrombin Time 20.1 sec (9.0-12.0)
[2018-07-10 11:30] LABS: Albumin 3.7 g/dL (3.5-5.0); Calcium 9.8 mg/dL (8.4-10.2); Potassium 4.4 mmol/L (3.5-5.1); Total Bilirubin 0.2 mg/dL (0.2-1.3); Total Protein 7.2 g/dL (6.3-8.2)
--- NOTE | 2018-07-10 12:49 | P.PN ---
Subjective Progress Note Date: 07/10/18 Principal diagnosis: Bipolar disorder I am doing better and awaiting to go home and placement. I understand that placement is an issue. I'll work with you Dr. May Denies any suicidal or homicidal ideation, denies any auditory hallucinations, has exhibited appropriate behavior. Objective - Vital Signs Vital signs: Vital Signs Temp 98.7 F 07/10/18 06:32 Pulse 87 07/10/18 06:32 Resp 18 07/10/18 06:32 BP 153/85 07/10/18 06:32 Pulse Ox 98 07/03/18 21:14 - Labs CBC & Chem 7: 07/10/18 10:30 07/10/18 10:30 Labs: Abnormal Lab Results - Last 24 Hours (Table) 07/09/18 07/10/18 07/10/18 Range/Units 11:05 10:30 10:30 RBC 4.14 L (4.30-5.90) m/uL Hgb 11.4 L 12.3 L (13.0-17.5) gm/dL Hct 36.8 L (39.0-53.0) % MCHC 30.9 L 30.9 L (31.0-37.0) g/dL RDW 15.6 H 15.7 H (11.5-15.5) % PT 20.1 H (9.0-12.0) sec INR 2.1 H (<1.2) Chloride (98-107) mmol/L BUN (9-20) mg/dL Creatinine (0.66-1.25) mg/dL Glucose (74-99) mg/dL 07/10/18 Range/Units 10:30 RBC (4.30-5.90) m/uL Hgb (13.0-17.5) gm/dL Hct (39.0-53.0) % MCHC (31.0-37.0) g/dL RDW (11.5-15.5) % PT (9.0-12.0) sec INR (<1.2) Chloride 111 H (98-107) mmol/L BUN 27 H (9-20) mg/dL Creatinine 1.81 H (0.66-1.25) mg/dL Glucose 123 H (74-99) mg/dL Assessment and Plan Assessment: 62-year-old male presents emergency from for psychiatric evaluation. Patient states he is at [facility]. Patient reportedly was aggressive, through a walker. Patient states he does not remember doing this. Patient has had issues like this in the past doesn't have a history of bipolar disorder. Patient denies suicidal or homicidal ideation. Denies any drug or alcohol abuse. - Related Data Home Medications Medication Instructions Recorded Confirmed Calcium Carbonate/Vitamin D3 1 tab PO DAILY 07/03/18 07/03/18 [Calcium 500-Vit D3 200 Tablet] OXcarbazepine 600 mg PO BID@0700,1600 07/03/18 07/03/18 OXcarbazepine [Trileptal] 150 mg PO BID@0700,1600 07/03/18 07/03/18 Warfarin [Coumadin] 2.5 mg PO MOWE 07/03/18 07/03/18 Warfarin [Coumadin] 10 mg PO SUTUTHFRSA 07/03/18 07/03/18 cloZAPine [Clozaril] 100 mg PO BID@0700,1600 07/03/18 07/03/18 Previous Rx's Medication Instructions Recorded Metoprolol Tartrate [Lopressor] 25 mg PO BID #60 tab 05/19/18 Allergies Allergy/AdvReac Type Severity Reaction Status Date / Time divalproex sodium Allergy Unknown Verified 07/03/18 12:17 [From Depakote] haloperidol [From Haldol] Allergy Unknown Verified 07/03/18 12:17 haloperidol lactate Allergy Unknown Verified 07/03/18 12:17 [From Haldol] lithium Allergy Unknown Verified 07/03/18 12:17 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; Chronic kidney disease stage 3, bipolar depression History of Any Multi-Drug Resistant Organisms: MRSA Date of last positivie culture/infection: 04/27/2014 MDRO Source:: Right Arm Past Surgical History: Back Surgery, Hernia Repair, Pacemaker, Tonsillectomy Past Anesthesia/Blood Transfusion Reactions: Previous Problems w/ Anesthesia Additional Past Anesthesia/Blood Transfusion Reaction / Comment(s): STATES " HARD TIME BREATHING LAYING FLAT, I'M A MOUTH BREATHER" Type of Cardiac Device: Permanent Pacemaker Device Placement Date:: 2015 Past Psychological History: Bipolar, Depression Smoking Status: Current some day smoker Past Alcohol Use History: Rare Past Drug Use History: None Reported - Past Family History Father History Unknown: Yes Mother History Unknown: Yes HPI: The patient is well known to the psychiatric service. He does have a history of bipolar disorder. He presents with continued symptoms of kaley and psychosis. He was recently on the mental health unit and was stabilized with Depakote and Risperdal. He presents with a Depakote level of 0. It appears he has been noncompliant with medication. He was on a deferral agreement through another county and we are requesting a demand for hearing. He reports that he has not been sleeping his energy is elevated. He continues to report grandiose delusions of having significant wealth. His thought process is quite disorganized he has constant speech with loose associations and flight of ideas. His affect is labile. He has been refusing medications so far. He states that he put Depakote on his ALLERGY list however he took that medication for the duration of his stay last time. PAST PSYCHIATRIC HISTORY: The patient has had numerous inpatient psychiatric hospitalizations at least 11. He was here last month. He carries a bipolar diagnosis rule out schizoaffective disorder. No history of suicide attempts. He has been on numerous medications in the past. He was discharged on Risperdal 1 mg 3 times daily and Depakote ER thousand milligrams at bedtime. PMH: History of DVT, hypertension ALLERGIES: Haldol, he has reported an ALLERGY to Depakote but he does not have a true ALLERGY to that medication MEDICATIONS: Refer to [facility] CHEMICAL DEPENDENCY HISTORY: He denies any use of alcohol or marijuana or any other illicit drugs FAMILY PSYCHIATRIC HISTORY: None reported, no suicides in the family FAMILY CHEMICAL DEPENDENCY HISTORY: His father was known to have an alcohol use disorder SOCIAL HISTORY: The patient's is 62 years old he states he is a . His housing situation is unclear he may be homeless. He is on a disability income. He states that he was in the [employer] and had an honorable discharge. He denies any history of legal charges. Abuse history unknown MENTAL STATUS EXAM: The patient is a tall overweight male appearing his stated age. He is dressed in his own clothing. He has a orthopedic boot on his right foot in his right lower extremity is noticeably larger than his left. He has a labile affect and appears euphoric for the most part. He reports no suicidal or homicidal thoughts. He demonstrates tangential thinking loose associations and flight of ideas. He describes grandiose thoughts that are delusional in nature. He demonstrates no verbal or physical aggressiveness. He demonstrates psychomotor hyperactivity and is very demonstrative with speech. Insight and judgment are poor. He is not able to tolerate cognitive testing today. STRENGTHS/WEAKNESSES: Strengths: Income, he now has a public guardian and we are pursuing a treatment order weaknesses: Medication noncompliance INTELLECTUAL FUNCTIONING: Average IMPRESSIONS: [Bipolar affective disorder] (1) Bipolar disorder Current Visit: No Status: Acute Code(s): F31.9 - BIPOLAR DISORDER, UNSPECIFIED SNOMED Code(s): 86918534 Plan: Awaiting team meeting at 10:30 will decide disposition after the team meeting. [facility] him [facility] as a patient. We will have a meeting with the guardian 11:00 tomorrow to discuss disposition and safety. Time with Patient: Less than 30
[2018-07-10] MEDS: WARFARIN 1 MG TAB PO SCH (18:43)
[2018-07-10] MEDS: WARFARIN 10 MG TAB PO SCH (18:44)
[2018-07-11 08:13] LABS: INR 2.2 (<1.2); Prothrombin Time 21.6 sec (9.0-12.0)
[2018-07-11] MEDS: METOPROLOL TARTRATE 25 MG TAB PO SCH ×2 (08:45→21:00)
[2018-07-11] MEDS: cloZAPine 100 MG TAB PO SCH ×2 (08:45→21:00)
[2018-07-11] MEDS: CALCIUM CARB-VIT D 500MG-200UN 1 EACH TAB PO SCH (08:45)
--- NOTE | 2018-07-11 09:25 | P.PN ---
Subjective Progress Note Date: 07/11/18 Principal diagnosis: Bipolar disorder I am doing better and awaiting to go home and placement. I understand that placement is an issue. I'll work with you Dr. May Denies any suicidal or homicidal ideation, denies any auditory hallucinations, has exhibited appropriate behavior. He has been pleasant towards staff, pleasant towards peers, no signs of agitation. Objective - Vital Signs Vital signs: Vital Signs Temp 97.8 F 07/11/18 04:33 Pulse 79 07/11/18 04:33 Resp 18 07/11/18 04:33 BP 135/64 07/11/18 04:33 Pulse Ox 98 07/03/18 21:14 - Labs CBC & Chem 7: 07/10/18 10:30 07/10/18 10:30 Labs: Abnormal Lab Results - Last 24 Hours (Table) 07/10/18 07/10/18 07/10/18 Range/Units 10:30 10:30 10:30 Hgb 12.3 L (13.0-17.5) gm/dL MCHC 30.9 L (31.0-37.0) g/dL RDW 15.7 H (11.5-15.5) % PT 20.1 H (9.0-12.0) sec INR 2.1 H (<1.2) Chloride 111 H (98-107) mmol/L BUN 27 H (9-20) mg/dL Creatinine 1.81 H (0.66-1.25) mg/dL Glucose 123 H (74-99) mg/dL 07/11/18 Range/Units 07:53 Hgb (13.0-17.5) gm/dL MCHC (31.0-37.0) g/dL RDW (11.5-15.5) % PT 21.6 H (9.0-12.0) sec INR 2.2 H (<1.2) Chloride (98-107) mmol/L BUN (9-20) mg/dL Creatinine (0.66-1.25) mg/dL Glucose (74-99) mg/dL Assessment and Plan Assessment: 62-year-old male presents emergency from for psychiatric evaluation. Patient states he is at [facility]. Patient reportedly was aggressive, through a walker. Patient states he does not remember doing this. Patient has had issues like this in the past doesn't have a history of bipolar disorder. Patient denies suicidal or homicidal ideation. Denies any drug or alcohol abuse. - Related Data Home Medications Medication Instructions Recorded Confirmed Calcium Carbonate/Vitamin D3 1 tab PO DAILY 07/03/18 07/03/18 [Calcium 500-Vit D3 200 Tablet] OXcarbazepine 600 mg PO BID@0700,1600 07/03/18 07/03/18 OXcarbazepine [Trileptal] 150 mg PO BID@0700,1600 07/03/18 07/03/18 Warfarin [Coumadin] 2.5 mg PO MOWE 07/03/18 07/03/18 Warfarin [Coumadin] 10 mg PO SUTUTHFRSA 07/03/18 07/03/18 cloZAPine [Clozaril] 100 mg PO BID@0700,1600 07/03/18 07/03/18 Previous Rx's Medication Instructions Recorded Metoprolol Tartrate [Lopressor] 25 mg PO BID #60 tab 05/19/18 Allergies Allergy/AdvReac Type Severity Reaction Status Date / Time divalproex sodium Allergy Unknown Verified 07/03/18 12:17 [From Depakote] haloperidol [From Haldol] Allergy Unknown Verified 07/03/18 12:17 haloperidol lactate Allergy Unknown Verified 07/03/18 12:17 [From Haldol] lithium Allergy Unknown Verified 07/03/18 12:17 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; Chronic kidney disease stage 3, bipolar depression History of Any Multi-Drug Resistant Organisms: MRSA Date of last positivie culture/infection: 04/27/2014 MDRO Source:: Right Arm Past Surgical History: Back Surgery, Hernia Repair, Pacemaker, Tonsillectomy Past Anesthesia/Blood Transfusion Reactions: Previous Problems w/ Anesthesia Additional Past Anesthesia/Blood Transfusion Reaction / Comment(s): STATES " HARD TIME BREATHING LAYING FLAT, I'M A MOUTH BREATHER" Type of Cardiac Device: Permanent Pacemaker Device Placement Date:: 2015 Past Psychological History: Bipolar, Depression Smoking Status: Current some day smoker Past Alcohol Use History: Rare Past Drug Use History: None Reported - Past Family History Father History Unknown: Yes Mother History Unknown: Yes HPI: The patient is well known to the psychiatric service. He does have a history of bipolar disorder. He presents with continued symptoms of kaley and psychosis. He was recently on the mental health unit and was stabilized with Depakote and Risperdal. He presents with a Depakote level of 0. It appears he has been noncompliant with medication. He was on a deferral agreement through another county and we are requesting a demand for hearing. He reports that he has not been sleeping his energy is elevated. He continues to report grandiose delusions of having significant wealth. His thought process is quite disorganized he has constant speech with loose associations and flight of ideas. His affect is labile. He has been refusing medications so far. He states that he put Depakote on his ALLERGY list however he took that medication for the duration of his stay last time. At the present time he has without incident, "collected polite and redirectable. He has shown no agitation is entire length of stay. PAST PSYCHIATRIC HISTORY: The patient has had numerous inpatient psychiatric hospitalizations at least 11. He was here last month. He carries a bipolar diagnosis rule out schizoaffective disorder. No history of suicide attempts. He has been on numerous medications in the past. He was discharged on Risperdal 1 mg 3 times daily and Depakote ER thousand milligrams at bedtime. PMH: History of DVT, hypertension ALLERGIES: Haldol, he has reported an ALLERGY to Depakote but he does not have a true ALLERGY to that medication MEDICATIONS: Refer to [facility] CHEMICAL DEPENDENCY HISTORY: He denies any use of alcohol or marijuana or any other illicit drugs FAMILY PSYCHIATRIC HISTORY: None reported, no suicides in the family FAMILY CHEMICAL DEPENDENCY HISTORY: His father was known to have an alcohol use disorder SOCIAL HISTORY: The patient's is 62 years old he states he is a . His housing situation is unclear he may be homeless. He is on a disability income. He states that he was in the [employer] and had an honorable discharge. He denies any history of legal charges. Abuse history unknown MENTAL STATUS EXAM: The patient presents alert, pleasant, and cooperative. There calmly seated without any agitated behavior. He reports that [his] mood is good. Affect is congruent and euthymic. [He] deny having any suicidal or homicidal ideation intent or plan. [He] denies any auditory or visual hallucinations. There is no evidence of any delusional thought content. [His] thought process is linear and goal-directed. [His] speech is fluent and nonpressured. [His] memory and concentration is grossly intact for the purposes of this session. STRENGTHS/WEAKNESSES: Strengths: Income, he now has a public guardian and we are pursuing a treatment order weaknesses: Medication noncompliance INTELLECTUAL FUNCTIONING: Average IMPRESSIONS: [Bipolar affective disorder] (1) Bipolar disorder Current Visit: No Status: Acute Code(s): F31.9 - BIPOLAR DISORDER, UNSPECIFIED SNOMED Code(s): 97582189 Plan: Awaiting team meeting at 10:30 will decide disposition after the team meeting. It appears that the [facility] rehab facility will not take him back as a patient. We will have a meeting with the guardian 11:00 tomorrow to discuss disposition and safety. Time with Patient: Less than 30
[2018-07-11] MEDS: WARFARIN 10 MG TAB PO SCH (17:03)
[2018-07-11] MEDS: WARFARIN 1 MG TAB PO SCH (17:03)
[2018-07-12] MEDS: CALCIUM CARB-VIT D 500MG-200UN 1 EACH TAB PO SCH (07:51)
[2018-07-12] MEDS: cloZAPine 100 MG TAB PO SCH (07:51)
[2018-07-12] MEDS: METOPROLOL TARTRATE 25 MG TAB PO SCH ×2 (07:52→21:28)
[2018-07-12 08:24] LABS: INR 2.1 (<1.2); Prothrombin Time 20.4 sec (9.0-12.0)
[2018-07-12] MEDS: WARFARIN 10 MG TAB PO SCH (16:58)
[2018-07-12] MEDS: WARFARIN 1 MG TAB PO SCH (16:58)
[2018-07-12] MEDS ORDERED: cloZAPine 100 MG TAB PO SCH (21:00)
--- NOTE | 2018-07-12 21:46 | PN ---
DATE OF SERVICE: 07/12/2018 PROGRESS NOTE CHIEF COMPLAINT: The patient had agitation, aggressive behavior and high risk behavior including throwing a walker at his care facility. INTERVAL HISTORY: The patient has been doing fair. He had a quiet evening last night. He slept fairly well today. He has been up. He tends to keep to himself. He will wonder about the unit, though does not interact much with others. He does have some ups and downs in his mood where he will get into some agitation where he will yell out and be demanding. These episodes do not seem to last too long. He then can quiet down and be calm and appropriate. He has been cooperative with care. He attends about 1/3 of the group activities. Typically he will leave early or appears to be somewhat disconnected to events when he is in groups. He says that he would consider returning to [facility] though it is his understanding that he had completed a rehab program and was no longer eligible. It is not clear at this point if the behavioral issues are an impediment to his returning there. He did tell me later that he felt that he was getting some strength in his legs though mostly has been in a wheelchair. He tolerates his psychotropic medications. MENTAL STATUS: Patient gave fair eye contact. He was restless. He answered some questions appropriately. He tended to make tangential comments. He rambled at times. His affect was intense. His mood dysphoric. He was moderately distressed. I saw him on the unit a few different times. At one point he was talking quite loudly in a demanding voice. At another point, he was calm and made comments about feeling the strength was coming back in his legs. ASSESSMENT: I will continue the current diagnosis and treatment plan. I will increase Clozaril to 300 mg a day. He is currently on 100 mg twice a day. We will switch his Clozaril all to bedtime. I reviewed medication issues with the patient in regards to Clozaril including blood work, metabolic concerns and potential benefits. We will continue to focus on stabilization and discharge planning. ROSEMARIE / SANDEE: [id number] / ERICA
[2018-07-13] MEDS: METOPROLOL TARTRATE 25 MG TAB PO SCH (07:56)
[2018-07-13] MEDS: CALCIUM CARB-VIT D 500MG-200UN 1 EACH TAB PO SCH (07:56)
[2018-07-13 08:29] LABS: INR 2.2 (<1.2); Prothrombin Time 21.4 sec (9.0-12.0)
[2018-07-13] MEDS: METOPROLOL TARTRATE 50 MG TAB PO SCH ×2 (12:45→20:15)
[2018-07-13] MEDS ORDERED: amLODIPine 5 MG TAB PO SCH (14:30)
--- NOTE | 2018-07-13 14:42 | PN ---
PROGRESS NOTE DATE OF SERVICE: 07/13/2018. CHIEF COMPLAINT: The patient had agitation, aggressive behavior and high risk behavior including throwing a walker at his care facility. INTERVAL HISTORY: Patient has been doing fairly well. He had a quiet evening last night. He slept fairly well today. He has been up. He comes out in the day area. He attended 2 groups so far today. Overall, his mood seems a little more even. He has not had the episodes of irritability and getting intense as he had yesterday. He has not had problems with the increase in his Clozaril. His blood pressure continues to be elevated. His pressure this morning is 161/89 with a pulse of 90 at 0800. He is concerned about his blood pressure more than anything else. MENTAL STATUS: Patient gave good eye contact. Psychomotor activity was a little slowed. Speech somewhat monotone and soft. He answered questions with direct responses. His thoughts were clear, coherent, and goal directed. His affect was blunted. He had a quiet, though pleasant manner. His mood was somewhat reserved. He did not appear to be distressed. There was no indication of thought disorder. ASSESSMENT: I will continue the current diagnosis and treatment plan. I will continue Clozaril the same. I will increase his Lopressor to 50 mg twice a day. We will continue to monitor blood pressures issues as well as focus on stabilizing mood difficulties. We will focus on stabilization and discharge planning. ROSEMARIE / SANDEE: [id number] /
[2018-07-13] MEDS: WARFARIN 1 MG TAB PO SCH (17:25)
[2018-07-13] MEDS: WARFARIN 10 MG TAB PO SCH (17:25)
[2018-07-13] MEDS ORDERED: cloZAPine 100 MG TAB PO SCH (21:00)
--- NOTE | 2018-07-13 22:44 | P.PN ---
Subjective Progress Note Date: 07/13/18 Principal diagnosis: Uncontrolled hypertension Patient is a 60-year-old male with a known history of chronic lower extremity DVT on anti-colorless with Coumadin, chronic kidney disease, atrial fibrillation paroxysmal was admitted to the hospital due to bipolar disorder maniac type. Patient is wheelchair-bound. Patient does take metoprolol for rate control of atrial fibrillation. Blood pressure is elevated today with SBP greater than 160Hg. Currently patient denied any complains of chest pain or shortness of breath. No headache or dizziness or lightheadedness. No nausea vomiting or abdominal pain. All other review of systems negative except above. Next and current medications reviewed Objective - Vital Signs Vital signs: Vital Signs Temp 98.4 F 07/13/18 20: Pulse 90 07/13/18 20:18 Resp 16 07/13/18 20:18 BP 144/79 07/13/18 20:18 Pulse Ox 98 07/03/18 21:14 Intake & Output 07/13/18 07/13/18 07/14/18 06:59 18:59 06:59 Weight 116.6 kg - Exam PHYSICAL EXAMINATION: Patient is lying in the bed comfortably, no acute distress, awake alert and oriented. Patient is wheelchair-bound. HEENT: Normocephalic. Neck is supple. Pupils reactive. Nostrils clear. Oral cavity is moist. Ears reveal no drainage. Neck reveals no JVD, carotid bruits, or thyromegaly. CHEST EXAMINATION: Trachea is central. Symmetrical expansion. Lung alvarez clear to auscultation and percussion. CARDIAC: Normal S1, S2 with no gallops. No murmurs ABDOMEN: Soft. Bowel sounds normal. No organomegaly. No abdominal bruits. Extremities: 2+ edema chronic. No clubbing or cyanosis Neurologically awake, alert, oriented x3 with well-coordinated movements. No focal deficits noted Skin: No rash or skin lesions. Psychiatric: Coperative. Nonsuicidal Musculoskeletal: No joint swelling or deformity. Normal range of motion. - Labs CBC & Chem 7: 07/10/18 10:30 07/10/18 10:30 Labs: Abnormal Lab Results - Last 24 Hours (Table) 07/13/18 Range/Units 07:40 PT 21.4 H (9.0-12.0) sec INR 2.2 H (<1.2) Assessment and Plan Assessment: Uncontrolled hypertension. Patient will be continued on metoprolol. Agree with increasing dose for better heart rate control. will add lisinopril/ hydrochlorothiazide. Chronic kidney disease stage III due to nephrosclerosis. Creatinine 1.8 Chronic left leg DVT currently on anticoagulation with Coumadin Paroxysmal atrial fibrillation. Rate controlled Right ankle chronic instability. Patient uses a brace Bilateral lower extremity venous insufficiency Bipolar disorder with acute psychosis Plan: Patient will be continued on metoprolol. Added lisinopril/hydrochlorothiazide at low-dose due to chronic kidney disease as well as chronic lower extremities venous insufficiency and swelling. Monitor creatinine and potassium level. Will follow closely. Further recommendations based on the clinical course. Otherwise continue the current management. thank you Time with Patient: Greater than 30
[2018-07-14] MEDS: METOPROLOL TARTRATE 50 MG TAB PO SCH ×2 (09:02→20:50)
[2018-07-14] MEDS: CALCIUM CARB-VIT D 500MG-200UN 1 EACH TAB PO SCH (09:02)
[2018-07-14] MEDS: LISINOPRIL-HCTZ 10-12.5 MG 1 EACH TAB PO SCH (09:02)
[2018-07-14 09:25] LABS: INR 2.2 (<1.2)
--- NOTE | 2018-07-14 14:34 | PN ---
DATE OF SERVICE: 07/14/2018 PROGRESS NOTE CHIEF COMPLAINT: The patient had agitation, aggressive behavior and high-risk behavior including throwing a walker at his care facility. INTERVAL HISTORY: Patient has been doing about the same. The last 2 days he has showed a little more stability in his mood. He comes out in the day area. He will make comments and talks some to others. He has not had the periods of getting distressed, angry, or loud. He has been attending groups. Sometimes he can be fairly intense, loud in groups and hyperverbal and sometimes disorganized in his thoughts. He has been cooperative. He has been sleeping fair. He still shows some mood elevation more than anything else. He tolerates his clozapine. MENTAL STATUS: Patient gave fairly good eye contact. He was a little restless in psychomotor activity. He expressed himself with clear thoughts. At times he was a little tangential. His affect was somewhat constricted. His mood was quiet. He did not appear to be distressed. ASSESSMENT: I will continue the current diagnosis and treatment plan. I will increase clozapine up to 350 mg a day. It is noted that clozapine dosing can be guided by a blood level. We will obtain a blood level today. Will continue to focus on stabilization and discharge planning. A pending issue is appropriate housing. MMODL / IJN: [id number] / ERICA
[2018-07-14] MEDS: WARFARIN 1 MG TAB PO SCH (17:26)
[2018-07-14] MEDS: WARFARIN 10 MG TAB PO SCH (17:26)
[2018-07-14] MEDS: cloZAPine 100 MG TAB PO SCH (20:50)
[2018-07-15] MEDS: METOPROLOL TARTRATE 50 MG TAB PO SCH ×2 (07:35→20:23)
[2018-07-15] MEDS: CALCIUM CARB-VIT D 500MG-200UN 1 EACH TAB PO SCH (07:36)
[2018-07-15] MEDS: LISINOPRIL-HCTZ 10-12.5 MG 1 EACH TAB PO SCH (07:36)
--- NOTE | 2018-07-15 10:26 | PN ---
PROGRESS NOTE DATE OF SERVICE: 07/15/2018. CHIEF COMPLAINT: The patient had agitation, aggressive behavior, and high-risk behavior including throwing a walker at his care facility. INTERVAL HISTORY: He had a quiet evening last night. He slept fairly well. Today he has been up. He comes out in the day area, he will wander about. He does not really interact too much with others, though will pay some attention to things going on around him. He has been attending groups. Some of the time he seems to do quite well in groups where he will be attentive and appropriate, at other times he can be somewhat intense with rapid speech, excessive speech and sometimes thoughts that are disjointed. He has been cooperative. He has had overall a somewhat calmer mood with less periods of irritability. He tolerates the increase in his clozapine. MENTAL STATUS: Patient was within the day area. He gave fairly good eye contact. He was restless. He answered questions with brief responses. His thoughts were clear. His affect was a little intense and somewhat with a sense of frustration, though he did not have significant irritability. His mood was reserved. He did not appear to be significantly distressed. He does get somewhat intense about the idea of wanting to be discharged soon. ASSESSMENT: We will continue the current diagnosis and treatment plan. I will continue psychotropic medications the same. His clozapine dose was increased yesterday to 350 mg. He is tolerating the dose well. We will continue to focus on stabilization and discharge planning. ROSEMARIE / SADNEE: [id number] /
[2018-07-15 10:43] LABS: INR 2.4 (<1.2); Prothrombin Time 23.7 sec (9.0-12.0)
[2018-07-15 10:51] LABS: Calcium 9.8 mg/dL (8.4-10.2); Potassium 4.4 mmol/L (3.5-5.1)
[2018-07-15] MEDS: WARFARIN 1 MG TAB PO SCH (17:02)
[2018-07-15] MEDS: WARFARIN 10 MG TAB PO SCH (17:02)
[2018-07-15] MEDS: cloZAPine 100 MG TAB PO SCH (20:23)
[2018-07-16 05:08] LABS: Clozapine (Clozaril) 134 ng/mL (200-700); Norclozapine 86 ng/mL (200-700)
[2018-07-16] MEDS: LISINOPRIL-HCTZ 10-12.5 MG 1 EACH TAB PO SCH (07:31)
[2018-07-16] MEDS: CALCIUM CARB-VIT D 500MG-200UN 1 EACH TAB PO SCH (07:31)
[2018-07-16] MEDS: METOPROLOL TARTRATE 50 MG TAB PO SCH ×2 (07:31→20:18)
[2018-07-16 10:28] LABS: Basophils % (A) 1 %; Eosinophils # (A) 0.3 k/uL (0-0.7); Eosinophils % (A) 5 %; HCT 36.8 % (39.0-53.0); Lymphocytes # (A) 1.3 k/uL (1.0-4.8); Lymphocytes % (A) 19 %; MCV 86.7 fL (80.0-100.0); Monocytes # (A) 0.6 k/uL (0-1.0); Monocytes % (A) 8 %; Neutrophils # (A) 4.4 k/uL (1.3-7.7); Neutrophils % (A) 65 %; Platelet Count 206 k/uL (150-450); RBC 4.25 m/uL (4.30-5.90); RDW 15.8 % (11.5-15.5); WBC 6.9 k/uL (3.8-10.6)
[2018-07-16 10:32] LABS: INR 2.8 (<1.2); Prothrombin Time 27.3 sec (9.0-12.0)
--- NOTE | 2018-07-16 11:24 | P.PN ---
Subjective Progress Note Date: 07/16/18 Principal diagnosis: Bipolar disorder I am doing better and awaiting to go home and placement. I understand that placement is an issue. I'll work with you Dr. May Denies any suicidal or homicidal ideation, denies any auditory hallucinations, has exhibited appropriate behavior. He has been pleasant towards staff, pleasant towards peers, no signs of agitation. Objective - Vital Signs Vital signs: Vital Signs Temp 97.8 F 07/16/18 06:26 Pulse 76 07/16/18 06:26 Resp 18 07/16/18 06:26 BP 140/84 07/16/18 06:26 Pulse Ox 96 07/14/18 04:30 - Labs CBC & Chem 7: 07/16/18 09:59 07/15/18 09:50 Labs: Abnormal Lab Results - Last 24 Hours (Table) 07/14/18 07/16/18 07/16/18 Range/Units 08:43 09:59 09:59 RBC 4.25 L (4.30-5.90) m/uL Hgb 11.0 L (13.0-17.5) gm/dL Hct 36.8 L (39.0-53.0) % MCHC 30.0 L (31.0-37.0) g/dL RDW 15.8 H (11.5-15.5) % PT 27.3 H (9.0-12.0) sec INR 2.8 H (<1.2) Clozapine 134 L (200-700) ng/mL Norclozapine 86 L (200-700) ng/mL Assessment and Plan Assessment: 62-year-old male presents emergency from for psychiatric evaluation. Patient states he is at [facility]. Patient reportedly was aggressive, through a walker. Patient states he does not remember doing this. Patient has had issues like this in the past doesn't have a history of bipolar disorder. Patient denies suicidal or homicidal ideation. Denies any drug or alcohol abuse. - Related Data Home Medications Medication Instructions Recorded Confirmed Calcium Carbonate/Vitamin D3 1 tab PO DAILY 07/03/18 07/03/18 [Calcium 500-Vit D3 200 Tablet] OXcarbazepine 600 mg PO BID@0700,1600 07/03/18 07/03/18 OXcarbazepine [Trileptal] 150 mg PO BID@0700,1600 07/03/18 07/03/18 Warfarin [Coumadin] 2.5 mg PO MOWE 07/03/18 07/03/18 Warfarin [Coumadin] 10 mg PO SUTUTHFRSA 07/03/18 07/03/18 cloZAPine [Clozaril] 100 mg PO BID@0700,1600 07/03/18 07/03/18 Previous Rx's Medication Instructions Recorded Metoprolol Tartrate [Lopressor] 25 mg PO BID #60 tab 05/19/18 Allergies Allergy/AdvReac Type Severity Reaction Status Date / Time divalproex sodium Allergy Unknown Verified 07/03/18 12:17 [From Depakote] haloperidol [From Haldol] Allergy Unknown Verified 07/03/18 12:17 haloperidol lactate Allergy Unknown Verified 07/03/18 12:17 [From Haldol] lithium Allergy Unknown Verified 07/03/18 12:17 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; Chronic kidney disease stage 3, bipolar depression History of Any Multi-Drug Resistant Organisms: MRSA Date of last positivie culture/infection: 04/27/2014 MDRO Source:: Right Arm Past Surgical History: Back Surgery, Hernia Repair, Pacemaker, Tonsillectomy Past Anesthesia/Blood Transfusion Reactions: Previous Problems w/ Anesthesia Additional Past Anesthesia/Blood Transfusion Reaction / Comment(s): STATES " HARD TIME BREATHING LAYING FLAT, I'M A MOUTH BREATHER" Type of Cardiac Device: Permanent Pacemaker Device Placement Date:: 2015 Past Psychological History: Bipolar, Depression Smoking Status: Current some day smoker Past Alcohol Use History: Rare Past Drug Use History: None Reported - Past Family History Father History Unknown: Yes Mother History Unknown: Yes HPI: The patient is well known to the psychiatric service. He does have a history of bipolar disorder. He presents with continued symptoms of kaley and psychosis. He was recently on the mental health unit and was stabilized with Depakote and Risperdal. He presents with a Depakote level of 0. It appears he has been noncompliant with medication. He was on a deferral agreement through another county and we are requesting a demand for hearing. He reports that he has not been sleeping his energy is elevated. He continues to report grandiose delusions of having significant wealth. His thought process is quite disorganized he has constant speech with loose associations and flight of ideas. His affect is labile. He has been refusing medications so far. He states that he put Depakote on his ALLERGY list however he took that medication for the duration of his stay last time. At the present time he has without incident, "collected polite and redirectable. He has shown no agitation is entire length of stay. PAST PSYCHIATRIC HISTORY: The patient has had numerous inpatient psychiatric hospitalizations at least 11. He was here last month. He carries a bipolar diagnosis rule out schizoaffective disorder. No history of suicide attempts. He has been on numerous medications in the past. He was discharged on Risperdal 1 mg 3 times daily and Depakote ER thousand milligrams at bedtime. PMH: History of DVT, hypertension ALLERGIES: Haldol, he has reported an ALLERGY to Depakote but he does not have a true ALLERGY to that medication MEDICATIONS: Refer to [facility] CHEMICAL DEPENDENCY HISTORY: He denies any use of alcohol or marijuana or any other illicit drugs FAMILY PSYCHIATRIC HISTORY: None reported, no suicides in the family FAMILY CHEMICAL DEPENDENCY HISTORY: His father was known to have an alcohol use disorder SOCIAL HISTORY: The patient's is 62 years old he states he is a . His housing situation is unclear he may be homeless. He is on a disability income. He states that he was in the [facility] and had an honorable discharge. He denies any history of legal charges. Abuse history unknown MENTAL STATUS EXAM: The patient presents alert, pleasant, and cooperative. There calmly seated without any agitated behavior. He reports that [his] mood is good. Affect is congruent and euthymic. [He] deny having any suicidal or homicidal ideation intent or plan. [He] denies any auditory or visual hallucinations. There is no evidence of any delusional thought content. [His] thought process is linear and goal-directed. [His] speech is fluent and nonpressured. [His] memory and concentration is grossly intact for the purposes of this session. STRENGTHS/WEAKNESSES: Strengths: Income, he now has a public guardian and we are pursuing a treatment order weaknesses: Medication noncompliance INTELLECTUAL FUNCTIONING: Average IMPRESSIONS: [Bipolar affective disorder] (1) Bipolar disorder Current Visit: No Status: Acute Code(s): F31.9 - BIPOLAR DISORDER, UNSPECIFIED SNOMED Code(s): 58776066 Plan: Awaiting team meeting at 10:30 will decide disposition after the team meeting. [facility]. We will have a meeting with the guardian 11:00 tomorrow to discuss disposition and safety. Clozaril be increased to 350 mg a day with a blood level of Clozaril to be obtained. Awaiting placement and disposition. Discussed in detail and team meeting today and social work will be contacting guardian for placement Time with Patient: Less than 30
[2018-07-16] MEDS: ACETAMINOPHEN TAB 325 MG TAB PO PRN (14:48)
[2018-07-16] MEDS: WARFARIN 10 MG TAB PO SCH (17:21)
[2018-07-16] MEDS: cloZAPine 100 MG TAB PO SCH (20:17)
[2018-07-17 05:40] LABS: Clozapine (Clozaril) 156 ng/mL (200-700); Norclozapine 104 ng/mL (200-700)
[2018-07-17] MEDS: METOPROLOL TARTRATE 50 MG TAB PO SCH ×2 (08:35→20:46)
[2018-07-17] MEDS: CALCIUM CARB-VIT D 500MG-200UN 1 EACH TAB PO SCH (08:36)
[2018-07-17] MEDS: LISINOPRIL-HCTZ 10-12.5 MG 1 EACH TAB PO SCH (08:36)
[2018-07-17 11:35] LABS: INR 2.7 (<1.2)
--- NOTE | 2018-07-17 11:42 | P.PN ---
Subjective Progress Note Date: 07/17/18 Principal diagnosis: Bipolar disorder I am doing better and awaiting to go home and placement. I understand that placement is an issue. I'll work with you Dr. May Denies any suicidal or homicidal ideation, denies any auditory hallucinations, has exhibited appropriate behavior. He has been pleasant towards staff, pleasant towards peers, no signs of agitation. Objective - Vital Signs Vital signs: Vital Signs Temp 97.9 F 07/17/18 06:34 Pulse 72 07/17/18 06:34 Resp 16 07/17/18 06:34 BP 120/79 07/17/18 06:34 Pulse Ox 96 07/14/18 04:30 - Labs CBC & Chem 7: 07/16/18 09:59 07/15/18 09:50 Labs: Abnormal Lab Results - Last 24 Hours (Table) 07/16/18 07/17/18 Range/Units 09:59 10:42 PT 26.0 H (9.0-12.0) sec INR 2.7 H (<1.2) Clozapine 156 L (200-700) ng/mL Norclozapine 104 L (200-700) ng/mL Assessment and Plan Assessment: 62-year-old male presents emergency from for psychiatric evaluation. Patient states he is at [facility]. Patient reportedly was aggressive, through a walker. Patient states he does not remember doing this. Patient has had issues like this in the past doesn't have a history of bipolar disorder. Patient denies suicidal or homicidal ideation. Denies any drug or alcohol abuse. - Related Data Home Medications Medication Instructions Recorded Confirmed Calcium Carbonate/Vitamin D3 1 tab PO DAILY 07/03/18 07/03/18 [Calcium 500-Vit D3 200 Tablet] OXcarbazepine 600 mg PO BID@0700,1600 07/03/18 07/03/18 OXcarbazepine [Trileptal] 150 mg PO BID@0700,1600 07/03/18 07/03/18 Warfarin [Coumadin] 2.5 mg PO MOWE 07/03/18 07/03/18 Warfarin [Coumadin] 10 mg PO SUTUTHFRSA 07/03/18 07/03/18 cloZAPine [Clozaril] 100 mg PO BID@0700,1600 07/03/18 07/03/18 Previous Rx's Medication Instructions Recorded Metoprolol Tartrate [Lopressor] 25 mg PO BID #60 tab 05/19/18 Allergies Allergy/AdvReac Type Severity Reaction Status Date / Time divalproex sodium Allergy Unknown Verified 07/03/18 12:17 [From Depakote] haloperidol [From Haldol] Allergy Unknown Verified 07/03/18 12:17 haloperidol lactate Allergy Unknown Verified 07/03/18 12:17 [From Haldol] lithium Allergy Unknown Verified 07/03/18 12:17 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; Chronic kidney disease stage 3, bipolar depression History of Any Multi-Drug Resistant Organisms: MRSA Date of last positivie culture/infection: 04/27/2014 MDRO Source:: Right Arm Past Surgical History: Back Surgery, Hernia Repair, Pacemaker, Tonsillectomy Past Anesthesia/Blood Transfusion Reactions: Previous Problems w/ Anesthesia Additional Past Anesthesia/Blood Transfusion Reaction / Comment(s): STATES " HARD TIME BREATHING LAYING FLAT, I'M A MOUTH BREATHER" Type of Cardiac Device: Permanent Pacemaker Device Placement Date:: 2015 Past Psychological History: Bipolar, Depression Smoking Status: Current some day smoker Past Alcohol Use History: Rare Past Drug Use History: None Reported - Past Family History Father History Unknown: Yes Mother History Unknown: Yes HPI: The patient is well known to the psychiatric service. He does have a history of bipolar disorder. He presents with continued symptoms of kaley and psychosis. He was recently on the mental health unit and was stabilized with Depakote and Risperdal. He presents with a Depakote level of 0. It appears he has been noncompliant with medication. He was on a deferral agreement through another county and we are requesting a demand for hearing. He reports that he has not been sleeping his energy is elevated. He continues to report grandiose delusions of having significant wealth. His thought process is quite disorganized he has constant speech with loose associations and flight of ideas. His affect is labile. He has been refusing medications so far. He states that he put Depakote on his ALLERGY list however he took that medication for the duration of his stay last time. At the present time he has without incident, "collected polite and redirectable. He has shown no agitation is entire length of stay. PAST PSYCHIATRIC HISTORY: The patient has had numerous inpatient psychiatric hospitalizations at least 11. He was here last month. He carries a bipolar diagnosis rule out schizoaffective disorder. No history of suicide attempts. He has been on numerous medications in the past. He was discharged on Risperdal 1 mg 3 times daily and Depakote ER thousand milligrams at bedtime. PMH: History of DVT, hypertension ALLERGIES: Haldol, he has reported an ALLERGY to Depakote but he does not have a true ALLERGY to that medication MEDICATIONS: Refer to [facility] CHEMICAL DEPENDENCY HISTORY: He denies any use of alcohol or marijuana or any other illicit drugs FAMILY PSYCHIATRIC HISTORY: None reported, no suicides in the family FAMILY CHEMICAL DEPENDENCY HISTORY: His father was known to have an alcohol use disorder SOCIAL HISTORY: The patient's is 62 years old he states he is a . His housing situation is unclear he may be homeless. He is on a disability income. He states that he was in the [facility] and had an honorable discharge. He denies any history of legal charges. Abuse history unknown MENTAL STATUS EXAM: The patient presents alert, pleasant, and cooperative. There calmly seated without any agitated behavior. He reports that [his] mood is good. Affect is congruent and euthymic. [He] deny having any suicidal or homicidal ideation intent or plan. [He] denies any auditory or visual hallucinations. There is no evidence of any delusional thought content. [His] thought process is linear and goal-directed. [His] speech is fluent and nonpressured. [His] memory and concentration is grossly intact for the purposes of this session. STRENGTHS/WEAKNESSES: Strengths: Income, he now has a public guardian and we are pursuing a treatment order weaknesses: Medication noncompliance INTELLECTUAL FUNCTIONING: Average IMPRESSIONS: [Bipolar affective disorder] (1) Bipolar disorder Current Visit: No Status: Acute Code(s): F31.9 - BIPOLAR DISORDER, UNSPECIFIED SNOMED Code(s): 23710849 Plan: Awaiting team meeting at 10:30 will decide disposition after the team meeting. It appears that the [facility] will not take him back as a patient. We will have a meeting with the guardian 11:00 tomorrow to discuss disposition and safety. Clozaril be increased to 350 mg a day with a blood level of Clozaril to be obtained which was increased 134 and 106. Awaiting placement and disposition. Discussed in detail and team meeting today and social work will be contacting guardian for placement. Discussed in team today that patient will be discharged on 07/18/2018 and will go to skilled facility Time with Patient: Less than 30
[2018-07-17 11:45] VITALS: BMI 33.0
[2018-07-17] MEDS: WARFARIN 10 MG TAB PO SCH (18:00)
[2018-07-17] MEDS: cloZAPine 100 MG TAB PO SCH (20:46)
[2018-07-17] MEDS: ACETAMINOPHEN TAB 325 MG TAB PO PRN (22:07)
[2018-07-18 04:37] LABS: Basophils % (A) 0 %; Eosinophils # (A) 0.4 k/uL (0-0.7); Eosinophils % (A) 6 %; HCT 37.3 % (39.0-53.0); HGB 12.1 gm/dL (13.0-17.5); Lymphocytes % (A) 15 %; MCH 28.1 pg (25.0-35.0); MCHC 32.4 g/dL (31.0-37.0); MCV 86.8 fL (80.0-100.0); Mean Platelet Volume 7.3; Monocytes # (A) 0.4 k/uL (0-1.0); Monocytes % (A) 7 %; Neutrophils # (A) 4.6 k/uL (1.3-7.7); Neutrophils % (A) 71 %; Platelet Count 175 k/uL (150-450); RDW 15.8 % (11.5-15.5); WBC 6.5 k/uL (3.8-10.6)
[2018-07-18 04:45] LABS: INR 2.6 (<1.2)
[2018-07-18 05:00] LABS: Albumin 3.6 g/dL (3.5-5.0); Calcium 9.2 mg/dL (8.4-10.2); Potassium 4.4 mmol/L (3.5-5.1); Total Bilirubin 0.4 mg/dL (0.2-1.3); Total Protein 6.9 g/dL (6.3-8.2)
[2018-07-18 06:11] VITALS: TEMP 97.3
[2018-07-18] MEDS: CALCIUM CARB-VIT D 500MG-200UN 1 EACH TAB PO SCH (08:50)
[2018-07-18] MEDS: METOPROLOL TARTRATE 50 MG TAB PO SCH (08:52)
[2018-07-18 10:42] VITALS: BP 105/58; PULSE 81; RESP 20
[2018-07-18] MEDS: LISINOPRIL-HCTZ 10-12.5 MG 1 EACH TAB PO SCH (10:43)
--- NOTE | 2018-07-18 17:39 | P.PN ---
Subjective Patient is a 60-year-old male with a known history of chronic lower extremity DVT on anti-colorless with Coumadin, chronic kidney disease, atrial fibrillation paroxysmal was admitted to the hospital due to bipolar disorder maniac type. Patient is wheelchair-bound. Patient does take metoprolol for rate control of atrial fibrillation. Blood pressure is elevated today with SBP greater than 160Hg. Currently patient denied any complains of chest pain or shortness of breath. No headache or dizziness or lightheadedness. No nausea vomiting or abdominal pain. All other review of systems negative except above. Next and current medications reviewed 07/18/2018 Patient is a pleasant 62 years old male who was admitted to the psychiatric unit for bipolar disorder. Patient has been cleared by psychiatric team for discharge today. psych team asked for medical follow-up regarding his Coumadin management and creatinine. Patient apparently on Coumadin 10 mg daily for the last for 5 days with a stable INR at 2.8, 2.7 and 2.6 today. He was taking the Coumadin for his history of DVT and atrial fibrillation. Patient has no signs of bleeding and his hemoglobin stable at 12.1. And sacripts are available for his Coumadin upon discharge. I recommend continue with the same dose and to follow up his INR with his PCP. Also patient has has chronic kidney disease and his basal creatinine is 1.6-1.9 and his creatinine today is 2.08. Patient asked to encourage oral hydration.appointment has been made with his PCP Dr. Javid gavin on this coming Saturday at 07/21/2018 and patient informed and he agrees to do the follow-up to check his INR and his kidney function. I also spoke with Dr. vaughan and updated him about the patient and appointment and he kindly took note of it and told me he will try to switch it to xarelto with the renal dose.patient denies any chest pain or dyspnea. No change in urine or bowel habits. No abdominal pain. No fever. No overt signs of bleeding.patient is a stable for discharge from medical standpoint Objective - Vital Signs Vital signs: Vital Signs Temp 97.3 F L 07/18/18 04:15 Pulse 81 07/18/18 10:41 Resp 20 07/18/18 10:41 BP 105/58 07/18/18 10:41 Pulse Ox 97 07/17/18 20:48 Intake & Output 07/17/18 07/18/1819 18:59 06:59 18:59 Weight 116.6 kg - Exam PHYSICAL EXAMINATION: Patient is lying in the bed comfortably, no acute distress, awake alert and oriented. Patient is wheelchair-bound. HEENT: Normocephalic. Neck is supple. Pupils reactive. Nostrils clear. Oral cavity is moist. Ears reveal no drainage. Neck reveals no JVD, carotid bruits, or thyromegaly. CHEST EXAMINATION: Trachea is central. Symmetrical expansion. Lung alvarez clear to auscultation and percussion. CARDIAC: Normal S1, S2 with no gallops. No murmurs ABDOMEN: Soft. Bowel sounds normal. No organomegaly. No abdominal bruits. Extremities: 2+ edema chronic. No clubbing or cyanosis Neurologically awake, alert, oriented x3 with well-coordinated movements. No focal deficits noted Skin: No rash or skin lesions. Psychiatric: Coperative. Nonsuicidal Musculoskeletal: No joint swelling or deformity. Normal range of motion. - Labs CBC & Chem 7: 07/18/18 04:33 07/18/18 04:24 Labs: Abnormal Lab Results - Last 24 Hours (Table) 07/18/18 07/18/18 07/18/18 Range/Units 04:24 04:24 04:33 Hgb 12.1 L (13.0-17.5) gm/dL Hct 37.3 L (39.0-53.0) % RDW 15.8 H (11.5-15.5) % PT 25.0 H (9.0-12.0) sec INR 2.6 H (<1.2) BUN 34 H (9-20) mg/dL Creatinine 2.08 H (0.66-1.25) mg/dL Glucose 138 H (74-99) mg/dL ALT 17 L (21-72) U/L Assessment and Plan Assessment: hypertension. Patient will be continued on metoprolol. And lisinopril/ hydrochlorothiazide was stopped already Chronic kidney disease stage III due to nephrosclerosis. Creatinine 2.08 Chronic left leg DVT currently on anticoagulation with Coumadin Paroxysmal atrial fibrillation. Rate controlled. Continue with Coumadin Right ankle chronic instability. Patient uses a brace Bilateral lower extremity venous insufficiency Bipolar disorder with acute psychosis Plan: Patient will be continued on metoprolol. continue with Coumadin at 10 mg daily , and check INR on this coming Saturday with his PCP. Also recommend patient to follow-up with the contracts law professor. Staff called the contracts law professor office home informed the staffthat they will call the [facility] themselves to set up an appointment. patient is medically stable for discharge however he needs follow- up as an outpatient Thank you for consulting us, please feel free to contact us for any further question or clarification
--- NOTE | 2018-07-22 11:50 | P.DS ---
Providers Date of admission: 07/03/18 20:13 Expected date of discharge: 07/18/18 Attending physician: Rad May DO Consults: 07/18/18 05:33 Consult Physician Routine Consulting Provider: Mahogany Adams Consult Reason/Comments: Increased BUN, Creatinine, Recent Hypotensive episode this AM Do you want consulting provider notified?: Yes, Notify in am 07/03/18 20:16 Consult Physician Routine Consulting Provider: Earl Curry Consult Reason/Comments: Medical Management Do you want consulting provider notified?: Yes Primary care physician: Jaspal Melgoza - Discharge Diagnosis(es) (1) Bipolar disorder 62-year-old male presents emergency from for psychiatric evaluation. Patient states he is at [facility]. Patient reportedly was aggressive, through a walker. Patient states he does not remember doing this. Patient has had issues like this in the past doesn't have a history of bipolar disorder. Patient denies suicidal or homicidal ideation. Denies any drug or alcohol abuse. - Related Data Home Medications Medication Instructions Recorded Confirmed Calcium Carbonate/Vitamin D3 1 tab PO DAILY 07/03/18 07/03/18 [Calcium 500-Vit D3 200 Tablet] OXcarbazepine 600 mg PO BID@0700,1600 07/03/18 07/03/18 OXcarbazepine [Trileptal] 150 mg PO BID@0700,1600 07/03/18 07/03/18 Warfarin [Coumadin] 2.5 mg PO MOWE 07/03/18 07/03/18 Warfarin [Coumadin] 10 mg PO SUTUTHFRSA 07/03/18 07/03/18 cloZAPine [Clozaril] 100 mg PO BID@0700,1600 07/03/18 07/03/18 Previous Rx's Medication Instructions Recorded Metoprolol Tartrate [Lopressor] 25 mg PO BID #60 tab 05/19/18 Allergies Allergy/AdvReac Type Severity Reaction Status Date / Time divalproex sodium Allergy Unknown Verified 07/03/18 12:17 [From Depakote] haloperidol [From Haldol] Allergy Unknown Verified 07/03/18 12:17 haloperidol lactate Allergy Unknown Verified 07/03/18 12:17 [From Haldol] lithium Allergy Unknown Verified 07/03/18 12:17 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; Chronic kidney disease stage 3, bipolar depression History of Any Multi-Drug Resistant Organisms: MRSA Date of last positivie culture/infection: 04/27/2014 MDRO Source:: Right Arm Past Surgical History: Back Surgery, Hernia Repair, Pacemaker, Tonsillectomy Past Anesthesia/Blood Transfusion Reactions: Previous Problems w/ Anesthesia Additional Past Anesthesia/Blood Transfusion Reaction / Comment(s): STATES " HARD TIME BREATHING LAYING FLAT, I'M A MOUTH BREATHER" Type of Cardiac Device: Permanent Pacemaker Device Placement Date:: 2015 Past Psychological History: Bipolar, Depression Smoking Status: Current some day smoker Past Alcohol Use History: Rare Past Drug Use History: None Reported - Past Family History Father History Unknown: Yes Mother Current Visit: Yes Status: Acute Priority: Low Hospital Course: Summary of hospital course: The patient was admitted involuntarily on an existing treatment order issued by the court. We briefly continued the Risperdal and started Trileptal titrating to 600 mg daily. His Trileptal level was checked twice during the hospitalization which was in the therapeutic range. It was decided that we would trial Clozaril in the place of Risperdal. Over the last several weeks we have titrated the clozapine to 200 mg in the evening. Over the course of this stay the patient demonstrated an improvement in behavior. His sleep has improved at night. He has fixed delusions that can be grandiose in nature and suspicious and those are known to be part of his baseline. 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 A placement meeting was held last week to discuss ongoing care for Justin. His guardian [facility] but the patient was not accepted there. We discussed that it he would likely benefit from senior care support at least temporarily after discharge. [facility] was involved in the discharge planning and facilitated a senior care placement. The hope is that the patient can transition to assisted living after a brief stay at a senior care. The patient was seen by internal medicine during his stay. The patient required no use of seclusion or restraint. His symptoms have improved and he has approximated his known baseline. For full detail regarding the admission please refer to daily progress notes as he was admitted here for an extended period of time. Mental status exam: The patient is a tall overweight male appearing his stated age. He is adequate hygiene he is dressed in his own clothing. He ambulates with a limp he ambulates better with use of a wheelchair for stability. Eye contact is good speech is spontaneous verbose nonpressured. He can answer questions in a linear fashion but he will oftentimes become circumstantial at times tangential. Affect is bright. He is reporting no auditory or visual hallucinations. He does have grandiose and persecutory thoughts at times which are thought to be fixed. He reports feeling safe. Today he demonstrates no involuntary repetitive movements. He is oriented to person place and date. He reports no suicidal or homicidal ideation intent or plan. He demonstrates no verbal or physical aggressiveness. Impressions 1. Bipolar 1 disorder most recent manic with psychosis rule out schizoaffective disorder 2. History of deep vein thrombosis on Coumadin therapy, hypertension, kidney disease Plan: The patient will be discharged from the mental health unit today to reside at a senior care temporarily. This plan has been approved by [facility] and his guardian. We will continue the patient on Clozaril 350 mg in the evening, Trileptal 600 mg twice daily. He will need to follow-up with primary care regarding his INR. At this time there is no imminent safety risk he is appropriate for transition outpatient care. He is instructed to return to the hospital with any acute safety concerns. Patient Condition at Discharge: Stable Plan - Discharge Summary New Discharge Prescriptions: No Action Metoprolol Tartrate [Lopressor] 25 mg PO BID #60 tab cloZAPine [Clozaril] 100 mg PO BID@0700,1600 Warfarin [Coumadin] 2.5 mg PO MOWE Warfarin [Coumadin] 10 mg PO [facility] Calcium Carbonate/Vitamin D3 [Calcium 500-Vit D3 200 Tablet] 1 tab PO DAILY OXcarbazepine [Trileptal] 150 mg PO BID@0700,1600 OXcarbazepine 600 mg PO BID@0700,1600 Discharge Medication List Metoprolol Tartrate [Lopressor] 25 mg PO BID #60 tab 05/19/18 [Rx] Calcium Carbonate/Vitamin D3 [Calcium 500-Vit D3 200 Tablet] 1 tab PO DAILY [History] OXcarbazepine 600 mg PO BID@0700,1600 07/03/18 [History] OXcarbazepine [Trileptal] 150 mg PO BID@0700,1600 07/03/18 [History] Warfarin [Coumadin] 2.5 mg PO MOWE 07/03/18 [History] Warfarin [Coumadin] 10 mg PO SUTUTHFRSA 07/03/18 [History] cloZAPine [Clozaril] 100 mg PO BID@0700,1600 07/03/18 [History] Follow up Appointment(s)/Referral(s): [facility] [Outside] - 1 Week (w/ Dr. Jules 07/16/18 @ 8:30am w/ Nando Spain 07/25/18 @10am) Jaspal Melgoza MD [Primary Care Provider] - 1-2 days Patient Instructions/Handouts: How to Stop Smoking (DC) Activity/Diet/Wound Care/Special Instructions: Remove all weapons and firearms from the home; Refrain from street drugs and alcohol; Diet and activity as tolerated; Follow-up with your PCP in 1-2 days; Keep all scheduled follow-up appointments for continuity of care; Take all meds. as prescribed; When you are in need of prescription refills, contact either your PCP or your aftercare psychiatrist; If you worsen or have any problems, call the Crisis Line at or go to the nearest for a psychiatric evaluation.
== END 2018-07-18 16:39 | disposition home or self-care (01) | DRG 885 ==
LOC: EC 12:06 → 3MHU 20:13
PROVIDERS: ADMIT Psychiatry & Neurology Psychiatry; ATTEND Psychiatry & Neurology Psychiatry
DX: F31.2 Bipolar disorder, current episode manic severe with psychotic features (principal); I82.502 Chronic embolism and thrombosis of unspecified deep veins of left lower extremity; F17.210 Nicotine dependence, cigarettes, uncomplicated; F41.9 Anxiety disorder, unspecified; I12.9 Hypertensive chronic kidney disease with stage 1 through stage 4 chronic kidney disease, or unspecified chronic kidney disease; I48.0 Paroxysmal atrial fibrillation; I87.2 Venous insufficiency (chronic) (peripheral); M25.371 Other instability, right ankle; N18.3 Chronic kidney disease, stage 3 (moderate); Z79.01 Long term (current) use of anticoagulants; T43.96XA Underdosing of unspecified psychotropic drug, initial encounter; Z91.128 Patient's intentional underdosing of medication regimen for other reason; R79.1 Abnormal coagulation profile; Z86.14 Personal history of Methicillin resistant Staphylococcus aureus infection; Z88.8 Allergy status to other drugs, medicaments and biological substances; Z95.0 Presence of cardiac pacemaker; Z79.899 Other long term (current) drug therapy
CPT/HCPCS: 36415; 80048; 80053; 80159; 80183; 80306; 82075; 84443; 85025; 85610; 85730; 87324; 99285

== ENCOUNTER 2018-08-05 11:53 | Emergency (ER) | payer MEDICARE, OTHER ==
[2018-08-05 12:12] VITALS: RESP 18
--- NOTE | 2018-08-05 12:21 | ED ---
General Adult HPI - General Chief complaint: Psychiatric Symptoms Stated complaint: MENTAL HEALTH Time Seen by Provider: 08/05/18 12:13 Source: patient, EMS, RN notes reviewed Mode of arrival: EMS Limitations: no limitations - History of Present Illness Initial comments: Patient is a pleasant 62-year-old male presenting to the emergency Department with requested psychiatric evaluation. Patient states he is here for a blood draw. Patient has no specific complaints. Patient reportedly gets told he is being sent for a blood draw so he will cooperate. Patient reportedly has had increased odd behavior and sexual advances towards staff at his [facility] home. Patient denies any physical complaints. No pain. No dyspnea. Patient states he has been taking his medication. Patient denies hallucinations. Patient states he has been eating and drinking just fine. Patient states he is sleeping fine and taking care of himself. No alcohol or street drug use. No suicidal or homicidal thoughts - Related Data Home Medications Medication Instructions Recorded Confirmed Paliperidone IM [Invega Sustenna] 234 mg IM Q28D 08/05/18 08/05/18 Previous Rx's Medication Instructions Recorded Metoprolol Tartrate [Lopressor] 25 mg PO BID #60 tab 07/18/18 OXcarbazepine 600 mg PO BID@0700,1600 30 Days 07/18/18 #60 tablet Warfarin [Coumadin] 10 mg PO DAILY@1800 30 Days #30 tab 07/18/18 cloZAPine [Clozaril] 350 mg PO HS 30 Days #120 tab 07/18/18 Allergies Allergy/AdvReac Type Severity Reaction Status Date / Time divalproex sodium Allergy Unknown Verified 08/05/18 12:42 [From Depakote] haloperidol [From Haldol] Allergy Unknown Verified 08/05/18 12:42 haloperidol lactate Allergy Unknown Verified 08/05/18 12:42 [From Haldol] lithium Allergy Unknown Verified 08/05/18 12:42 Review of Systems ROS Statement: Those systems with pertinent positive or pertinent negative responses have been documented in the HPI. ROS Other: All systems not noted in ROS Statement are negative. Constitutional: Denies: fever Eyes: Denies: eye pain ENT: Denies: ear pain Respiratory: Denies: cough Cardiovascular: Denies: chest pain Endocrine: Denies: fatigue Gastrointestinal: Denies: abdominal pain Genitourinary: Denies: dysuria Musculoskeletal: Denies: back pain Skin: Denies: rash Neurological: Denies: weakness Psychiatric: Denies: auditory hallucinations, visual hallucinations, homicidal thoughts, suicidal thoughts 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; Chronic kidney disease stage 3, bipolar depression History of Any Multi-Drug Resistant Organisms: MRSA Date of last positivie culture/infection: 04/27/2014 MDRO Source:: Right Arm Past Surgical History: Back Surgery, Hernia Repair, Pacemaker, Tonsillectomy Past Anesthesia/Blood Transfusion Reactions: Previous Problems w/ Anesthesia Additional Past Anesthesia/Blood Transfusion Reaction / Comment(s): STATES " HARD TIME BREATHING LAYING FLAT, I'M A MOUTH BREATHER" Type of Cardiac Device: Permanent Pacemaker Device Placement Date:: 2015 Past Psychological History: Bipolar, Depression Smoking Status: Current every day smoker - Past Family History Father History Unknown: Yes Mother History Unknown: Yes General Exam Limitations: no limitations General appearance: alert, in no apparent distress Head exam: Present: atraumatic Eye exam: Present: normal appearance Neck exam: Present: normal inspection Respiratory exam: Present: normal lung sounds bilaterally Cardiovascular Exam: Present: regular rate, normal rhythm GI/Abdominal exam: Present: soft. Absent: tenderness Extremities exam: Present: pedal edema (+1 bilateral which patient states is chronic). Absent: calf tenderness Neurological exam: Present: alert Psychiatric exam: Present: normal affect, normal mood Skin exam: Absent: rash Course Vital Signs 08/05/18 08/05/18 12:05 15:34 Temperature 97.9 F 98.4 F Pulse Rate 80 89 Respiratory 18 18 Rate Blood Pressure 145/89 153/95 O2 Sat by Pulse 98 98 Oximetry Medical Decision Making - Medical Decision Making Patient reevaluated and remained symptom-free. Patient was seen by mental health services who recommends discharge. - Lab Data Lab Results 08/05/18 Range/Units 12:31 Urine Opiates Screen Not Detected (NotDetected) Ur Oxycodone Screen Not Detected (NotDetected) Urine Methadone Screen Not Detected (NotDetected) Ur Propoxyphene Screen Not Detected (NotDetected) Ur Barbiturates Screen Not Detected (NotDetected) U Tricyclic Antidepress Not Detected (NotDetected) Ur Phencyclidine Scrn Not Detected (NotDetected) Ur Amphetamines Screen Not Detected (NotDetected) U Methamphetamines Scrn Not Detected (NotDetected) U Benzodiazepines Scrn Not Detected (NotDetected) Urine Cocaine Screen Not Detected (NotDetected) U Marijuana (THC) Screen Not Detected (NotDetected) Disposition Clinical Impression: Bipolar disorder Disposition: HOME SELF-CARE Condition: Stable Instructions (If sedation given, give patient instructions): Bipolar Disorder ( ED) Additional Instructions: Please follow-up with mental health services as directed. Return for worsening or change in symptoms or other concerns. Is patient prescribed a controlled substance at d/c from ED?: No Referrals: Jaspal Melgoza MD [Primary Care Provider] - 1-2 days Time of Disposition: 15:40
[2018-08-05 13:10] LABS: Amphetamine Screen,Urine Not Detected (NotDetected); Barbiturate Screen,Urine Not Detected (NotDetected); Benzodiazepines Screen,Urine Not Detected (NotDetected); Cocaine Screen,Urine Not Detected (NotDetected); Methadone Screen, Urine Not Detected (NotDetected); Opiate Screen,Urine Not Detected (NotDetected); Oxycodone Screen, Urine Not Detected (NotDetected); Phencyclidine Screen,Urine Not Detected (NotDetected); Tricyclic Antidepressant,Urine Not Detected (NotDetected); Urn Cannabinoid Scrn Not Detected (NotDetected)
[2018-08-05 15:38] VITALS: BP 153/95; PULSE 89; TEMP 98.4
== END 2018-08-05 15:43 | disposition home or self-care (01) ==
LOC: EC 11:53
DX: F31.9 Bipolar disorder, unspecified (principal); F17.200 Nicotine dependence, unspecified, uncomplicated; Z86.14 Personal history of Methicillin resistant Staphylococcus aureus infection; Z79.899 Other long term (current) drug therapy; Z88.8 Allergy status to other drugs, medicaments and biological substances; Z95.0 Presence of cardiac pacemaker
CPT/HCPCS: 80306; 82075; 99284

== ENCOUNTER 2019-01-19 15:11 | Inpatient (IN) | payer MEDICARE, OTHER ==
--- NOTE | 2019-01-19 17:33 | ED ---
General Adult HPI - General Chief complaint: Psychiatric Symptoms Stated complaint: Mental Health Time Seen by Provider: 01/19/19 16:42 Source: patient Mode of arrival: ambulatory Limitations: no limitations - History of Present Illness Initial comments: Dictation was produced using [employer] dictation software. please excuse any grammatical, word or spelling errors. Chief Complaint: Patient is 63-year-old male well-known to emergency department for evaluation. History of Present Illness: [id number] 3-year-old male he has past medical history of psychiatric disease, deep venous thrombosis hypertension and kidney disease. Presents today with enforcement for evaluation. Patient is an unreliable historian at this time. He has significant tangential speech and unable to provide history. Patient continues to say that he has $70,000 and wants to buy smokes The ROS documented in this emergency department record has been reviewed and confirmed by me. Those systems with pertinent positive or negative responses h ave been documented in the HPI. All other systems are other negative and/or noncontributory. PHYSICAL EXAM: General Impression: Alert, no acute distress HEENT: Normocephalic atraumatic, extra-ocular movements intact, pupils equal and reactive to light bilaterally, mucous membranes moist. Cardiovascular: Heart regular rate and rhythm, S1&S2 audible, no murmurs, rubs or gallops Chest: Lungs clear to auscultation bilaterally, no rhonchi, no wheeze, no rales Abdomen: Bowel sounds present, abdomen soft, non-tender, non-distended, no organomegaly Musculoskeletal: Pulses present and equal in all extremities, no peripheral edema Motor: no focal deficits noted Neurological: CN II-XII grossly intact, no focal motor or sensory deficits noted Skin: Intact with no visualized rashes Psych: Tangential speech, poor eye contact ED course: 63 yo male brought in by law enforcement by [facility] for medical e valuation. Patient is not providing history at this time. On arrival shows heart rate of 152, rest of vital signs are unremarkable. Patient is well- appearing at bedside. Lung enforcement is not a bedside to provide collateral information why he was brought to the emergency department. All that is known is what was said to triage nurse by law enforcement when patient was dropped off.Patient is well-known to emergency department and does appear to be around his baseline. Patient has been admitted multiple occasions for psychiatric reasons.Laboratory evaluation obtained. Patient has mild leukocytosis of 12.0 likely secondary to stress. Patient hemoglobin stable at 12.3 which appears to be at her baseline. Metabolic panel urinalysis. The patient's normal. Urine drug screen is negative. Patient medically cleared for EPS evaluation. Patient to be admitted to inpatient psychiatry. - Related Data Previous Rx's Medication Instructions Recorded Apixaban [Eliquis] 5 mg PO BID #56 tab 01/14/19 OXcarbazepine [Trileptal] 450 mg PO BID #168 tab 01/14/19 amLODIPine [Norvasc] 5 mg PO DAILY #28 tab 01/14/19 cloZAPine [Clozaril] 50 mg PO DAILY #56 tablet 01/14/19 cloZAPine [Clozaril] 100 mg PO HS #28 tab 01/14/19 Allergies Allergy/AdvReac Type Severity Reaction Status Date / Time divalproex sodium Allergy Unknown Verified 01/19/19 17:19 [From Depakote] haloperidol [From Haldol] Allergy Unknown Verified 01/19/19 17:19 haloperidol lactate Allergy Unknown Verified 01/19/19 17:19 [From Haldol] lithium Allergy Unknown Verified 01/19/19 17:19 Review of Systems ROS Statement: Those systems with pertinent positive or pertinent negative responses have been documented in the HPI. ROS Other: All systems not noted in ROS Statement are negative. 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; Chronic kidney disease stage 3, bipolar depression History of Any Multi-Drug Resistant Organisms: MRSA Date of last positivie culture/infection: 04/27/2014 MDRO Source:: Right Arm Past Surgical History: Back Surgery, Hernia Repair, Pacemaker, Tonsillectomy Past Anesthesia/Blood Transfusion Reactions: Previous Problems w/ Anesthesia Additional Past Anesthesia/Blood Transfusion Reaction / Comment(s): STATES "HARD TIME BREATHING LAYING FLAT, I'M A MOUTH BREATHER" Type of Cardiac Device: Permanent Pacemaker Device Placement Date:: 2015 Past Psychological History: Bipolar, Depression Smoking Status: Current some day smoker Past Alcohol Use History: Occasional Past Drug Use History: None Reported - Past Family History Father History Unknown: Yes Mother History Unknown: Yes General Exam Limitations: no limitations Course Vital Signs 01/19/19 15:19 Temperature 97.8 F Pulse Rate 152 H Respiratory 18 Rate Blood Pressure 115/78 O2 Sat by Pulse 97 Oximetry Medical Decision Making - Lab Data Result diagrams: 01/19/19 18:00 01/19/19 18:00 Lab Results 01/19/19 01/19/19 01/19/19 Range/Units 18:00 18:00 18:00 WBC 12.0 H (3.8-10.6) k/uL RBC 4.19 L (4.30-5.90) m/uL Hgb 12.3 L (13.0-17.5) gm/dL Hct 37.7 L (39.0-53.0) % MCV 89.9 (80.0-100.0) fL MCH 29.2 (25.0-35.0) pg MCHC 32.5 (31.0-37.0) g/dL RDW 16.2 H (11.5-15.5) % Plt Count 205 (150-450) k/uL Neutrophils % 79 % Lymphocytes % 12 % Monocytes % 7 % Eosinophils % 1 % Basophils % 0 % Neutrophils # 9.5 H (1.3-7.7) k/uL Lymphocytes # 1.4 (1.0-4.8) k/uL Monocytes # 0.8 (0-1.0) k/uL Eosinophils # 0.1 (0-0.7) k/uL Basophils # 0.0 (0-0.2) k/uL Anisocytosis Slight Sodium 139 (137-145) mmol/L Potassium 4.7 (3.5-5.1) mmol/L Chloride 109 H (98-107) mmol/L Carbon Dioxide 19 L (22-30) mmol/L Anion Gap 11 mmol/L BUN 39 H (9-20) mg/dL Creatinine 2.10 H (0.66-1.25) mg/dL Est GFR (CKD-EPI)AfAm 38 (>60 ml/min/1.73 sqM) Est GFR (CKD-EPI)NonAf 33 (>60 ml/min/1.73 sqM) Glucose 107 H (74-99) mg/dL Calcium 9.4 (8.4-10.2) mg/dL Magnesium 1.9 (1.6-2.3) mg/dL Urine Color Light Yellow Urine Appearance Clear (Clear) Urine pH 5.5 (5.0-8.0) Ur Specific [place] 1.005 (1.001-1.035) Urine Protein 1+ H (Negative) Urine Glucose (UA) Negative (Negative) Urine Ketones Negative (Negative) Urine Blood Trace H (Negative) Urine Nitrite Negative (Negative) Urine Bilirubin Negative (Negative) Urine Urobilinogen <2.0 (<2.0) mg/dL Ur Leukocyte Esterase Negative (Negative) Urine RBC 1 (0-5) /hpf Urine WBC <1 (0-5) /hpf Urine Bacteria Rare H (None) /hpf Urine Mucus Rare H (None) /hpf Urine Opiates Screen (NotDetected) Ur Oxycodone Screen (NotDetected) Urine Methadone Screen (NotDetected) Ur Propoxyphene Screen (NotDetected) Ur Barbiturates Screen (NotDetected) U Tricyclic Antidepress (NotDetected) Ur Phencyclidine Scrn (NotDetected) Ur Amphetamines Screen (NotDetected) U Methamphetamines Scrn (NotDetected) U Benzodiazepines Scrn (NotDetected) Urine Cocaine Screen (NotDetected) U Marijuana (THC) Screen (NotDetected) Serum Alcohol <10 mg/dL 01/19/19 Range/Units 18:00 WBC (3.8-10.6) k/uL RBC (4.30-5.90) m/uL Hgb (13.0-17.5) gm/dL Hct (39.0-53.0) % MCV (80.0-100.0) fL MCH (25.0-35.0) pg MCHC (31.0-37.0) g/dL RDW (11.5-15.5) % Plt Count (150-450) k/uL Neutrophils % % Lymphocytes % % Monocytes % % Eosinophils % % Basophils % % Neutrophils # (1.3-7.7) k/uL Lymphocytes # (1.0-4.8) k/uL Monocytes # (0-1.0) k/uL Eosinophils # (0-0.7) k/uL Basophils # (0-0.2) k/uL Anisocytosis Sodium (137-145) mmol/L Potassium (3.5-5.1) mmol/L Chloride (98-107) mmol/L Carbon Dioxide (22-30) mmol/L Anion Gap mmol/L BUN (9-20) mg/dL Creatinine (0.66-1.25) mg/dL Est GFR (CKD-EPI)AfAm (>60 ml/min/1.73 sqM) Est GFR (CKD-EPI)NonAf (>60 ml/min/1.73 sqM) Glucose (74-99) mg/dL Calcium (8.4-10.2) mg/dL Magnesium (1.6-2.3) mg/dL Urine Color Urine Appearance (Clear) Urine pH (5.0-8.0) Ur Specific [place] (1.001-1.035) Urine Protein (Negative) Urine Glucose (UA) (Negative) Urine Ketones (Negative) Urine Blood (Negative) Urine Nitrite (Negative) Urine Bilirubin (Negative) Urine Urobilinogen (<2.0) mg/dL Ur Leukocyte Esterase (Negative) Urine RBC (0-5) /hpf Urine WBC (0-5) /hpf Urine Bacteria (None) /hpf Urine Mucus (None) /hpf Urine Opiates Screen Not Detected (NotDetected) Ur Oxycodone Screen Not Detected (NotDetected) Urine Methadone Screen Not Detected (NotDetected) Ur Propoxyphene Screen Not Detected (NotDetected) Ur Barbiturates Screen Not Detected (NotDetected) U Tricyclic Antidepress Not Detected (NotDetected) Ur Phencyclidine Scrn Not Detected (NotDetected) Ur Amphetamines Screen Not Detected (NotDetected) U Methamphetamines Scrn Not Detected (NotDetected) U Benzodiazepines Scrn Not Detected (NotDetected) Urine Cocaine Screen Not Detected (NotDetected) U Marijuana (THC) Screen Not Detected (NotDetected) Serum Alcohol mg/dL Disposition Clinical Impression: Acute psychosis Disposition: ADMITTED IP TO THIS HOSP Condition: Fair Decision Time: 23:37
[2019-01-19 18:24] LABS: Anisocytosis Slight; Basophils % (A) 0 %; Eosinophils # (A) 0.1 k/uL (0-0.7); Eosinophils % (A) 1 %; HCT 37.7 % (39.0-53.0); HGB 12.3 gm/dL (13.0-17.5); Lymphocytes # (A) 1.4 k/uL (1.0-4.8); Lymphocytes % (A) 12 %; MCH 29.2 pg (25.0-35.0); MCHC 32.5 g/dL (31.0-37.0); MCV 89.9 fL (80.0-100.0); Mean Platelet Volume 8.6; Monocytes # (A) 0.8 k/uL (0-1.0); Monocytes % (A) 7 %; Neutrophils # (A) 9.5 k/uL (1.3-7.7); Neutrophils % (A) 79 %; Platelet Count 205 k/uL (150-450); RBC 4.19 m/uL (4.30-5.90); RDW 16.2 % (11.5-15.5)
[2019-01-19 18:31] LABS: Appearance,Urine Clear (Clear); Bacteria,Urine Rare /hpf; Bilirubin,Urine Negative (Negative); Blood,Urine Trace (Negative); Color,Urine Light Yellow; Glucose,Urine (UA) Negative (Negative); Ketones,Urine Negative (Negative); Leukocyte Esterase,Urine Negative (Negative); Mucus,Urine Rare /hpf; Nitrite,Urine Negative (Negative); PH, Urine 5.5 (5.0-8.0); Protein,Urine 1+ (Negative); RBC,Urine 1 /hpf (0-5); Specific Gravity,Urine 1.005 (1.001-1.035); Urobilinogen,Urine <2.0 mg/dL (<2.0); WBC,Urine <1 /hpf (0-5)
[2019-01-19 18:42] LABS: African American GFR (CKD) 38 (>60 ml/min/1.73 sqM); Alcohol <10 mg/dL; Anion Gap 11 mmol/L; Blood Urea Nitrogen 39 mg/dL (9-20); Calcium 9.4 mg/dL (8.4-10.2); Carbon Dioxide 19 mmol/L (22-30); Chloride 109 mmol/L (98-107); Glucose 107 mg/dL (74-99); Magnesium 1.9 mg/dL (1.6-2.3); Potassium 4.7 mmol/L (3.5-5.1); Sodium 139 mmol/L (137-145)
[2019-01-19 19:27] LABS: Amphetamine Screen,Urine Not Detected (NotDetected); Barbiturate Screen,Urine Not Detected (NotDetected); Benzodiazepines Screen,Urine Not Detected (NotDetected); Cocaine Screen,Urine Not Detected (NotDetected); Methadone Screen, Urine Not Detected (NotDetected); Opiate Screen,Urine Not Detected (NotDetected); Oxycodone Screen, Urine Not Detected (NotDetected); Phencyclidine Screen,Urine Not Detected (NotDetected); Tricyclic Antidepressant,Urine Not Detected (NotDetected); Urn Cannabinoid Scrn Not Detected (NotDetected)
[2019-01-19] MEDS ORDERED: MAGNESIUM HYDROXIDE 2,400 MG/10 ML CUP PO PRN (22:42)
[2019-01-19] MEDS: ZIPRASIDONE 20 MG VIAL IM PRN (23:28)
[2019-01-19] MEDS: LORazepam 2 MG/ML INJ IM PRN (23:28)
[2019-01-19] MEDS: cloZAPine 100 MG TAB PO SCH (23:34)
[2019-01-19] MEDS: OXcarbazepine 150 MG TAB PO SCH (23:34)
[2019-01-19] MEDS: APIXABAN 5 MG TAB PO SCH (23:34)
[2019-01-20] MEDS: LORazepam 1 MG TAB PO PRN (04:43)
[2019-01-20] MEDS: APIXABAN 5 MG TAB PO SCH ×3 (08:06→20:55)
[2019-01-20] MEDS: amLODIPine 5 MG TAB PO SCH (09:59)
[2019-01-20] MEDS: OXcarbazepine 150 MG TAB PO SCH ×2 (09:59→20:55)
[2019-01-20] MEDS: cloZAPine 25 MG TAB PO SCH (10:00)
[2019-01-20] MEDS: NICOTINE 14MG/24HR PATCH TRANSDERM SCH (10:00)
--- NOTE | 2019-01-20 14:57 | P.HP ---
Psychiatric H&P - . H&P Date: 01/20/19 History & Physical: Allergies Allergy/AdvReac Type Severity Reaction Status Date / Time divalproex sodium Allergy Unknown Verified 01/19/19 17:19 [From Depakote] haloperidol [From Haldol] Allergy Unknown Verified 01/19/19 17:19 haloperidol lactate Allergy Unknown Verified 01/19/19 17:19 [From Haldol] lithium Allergy Unknown Verified 01/19/19 17:19 Vital Signs Temp 97.9 F 01/20/19 04:00 Pulse 154 H 01/20/19 09:58 Resp 18 01/20/19 09:58 BP 116/72 01/20/19 09:58 Pulse Ox 97 01/20/19 09:58 Intake & Output 01/19/19 01/20/19 01/20/19 18:59 06:59 18:59 Weight 114.759 kg Laboratory Last Values WBC 12.0 k/uL (3.8-10.6) H 01/19/19 18:00 RBC 4.19 m/uL (4.30-5.90) L 01/19/19 18:00 Hgb 12.3 gm/dL (13.0-17.5) L 01/19/19 18:00 Hct 37.7 % (39.0-53.0) L 01/19/19 18:00 MCV 89.9 fL (80.0-100.0) 01/19/19 18:00 MCH 29.2 pg (25.0-35.0) 01/19/19 18:00 MCHC 32.5 g/dL (31.0-37.0) 01/19/19 18:00 RDW 16.2 % (11.5-15.5) H 01/19/19 18:00 Plt Count 205 k/uL (150-450) 01/19/19 18:00 Neutrophils % 79 % 01/19/19 18:00 Lymphocytes % 12 % 01/19/19 18:00 Monocytes % 7 % 01/19/19 18:00 Eosinophils % 1 % 01/19/19 18:00 Basophils % 0 % 01/19/19 18:00 Neutrophils # 9.5 k/uL (1.3-7.7) H 01/19/19 18:00 Lymphocytes # 1.4 k/uL (1.0-4.8) 01/19/19 18:00 Monocytes # 0.8 k/uL (0-1.0) 01/19/19 18:00 Eosinophils # 0.1 k/uL (0-0.7) 01/19/19 18:00 Basophils # 0.0 k/uL (0-0.2) 01/19/19 18:00 Anisocytosis Slight 01/19/19 18:00 Sodium 139 mmol/L (137-145) 01/19/19 18:00 Potassium 4.7 mmol/L (3.5-5.1) 01/19/19 18:00 Chloride 109 mmol/L (98-107) H 01/19/19 18:00 Carbon Dioxide 19 mmol/L (22-30) L 01/19/19 18:00 Anion Gap 11 mmol/L 01/19/19 18:00 BUN 39 mg/dL (9-20) H 01/19/19 18:00 Creatinine 2.10 mg/dL (0.66-1.25) H 01/19/19 18:00 Est GFR (CKD-EPI)AfAm 38 (>60 ml/min/1.73 sqM) 01/19/19 18:00 Est GFR (CKD-EPI)NonAf 33 (>60 ml/min/1.73 sqM) 01/19/19 18:00 Glucose 107 mg/dL (74-99) H 01/19/19 18:00 Calcium 9.4 mg/dL (8.4-10.2) 01/19/19 18:00 Magnesium 1.9 mg/dL (1.6-2.3) 01/19/19 18:00 Triglycerides 105 mg/dL (<150) 01/20/19 09:38 Cholesterol 144 mg/dL (<200) 01/20/19 09:38 LDL Cholesterol, Calc 78 mg/dL (0-99) 01/20/19 09:38 HDL Cholesterol 45 mg/dL (40-60) 01/20/19 09:38 TSH 1.300 mIU/L (0.465-4.680) 01/20/19 09:38 Urine Color Light Yellow 01/19/19 18:00 Urine Appearance Clear (Clear) 01/19/19 18:00 Urine pH 5.5 (5.0-8.0) 01/19/19 18:00 Ur Specific [place] 1.005 (1.001-1.035) 01/19/19 18:00 Urine Protein 1+ (Negative) H 01/19/19 18:00 Urine Glucose (UA) Negative (Negative) 01/19/19 18:00 Urine Ketones Negative (Negative) 01/19/19 18:00 Urine Blood Trace (Negative) H 01/19/19 18:00 Urine Nitrite Negative (Negative) 01/19/19 18:00 Urine Bilirubin Negative (Negative) 01/19/19 18:00 Urine Urobilinogen <2.0 mg/dL (<2.0) 01/19/19 18:00 Ur Leukocyte Esterase Negative (Negative) 01/19/19 18:00 Urine RBC 1 /hpf (0-5) 01/19/19 18:00 Urine WBC <1 /hpf (0-5) 01/19/19 18:00 Urine Bacteria Rare /hpf (None) H 01/19/19 18:00 Urine Mucus Rare /hpf (None) H 01/19/19 18:00 Urine Opiates Screen Not Detected (NotDetected) 01/19/19 18:00 Ur Oxycodone Screen Not Detected (NotDetected) 01/19/19 18:00 Urine Methadone Screen Not Detected (NotDetected) 01/19/19 18:00 Ur Propoxyphene Screen Not Detected (NotDetected) 01/19/19 18:00 Ur Barbiturates Screen Not Detected (NotDetected) 01/19/19 18:00 U Tricyclic Antidepress Not Detected (NotDetected) 01/19/19 18:00 Ur Phencyclidine Scrn Not Detected (NotDetected) 01/19/19 18:00 Ur Amphetamines Screen Not Detected (NotDetected) 01/19/19 18:00 U Methamphetamines Scrn Not Detected (NotDetected) 01/19/19 18:00 U Benzodiazepines Scrn Not Detected (NotDetected) 01/19/19 18:00 Urine Cocaine Screen Not Detected (NotDetected) 01/19/19 18:00 U Marijuana (THC) Screen Not Detected (NotDetected) 01/19/19 18:00 Serum Alcohol <10 mg/dL 01/19/19 18:00 01/20/19 14:41 Identification: Patient is a 63-year-old male who was brought to the hospital due to failure to follow his medical treatment. History of Present Illness: Patient was just recently discharged from the hospital on January 14, he went to live in a snf and the patient states that he went to a friend's house fell sleep and didn't return to the snf that night. Patient states that he was taking his medications at the snf. Patient again apparently went to the bank and was asking to have a check for $17,000 to buy a motorcycle. Patient states that he went to the bank because that's where he cashes his check for his spending money was asking for a loan money to buy a motorcycle. Patient states that he missed his medications when he was at his friend's house. Patient states he had been taking them. Patient has a long history of admissions for bipolar disorder and was here most recently at the end of December and was here again in June 2018. Patient has been living at a snf and this was changed at his last discharge to a different snf. Patient has been admitted numerous times for noncompliance with medication and follow-up appointments, patient presents reporting that he is trying to collect his money so that he can buy a house, motorcycle or car. Patient today again stated that he was at the bank trying to get money to buy a motorcycle, when I discussed with him that he has a guardian who is in charge of his money the patient was able to state that he gets money weekly from the guardian for expenses, but then will immediately state that he wants to buy a motorcycle so he can go visit friends in [place]. Patient states that he was not sleeping in his bed, continues to sleep in chairs her on a couch. Patient states he doesn't need to be here and doesn't understand why he was brought here and then talked about someone stealing money and his watch. Patient states he was tricked into being here. Past Psychiatric History: Patient has had over 11 admissions, his symptoms began he states at the age of 18 when he was in the [employer]. Patient is currently taking Clozaril 50 mg in the morning 100 at bedtime and Trileptal 450 mg twice a day. Past Medical/Surgical History: Patient has a history of hypertension, DVT, sick sinus syndrome and has a pacemaker Family History: Unknown, patient states he can't tell me Social History: Patient's parents are , he has 2 siblings states he was and is a . He has no children. He is been living at a snf and has a public guardian. Patient served in the [employer] for less than a year and states he was honorably discharged. Patient is not currently working and is on Social Security disability. Substance Use History: Patient states that he is not using alcohol or drugs at this time. Legal History: None Mental status: Appearance/Attitude: Patient is dressed in a hospital gown, his grooming is fair he makes eye contact intermittently and is cooperative Behavior: Patient does not exhibit any psychomotor agitation or retardation. Speech/Language: Patient's speech is spontaneous, normal volume and rhythm and he is coherent Thought Process: Patient is goal-directed, is no evidence of loose associations or flight of ideas Thought Content: Patient denies any auditory or visual hallucinations no delusions or paranoid ideation or elicited. Patient states that he went to the bank because he wanted to withdraw his money to buy a motorcycle. Patient and I discussed that he has a guardian who is in charge of his money and patient said that he understood that but then states that he wanted to buy a motorcycle, wants to buy a house once to live on his own. Patient is able to state that he gets anywhere from $50-$200 a week from his guardian based on what he needs for expenses. Patient states that he was taking his medications when he was at the snf. Patient states he went to the bank where he cashes his check from the guardian to obtain money to buy a motorcycle. Patient states that he fell asleep at a friend's house and did not return to the snf that night. Suicidal/Homicidal Ideation: Patient denies any current suicidal or homicidal ideation Sensorium/Cognition: Patient is alert and oriented to person, place and time and his recent and remote memory are grossly intact Mood/Affect: Patient's mood is slightly irritable and his affect is appropriate to his mood Insight/Judgment: Patient's insight and judgment are limited Intellectual Functioning: patient's intellectual functioning appears average Strength/Weakness: patient has financial support, housing/inability to comply with medical treatment on a regular consistent basis Assessment: patient has a long history of bipolar disorder, is currently living in a snf and has a public guardian, the patient continues to insist that he can live on his own and wants to gain access to his finances to buy a motorcycle, a home because he doesn't want to continue living in a snf. Patient will agree that he understands what a guardian is and then with the next sentence will ask if he can have access to his money to buy a motorcycle. In reviewing the medical administration record from the snf the patient did not have his medication on January 18 or the morning of January 19 patient was admitted on the to the inpatient psychiatric unit in the evening. Patient prior to that had been taking his medications as prescribed. Admission Diagnosis: bipolar disorder type I, current episode unspecified Plan: patient is admitted on a demand for hearing, placed on routine observation in group and activity therapy were ordered. Patient will have routine laboratory studies and a medical consultation obtained. Patient will be continued on his medications for his medical problems and continued on Clozaril 50 mg in the morning 100 at bedtime and Trileptal 450 mg twice a day. Patient and I had a long discussion regarding what the guardian means, what access he has to his money and the fact that he needs to continue living at a snf. Patient will acknowledge that he understands, but continues to question why he can't buy motorcycle or live on his own. Patient has little insight or understanding into why he has a guardian or why he is living in a snf even with repeated explanations regarding these situations.
[2019-01-20] MEDS: ACETAMINOPHEN TAB 325 MG TAB PO PRN (17:20)
[2019-01-20 20:32] LABS: Hemoglobin A1C 6.2 % (4.0-6.0)
[2019-01-20] MEDS: cloZAPine 100 MG TAB PO SCH (20:55)
--- NOTE | 2019-01-21 06:11 | CONS ---
CONSULTATION DATE OF CONSULTATION: 01/20/2019 REASON FOR CONSULTATION: Medical management requested by Dr. Clark. CONSULTATION: This is a 63-year-old patient with chronic stable medical conditions that include chronic kidney disease stage 3, chronic left leg DVT, unstable right ankle joint does walk with a limp who lives at a custodial. The patient was recently discharged from the hospital from the psychiatry unit. The patient has also underlying bipolar disorder with manic episode. On this occasion, I was told patient did leave the custodial, did come back. Because he was past beyond the curfew time, he was sent in to the psychiatry unit and admitted to the same. The patient is rather cheerful, cracking jokes, but goes from one point to the other point, often talking about his fishing. The patient took his medications in the psychiatry unit. Did eat his meals. Denies any pain. REVIEW OF SYSTEMS: CONSTITUTIONAL: Tired. HEENT: None. RESPIRATORY: None. CARDIOVASCULAR: None. GASTROINTESTINAL: None. GENITOURINARY: None. MUSCULOSKELETAL: Occasional pain in the foot. DERMATOLOGICAL: None. HEMATOLOGIC: None. LYMPHATIC: None. PSYCHIATRY: As above. NEUROLOGICAL: None. PAST MEDICAL HISTORY: Left leg DVT, hypertension, chronic kidney disease stage 3, bipolar disorder with manic episodes chronic right ankle dislocation. SOCIAL HISTORY: Patient smoked close to 50 years. Used to work in the [employer]. Currently living at [facility]. HOME MEDICATIONS: 1. Clozaril 50 mg in the morning, 100 mg at night. 2. Norvasc 5 mg daily. 3. Trileptal 450 mg b.i.d. 4. Eliquis 5 mg p.o. b.i.d. ALLERGIES: Allergies to DEPAKOTE, HALDOL, LITHIUM. PHYSICAL EXAMINATION: On examination, temperature 98.4, pulse 150, respiration 18, blood pressure 132/63, pulse ox 97% on room air. GENERAL APPEARANCE: Well built, BMI 34.3, sitting up, answering questions, laughing. EYES: Pupils equal. Conjunctivae normal. HENT: External appearance of nose and ears normal. Oral cavity normal. NECK: JVD unable to assess. Mass not palpable. RESPIRATORY: Effort normal. LUNGS: Decreased breath sounds. CARDIOVASCULAR: First and second sounds normal. No edema. ABDOMEN: Soft, nontender. Liver and spleen not palpable. LYMPHATIC: No lymph nodes palpable in the neck and axilla. PSYCHIATRY: Patient does answer questions, but sometimes jumps from one topic to the other topic, often talking about fishing, cracking jokes. EXTREMITIES: Deformity of the right ankle. NEUROLOGICAL: Pupils equal. No facial asymmetry. Cranial nerves grossly intact. INVESTIGATIONS: White count 12, hemoglobin 12.3, platelets 205. Potassium 4.7. BUN 39, creatinine 2.10. TSH normal. ASSESSMENT: 1. Bipolar disorder type 1, probably with manic episode with relapse. 2. Chronic kidney disease stage 3 from nephrosclerosis. 3. Chronic left leg deep venous thrombosis. The patient is on Eliquis. 4. Right ankle chronic instability. The patient does walk with a limp. 5. Bilateral lower extremity venous insufficiency. 6. Paroxysmal atrial fibrillation. 7. Tachyarrhythmia. PLAN: Home medications are to be continued. I did ask the nurse to get a EKG done. The patient was refusing the EKG. Did tell the nurse to request Dr. Clark to see if she can give the patient some medication like Geodon to calm him down and then maybe get an EKG done. Thank you Dr. Clark. MMODL / IJN: [id number] /
[2019-01-21] MEDS: amLODIPine 5 MG TAB PO SCH (08:45)
[2019-01-21] MEDS: APIXABAN 5 MG TAB PO SCH ×2 (08:45→21:25)
[2019-01-21] MEDS: OXcarbazepine 150 MG TAB PO SCH (08:45)
[2019-01-21] MEDS: NICOTINE 14MG/24HR PATCH TRANSDERM SCH (08:46)
[2019-01-21] MEDS: cloZAPine 25 MG TAB PO SCH (08:46)
--- NOTE | 2019-01-21 12:55 | P.PN ---
Progress Note - Text Progress Note Date: 01/21/19 Interval History: Patient is a 63-year-old male who was seen today, patient states he wants to leave wants to call his divorce attorney and is extremely irritable. Patient states he did nothing wrong he was at the bank trying to get his money. Patient states that he had been taking his meds but fell asleep at a friend's house and asked why he was in at the [facility] to receive his medications. Mental Status:Appearance/Attitude: Patient is dressed in casual clothes, makes no eye contact and was superficially cooperative and walks with a wide-based gait and slight limp Behavior: Patient does not exhibit any psychomotor retardation but is irritable and slightly agitated Speech/Language: Patient's speech is slightly pressured, of normal volume and he is coherent Thought Process: Patient is focused on leaving the hospital, getting his money and needs redirection to respond to other questions Thought Content: Patient denies auditory or visual hallucinations, no paranoid ideation is elicited, patient is focused on leaving the hospital, having the foreclosure paralegal removed guardianship, calling his divorce attorney to get him out of the hospital and getting his money. Patient continues to sleep at night in a chair on the unit. Suicidal/Homicidal Ideation: Patient denies any current suicidal or homicidal id eation Sensorium/Cognition: Patient is alert and oriented to person, place and situation Mood/Affect: Patient's mood is irritable and his affect is appropriate to his mood Insight/Judgment: Patient's insight and judgment are limited Assessment: Patient continues to insist that he needs to leave the hospital, that he's done nothing wrong and wishes to speak with his divorce attorney. Patient remains focused on having the guardianship removed and being seen in front of the foreclosure paralegal as well as getting access to his money. Patient states that he slept at a friend's house and that's why he did not return to the [facility] at night, he was able to tell me that there is a curfew at the [facility]. Patient remains intrusive and irritable, needing much verbal redirection from staff, walking in the halls spilling water. Plan: Patient will continue on Clozaril 50 mg the morning 100 mg at bedtime, we will increase his Trileptal to 600 mg twice a day to target his mood AND sitter adjusting his Clozaril dose should the patient remain irritable, intrusive. Patient requires hospitalization to stabilize his mood. Patient's access to large glasses of water will be restricted to small cups of water for a day to prevent him from spilling water and creating a safety hazard on the unit for himself and for other peers, patient is also not allowed to wear a blanket around she is shoulders to prevent him from falling and/or tripping another safety hazard for this patient.
[2019-01-21] MEDS: ACETAMINOPHEN TAB 325 MG TAB PO PRN ×2 (16:52→21:26)
[2019-01-21] MEDS: cloZAPine 100 MG TAB PO SCH (21:25)
[2019-01-21] MEDS: OXcarbazepine 300 MG TAB PO SCH (21:26)
[2019-01-21] MEDS: ZIPRASIDONE 20 MG VIAL IM PRN (21:27)
[2019-01-21] MEDS: LORazepam 2 MG/ML INJ IM PRN (21:27)
[2019-01-22] MEDS: APIXABAN 5 MG TAB PO SCH ×2 (07:29→21:11)
[2019-01-22] MEDS: amLODIPine 5 MG TAB PO SCH (07:29)
[2019-01-22] MEDS: OXcarbazepine 300 MG TAB PO SCH ×2 (07:30→21:11)
[2019-01-22] MEDS: cloZAPine 25 MG TAB PO SCH (07:30)
[2019-01-22] MEDS: NICOTINE 14MG/24HR PATCH TRANSDERM SCH (07:30)
--- NOTE | 2019-01-22 16:16 | P.PN ---
Progress Note - Text Progress Note Date: 01/22/19 Interval History: Patient is a 63-year-old male who was seen today who continues to insist that he doesn't need to be in the hospital, that he can handle his own money stating that while he can have control of his money so that he can rent a hotel room to see his girlfriend during the day, like a drive his car, that is going to see the vacuum applicator operator is going to give him control of his money back. Patient continues to sleep in the hallways and lounges at night. Mental Status: Appearance/Attitude: Patient is dressed in casual clothes, walks with a wide based stance with a slight limp and is cooperative Behavior: Patient does not exhibit any psychomotor agitation or retardation. Speech/Language: Patient's speech is spontaneous of normal volume and rhythm and he is coherent Thought Process: Patient is goal-directed although he remains focused on money, his car, having control of his assets again Thought Content: Patient denies auditory or visual hallucinations and no paranoid ideation is elicited. Patient continues to insist that he can drive his car, that he will obtain control of his money again, why can't he go and rent a hotel room in the middle of the day to see his girlfriend, and continues in this vein even though we have discussed numerous times his situation with a guardian and who controls his money and that he does not have access to his car. Patient becomes irritable when discussing these things. Patient is sleeping 4 hours a night Suicidal/Homicidal Ideation: Patient denies any current suicidal or homicidal ideation Sensorium/Cognition: Patient is alert and oriented to person, place and time Mood/Affect: Patient's mood is labile becoming irritable when his demands are not met and his affect is appropriate to his mood Insight/Judgment: Patient's insight and judgment is limited Assessment: Patient continues to persist in questioning why he needs to be in the hospital, why he needs a guardian, why he can't drive a car why he can't do what he wants with his money which is his own money. We have discussed this situation numerous times about what a guardian means, that he lives in a correction with regulations that he must follow and the patient persists in asking why he can't do the above stated things. Patient has little insight into his current situation or limitations. Patient is not sleeping well continues to sleep in the vaughn or in the lounges. Patient remains intrusive at times with other peers. Plan: We'll continue on Trileptal 600 mg twice a day, increase Clozaril to 50 mg in the morning and 150 mg at bedtime. Patient continues to require hospitalization to further stabilize his mood.
[2019-01-22] MEDS: ACETAMINOPHEN TAB 325 MG TAB PO PRN (17:48)
[2019-01-22] MEDS: cloZAPine 100 MG TAB PO SCH (21:11)
[2019-01-23] MEDS: APIXABAN 5 MG TAB PO SCH ×2 (08:33→21:31)
[2019-01-23] MEDS: cloZAPine 25 MG TAB PO SCH (08:33)
[2019-01-23] MEDS: amLODIPine 5 MG TAB PO SCH (08:33)
[2019-01-23] MEDS: OXcarbazepine 300 MG TAB PO SCH ×2 (08:33→21:31)
[2019-01-23] MEDS: NICOTINE 14MG/24HR PATCH TRANSDERM SCH (08:35)
[2019-01-23] MEDS: ACETAMINOPHEN TAB 325 MG TAB PO PRN ×3 (08:57→21:31)
--- NOTE | 2019-01-23 14:12 | P.PN ---
Progress Note - Text Progress Note Date: 01/23/19 Interval History: Patient is a 63-year-old male, patient was seen today and he stated that he didn't sleep last night because he is retired and not on a schedule. Patient states he wasn't tired last night and is trying to stay up today so that he'll sleep better tonight. Patient states that he knows he has to go back to the care home when he is discharged but again began discussing the fact that his gang go before the strategic marketing leader to get control of his money again. Patient becomes quite angry when I confront him with his inappropriate comments towards female peers on the unit. Mental Status: Appearance/Attitude: Patient is casually dressed, walks with a wide based stance and a slight limp, makes eye contact and is cooperative Behavior: Patient does not display any psychomotor agitation or retardation. Speech/Language: Patient's speech is spontaneous of normal volume and rhythm and he is coherent Thought Process: Patient is goal-directed although continues to ruminate about obtain control of his money Thought Content: Patient denies any auditory or visual hallucinations, patient continues to discuss mood for him to go before the strategic marketing leader to get control of his money, the fact that he is capable of living on his own and driving the car. Patient continues to remain intrusive on the unit at times. When confronted with these issues and his inappropriate comments at times he becomes quite angry. Patient is not sleeping well at night. Suicidal/Homicidal Ideation: Patient denies any current suicidal or homicidal ideation Sensorium/Cognition: Patient is alert and oriented to person, place and time Mood/Affect: Patient's mood is irritable and his affect is appropriate to his mood Insight/Judgment: Patient's insight and judgment are limited Assessment: Patient remains intrusive and at times inappropriate on the unit, becoming quite angry when confronted with this and the restrictions regarding his use of a blanket, access to large amounts of water. Patient not sleeping well at night and continues to sleep in a recliner on the unit not in his room in his bed. Patient continues to ruminate and go over and over again the fact that he will. Before the strategic marketing leader and the strategic marketing leader will gm him access to his money and will be able to move out on his own, drive a car. Patient and I have gone over the fact that he will be living in a care home and that his guardian has control of his money each time we have met, the patient continues to insist that this will all be reversed. It was discussed in the team treatment meeting about behavioral modifications to control the patient's behavior of noncompliance and leaving the care home or consideration of a more secured care home when he is discharged. Plan: Patient will continue on Trileptal 600 mg twice a day and Clozaril 50 mg in the morning 150 mg at night. Will order a basic metabolic panel to check the patient's electrolytes due to being on Trileptal. We'll not make any medication adjustments at this time and evaluate the patient's response to the medications over the weekend. Patient continues to require hospitalization to further stabilize his mood.
[2019-01-23] MEDS: cloZAPine 100 MG TAB PO SCH (21:30)
[2019-01-24] MEDS ORDERED: BACITRACIN 500 UNIT/GM OINT 28.4 GM TUBE TOPICAL PRN (06:58)
[2019-01-24] MEDS: OXcarbazepine 300 MG TAB PO SCH ×2 (07:38→19:39)
[2019-01-24] MEDS: APIXABAN 5 MG TAB PO SCH ×2 (07:38→19:40)
[2019-01-24] MEDS: cloZAPine 25 MG TAB PO SCH (07:38)
[2019-01-24] MEDS: amLODIPine 5 MG TAB PO SCH (07:39)
[2019-01-24] MEDS: NICOTINE 14MG/24HR PATCH TRANSDERM SCH (07:39)
[2019-01-24 09:13] LABS: Calcium 9.3 mg/dL (8.4-10.2); Potassium 4.7 mmol/L (3.5-5.1)
[2019-01-24] MEDS: ACETAMINOPHEN TAB 325 MG TAB PO PRN ×3 (11:05→19:43)
[2019-01-24] MEDS: MAG HYDROX/AL HYDROX/SIMETH 30 ML CUP PO PRN (11:05)
[2019-01-24] MEDS: NICOTINE POLACRILEX 2 MG GUM BUCCAL PRN ×3 (12:19→22:45)
--- NOTE | 2019-01-24 14:39 | P.PN ---
Progress Note - Text Interval history: The patient is found in the hallway a very reluctantly follows me to the library to speak. Staff report that the patient's been more irritable he's been inappropriate with female peers verbally. He was not cooperative. He would not sit for the interaction and he only tolerated approximate to questions before leaving the room. Mental status exam: The patient is a tall overweight male appearing his stated age. He is dressed in his own clothing he is wearing a towel covering most of his head. He walks with a significant limp and that is a chronic issue. He indicates his mood is fine although his affect is irritable. He has been irritable with others and has been intrusive. He has been focused on female peers. Again he did not tolerate the interview and numerous questions could not be asked. His thought process appears disorganized during the conversation he engages in. Insight and judgment are poor. He demonstrated no physical aggressiveness during our session. Plan: The patient will continue on his current psychotropic medications. Sodium level was within normal limits. He will continue on Trileptal and Clozaril. Staff are redirecting the patient away from female peers. He requires continued psychiatric hospitalization. We will monitor him for safety. Vital signs reviewed.
[2019-01-24] MEDS: cloZAPine 100 MG TAB PO SCH (19:40)
[2019-01-25] MEDS: ACETAMINOPHEN TAB 325 MG TAB PO PRN ×3 (00:15→19:26)
[2019-01-25] MEDS: LORazepam 1 MG TAB PO PRN (00:20)
[2019-01-25] MEDS: NICOTINE POLACRILEX 2 MG GUM BUCCAL PRN ×3 (03:03→21:47)
[2019-01-25] MEDS: MAG HYDROX/AL HYDROX/SIMETH 30 ML CUP PO PRN ×2 (04:43→19:26)
[2019-01-25] MEDS: OXcarbazepine 300 MG TAB PO SCH ×2 (08:42→20:10)
[2019-01-25] MEDS: amLODIPine 5 MG TAB PO SCH (08:43)
[2019-01-25] MEDS: APIXABAN 5 MG TAB PO SCH ×2 (08:43→20:10)
[2019-01-25] MEDS: cloZAPine 25 MG TAB PO SCH (08:43)
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
[2019-01-25] MEDS: cloZAPine 100 MG TAB PO SCH (20:10)
[2019-01-26] MEDS: MAG HYDROX/AL HYDROX/SIMETH 30 ML CUP PO PRN ×3 (00:14→21:18)
[2019-01-26] MEDS: NICOTINE POLACRILEX 2 MG GUM BUCCAL PRN ×3 (04:27→22:01)
[2019-01-26] MEDS: ACETAMINOPHEN TAB 325 MG TAB PO PRN (05:20)
[2019-01-26] MEDS: cloZAPine 25 MG TAB PO SCH (08:43)
[2019-01-26] MEDS: OXcarbazepine 300 MG TAB PO SCH ×2 (08:43→20:50)
[2019-01-26] MEDS: amLODIPine 5 MG TAB PO SCH (08:44)
[2019-01-26] MEDS: APIXABAN 5 MG TAB PO SCH ×2 (08:44→20:50)
--- NOTE | 2019-01-26 12:30 | P.PN ---
Progress Note - Text Progress Note Date: 01/26/19 Interval History: Patient is a 63-year-old male who was seen today, he is now using a wheelchair to ambulate stating that his ankle was bothering him. Patient has continued to either not sleep at night and continues to sleep in a recliner in the hallway. Brief periods. Patient continues to be intrusive and making inappropriate comments with other patients. Patient states that he doing fine, continues to not understand why his in the hospital and continues to insist that eventually the sewer head will give him his money. Mental Status: Appearance/Attitude: Patient is casually dressed, walks with a wide base stance and a limp, occasionally now using a wheelchair to ambulate, makes eye contact and is superficially cooperative Behavior: Patient does not exhibit any psychomotor agitation or retardation Speech/Language: Patient's speech is spontaneous of normal volume and rhythm and he is coherent Thought Process: Patient remains focused on obtaining money, having the guardian removed, he response to other questions with brief answers Thought Content: Patient denies any auditory or visual hallucinations and continues to be focused on obtaining his money, having the sewer head removed his guardian and being able to buy a house, in a car and do what he wants. Patient continues to insist that he doesn't need to be here, that he can take care of himself and doesn't require living in a retirement. Patient continues to sleep on the unit in a reclining chair, he is sleeping anywhere from 2-4 hours a night. Suicidal/Homicidal Ideation: Patient denies any current suicidal or homicidal ideation Sensorium/Cognition: Patient is alert and oriented to person, place and time Mood/Affect: Patient's mood remains irritable at times and his affect appropriate to his mood Insight/Judgment: Patient's insight and judgment are limited Assessment: Patient continues to be intrusive making inappropriate comments to other patients while on the unit and needing redirection from staff to stop this behavior. Patient continues to discuss in our meetings that he will go before the sewer head and have the guardian removed and be able to obtain his own money. He continues to insist that he is able to care for himself, manages money and doesn't need a guardian. Patient continues to not sleep well at night, not sleeping in his room but in a reclining chair, now using a wheelchair occasionally ambulate because he states that is one ankle was bothering him. Patient's sodium level was within normal limits. Plan: We will continue the patient on Trileptal 600 mg twice a day and increase his Clozaril to 50 in the morning and 200 at bedtime to target his sleeplessness as well as his manic symptoms. It is been discussed in team meeting considering placing the patient in a locked retirement after discharge. Patient continues to remain in the hospital to further stabilize his mood.
[2019-01-26] MEDS ORDERED: ZIPRASIDONE 20 MG VIAL IM ONE (20:48)
[2019-01-26] MEDS ORDERED: WATER FOR INJECTION, STERILE 10 ML IV ONE (20:48)
[2019-01-26] MEDS: cloZAPine 100 MG TAB PO SCH (20:50)
[2019-01-26] MEDS: ZIPRASIDONE 20 MG VIAL IM PRN (20:50)
[2019-01-26] MEDS: LORazepam 1 MG TAB PO PRN (20:50)
[2019-01-27] MEDS: MAG HYDROX/AL HYDROX/SIMETH 30 ML CUP PO PRN ×3 (02:39→22:40)
[2019-01-27] MEDS: amLODIPine 5 MG TAB PO SCH (08:32)
[2019-01-27] MEDS: OXcarbazepine 300 MG TAB PO SCH ×2 (08:32→20:18)
[2019-01-27] MEDS: cloZAPine 25 MG TAB PO SCH (08:32)
[2019-01-27] MEDS: APIXABAN 5 MG TAB PO SCH ×2 (08:32→20:17)
[2019-01-27] MEDS: NICOTINE POLACRILEX 2 MG GUM BUCCAL PRN ×3 (10:55→19:46)
--- NOTE | 2019-01-27 13:57 | P.PN ---
Progress Note - Text Progress Note Date: 01/27/19 Interval History: Patient is a 63-year-old male who was seen today and he states that he did sleep better last night and actually felt sleepy and slept in the recliner. Patient continues to insist that he can drive, insists that he only fell asleep at a friend's house but one night and could make it home to the longterm but fell asleep at 9:00. A states that he's been compliant with his medications on the outside. Patient denies that he has been making sexually explicit comments to another patient or comments about her appearance. Mental Status: Appearance/Attitude: Patient is casually dressed, using a wheelchair to ambulate stating that his ankles bother him. Patient makes interm ittent eye contact and is cooperative Behavior: Patient does not exhibit any psychomotor agitation or retardation but is easily irritated Speech/Language: Patient's speech is spontaneous of normal volume and rhythm and he is coherent Thought Process: Patient is goal-directed however continues to return to his complaints of being able to drive, needing control of his money Thought Content: Patient denies any auditory or visual hallucinations and no paranoid ideation is elicited. Patient continues to complain that he is able to drive a car, demand that he has control of his money and needs to go in front of the pile driver operator barge mounted. He also states that he fell asleep at a friend's house and that's why he was not present for a day and a half at the longterm and missed his medications. Patient states that he has never done that before and has been compliant with his medications. Patient states that he slept a little better last night because he was feeling drowsy in the evening. Patient continues to deny that he is making any comments towards any of the female peers on the unit Suicidal/Homicidal Ideation: Patient denies any current suicidal or homicidal ideation Sensorium/Cognition: Patient is alert and oriented to person, place and time Mood/Affect: Patient's mood remains irritable,affect is appropriate to his mood Insight/Judgment: Patient's insight and judgment are limited Assessment: patient continues to complain that he is able to take care of himself, can drive a car, can't handle his own money as well as needing constant redirection from staff to remain away from and not intrusive with other female peers on the unit. Patient states that he did feel drowsy last night and slept better, documented that he slept for 4 hours. Patient continues to insist that he's been compliant with treatment as an outpatient and only missed his meds because he slept at a friend's house by mistake. Patient has little insight into his behavior, becoming quite irritable and angry when confronted with his behavior. Plan: patient will continue on Clozaril 50 mg in the morning 200 at bedtime and Trileptal 600 mg twice a day. Patient will have a CBC with differential tomorrow to continue on his Clozaril treatment. Continue to discuss with the [facility] liaison and his guardian a locked longterm though the patient is not able to wander, not return to the longterm at night and this medication. Patient continues to require hospitalization to stabilize his mood and find a more appropriate living situation for him.
[2019-01-27] MEDS: cloZAPine 100 MG TAB PO SCH (20:17)
[2019-01-28] MEDS: NICOTINE POLACRILEX 2 MG GUM BUCCAL PRN ×3 (04:51→21:11)
[2019-01-28] MEDS: APIXABAN 5 MG TAB PO SCH ×2 (09:48→20:15)
[2019-01-28] MEDS: cloZAPine 25 MG TAB PO SCH (09:48)
[2019-01-28] MEDS: amLODIPine 5 MG TAB PO SCH (09:48)
[2019-01-28] MEDS: OXcarbazepine 300 MG TAB PO SCH ×2 (09:48→20:15)
[2019-01-28 12:19] LABS: Basophils % (A) 1 %; Eosinophils # (A) 0.3 k/uL (0-0.7); Eosinophils % (A) 5 %; HCT 36.9 % (39.0-53.0); HGB 12.2 gm/dL (13.0-17.5); Lymphocytes # (A) 1.2 k/uL (1.0-4.8); Lymphocytes % (A) 20 %; MCH 29.7 pg (25.0-35.0); MCHC 33.1 g/dL (31.0-37.0); MCV 89.9 fL (80.0-100.0); Mean Platelet Volume 7.8; Monocytes # (A) 0.5 k/uL (0-1.0); Monocytes % (A) 9 %; Neutrophils # (A) 3.7 k/uL (1.3-7.7); Neutrophils % (A) 63 %; Platelet Count 221 k/uL (150-450); RBC 4.11 m/uL (4.30-5.90); RDW 15.8 % (11.5-15.5)
[2019-01-28] MEDS: LORazepam 1 MG TAB PO PRN (12:22)
--- NOTE | 2019-01-28 13:41 | P.PN ---
Progress Note - Text Progress Note Date: 01/28/19 Interval History: Patient is a 63-year-old male who states he is using a wheelchair because his ankle was bothering him and feels better now that he's given an arrest. Patient states that he slept in the wheelchair last night and did sleep better. Patient remains irritable about being in the hospital wanting to be discharged, continues to complain about not being able to drive, that he only slept at a friend's house because he fell asleep there and does return each night to his senior living in the past and has been compliant with medication. Patient continues to demand that he be given his money within the bank. Patient becomes irritated when he is not being discharged today, when we discussed the fact that he has a guardian. Mental Status: Appearance/Attitude: Patient is casually dressed, using a wheelchair to ambulate, makes intermittent eye contact and is cooperative Behavior: Patient does not display any psychomotor agitation or retardation however becomes irritable when discussing money and his living situation Speech/Language: Patient's speech is slightly pressured at times of normal volume and rhythm and he is coherent Thought Process: Patient is goal-directed but remains focused on his money, guardianship and being discharged from the hospital Thought Content: Patient denies any auditory or visual hallucinations and no delusions or paranoid ideation or elicited. Patient continues to demand that he be discharged so he can return to the senior living, continues to state that he wants his money, and is able to drive. Patient also becomes upset when told that he has been making inappropriate comments to another. Stating that he hasn't. Patient slept for 5 hours last night but continues to sleep in his wheelchair not the bed Suicidal/Homicidal Ideation: Patient denies any current homicidal or suicidal ideation Sensorium/Cognition: Patient is alert and oriented to person, place and time Mood/Affect: Patient's mood is irritable at times and his affect is appropriate to his mood Insight/Judgment: Patient's insight and judgment remain impaired as he is not able to manipulate information, continues to argue repeatedly about having a guardian not having control of his money and having to live in a senior living. Assessment: Patient continues to complain about his lack of access to his money, having a guardian, not having access to his car and his need to live in a senior living. Patient also was demanding to be released from the hospital even though it is been explained to him on numerous occasions why he has a guardian, why he is living in a senior living and that the hearing is for his continued treatment order. Patient is easily irritated on the unit when given restrictions due to his behavior on the unit. Plan: Patient continues on Clozaril 50 mg in the morning 200 mg at bedtime and Trileptal 600 mg twice a day. Patient's CBC was performed today and patient can continue on Clozaril. Patient has shown some improvement, sleeping more however his ability to manipulate information remains unchanged, he is not voicing any grandiose delusions at this time and so no further increase in his Clozaril will be done. Patient's hearing is this Saturday and discharge plans continue to be discussed with the [facility] liaison regarding returning to his prior senior living with increased supervision and behavior modifications or being sent to a locked senior living. His guardian is aware of these discharge plans but we have yet to hear from the guardian regarding confirmation of them.
[2019-01-28] MEDS: MAG HYDROX/AL HYDROX/SIMETH 30 ML CUP PO PRN ×2 (15:13→22:53)
[2019-01-28] MEDS: cloZAPine 100 MG TAB PO SCH (20:14)
[2019-01-29] MEDS: MAG HYDROX/AL HYDROX/SIMETH 30 ML CUP PO PRN ×2 (05:53→15:32)
[2019-01-29] MEDS: APIXABAN 5 MG TAB PO SCH ×2 (08:38→21:27)
[2019-01-29] MEDS: OXcarbazepine 300 MG TAB PO SCH ×2 (08:38→21:27)
[2019-01-29] MEDS: cloZAPine 25 MG TAB PO SCH (08:38)
[2019-01-29] MEDS: amLODIPine 5 MG TAB PO SCH (08:38)
[2019-01-29] MEDS: NICOTINE POLACRILEX 2 MG GUM BUCCAL PRN (15:29)
--- NOTE | 2019-01-29 16:01 | P.PN ---
Progress Note - Text Progress Note Date: 01/29/19 Interval History: Patient is a 63-year-old male who was seen today, patient states he continues to use a wheelchair and his ankle is feeling better due to this. Patient states that he knows his hearing is tomorrow and wonders if a prison has been found for him or not. Patient had no other concerns or complaints at this time Mental Status: Appearance/Attitude: Patient is casually dressed, walks with a wide based stance with a slight limp, makes eye contact and was cooperative Behavior: Patient does not exhibit any psychomotor agitation or retardation. Speech/Language: His speech is spontaneous of normal volume and rhythm and he is coherent. Thought Process: Patient is goal-directed, remains focused on being discharged, no loose association or flight of ideas Thought Content: Patient denies any auditory or visual hallucinations and no delusions or paranoid ideation or elicited. Patient reports that he is going to his court hearing tomorrow, once to know if a prison has been found for him or not. Patient did not warrant about needing his money, wanting his guardian removed or other topics that he has typically focused on. Patient slept 5 hours last night and his appetite is good Suicidal/Homicidal Ideation: Patient denied any current suicidal or homicidal ideation Sensorium/Cognition: Patient is alert and oriented to person, place and time Mood/Affect: Patient's mood is less irritable today, his affect is appropriate to his mood Insight/Judgment: Patient's insight and judgment are limited Assessment: Patient was less focused on trying to get his money, having his guardian removed today and questioned whether or not a prison had been found for him. Patient is aware that his court hearing is tomorrow morning. Patient states that he slept better last night and slept for 5 hours. Patient has been attending groups and activities. Patient is less irritable today. Patient reports no side effects from his medication. Plan: Patient continues on Clozaril 50 mg in the morning and 200 at bedtime and Trileptal 600 mg twice a day. Patient continues to await his court hearing and placement in a prison. Patient will be discharged once an appropriate discharge housing is found.
[2019-01-29] MEDS: cloZAPine 100 MG TAB PO SCH (21:27)
[2019-01-30] MEDS: NICOTINE POLACRILEX 2 MG GUM BUCCAL PRN (04:16)
[2019-01-30] MEDS: OXcarbazepine 300 MG TAB PO SCH ×2 (08:05→20:30)
[2019-01-30] MEDS: APIXABAN 5 MG TAB PO SCH ×2 (08:06→20:32)
[2019-01-30] MEDS: amLODIPine 5 MG TAB PO SCH (08:06)
[2019-01-30] MEDS: cloZAPine 25 MG TAB PO SCH (08:06)
--- NOTE | 2019-01-30 14:34 | P.PN ---
Progress Note - Text Progress Note Date: 01/30/19 Interval History: Patient is a 63-year-old male who was seen today, patient asked when he was being discharged and we discussed the fact that there were no beds available in a group homes. Patient states he would like to stay in [place] and I told him that that may not be what occurs. Patient states that he wants to drive his car and states that the water tender said it was up to the doctor. Patient was told to quit spitting gone around the unit and will be restricted from using gum. Patient states that he sleeping better at night, continues to not sleep in the bed however. Mental Status: Appearance/Attitude: Patient is dressed in casual clothes wearing a hoodie up over his head makes eye contact and was cooperative, patient continues to use the wheelchair to ambulate Behavior: Patient did not display any psychomotor agitation or retardation Speech/Language: Patient's speech was spontaneous of normal volume and rhythm and he was coherent Thought Process: Patient was goal-directed he did not rant about wanting money, living on his own or complaining about having a guardian Thought Content: Patient denied any auditory or visual hallucinations and no delusions or paranoid ideation were elicited. Patient today when we discussed the fact that there were no beds available did not become upset or irritable asked if he could live in his own apartment and when I said no he accepted this without argument. Patient stated that the water tender told him that the doctor couldn't decide whether he could drive his own car or not. Patient states that he sleeping better at night. Suicidal/Homicidal Ideation: Denied any current suicidal or homicidal ideation Sensorium/Cognition: Patient is alert and oriented to person, place and time Mood/Affect: Patient's mood is less irritable and his affect is appropriate to his mood Insight/Judgment: Patient's insight and judgment are limited Assessment: Patient is less irritable, making less demands about living on his own, being given all of his money, not requiring a guardian and when we discussed the fact that there were no beds available for him to leave today he accepted this information without argument. Patient asked if he could have his own car stating that the water tender said the doctor would decide when I told him no he agreed with that without argument. Patient was spitting gone and sticking it everywhere on the unit and is now restricted from using any gum product. Plan: Patient will continue on his current medications of Clozaril 50 mg in the morning and 200 mg at night and Trileptal 600 mg twice a day. We continue to await an appropriate placement for this gentleman.
[2019-01-30] MEDS: ACETAMINOPHEN TAB 325 MG TAB PO PRN ×2 (16:11→20:31)
[2019-01-30] MEDS: MAG HYDROX/AL HYDROX/SIMETH 30 ML CUP PO PRN (17:52)
[2019-01-30] MEDS: cloZAPine 100 MG TAB PO SCH (20:30)
[2019-01-31] MEDS: cloZAPine 25 MG TAB PO SCH (08:00)
[2019-01-31] MEDS: amLODIPine 5 MG TAB PO SCH (08:00)
[2019-01-31] MEDS: OXcarbazepine 300 MG TAB PO SCH ×2 (08:00→20:46)
[2019-01-31] MEDS: APIXABAN 5 MG TAB PO SCH ×2 (08:00→20:46)
[2019-01-31] MEDS: MAG HYDROX/AL HYDROX/SIMETH 30 ML CUP PO PRN (12:54)
--- NOTE | 2019-01-31 14:55 | P.PN ---
Progress Note - Text Progress Note Date: 01/31/19 Family history: Patient made reference to having had something with the court recently. He does not seem to voice any adverse psychotropic medication side effects. He states that he is waiting on a place to stay. Mental status exam: He is alert, seated in a wheelchair. He is seen in his room . He seems to describe that his mood is doing okay. He does not verbalize any thoughts of harm to self or others. He does not show any agitation. Plan: Patient will be maintained on current psychotropic medication regimen. Continue to monitor for any medication side effects monitor his ongoing response to treatment.
[2019-01-31] MEDS: cloZAPine 100 MG TAB PO SCH (20:46)
[2019-02-01] MEDS: cloZAPine 25 MG TAB PO SCH (08:27)
[2019-02-01] MEDS: amLODIPine 5 MG TAB PO SCH (08:27)
[2019-02-01] MEDS: APIXABAN 5 MG TAB PO SCH ×2 (08:27→20:16)
[2019-02-01] MEDS: OXcarbazepine 300 MG TAB PO SCH ×2 (08:27→20:16)
[2019-02-01] MEDS: ACETAMINOPHEN TAB 325 MG TAB PO PRN ×2 (09:13→20:16)
--- NOTE | 2019-02-01 11:50 | P.PN ---
Progress Note - Text Progress Note Date: 02/01/19 Interval history: Patient seen in [facility] today. Male patient in his room. He verbalizes that he slept at least 7 hours last night. He talks about his hopes for being a will to be discharged to a [facility] tomorrow. He does not voice any adverse psychotropic medication side effects. Mental status exam: He is alert and cooperative with the interview. His speech is fluent, not rapid or pressured. His thought processes are organized. He describes his mood is doing good. He denies any thoughts of harm to self or others. He does not verbalize any hallucinations. He talks at the end of the session about some of the work that he and his father have done. Plan: Patient will be maintained on current psychotropic medication regimen. Continue to monitor for any medication side effects and monitor his ongoing response to treatment.
[2019-02-01] MEDS: LORazepam 1 MG TAB PO PRN (18:49)
[2019-02-01] MEDS: cloZAPine 100 MG TAB PO SCH (20:16)
[2019-02-02] MEDS: amLODIPine 5 MG TAB PO SCH (08:49)
[2019-02-02] MEDS: APIXABAN 5 MG TAB PO SCH ×2 (08:49→21:04)
[2019-02-02] MEDS: cloZAPine 25 MG TAB PO SCH (08:49)
[2019-02-02] MEDS: OXcarbazepine 300 MG TAB PO SCH ×2 (08:49→21:05)
--- NOTE | 2019-02-02 12:54 | P.PN ---
Progress Note - Text Progress Note Date: 02/02/19 Interval History: Patient is a 63-year-old male who was seen today and he reports that he is doing well, wondered when he was going to be discharged. Patient had no complaints of side effects from medication. Patient states that he only wants a long-term in the [facility] nowhere else. Mental Status:Appearance/Attitude: Patient is casually dressed, grooming is fair, makes intermittent eye contact has already with a chacon up over his head during the interview and is cooperative. Patient continues to use a wheelchair to ambulate Behavior: Patient did not exhibit any psychomotor agitation or retardation Speech/Language: Patient's speech was spontaneous of normal volume and rhythm an d he is coherent Thought Process: Patient is goal-directed there is no evidence of loose association or flight of ideas Thought Content: Patient denies any auditory or visual hallucinations and no par anoid ideation is elicited. Patient does not spontaneously discuss the fact that he wants to buy a car, buy a motorcycle, that his guardian will be changed, patient was agreeable to a long-term placement, his only request was that it be in the [facility]. Patient is sleeping and eating well. Suicidal/Homicidal Ideation: Patient denied any current suicidal or homicidal ideation Sensorium/Cognition: Patient is alert and oriented to person, place, and time Mood/Affect: Patient's mood is less irritable, less intrusive and his affect is slightly blunted Insight/Judgment: Patient's insight and judgment remain limited Assessment: Patient has been less intrusive on the unit and is less irritable as well as not spontaneously demanding that he get his money, that he doesn't need a guardian, that he can live on his own is accepting of being placed in a long-term. Patient's only request was at the long-term be in the [facility]. Patient is aware that he has a guardian and had no complaints about this today. Patient attends groups and activities. Patient is sleeping 7 hours a night. Plan: Patient continues on Clozaril 50 mg in the morning 200 mg at bedtime and Trileptal 600 mg twice a day. We are awaiting an opening at a long-term for discharge.
[2019-02-02 15:01] VITALS: BMI 34.0
[2019-02-02] MEDS: cloZAPine 100 MG TAB PO SCH (21:06)
[2019-02-02] MEDS: MAG HYDROX/AL HYDROX/SIMETH 30 ML CUP PO PRN (23:55)
[2019-02-03] MEDS: APIXABAN 5 MG TAB PO SCH ×2 (09:32→21:17)
[2019-02-03] MEDS: OXcarbazepine 300 MG TAB PO SCH ×2 (09:32→21:17)
[2019-02-03] MEDS: cloZAPine 25 MG TAB PO SCH (09:32)
[2019-02-03] MEDS: amLODIPine 5 MG TAB PO SCH (09:33)
[2019-02-03] MEDS: MAG HYDROX/AL HYDROX/SIMETH 30 ML CUP PO PRN (13:38)
--- NOTE | 2019-02-03 13:40 | P.PN ---
Progress Note - Text Progress Note Date: 02/03/19 Interval History: Patient is a 63-year-old male who was seen today, patient states that he is going to contact and uncle where he lived before to see if he can go there when he is awaiting placement in a [facility]dc. I discussed with the patient that his guardian would be too proved and he said that he understands that. Patient has been sleeping partly in his bed at night and partly in the hallway on a couch. Mental Status: Appearance/Attitude: Patient is casually dressed, using a wheelchair to ambulate, has a witty on the chacon out over his head, making intermittent eye contact and is cooperative Behavior: Patient is not exhibiting any psychomotor agitation or retardation Speech/Language: Patient's speech is spontaneous of normal volume and rhythm and he is coherent Thought Process: Patient is goal-directed there is no evidence of loose association or flight of ideas Thought Content: Patient denies any auditory or visual hallucinations and no delusions or paranoid ideation or elicited. Patient is not verbalizing any of his prior grandiose ideas about buying a house, buying a motorcycle and is not arguing about placement in a [facility], has been accepting of it and stating that he understands. Patient has been sleeping at night and is eating Suicidal/Homicidal Ideation: Patient denies any current suicidal or homicidal ideation Sensorium/Cognition: He is alert and oriented to person, place, and time Mood/Affect: Patient's mood is less irritable, affect is appropriate Insight/Judgment: Patient's insight and judgment are limited Assessment: Patient has not been as intrusive or irritable on the unit, he has been accepting of the fact that we are awaiting placement in a [facility]dc and has not been arguing about the need to go before the emergency medical tech to have his guardian changed, demanding that he be given his money, demanding that he be discharged. Patient has been compliant with his medications, he is sleeping at least 5-1/2 hours or more a night and has been sleeping sometimes in his room at other times out in the hallways of the unit. Patient has been using a wheelchair to ambulate stating that his ankle has been bothering him. Plan: Patient continues on Clozaril 50 mg in the morning 200 mg at bedtime and Trileptal 600 mg twice a day and we continue to await placement in a fdc for discharge.
[2019-02-03] MEDS: cloZAPine 100 MG TAB PO SCH (21:17)
[2019-02-03] MEDS: ACETAMINOPHEN TAB 325 MG TAB PO PRN (21:21)
[2019-02-04] MEDS: amLODIPine 5 MG TAB PO SCH (09:00)
[2019-02-04] MEDS: APIXABAN 5 MG TAB PO SCH ×2 (09:00→21:02)
[2019-02-04] MEDS: cloZAPine 25 MG TAB PO SCH (09:00)
[2019-02-04] MEDS: OXcarbazepine 300 MG TAB PO SCH ×2 (09:00→21:02)
[2019-02-04 10:27] LABS: Basophils % (A) 1 %; Eosinophils # (A) 0.3 k/uL (0-0.7); Eosinophils % (A) 6 %; HGB 13.3 gm/dL (13.0-17.5); Lymphocytes # (A) 1.1 k/uL (1.0-4.8); Lymphocytes % (A) 19 %; MCH 29.8 pg (25.0-35.0); MCHC 32.4 g/dL (31.0-37.0); MCV 92.1 fL (80.0-100.0); Mean Platelet Volume 7.7; Monocytes # (A) 0.5 k/uL (0-1.0); Monocytes % (A) 9 %; Neutrophils # (A) 3.5 k/uL (1.3-7.7); Neutrophils % (A) 62 %; Platelet Count 209 k/uL (150-450); RBC 4.46 m/uL (4.30-5.90); RDW 15.4 % (11.5-15.5); WBC 5.7 k/uL (3.8-10.6)
--- NOTE | 2019-02-04 12:12 | P.PN ---
Progress Note - Text Progress Note Date: 02/04/19 Interval History: Patient is a 63-year-old male who was seen today, patient states that he wants to have full access on the inpatient unit. Patient states that he also should be looking for an apartment. Patient and I again had a long conversation about the fact that he has a guardian and that we are looking for a longterm for him again and that he is not going to be discharged to an apartment. Patient states that he has not been saying inappropriate things to people and this is why he is requesting access to the [facility]. Patient states that he sleeping fairly well at night. Mental Status: Appearance/Attitude: Patient is casually dressed, grooming is fair to poor, makes eye contact and was cooperative. Behavior: Patient does not exhibit any psychomotor agitation or retardation Speech/Language: Patient speech is spontaneous of normal volume and rhythm and he is coherent Thought Process: Patient is goal-directed there is no evidence of loose association or flight of ideas Thought Content: Patient denies any auditory or visual hallucinations no delusions or paranoid ideation or elicited. Patient continues to request discharge to somewhere other than a longterm, complains of being tired of being in the hospital and wanting to leave. Patient reports that he is sleeping and eating Suicidal/Homicidal Ideation: Patient denies any current suicidal or homicidal ideation Sensorium/Cognition: Patient is alert and oriented to person, place and time Mood/Affect: Patient's mood is less intrusive, less irritable and his affect is appropriate to his mood Insight/Judgment: Patient's insight and judgment remain limited Assessment: Patient is less argumentative, and less irritable when discussing discharge plans as he continues to bring up going to an apartment, living with an uncle and when he is redirected to the fact that he will be returning to a longterm and we're awaiting placement does not become as agitated as he did earlier. Patient has not brought up going to the bank to get money or going in front of the [employer] specialist to have the guardian dismissed. Patient has been compliant with his medications on the unit. Patient requested full access to the unit stating that he hasn't made inappropriate comments to any of the other patients. Patient's CBC reveals a neutrophil count is within normal limits and patient can continue on Clozaril Plan: Patient will be given full access to the unit, he continues on Clozaril 50 mg in the morning and 200 at bedtime as well as Trileptal 600 mg twice a day and we continue to await placement in a longterm.
[2019-02-04] MEDS: MAG HYDROX/AL HYDROX/SIMETH 30 ML CUP PO PRN (13:59)
[2019-02-04] MEDS: LORazepam 1 MG TAB PO PRN (17:07)
[2019-02-04] MEDS: cloZAPine 100 MG TAB PO SCH (21:02)
[2019-02-05] MEDS: ACETAMINOPHEN TAB 325 MG TAB PO PRN ×3 (03:17→21:08)
[2019-02-05] MEDS: cloZAPine 25 MG TAB PO SCH (07:56)
[2019-02-05] MEDS: APIXABAN 5 MG TAB PO SCH ×2 (07:56→21:08)
[2019-02-05] MEDS: OXcarbazepine 300 MG TAB PO SCH ×2 (07:56→21:08)
[2019-02-05] MEDS: amLODIPine 5 MG TAB PO SCH (07:56)
--- NOTE | 2019-02-05 14:37 | P.PN ---
Progress Note - Text Progress Note Date: 02/05/19 Interval History: Patient is a 63-year-old male who was seen today and he again asks when he is being discharged, where he is being discharged to. Patient states that he does nap during the day, states that he slept in his wheelchair again complaining of the bed hurts his back. Patient stated that he could live in his own apartment because he has no money in the bank. Mental Status:Appearance/Attitude: Patient is casually dressed, using a wheelchair to ambulate, makes eye contact and was cooperative Behavior: Patient did not exhibit any psychomotor agitation or retardation Speech/Language: Patient's speech is spontaneous of normal volume and rhythm and he is coherent Thought Process: Patient is goal-directed there is no evidence of loose association or flight of ideas Thought Content: Patient denied any auditory or visual hallucinations and he did not verbalize any grandiose ideation today spontaneously. When the patient discussed the fact that he could rent an apartment and I redirected him to the fact that he has a guardian and needs to be living in a supervised situation he stated that he knew that. Patient and I discussed that he would have an interview today regarding placement and the patient stated that he wanted to stay in the [place] area. Patient has been sleeping and his wheelchair still complaining that the bed hurts his back, patient does sleep during the day and slept about 3 hours last night. Suicidal/Homicidal Ideation: Patient denies any current suicidal or homicidal ideation Sensorium/Cognition: Patient is alert and oriented to person, place and time Mood/Affect: Patient's mood is stable, he is less intrusive on the unit and his affect is appropriate to his mood Insight/Judgment: Patient's insight and judgment are limited Assessment: Patient is not spontaneously been exhibiting grandiose ideation as he has not been talking about buying a motorcycle, home or his money in the bank as he was initially during his hospital stay. Patient when he and I have discussed discharge plans as been more accepting of them and not as argumentative with me. Patient has not been as intrusive with other peers on the unit, he is using a wheelchair to ambulate due to complaints of his ankle is bothering him which is what he was supposed to been doing as an outpatient. Patient continues to sleep and his wheelchair because he complains of the bed hurts his back and he states that he is napping during the day. Plan: Patient will continue on Clozaril 50 mg in the morning 200 mg at bedtime and Trileptal 600 mg twice a day. We continue to await discharge living arrangements for this patient before his discharge as the patient does need to be in a supervised living situation and his guardian needs to approve the placement.
[2019-02-05] MEDS: cloZAPine 100 MG TAB PO SCH (21:08)
[2019-02-06] MEDS: ACETAMINOPHEN TAB 325 MG TAB PO PRN ×3 (06:43→23:15)
[2019-02-06] MEDS: APIXABAN 5 MG TAB PO SCH ×2 (09:56→21:46)
[2019-02-06] MEDS: cloZAPine 25 MG TAB PO SCH (09:56)
[2019-02-06] MEDS: OXcarbazepine 300 MG TAB PO SCH ×2 (09:56→21:46)
[2019-02-06] MEDS: amLODIPine 5 MG TAB PO SCH (09:56)
--- NOTE | 2019-02-06 12:30 | P.PN ---
Progress Note - Text Progress Note Date: 02/06/19 Interval History: Patient is a 63-year-old male who was seen today, he asked when he was going to be discharged. Patient had no other complaints at this time. Patient states that he had both a walker and a wheelchair when he was at the snf last and only used them on his ankle bothered him. He states that he had also purchased a brace in a store for his ankle when it hurt. Mental Status: Appearance/Attitude: Patient is casually dressed, using a wheelchair to ambulate when he walks he has a wide-based gait with a slight limp, makes eye contact and was cooperative Behavior: Patient does not display any psychomotor agitation or retardation Speech/Language: Patient's speech is spontaneous of normal volume and rhythm and he is coherent Thought Process: Patient is goal-directed, no evidence of loose association or flight of ideas Thought Content: Patient denies any auditory or visual hallucinations and no delusions or paranoid ideation or elicited. Patient has not spontaneously discussing buying a house, buying a car going to court to get his money, he states he is resigned to staying here until a place was found for him to live. Patient continues to not sleep in his bed complaining that it hurts his back sleeping either in the wheelchair or on furniture in the unit. Suicidal/Homicidal Ideation: Patient denies any current suicidal or homicidal ideation Sensorium/Cognition: Patient is alert and oriented to person, place and time Mood/Affect: Patient's mood is stable and his affect is appropriate Insight/Judgment: Patient's insight and judgment are limited Assessment: Patient states he was using a wheelchair and/or walker when he was at the snf due to pain in his ankle, he states he is using a wheelchair here because his ankle is been bothering him. He states this occurs when he walks too much. Patient reports no side effects from the medication, patient sleeping 5 hours a night, sleeping in the wheelchair on furniture in the unit. He is attending some groups and activities. He has been less intrusive and irritable on the unit. He has not spontaneously been discussing buying a car, going to the bank to get his money and not needing a guardian. Plan: Patient continues on Clozaril 50 mg in the morning 200 mg at bedtime and Trileptal 600 mg twice a day and we discussed the fact that there was no head available for him to go to a snf today, apparently they're now working at a prison placement patient continues to stay in the hospital until appropriate placement can be arranged.
[2019-02-06] MEDS: MAG HYDROX/AL HYDROX/SIMETH 30 ML CUP PO PRN (15:41)
[2019-02-06] MEDS: cloZAPine 100 MG TAB PO SCH (21:45)
[2019-02-07] MEDS: MAG HYDROX/AL HYDROX/SIMETH 30 ML CUP PO PRN (00:33)
[2019-02-07] MEDS: ACETAMINOPHEN TAB 325 MG TAB PO PRN ×3 (05:13→15:37)
[2019-02-07] MEDS: cloZAPine 25 MG TAB PO SCH (08:56)
[2019-02-07] MEDS: OXcarbazepine 300 MG TAB PO SCH ×2 (08:56→20:50)
[2019-02-07] MEDS: APIXABAN 5 MG TAB PO SCH ×2 (08:56→20:50)
[2019-02-07] MEDS: amLODIPine 5 MG TAB PO SCH (08:57)
--- NOTE | 2019-02-07 13:05 | P.PN ---
Progress Note - Text Progress Note Date: 02/07/19 Interval History: Patient is a 63-year-old male who states that he wasn't aware is being discharged. Patient continues to have issues with his urination, he states to me that sometimes he can't make it to the bathroom, he is unsteady on his feet and the year and gets on his clothing he declines wearing depends. Patient states he wants to go to a snf in the [place] area and not anywhere else. Patient no other complaints at this time. Mental Status: Appearance/Attitude: Patient is casually dressed, there is a smell of urine about him, he makes eye contact and is cooperative and walks with a wide-based stance and slight limp the patient has been using a wheelchair to ambulate Behavior: Patient does not display any psychomotor agitation or retardation Speech/Language: Patient's speech is spontaneous of normal volume and rhythm and he is coherent Thought Process: Patient is goal-directed, no evidence of loose association or flight of ideas Thought Content: Patient denies any auditory or visual hallucinations and no delusions or paranoid ideation are elicited. Patient continues to discuss that he wants to go to a snf if one is not available in this area to go live with an aunt. Patient then becomes agitated when we discussed that he is being recommended for a halfway, states that he is not going to go to one doesn't need one, refuses to use depends to prevent urine from getting all over his clothing. Patient continues to sleep in his wheelchair at night, sleeping during the day at times Suicidal/Homicidal Ideation: Patient denies any current suicidal or homicidal ideation Sensorium/Cognition: Patient is alert and oriented to person, place and time Mood/Affect: patient's mood is cooperative but can easily become irritable and his affect is appropriate to his mood Insight/Judgment: agents insight and judgment are limited Assessment: patient continues to sleep and is wheelchair continues to have irregular sleep pattern, patient continues to use a wheelchair to ambulate stating that his ankles bothering him. Patient becomes argumentative and irritable when discussing placement stating only stay in the [place] area and wonder if he can go live with an aunt. Patient is compliant with his medications, there is some evidence of drooling. Patient remains intrusive at times on the unit with other patients Plan: patient continues on Clozaril 50 mg in the morning and 200 mg at bedtime and Trileptal 600 mg twice a day and we continue to find placement for this gentleman, no further adjustments in his medications are being made.
[2019-02-07] MEDS: cloZAPine 100 MG TAB PO SCH (20:50)
[2019-02-08 08:40] VITALS: RESP 18
[2019-02-08] MEDS: ACETAMINOPHEN TAB 325 MG TAB PO PRN ×2 (08:41→15:41)
[2019-02-08] MEDS: APIXABAN 5 MG TAB PO SCH ×2 (08:42→20:45)
[2019-02-08] MEDS: cloZAPine 25 MG TAB PO SCH (08:42)
[2019-02-08] MEDS: amLODIPine 5 MG TAB PO SCH (08:42)
[2019-02-08] MEDS: OXcarbazepine 300 MG TAB PO SCH ×2 (08:42→20:45)
[2019-02-08] MEDS: MAG HYDROX/AL HYDROX/SIMETH 30 ML CUP PO PRN (09:26)
--- NOTE | 2019-02-08 12:28 | P.PN ---
Progress Note - Text Progress Note Date: 02/08/19 Interval History: Patient is a 63-year-old male who was seen today, patient continues to complain about being here and wanting to be discharged. Patient occasionally becomes intrusive with other patients on the unit. Patient attends some groups and activities. Mental Status: Appearance/Attitude: Patient is casually dressed, his hygiene is improved today he is in a wheelchair for ambulation and is cooperative Behavior: Patient does not exhibit any psychomotor agitation or retardation, patient can be intrusive with other patients Speech/Language: Patient's speech is spontaneous and normal volume and rhythm and he is coherent Thought Process: Patient is goal-directed there is no evidence of loose association or flight of ideas Thought Content: Patient denies any auditory or visual hallucinations and no paranoid ideation is elicited. Patient goes on a rant about being in the hospital wanting to be discharged, stating that he could stay in an apartment, frustrated with the lack of progress on discharge plans. Patient sleeps in his wheelchair not in his bed complaining that the bed hurts his back. Patient slept 3 hours last night but the patient does doze off and on in his wheelchair Suicidal/Homicidal Ideation: Patient denies any current suicidal or homicidal ideation Sensorium/Cognition: Patient is alert and oriented to person, place and time Mood/Affect: Patient's mood can be irritable at times, he is frustrated with the lack of discharge plans and his affect is appropriate to his mood Insight/Judgment: Patient's insight and judgment are limited Assessment: Patient can be intrusive with other patients on the unit, at times he becomes irritable and patient is frustrated with the lack of discharge planning. Patient states that he could live in his own apartment, and we'll go on a rant about not requiring a wheelchair that he can walk, that he doesn't need to be in a prison. Patient has been compliant with his medications. Patient attends some groups and activities. Patient continues to sleep and is wheelchair sleeping about 3/2 hours a night does doze off periodically during the day. Plan: Patient continues on his current medications, we await discharge plans from [facility] and his guardian.
[2019-02-08] MEDS: LORazepam 1 MG TAB PO PRN (15:48)
[2019-02-08] MEDS: cloZAPine 100 MG TAB PO SCH (20:45)
[2019-02-09] MEDS: ACETAMINOPHEN TAB 325 MG TAB PO PRN (03:02)
[2019-02-09] MEDS: amLODIPine 5 MG TAB PO SCH (08:32)
[2019-02-09] MEDS: APIXABAN 5 MG TAB PO SCH ×2 (08:32→21:40)
[2019-02-09] MEDS: cloZAPine 25 MG TAB PO SCH (08:32)
[2019-02-09] MEDS: OXcarbazepine 300 MG TAB PO SCH ×2 (08:32→21:40)
--- NOTE | 2019-02-09 12:08 | P.PN ---
Progress Note - Text Progress Note Date: 02/09/19 Interval History: Patient is a 63-year-old male who was seen today, he continues to use the wheelchair to ambulate. Patient continues to request discharge stating that he is frustrated with his stay. Patient continues to sleep and is wheelchair complaining that the bed is bad for his back and refuses to use depends. Mental Status: Appearance/Attitude: Patient is casually dressed, his hygiene is fair, he is cooperative Behavior: Patient does not exhibit any psychomotor agitation or retardation Speech/Language: Patient's speech is spontaneous of normal volume and rhythm and he is coherent Thought Process: Patient is goal-directed there is no evidence of loose association or flight of ideas, however the patient remains focused on the fact that he is to be in front of the superior court judge regarding his guardianship at the end of February Thought Content: Patient denies any auditory or visual hallucinations, no paranoid ideation is elicited the patient remains focused on his guardianship review that is coming up on March 13 when the patient thinks that his guardianship will be revoked and that he will have access to his money and be able to buy a house. Patient and I discussed at length that he will be discharged to a usp and he will need to return to the usp at night and time to eat dinner and receiving his evening medications. Patient reports that he will comply with this continues to sleep in his wheelchair due to complaints of back pain when he sleeps in bed. Suicidal/Homicidal Ideation: Patient denies any current suicidal or homicidal ideation Sensorium/Cognition: Patient is alert and oriented to person, place and time Mood/Affect: Patient's mood is stable his affect is appropriate, he is less intrusive on the unit Insight/Judgment: Patient's insight and judgment are limited Assessment: [facility] as reported that the patient can be transferred to a usp tomorrow, patient was informed of this patient continues to feel that the review on March 13 in front of the associate juvenile court judge regarding guardianship that his guardianship will be revoked and he'll live access to his money and be able to buy a home. In the long discussion with the patient that when he goes to the usp he needs to return there at dinnertime and stay at the usp after that so that he doesn't miss his evening medications or follow sleep and a friend's house. Patient was agreeable with the transfer tomorrow to a usp. Plan: Patient will continue on Clozaril 50 mg in the morning 200 mg at bedtime and Trileptal 600 mg twice a day and the plan is for the patient to be discharged tomorrow to a usp.
[2019-02-09] MEDS: cloZAPine 100 MG TAB PO SCH (21:40)
[2019-02-10 05:22] VITALS: BP 132/92; PULSE 120; TEMP 97.7
[2019-02-10] MEDS: APIXABAN 5 MG TAB PO SCH (08:34)
[2019-02-10] MEDS: OXcarbazepine 300 MG TAB PO SCH (08:35)
[2019-02-10] MEDS: amLODIPine 5 MG TAB PO SCH (08:35)
[2019-02-10] MEDS: cloZAPine 25 MG TAB PO SCH (08:36)
--- NOTE | 2019-02-10 08:54 | P.DS ---
Providers Date of admission: 01/19/19 22:02 Expected date of discharge: 02/10/19 Attending physician: Melyssa Clark MD Consults: 01/19/19 22:42 Consult Physician Routine Consulting Provider: Earl Curry Consult Reason/Comments: H&P and medical Do you want consulting provider notified?: Yes Primary care physician: Jaspal Melgoza [facility] Course: Discharge Diagnosis: Bipolar type I disorder, current episode manic Reason for Admission: Patient is a 63-year-old male who was brought to the hospital due to failure to follow his medical treatment. Patient was just rec ently discharged from the hospital on January 14, he went to live in a retirement and the patient states that he went to a friend's house fell sleep and didn't return to the retirement that night. Patient states that he was taking his medications at the retirement. Patient again apparently went to the bank and was asking to have a check for $17,000 to buy a motorcycle. Patient states that he went to the bank because that's where he cashes his check for his spending money was asking for a loan money to buy a motorcycle. Patient states that he missed his medications when he was at his friend's house. Patient states he had been taking them. Patient has a long history of admissions for bipolar disorder and was here most recently at the end of December and was here again in June 2018. Patient has been living at a retirement and this was changed at his last discharge to a different retirement. Patient has been admitted numerous times for noncompliance with medication and follow-up appointments, patient presents reporting that he is trying to collect his money so that he can buy a house, motorcycle or car. Patient today again stated that he was at the bank trying to get money to buy a motorcycle, when I discussed with him that he has a guardian who is in charge of his money the patient was able to state that he gets money weekly from the guardian for expenses, but then will immediately state that he wants to buy a motorcycle so he can go visit friends in [place]. Patient states that he was not sleeping in his bed, continues to sleep in chairs her on a couch. Patient states he doesn't need to be here and doesn't understand why he was brought here and then talked about someone stealing money and his watch. Patient states he was tricked into being here. Mental status on Admission: Appearance/Attitude: Patient is dressed in a hospital gown, his grooming is fair he makes eye contact intermittently and is cooperative Behavior: Patient does not exhibit any psychomotor agitation or retardation. Speech/Language: Patient's speech is spontaneous, normal volume and rhythm and he is coherent Thought Process: Patient is goal-directed, is no evidence of loose associations or flight of ideas Thought Content: Patient denies any auditory or visual hallucinations no delusions or paranoid ideation or elicited. Patient states that he went to the bank because he wanted to withdraw his money to buy a motorcycle. Patient and I discussed that he has a guardian who is in charge of his money and patient said that he understood that but then states that he wanted to buy a motorcycle, wants to buy a house once to live on his own. Patient is able to state that he gets anywhere from $50-$200 a week from his guardian based on what he needs for expenses. Patient states that he was taking his medications when he was at the retirement. Patient states he went to the bank where he cashes his check from the guardian to obtain money to buy a motorcycle. Patient states that he fell asleep at a friend's house and did not return to the retirement that night. Suicidal/Homicidal Ideation: Patient denies any current suicidal or homicidal ideation Sensorium/Cognition: Patient is alert and oriented to person, place and time and his recent and remote memory are grossly intact Mood/Affect: Patient's mood is slightly irritable and his affect is appropriate to his mood Insight/Judgment: Patient's insight and judgment are limited Hospital Course: Patient was admitted on a demand for hearing, placed on routine observation and group and activity therapy were ordered. Patient looking continue on his current medications for his medical problems and routine laboratory studies and a medical consultation were ordered. Patient was restarted on his Clozaril 50 mg in the morning and 100 at bedtime and Trileptal foreigner 50 mg twice a day. During the course of the hospitalization patient's Clozaril was titrated to 50 in the morning and 200 at bedtime his CBCs remained appropriate for Clozaril treatment. Patient's Trileptal was increased to 600 mg twice a day. Patient initially on the unit continued to discuss his need to be discharged to live on his own, buy a house, go to court and obtain his money from the bank and was not able to understand that he had a guardian and that none of this would occur while he was in the hospital. Patient continued to be intrusive on the unit, with the increase in his medications his behavior improved and he became less focused on trying to go to the bank and obtain his money, buy a house and live on his own. Patient was more accepting of the fact that he has a guardian, patient does have a hearing in February to determine if the guardianship will continue or not. Patient accepted the fact that he will be discharged back to a supervised living situation and did not continue to demand to be discharged to his own home. Patient's behavior improved on the unit and he began using a wheelchair during the course of the stay due to pain in his ankle, patient has been instructed in the past to use a walker and/or a wheelchair but has refused in the past. Placement for this patient was a problem and the patient was kept on the inpatient unit until an appropriate placement could be obtained and he is returning to a retirement situation. Patient was encouraged to be compliant not only with his medication but returning to the retirement in an appropriate time each day. Patient continues to sleep in a wheelchair due to the fact that he complains the bed hurts his back. Patient doses on and off during the day and sleeps fairly well at night about 4 hours or longer. Patient has been compliant with his medications on the inpatient unit. Allergies divalproex sodium [From Depakote] Allergy (Verified 01/21/19 20:39) Unknown haloperidol [From Haldol] Allergy (Verified 01/21/19 20:39) Unknown haloperidol lactate [From Haldol] Allergy (Verified 01/21/19 20:39) Unknown lithium Allergy (Verified 01/21/19 20:39) Unknown Laboratory Last Values WBC 5.7 k/uL (3.8-10.6) 02/04/19 10:10 RBC 4.46 m/uL (4.30-5.90) 02/04/19 10:10 Hgb 13.3 gm/dL (13.0-17.5) 02/04/19 10:10 Hct 41.0 % (39.0-53.0) 02/04/19 10:10 MCV 92.1 fL (80.0-100.0) 02/04/19 10:10 MCH 29.8 pg (25.0-35.0) 02/04/19 10:10 MCHC 32.4 g/dL (31.0-37.0) 02/04/19 10:10 RDW 15.4 % (11.5-15.5) 02/04/19 10:10 Plt Count 209 k/uL (150-450) 02/04/19 10:10 Neutrophils % 62 % 02/04/19 10:10 Lymphocytes % 19 % 02/04/19 10:10 Monocytes % 9 % 02/04/19 10:10 Eosinophils % 6 % 02/04/19 10:10 Basophils % 1 % 02/04/19 10:10 Neutrophils # 3.5 k/uL (1.3-7.7) 02/04/19 10:10 Lymphocytes # 1.1 k/uL (1.0-4.8) 02/04/19 10:10 Monocytes # 0.5 k/uL (0-1.0) 02/04/19 10:10 Eosinophils # 0.3 k/uL (0-0.7) 02/04/19 10:10 Basophils # 0.0 k/uL (0-0.2) 02/04/19 10:10 Anisocytosis Slight 01/19/19 18:00 Sodium 143 mmol/L (137-145) 01/24/19 08:08 Potassium 4.7 mmol/L (3.5-5.1) 01/24/19 08:08 Chloride 113 mmol/L (98-107) H 01/24/19 08:08 Carbon Dioxide 22 mmol/L (22-30) 01/24/19 08:08 Anion Gap 8 mmol/L 01/24/19 08:08 BUN 26 mg/dL (9-20) H 01/24/19 08:08 Creatinine 1.79 mg/dL (0.66-1.25) H 01/24/19 08:08 Est GFR (CKD-EPI)AfAm 46 (>60 ml/min/1.73 sqM) 01/24/19 08:08 Est GFR (CKD-EPI)NonAf 40 (>60 ml/min/1.73 sqM) 01/24/19 08:08 Glucose 102 mg/dL (74-99) H 01/24/19 08:[address] Glu mg/dL 131 01/20/19 09:38 Hemoglobin A1c 6.2 % (4.0-6.0) H 01/20/19 09:38 Calcium 9.3 mg/dL (8.4-10.2) 01/24/19 08:08 Magnesium 1.9 mg/dL (1.6-2.3) 01/19/19 18:00 Triglycerides 105 mg/dL (<150) 01/20/19 09:38 Cholesterol 144 mg/dL (<200) 01/20/19 09:38 LDL Cholesterol, Calc 78 mg/dL (0-99) 01/20/19 09:38 HDL Cholesterol 45 mg/dL (40-60) 01/20/19 09:38 TSH 1.300 mIU/L (0.465-4.680) 01/20/19 09:38 Urine Color Light Yellow 01/19/19 18:00 Urine Appearance Clear (Clear) 01/19/19 18:00 Urine pH 5.5 (5.0-8.0) 01/19/19 18:00 Ur Specific Keller 1.005 (1.001-1.035) 01/19/19 18:00 Urine Protein 1+ (Negative) H 01/19/19 18:00 Urine Glucose (UA) Negative (Negative) 01/19/19 18:00 Urine Ketones Negative (Negative) 01/19/19 18:00 Urine Blood Trace (Negative) H 01/19/19 18:00 Urine Nitrite Negative (Negative) 01/19/19 18:00 Urine Bilirubin Negative (Negative) 01/19/19 18:00 Urine Urobilinogen <2.0 mg/dL (<2.0) 01/19/19 18:00 Ur Leukocyte Esterase Negative (Negative) 01/19/19 18:00 Urine RBC 1 /hpf (0-5) 01/19/19 18:00 Urine WBC <1 /hpf (0-5) 01/19/19 18:00 Urine Bacteria Rare /hpf (None) H 01/19/19 18:00 Urine Mucus Rare /hpf (None) H 01/19/19 18:00 Urine Opiates Screen Not Detected (NotDetected) 01/19/19 18:00 Ur Oxycodone Screen Not Detected (NotDetected) 01/19/19 18:00 Urine Methadone Screen Not Detected (NotDetected) 01/19/19 18:00 Ur Propoxyphene Screen Not Detected (NotDetected) 01/19/19 18:00 Ur Barbiturates Screen Not Detected (NotDetected) 01/19/19 18:00 Oxcarbazepine <1.0 ug/mL (10-35) 01/20/19 09:38 U Tricyclic Antidepress Not Detected (NotDetected) 01/19/19 18:00 Ur Phencyclidine Scrn Not Detected (NotDetected) 01/19/19 18:00 Ur Amphetamines Screen Not Detected (NotDetected) 01/19/19 18:00 U Methamphetamines Scrn Not Detected (NotDetected) 01/19/19 18:00 U Benzodiazepines Scrn Not Detected (NotDetected) 01/19/19 18:00 Urine Cocaine Screen Not Detected (NotDetected) 01/19/19 18:00 U Marijuana (THC) Screen Not Detected (NotDetected) 01/19/19 18:00 Serum Alcohol <10 mg/dL 01/19/19 18:00 Discharge Mental Status: Appearance/Attitude: Patient is casually dressed, his hygiene is fair makes eye contact and is cooperative Behavior: Patient does not exhibit any psychomotor agitation or retardation Speech/Language: Patient's speech is spontaneous and normal volume and rhythm and he is coherent Thought Process: Patient is goal-directed there is no evidence of loose association or flight of ideas Thought Content: Patient denies any auditory or visual hallucinations, no paranoid ideation is elicited and no delusions. Patient does discuss that he has a hearing coming up in February in front of the court regarding his guardianship but the patient and I discussed his need to be compliant with the rules that retirement, be compliant with his medication and he wasn't aware of this and the fact that he is on a court order which will return him to the hospital if he does not do so. Patient slept for about 4-5 hours last night he continues to sleep and is wheelchair and his appetite is good Suicidal/Homicidal Ideation: Patient denies any current suicidal or homicidal ideation Sensorium/Cognition: Patient is alert and oriented to person, place and time and his recent and remote memory are grossly intact Mood/Affect: Patient's mood is stable his affect is appropriate to his mood Insight/Judgment: Patient's insight and judgment are limited, patient continues to feel that when he goes in front of the court in the month of February his guardianship will be revoked and he will be able to manage his own funds even with repeated discussion of this the patient has little insight. Risk Assessment: Patient is at moderate risk for readmission should he not be compliant with medication, follow-up care at [facility] Discharge Plan: Patient will be discharged to live at an adult foster [facility], he will continue on Norvasc 5 mg daily, Nikita was 5 mg twice a day, Clozaril 50 mg in the morning and 200 mg at bedtime, Trileptal 600 mg twice a day patient will receive prescriptions for all of these medications. Patient will follow-up at [facility] and he was advised that he is on a court order for treatment and needs to comply with his medications, follow-up care as well as the rules as they apply to the adult foster [facility]. Patient was also advised that he has a guardian who does control his finances and make decisions for him. Patient Condition at Discharge: Stable Plan - Discharge Summary New Discharge Prescriptions: New cloZAPine [Clozaril] 200 mg PO HS #28 tab OXcarbazepine [Trileptal] 600 mg PO BID #112 tab Continue cloZAPine [Clozaril] 50 mg PO DAILY #56 tablet Apixaban [Eliquis] 5 mg PO BID #56 tab amLODIPine [Norvasc] 5 mg PO DAILY #28 tab Discontinued OXcarbazepine [Trileptal] 450 mg PO BID #168 tab cloZAPine [Clozaril] 100 mg PO HS #28 tab Discharge Medication List Apixaban [Eliquis] 5 mg PO BID #56 tab 02/10/19 [Rx] OXcarbazepine [Trileptal] 600 mg PO BID #112 tab 02/10/19 [Rx] amLODIPine [Norvasc] 5 mg PO DAILY #28 tab 02/10/19 [Rx] cloZAPine [Clozaril] 50 mg PO DAILY #56 tablet 02/10/19 [Rx] cloZAPine [Clozaril] 200 mg PO HS #28 tab 02/10/19 [Rx] Follow up Appointment(s)/Referral(s): [facility] [Outside] - 02/10/19 11:00 am (Terry [facility]) Jaspal Melgoza MD [Primary Care Provider] - 1-2 days Patient Instructions/Handouts: Bipolar Disorder (DC) Activity/Diet/Wound Care/Special Instructions: Activity and diet as tolerated. No guns or weapons in the home. Refrain from alcohol and drugs that are not prescribed by your physician. Take all medications as prescribed by your physicians, and attend all follow up appointments as scheduled. If in need of medication refills, please go to your primary care physician, or your out patient psychiatric provider. If in crisis, please call , or go the nearest ER for an evaluation. Discharge Disposition: OTHER INSTITUTION NOT DEFINED
== END 2019-02-10 11:50 | disposition home or self-care (01) | DRG 885 ==
LOC: EC 15:11 → 3MHU 22:02
PROVIDERS: ADMIT Psychiatry & Neurology Psychiatry; ATTEND Psychiatry & Neurology Psychiatry
DX: F31.2 Bipolar disorder, current episode manic severe with psychotic features (principal); I82.502 Chronic embolism and thrombosis of unspecified deep veins of left lower extremity; D72.829 Elevated white blood cell count, unspecified; F17.210 Nicotine dependence, cigarettes, uncomplicated; I12.9 Hypertensive chronic kidney disease with stage 1 through stage 4 chronic kidney disease, or unspecified chronic kidney disease; I48.0 Paroxysmal atrial fibrillation; I87.2 Venous insufficiency (chronic) (peripheral); M25.371 Other instability, right ankle; N18.3 Chronic kidney disease, stage 3 (moderate); Z79.01 Long term (current) use of anticoagulants; Z79.899 Other long term (current) drug therapy; Z91.14 Patient's other noncompliance with medication regimen; Z91.19 Patient's noncompliance with other medical treatment and regimen; Z95.0 Presence of cardiac pacemaker; Z88.8 Allergy status to other drugs, medicaments and biological substances
CPT/HCPCS: 36415; 80048; 80061; 80183; 80306; 80320; 81001; 82075; 83036; 83735; 84443; 85025; 93005; 99285

== ENCOUNTER 2019-03-11 12:13 | Inpatient (IN) | payer MEDICARE, OTHER ==
[2019-03-11] MEDS ORDERED: HEPARIN SODIUM,PORCINE 5,000 UNIT/ML 1 ML VIAL IV PRN (14:59)
[2019-03-11] MEDS ORDERED: NALOXONE 0.4 MG/ML 1 ML VIAL IV PRN (15:00)
[2019-03-11] MEDS ORDERED: LORazepam 2 MG/ML INJ IV PRN ×3 (15:12)
[2019-03-11] MEDS ORDERED: guaiFENesin SYRUP 100MG/5ML 200 MG/10 ML CUP PO PRN (15:17)
[2019-03-11] MEDS ORDERED: ZIPRASIDONE 20 MG VIAL IM PRN ×2 (15:21→15:36)
[2019-03-11] MEDS: AMIODARONE 300 MG in DEXTROSE 5% IN WATER 250 ML IV SCH ×2 (15:44)
[2019-03-11] MEDS: DEXTROSE 5%-0.45% NACL 1,000 ML IV SCH (15:45)
[2019-03-11] MEDS: HEPARIN SOD,PORK IN 0.45% NACL 25,000 UNIT in 0.45% NACL 1 250ML.BAG IV SCH (15:47)
[2019-03-11] MEDS: LORazepam 2 MG/ML INJ IV PRN (17:33)
[2019-03-11] MEDS ORDERED: cloZAPine 100 MG TAB PO SCH (21:00)
[2019-03-11] MEDS ORDERED: METOPROLOL TARTRATE 50 MG TAB PO SCH (21:00)
[2019-03-11] MEDS: OXcarbazepine 300 MG TAB PO SCH (21:25)
[2019-03-11] MEDS: NYSTATIN 100,000 UNIT/GM POWD 15 GM TOPICAL SCH (21:25)
[2019-03-12] MEDS: DEXTROSE 5%-0.45% NACL 1,000 ML IV SCH ×3 (01:22→22:11)
[2019-03-12] MEDS: AMIODARONE 300 MG in DEXTROSE 5% IN WATER 250 ML IV SCH ×2 (01:23)
[2019-03-12] MEDS: LORazepam 2 MG/ML INJ IV PRN ×2 (01:40→10:59)
[2019-03-12 05:47] LABS: Basophils % (A) 0 %; Eosinophils % (A) 0 %; HCT 37.4 % (39.0-53.0); HGB 11.7 gm/dL (13.0-17.5); Hypochromasia Slight; Lymphocytes # (A) 0.9 k/uL (1.0-4.8); Lymphocytes % (A) 9 %; MCH 28.7 pg (25.0-35.0); MCHC 31.4 g/dL (31.0-37.0); MCV 91.4 fL (80.0-100.0); Mean Platelet Volume 7.7; Monocytes # (A) 0.7 k/uL (0-1.0); Monocytes % (A) 6 %; Neutrophils # (A) 8.4 k/uL (1.3-7.7); Neutrophils % (A) 83 %; Platelet Count 256 k/uL (150-450); RBC 4.09 m/uL (4.30-5.90); RDW 15.5 % (11.5-15.5); WBC 10.1 k/uL (3.8-10.6)
[2019-03-12 05:55] LABS: Partial Thromboplastin Time 49.4 sec (22.0-30.0); Prothrombin Time 10.7 sec (9.0-12.0)
[2019-03-12 06:20] LABS: Calcium 9.2 mg/dL (8.4-10.2); Potassium 4.4 mmol/L (3.5-5.1)
[2019-03-12 07:35] LABS: Glucose,Whole Blood 113 mg/dL (75-99)
[2019-03-12] MEDS ORDERED: PANTOPRAZOLE 40 MG/10 ML VIAL IV SCH (09:00)
[2019-03-12] MEDS ORDERED: amLODIPine 5 MG TAB PO SCH (09:00)
[2019-03-12] MEDS: OXcarbazepine 300 MG TAB PO SCH ×2 (10:05→20:25)
[2019-03-12] MEDS: METOPROLOL TARTRATE 5 MG/5 ML VIAL IVP SCH ×3 (10:05→23:13)
[2019-03-12] MEDS: FAMOTIDINE 20 MG/2 ML VIAL IV SCH (10:16)
[2019-03-12] MEDS: HEPARIN SOD,PORK IN 0.45% NACL 25,000 UNIT in 0.45% NACL 1 250ML.BAG IV SCH (10:20)
[2019-03-12] MEDS: NYSTATIN 100,000 UNIT/GM POWD 15 GM TOPICAL SCH ×2 (10:33→20:36)
--- NOTE | 2019-03-12 10:50 | ECHOF ---
Referral Reason:tachycardia MEASUREMENTS -------- HEIGHT: 182.9 cm WEIGHT: 112.0 kg BP: 139/115 IVSd: 1.5 cm (0.6 - 1.1) LVIDd: 5.6 cm (3.9 - 5.3) LVPWd: 1.3 cm (0.6 - 1.1) IVSs: 1.9 cm LVIDs: 5.0 cm LVPWs: 1.3 cm LAESV Index (A-L): 55.61 ml/m Ao Diam: 4.1 cm (2.0 - 3.7) AV Cusp: 2.8 cm (1.5 - 2.6) LA Diam: 4.2 cm (2.7 - 3.8) MV E Jae: 1.10 m/s MV DecT: 116 ms MV A Jae: 0.53 m/s MV E/A Ratio: 2.08 RAP: 15.00 mmHg RVSP: 50.71 mmHg FINDINGS -------- Resting tachycardia (HR>100bpm). Pt. is combative The left ventricular size is normal. There is mild concentric left ventricular hypertrophy. There is moderate global hypokinesis of LV . Overall left ventricular systolic function is severely impa ired with, an EF between 25 - 30 %. Increased LAP Grade 3 Diastolic Dysfunction. Inferior Hypokin esis The right ventricle is normal in size. LA is severely dilated >40 ml/m2 The right atrium is mildly enlarged. Interatrial and interventricular septum intact. The aortic valve is trileaflet and appears structurally normal. The mitral valve is normal. The mitral valve leaflets are mildly thickened. Severe mitral regurgi tation is present. The tricuspid valve appears structurally normal. Severe tricuspid regurgitation present. There is moderate pulmonary hypertension. The right ventricular systolic pressure, as measured by Doppler, is 50.71mmHg. There is no pulmonic regurgitation present. The aortic root size is normal. The inferior vena cava is mildly dilated. There is no pericardial effusion. CONCLUSIONS -------- 1. Resting tachycardia (HR>100bpm). 2. Pt. is combative 3. The left ventricular size is normal. 4. There is mild concentric left ventricular hypertrophy. 5. There is moderate global hypokinesis of LV . 6. Overall left ventricular systolic function is severely impaired with, an EF between 25 - 30 %. 7. Increased LAP Grade 3 Diastolic Dysfunction. 8. Inferior Hypokinesis 9. The right ventricle is normal in size. 10. LA is severely dilated >40 ml/m2 11. The right atrium is mildly enlarged. 12. Interatrial and interventricular septum intact. 13. The aortic valve is trileaflet and appears structurally normal. 14. The mitral valve is normal. 15. The mitral valve leaflets are mildly thickened. 16. Severe mitral regurgitation is present. 17. The tricuspid valve appears structurally normal. 18. Severe tricuspid regurgitation present. 19. There is moderate pulmonary hypertension. 20. The right ventricular systolic pressure, as measured by Doppler, is 50.71mmHg. 21. There is no pulmonic regurgitation present. 22. The aortic root size is normal. 23. The inferior vena cava is mildly dilated. 24. There is no pericardial effusion. ASSISTANT WOM[employer] COACH: Cindy Quiroz RDCS
--- NOTE | 2019-03-12 13:41 | CONS ---
CONSULTATION Mr. Arndt is a 63-year-old male who was transferred from [facility] for psychiatry evaluation. Patient has a known history of psychiatric disorder and PTSD. He presented to the emergency room at [facility] with episode of tachycardia. He was initiated on IV amiodarone, anticoagulation and transferred to [facility]. The patient has a history of permanent pacemaker implantation, history of atrial fibrillation, according to the record, paroxysmal, has been anticoagulated. It is unclear to me if he was compliant with his medication. I am not able to obtain any records. The patient has been combative earlier and has been sedated. He is in four-point restraint. In the mid 2018, he was admitted with atypical chest pain and he was in sinus mechanism at that time and an echocardiogram revealed a preserved left ventricular size and systolic function. The patient has no evidence of ventricular ectopic activity, but he continues to be in what appears to be atrial tachycardia with 2:1 conduction on IV amiodarone and IV heparin. I am not able to obtain any review of systems. The patient has a history of chronic DVT. MEDICATIONS: His medications as an outpatient included Clozaril, amlodipine 5 mg daily, Trileptal 600 mg twice a day, metoprolol tartrate 50 mg twice a day, Eliquis 5 mg twice a day. The patient had multiple admissions to the mental health unit for bipolar manic disorder and psychosis as well as schizoaffective disorder in the last few months. PHYSICAL EXAMINATION: He is a 63-year-old male, sedated in four-point restraint. Blood pressure running in the 130 over 100 and 110 with the heart rate in the one teens. HEAD: Normocephalic. EYES: Sclerae anicteric. NECK: Good carotid upstroke. No bruit. LUNGS: Clear to auscultation anteriorly. HEART: Tachycardic, S1, S2. No S3. No rub. No gallop appreciated. ABDOMEN: Soft, nontender. Positive bowel sounds. No organomegaly. EXTREMITIES: With chronic stasis and decreased distal pulses. LAB DATA: His BUN and creatinine of 37 and 2.52. His potassium 4.4. Sodium 151. Hemoglobin of 11.7. Reviewing the old data, the patient has a history of chronic kidney disease, although his creatinine today is higher than his prior lab work. His EKG performed at [facility] revealed tachycardia with possible atrial tachycardia with 2:1 conduction, the possibility atrial flutter cannot be totally excluded. There was nonspecific ST-T wave changes. IMPRESSION: 1. Atrial flutter versus atrial tachycardia; at this time appears more like atrial tachycardia with 2:1 conduction. 2. Prior history of atrial fibrillation according to the record, has been anticoagulated. Compliance is unclear to me. 3. History of psychosis. 4. History of deep venous thrombosis. 5. Chronic kidney disease. 6. History of hypertension. RECOMMENDATION: From the cardiac standpoint, I will continue IV amiodarone at this time. I will add to his regimen intravenous beta johana. Continue intravenous anticoagulation until he is able to take oral medication. I will obtain echocardiogram with Doppler. Depending on his progress, further recommendation will be made. Thank you for this consult. We will follow with you. ROSEMARIE / SANDEE: [id number] /
[2019-03-12] MEDS ORDERED: flUPHENAZine 2.5 MG/ML (MDV) 10 ML VIAL IM PRN (14:28)
--- NOTE | 2019-03-12 14:48 | P.CN ---
Psychiatric Consult - . Consult date: 03/12/19 Consult:: 03/12/19 14:31 IDENTIFYING DATA: This patient is a 63-year-old male with long history of his of hernia, who has a public guardian and currently lives in an AFC in [place] and has no kids. HISTORY OF PRESENT ILLNESS: The patient was initially admitted to [facility] for cardiac concerns chest pain and was then transferred to [facility] due to aggression and concerns for psychiatric evaluation. Patient has been noted to be unstable with regards to his cardiac condition and is tachycardic and in A. fib/flutter and is in the ICU currently. Psychiatry was called as patient was combative and appeared to be psychotic. As per nurse who is attending to the patient, cleans the patient has been refusing his medications combative, spitting and swinging at people. Patient was also noted to have been given 2 mg of Ativan earlier this morning and also a when necessary of Geodon yesterday for agitation. Patient has a history of being on clozapine and is being seen at [facility]. When scenario writer approached patient to be evaluated, who is noted the patient was somnolent, difficult to arouse initially and had 4. restraints, padded gloves on his hands and also a mask to prevent issue from spitting. Patient was drifting in and out of sleep and was rambling during conversation was illogical and disorganized in his thought content. Patient was alert and oriented to person only and thought he was in [facility] and did not know what the date was today. Patient spoke about him stealing a car and also talking to his commanding officer who is giving him orders. Was any unable to assess if patient was suicidal or homicidal as patient did not answer this question appropriately. Patient denies any auditory, visual hallucinations at this time. PAST PSYCHIATRIC HISTORY: Patient follows up at [facility] and is currently on clozapine 50 mg plus 200 mg daily at bedtime however unknown if patient has been compliant and also on Trileptal 600 mg twice a day. Patient was recently admitted to the mental health unit and was discharged in January 2019. Patient needed to be restarted on clozapine was titrated up to a dose of 50 mg daily +200 mg daily at bedtime for psychosis and Trileptal 600 mg twice a day for mood stabilization. PAST MEDICAL HISTORY: A. fib, has permanent pacemaker, DVT history. ALLERGIES: As per EMR. CHEMICAL DEPENDENCY HISTORY: Unknown as patient is not able to answer this question. Patient admits to smoking cigarettes however unknown quantity. FAMILY PSYCHIATRIC/SUBSTANCE USE HISTORY: denies. SOCIAL HISTORY: [place] kids and has a public guardian. MENTAL STATUS EXAM: General Appearance: Patient appears to be stated age, is somnolent and has poor attention, uncooperative and bizarre. Behavior: Patient is agitated at times and pulls at his restraints. Speech: Patient's speech is fluent and nonpressured. Mood/Affect: Patient reports their mood is dysthymic, affect is congruent Suicidality/Homicidality: Unable to assess Perceptions: Patient denies any auditory or visual hallucinations. Though content/process: Patient has several loosely formed delusions, tangential logical and bizarre. Patient has poor attention span and is somnolent. Memory and concentration: AOX 1, only oriented to person and thinks that he is in [facility]. Patient has poor attention span and cannot participate in exam. Judgment and insight: Poor IMPRESSIONS: Delirium with likely etiology toxic/metabolic Schizoaffective disorder, bipolar type PLAN: -Patient DOES NOT have decision making capacity at this time and is unable to reason through and communicate/appreciate the risks, benefits and alternatives to treatment. -Delirium precautions recommended with patient including - avoiding use of narcotics and TICKET SORTER sedatives, limit anticholinergic medications when possible, frequent re-orientation, minimize use of restraints, open window shades during the day and close them at night -Would recommend the following medication changes/additions: Please avoid using benzodiazepines at this time, discontinued Ativan as this may be contributing to his ongoing delirium exacerbating it. Started patient on Prolixin 5 mg twice a day IM as patient is not taking medications by mouth. I made available to 2.5 mg of Prolixin IM every 6 hours for severe agitation. Will hold off on clozapine at this time and will need to be restarted later. Patient can continue on Trileptal 600 mg twice a day for mood stabilization. -I ordered a comprehensive metabolic panel for tomorrow morning follow-up on electrolyte abnormalities and liver function tests along with kidney functions. -ECG done at the bedside showed patient in a-flutter with a QTC of 446. -Continue 1:1 sitter for safety and orientation -Will continue to follow along Thank you for the consult 03/12/19 14:39
--- NOTE | 2019-03-12 20:08 | P.HPIM ---
History of Present Illness H&P Date: 03/11/19 Chief Complaint: Agitation History of presenting complaint: This is a 63-year-old patient whose chronic stable medical conditions include chronic kidney disease stage III, chronic left leg DVT, not on antiplatelet medication for the same, unstable right ankle joint does walk with a limp, pacemaker for sick sinus syndrome, bipolar disorder type I with manic episodes. Also intermittent atrial fibrillation. Patient lives at a senior living. Has had frequent admissions to the psychiatry unit for flareup of his bipolar disorder especially. Manic episodes. Patient has a court-appointed guardian. Patient presents to [facility] with atrial fibrillation with rapid ventricular rate. Was admitted to the ICU. Was put on IV amiodarone and IV Cardizem initially. Subsequently patient became very agitated and refused to take his medications. Patient was followed by cardiology and pulmonary in the ICU. As psychiatry services were not available at the other hospital and even though patient was given Geodon 20 mg IM every 12 when necessary and Ativan when necessary he was still refusing to take his oral medications. This resulted in patient being transferred here for higher level of care. Patient currently is lethargic but arousable. Earlier today I did give Dr. Walter and updated about the patient. Review of systems cannot be done as patient rather lethargic Past medical history: Left leg DVT chronic not an adequate list for the same, hypertension, chronic kidney disease stage III, bipolar disorder with manic episodes, chronic right ankle dislocation, sick sinus syndrome with a pacemaker Social history: Smoked for close to 50 years. Used to work in the [place]. Discharged with [facility]. Living at [facility]. Family history: Patient lethargic cannot tell Physical examination: VITAL SIGNS: 98.9, 82, 14, 107/68, 99% on 3 L GENERAL: BMI 31.8, laying in bed, lethargic but arousable, in soft restraints. EYES: Pupils equal. Conjunctiva normal. HEENT: External appearance of nose and ears normal, oral cavity grossly normal. NECK: JVD unable to assess; masses not palpable. HEART: Heart sounds irregular; no edema. LUNGS: Respiratory rate increased, diminished breath sounds. ABDOMEN: Soft, nontender, liver spleen not palpable, no masses palpable. PSYCH: [Lethargic but arousable l. NEUROLOGICAL: Cranial nerves grossly intact; no facial asymmetry, does move all his limbs. LYMPHATICS: No lymph nodes palpable in the axilla and neck INVESTIGATIONS, reviewed in the clinical context: Labs pending Assessment: -Persistent atrial flutter fibrillation with a rapid ventricular rate currently controlled patient had been on amiodarone -Chronic kidney disease stage III from nephrosclerosis -Chronic left leg DVT not on anticoagulation for the same -Right ankle chronic instability -Bilateral lower extremity venous insufficiency -Sick sinus syndrome with a pacemaker -Obesity BMI 31.8 Plan: Consultations made to cardiology, Dr. Walter of water softener service supervisor with whom I spoke, psychiatry. When through with all the medications with nurse more. Patient will be watched closely. Patient is also on IV heparin. 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; Chronic kidney disease stage 3, bipolar depression History of Any Multi-Drug Resistant Organisms: MRSA Date of last positivie culture/infection: 04/27/2014 MDRO Source:: Right Arm Past Surgical History: Back Surgery, Hernia Repair, Pacemaker, Tonsillectomy Past Anesthesia/Blood Transfusion Reactions: Previous Problems w/ Anesthesia Additional Past Anesthesia/Blood Transfusion Reaction / Comment(s): STATES "HARD TIME BREATHING LAYING FLAT, I'M A MOUTH BREATHER" Type of Cardiac Device: Permanent Pacemaker Device Placement Date:: 2015 Past Psychological History: Bipolar, Depression Additional Psychological History / Comment(s): 02/27/18 per petition paperwork- pt delusional,left stable housing,physically aggressive when provided assistance. Smoking Status: Former smoker Past Alcohol Use History: Unable to Obtain, Occasional Additional Past Alcohol Use History / Comment(s): poor historian Past Drug Use History: None Reported Additional Drug Use History / Comment(s): . - Past Family History Father History Unknown: Yes Mother History Unknown: Yes Medications and Allergies Home Medications Medication Instructions Recorded Confirmed Type Apixaban [Eliquis] 5 mg PO BID@0800,209903/11/19 03/11/19 History Metoprolol Tartrate [Lopressor] 50 mg PO BID@0800,209903/11/19 03/11/19 History OXcarbazepine [Trileptal] 600 mg PO BID@0800,209903/11/19 03/11/19 History amLODIPine [Norvasc] 5 mg PO DAILY@0800 03/11/19 03/11/19 History cloZAPine [Clozaril] 200 mg PO HS@2100 03/11/19 03/11/19 History Allergies Allergy/AdvReac Type Severity Reaction Status Date / Time divalproex sodium Allergy Unknown Verified 03/11/19 14:58 [From Depakote] haloperidol [From Haldol] Allergy Unknown Verified 03/11/19 14:58 haloperidol lactate Allergy Unknown Verified 03/11/19 14:58 [From Haldol] lithium Allergy Unknown Verified 03/11/19 14:58 Physical Exam Vitals: Vital Signs Temp Pulse Resp BP Pulse Ox 03/11/19 22:00 116 H 16 93 L 03/11/19 21:30 115 H 20 92 L 03/11/19 21:00 115 H 20 94 L 03/11/19 20:30 98.0 F 115 H 20 144/105 95 03/11/19 20:00 113 H 21 91 L 03/11/19 19:30 29 H 90 L 03/11/19 19:00 114 H 21 94 L 03/11/19 18:30 112 H 23 130/97 93 L 03/11/19 18:00 101 H 21 126/98 94 L 03/11/19 17:30 109 H 18 109/83 93 L 03/11/19 17:00 108 H 14 116/86 95 03/11/19 16:30 103 H 20 93 L 03/11/19 16:00 97.9 F 92 14 112/82 96 03/11/19 15:30 89 15 107/73 96 03/11/19 15:21 98 F 14 96 03/11/19 15:00 98.9 F 82 14 107/68 99 03/11/19 14:30 84 15 138/127 100 03/11/19 14:09 101 H 15 98 Intake and Output 03/11/19 03/11/19 03/12/19 14:59 22:59 06:59 Intake Total 435.333 Output Total 470 Balance -34.667 Intake: IV 375 Amiodarone 300 mg In 75 Dextrose 5% in Water 250 ml @ 0.5 MG/MIN 25 mls/hr IV .Q10H GLENNY Rx#: [id number] Dextrose 5%-0.45% NaCl 1, 300 000 ml @ 100 mls/hr IV . Q10H GLENNY Rx#:[id number] Intake, IV Titration 60.333 Amount Heparin Sod,Pork in 0.45% 60.333 NaCl 25,000 unit In 0.45 % NaCl 1 250ml.bag @ 8. 8499 UNITS/KG/HR 10 mls/ hr IV .Q24H GLENNY Rx#: [id number] Output: Urine 470 Other: Voiding Method Indwelling Catheter Weight 113 kg Results CBC & Chem 7: 03/12/19 05:14 03/12/19 05:14 Labs: Abnormal Lab Results - Last 24 Hours (Table) 03/11/19 Range/Units 21:04 APTT 33.2 H (22.0-30.0) sec Thrombosis Risk Factor Assmnt - Choose All That Apply Each Factor Represents 1 point: Obesity (BMI >25), Swollen legs (current) Each Risk Factor Represents 2 Points: Age 61-74 years, Patient confined to bed Each Risk Factor Represents 3 Points: History of DVT/PE Thrombosis Risk Factor Assessment Total Risk Factor Score: 9 Thrombosis Risk Factor Assessment Level: High Risk
[2019-03-12] MEDS ORDERED: NICOTINE 21MG/24HR PATCH TRANSDERM STA (20:13)
--- NOTE | 2019-03-12 20:18 | P.PN ---
Progress Note - Text Progress Note Date: 03/12/19 Chief Complaint: Agitation Interval history: This is a 63-year-old patient whose chronic stable medical conditions include chronic kidney disease stage III, chronic left leg DVT, not on antiplatelet medication for the same, unstable right ankle joint does walk with a limp, pacemaker for sick sinus syndrome, bipolar disorder type I with manic episodes. Also intermittent atrial fibrillation. Patient lives at a fci. Has had frequent admissions to the psychiatry unit for flareup of his bipolar disorder especially. Manic episodes. Patient has a court-appointed guardian. Patient presents to [facility] with atrial fibrillation with rapid ve ntricular rate. Was admitted to the ICU. Was put on IV amiodarone and IV Cardizem initially. Subsequently patient became very agitated and refused to take his medications. Patient was followed by cardiology and pulmonary in the ICU. As psychiatry services were not available at the other hospital and even though patient was given Geodon 20 mg IM every 12 when necessary and Ativan when necessary he was still refusing to take his oral medications. This resulted in patient being transferred here for higher level of care. Today-remains in the ICU. In A. fib A flutter. Bit more awake. Has a sitter the bedside. May occasionally also question. Review of systems cannot be done as patient rather lethargic Active Medications Enoxaparin Sodium (Lovenox) 100 mg SQ Q12HR [facility] Famotidine (Pepcid) 20 mg IV DAILY [facility] Last Admin: 03/12/19 10:16 Dose: 20 mg Documented by: Fluphenazine HCl (Prolixin) 2.5 mg IM Q6HR PRN PRN Reason: Agitation Fluphenazine HCl (Prolixin) 5 mg IM BID [facility] Guaifenesin (Robitussin) 200 mg PO TID PRN PRN Reason: Cough Dextrose/Sodium Chloride (Dextrose 5%-1/2ns Iv Soln) 1,000 mls @ 100 mls/hr IV .Q10H [facility] Last Admin: 03/12/19 13:31 Dose: 100 mls/hr Documented by: Lorazepam (Ativan) 2 mg IV Q8HR PRN PRN Reason: Agitation Last Admin: 03/12/19 10:59 Dose: 2 mg Documented by: Metoprolol Tartrate (Lopressor) 5 mg IVP Q8HR [facility] Last Admin: 03/12/19 16:29 Dose: 5 mg Documented by: Naloxone HCl (Narcan) 0.2 mg IV Q2M PRN PRN Reason: Opioid Reversal Nystatin (Mycostatin Powder) 1 applic TOPICAL BID [facility] Last Admin: 03/12/19 10:33 Dose: 1 applic Documented by: Oxcarbazepine (Trileptal) 600 mg PO BID [facility] Last Admin: 03/12/19 10:05 Dose: Not Given Documented by: Physical examination: VITAL SIGNS: 98.2, 117, 30, 1 66 x 1 8, 85% oxygen GENERAL: Laying in bed, lethargic but more arousable today. Eating ice chips with assistance. EYES: Pupils equal. Conjunctiva normal. HEENT: External appearance of nose and ears normal, oral cavity grossly normal. NECK: JVD unable to assess; masses not palpable. HEART: Heart sounds irregular; no edema. LUNGS: Respiratory rate increased, diminished breath sounds. ABDOMEN: Soft, nontender, liver spleen not palpable, no masses palpable. PSYCH: [Bit more awake today l. NEUROLOGICAL: Cranial nerves grossly intact; no facial asymmetry, does move all his limbs. INVESTIGATIONS, reviewed in the clinical context: White count 10.1 hemoglobin 11.7 sodium 151 chloride 123 BUN 37 creatinine 2.52 to Patient is BUN and creatinine was 26/1.79 on January 24 2-D echocardiogram-EF 20-30%, severe mitral regurgitation, severe tricuspid regurgitation, moderate pulmonary hypertension Assessment: -Persistent atrial flutter fibrillation with a rapid ventricular rate currently controlled patient had been on amiodarone -Hypernatremia and hyperchloremia, probably from free water deficit -Chronic congestive heart failure from diastolic dysfunction EF 20-30% -Severe mitral and tricuspid regurgitation with secondary pulmonary hypertension -Chronic kidney disease stage III from nephrosclerosis -Acute kidney injury, could be prerenal from decrease fluids, cannot rule out ATN -Chronic left leg DVT -Right ankle chronic instability -Bilateral lower extremity venous insufficiency -Sick sinus syndrome with a pacemaker -Obesity BMI 31.8 -Essential hypertension -Bipolar disorder with manic episodes -Acute delirium multifactorial Plan: Consultations made to cardiology, Dr. Walter of cattle dipper with whom I spoke, psychiatry. When through with all the medications with nurse more. Patient will be watched closely. Patient is also on IV heparin. Patient is be started on D5W. Per psychiatry benzodiazepine to be avoided. Patient be started on Floxin. Also clozapine has been held. Trileptal to be continued. Follow electrolytes. Cardiology continues to IV amiodarone. Patient has a sitter.
[2019-03-12] MEDS: flUPHENAZine 2.5 MG/ML (MDV) 10 ML VIAL IM SCH (20:36)
[2019-03-12] MEDS ORDERED: ENOXAPARIN 100 MG/ML SYRINGE SQ SCH (21:00)
[2019-03-13] MEDS ORDERED: METOPROLOL TARTRATE 5 MG/5 ML VIAL IVP STA (02:15)
[2019-03-13] MEDS: NITROGLYCERIN OINT 1 INCH/GM PACKET TOPICAL SCH ×3 (02:57→19:18)
[2019-03-13 05:53] LABS: Basophils % (A) 0 %; Eosinophils # (A) 0.2 k/uL (0-0.7); Eosinophils % (A) 2 %; HCT 33.1 % (39.0-53.0); HGB 10.3 gm/dL (13.0-17.5); Hypochromasia Slight; Lymphocytes # (A) 1.3 k/uL (1.0-4.8); Lymphocytes % (A) 12 %; MCH 28.4 pg (25.0-35.0); MCHC 31.2 g/dL (31.0-37.0); MCV 90.9 fL (80.0-100.0); Monocytes # (A) 0.8 k/uL (0-1.0); Monocytes % (A) 8 %; Neutrophils # (A) 7.8 k/uL (1.3-7.7); Neutrophils % (A) 76 %; Platelet Count 228 k/uL (150-450); RBC 3.64 m/uL (4.30-5.90); RDW 15.4 % (11.5-15.5); WBC 10.3 k/uL (3.8-10.6)
[2019-03-13 06:33] LABS: Albumin 2.8 g/dL (3.5-5.0); Total Bilirubin 0.4 mg/dL (0.2-1.3)
[2019-03-13 06:43] LABS: Calcium 8.5 mg/dL (8.4-10.2); Potassium 4.4 mmol/L (3.5-5.1); Total Protein 5.9 g/dL (6.3-8.2)
[2019-03-13] MEDS ORDERED: HEPARIN SODIUM,PORCINE 5,000 UNIT/ML 1 ML VIAL IV PRN (08:12)
[2019-03-13] MEDS ORDERED: HEPARIN SOD,PORK IN 0.45% NACL 25,000 UNIT in 0.45% NACL 1 250ML.BAG IV SCH (08:15)
[2019-03-13] MEDS: flUPHENAZine 2.5 MG/ML (MDV) 10 ML VIAL IM SCH ×2 (08:25→20:22)
[2019-03-13] MEDS: FAMOTIDINE 20 MG/2 ML VIAL IV SCH (08:26)
[2019-03-13] MEDS: METOPROLOL TARTRATE 5 MG/5 ML VIAL IVP SCH (08:26)
[2019-03-13] MEDS: DEXTROSE 5%-0.45% NACL 1,000 ML IV SCH ×2 (08:27→20:27)
[2019-03-13] MEDS: NICOTINE 21MG/24HR PATCH TRANSDERM SCH (08:27)
[2019-03-13] MEDS: NYSTATIN 100,000 UNIT/GM POWD 15 GM TOPICAL SCH ×2 (08:27→20:23)
[2019-03-13] MEDS ORDERED: DEXTROSE 5% IN WATER 100 ML with AMIODARONE 150 MG IV ONE (08:30)
[2019-03-13] MEDS ORDERED: AMIODARONE 360 MG in DEXTROSE 5% IN WATER 200 ML IV ONE ×2 (08:30)
--- NOTE | 2019-03-13 08:50 | PN ---
PROGRESS NOTE Mr. rAndt is a 63-year-old male with a history of paroxysmal atrial fibrillation, history of permanent pacemaker implantation who presented with change in mental status and delirium and rapid heart rate. He was transferred to [facility]. He has a known history of mental health issue. He continues to be tachycardic with what appears to be atrial tachycardia with 2:1 conduction or atrial flutter. His blood pressure was elevated under better control now. He is slightly more awake but remains quite somnolent. He has no significant bradycardia and no drop in the blood pressure. He underwent an echocardiogram yesterday that showed an ejection fraction of 25% to 30% with severe mitral and tricuspid regurgitation. He had evidence of moderate pulmonary hypertension. His medication at this time include metoprolol tartrate 5 mg IV q.8 hours, nitroglycerin paste 1 inch q.8 hours, and Lovenox 100 mg subcu q.12 hours. PHYSICAL EXAMINATION: Blood pressure 114/70 with the heart rate in the 120s. LUNGS: Clear anteriorly. HEART: Tachycardic. S1, S2. No S3. No rub. ABDOMEN: Soft. Positive bowel sounds. No organomegaly. EXTREMITIES: With chronic stasis and mild edema. LAB DATA: Lab data revealed a BUN and creatinine of 31 and 2.38, potassium 4.4, hemoglobin of 10.3. IMPRESSION: 1. Atrial tachycardia versus atrial flutter with 2:1 conduction persistent. 2. Cardiomyopathy, new. 3. Status post permanent pacemaker implantation. 4. Severe mitral and tricuspid regurgitation. 5. Chronic kidney disease. 6. History of deep venous thrombosis. RECOMMENDATION: From the cardiac standpoint, I will initiate treatment with IV amiodarone. If the patient does not slow down and continues to be persistently in the same rate, then I will consider proceeding with SPENSER guided cardioversion. If he starts to take oral medication, will start him back on his Eliquis and switch him to oral beta johana. We will continue the rest of his medication and depending on his progress further recommendation made. His renal function will be followed closely. MMODL / IJN: [id number] /
[2019-03-13 09:36] LABS: INR 1.2 (<1.2); Prothrombin Time 12.1 sec (9.0-12.0)
[2019-03-13] MEDS: OXcarbazepine 300 MG TAB PO SCH ×2 (10:25→20:23)
[2019-03-13] MEDS ORDERED: PROPOFOL 10 MG/ML 20 ML VIAL IV ONE (12:17)
--- NOTE | 2019-03-13 13:47 | ECHOT ---
TRANSESOPHAGEAL ECHOCARDIOGRAM INDICATION: Evaluation of left atrial appendage. PROCEDURE: After explaining the procedure to the patient and discussing the issue with his guardian and obtaining consent, his blood pressure, heart rate, O2 saturation was monitored. He received sedation per Anesthesia Department. Subsequently, the probe was introduced esophagus without difficulty images were obtained. Following that, the probe was removed there was no immediate complication. FINDINGS: Left atrial size is dilated. Left atrial appendage is normal. Left ventricular size is normal. There is evidence of global hypokinesis. Estimated ejection fraction 25%. The aortic valve, mitral valve and tricuspid valve are normal. Descending thoracic aorta appears to be normal. Contrast bubble study revealed minimal shunting late in the cycles. Doppler pulse wave and color Doppler obtained revealed a moderate severe mitral and tricuspid regurgitation. There was no shunting by color Doppler study. CONCLUSION: 1. Dilated left atrium with normal appearance left atrial appendage. 2. Severely impaired left ventricular systolic function. 3. Moderate severe mitral and tricuspid regurgitation. 4. Normal appearance of the descending thoracic aorta. MMODL / IJN: [id number] /
[2019-03-13] MEDS ORDERED: AMIODARONE 300 MG in DEXTROSE 5% IN WATER 250 ML IV SCH ×2 (14:30)
--- NOTE | 2019-03-13 15:17 | CE ---
CARDIAC ELECTROPHYSIOLOGY REPORT CARDIOVERSION PROCEDURE NOTE: INDICATION: Atrial flutter. PROCEDURE: After explaining the procedure to the patient and obtaining consent from the guardians and after performing transesophageal echocardiogram and obtaining sedated state, a synchronized biphasic cardioversion using 200 joules was performed with christian of normal sinus rhythm. There was no immediate complication. ROSEMARIE / SANDEE: [id number] /
--- NOTE | 2019-03-13 15:46 | P.PN ---
Progress Note - Text Progress Note Date: 03/13/19 Psychiatry progress note Interval History: Psychiatry followed up with patient's case today as patient was started on Prolixin 5 mg twice a day and received 2 doses thus far. Patient also received a 2.5 mg dose earlier this morning for agitation. As per nursing report, patient had a cardioversion earlier today and received propofol prior to the procedure and patient remained sedated afterwards. As per nurse, patient has been more cooperative and less aggressive with staff and has not been spitting at people and has his head mittens removed however remains on 4. restraints at this time. Head Correction Officer spoke with and evaluated patient at the bedside and patient appeared to be somewhat somnolent however was arousable and had some improved train of thought and was more logical today. Patient endorsed less delusions and when asked why he was here patient stated that he had a problem with his pacemaker and needed to be evaluated. Patient had improved attention span during this interview. He was oriented 2 and to situation. He knew that he was in [facility] and also knew his name however did not know the year or the date. This time he denied any problems with his mood and did not endorse any suicidal or homical ideations, intent or plan. Patient denies any auditory, visual hallucinations and denies any paranoia or delusions. Mental Status Exam: General Appearance: Patient appears to be stated age is somnolent however was more cooperative today and less aggressive. Behavior: Patient is lying in his bed somewhat sedated however is not aggressive or agitated. Speech: Patient's speech is fluent and nonpressured. Mood/Affect: Mood is improving, affect is congruent and constricted. Suicidality/Homicidality: Patient denies having any suicidal or homicidal ideation intent or plan. Perceptions: Patient denies any auditory or visual hallucinations. Though content/process: Less delusional thought content and thought process is linear and goal-directed Memory and concentration: AOX3, grossly intact for the purposes of this session Judgment and insight: Poor, improving mildly Assessment Delirium with likely etiology toxic/metabolic Schizoaffective disorder, bipolar type Plan: -Patient continues to be somewhat sedated however this was probably due to the propofol which was administered prior to designer/writer coming to evaluate the patient which was for his cardioversion. Patient appeared to be somewhat more coherent and more logical in his thought process with some improved insight. Patient's attention span has improved mildly as well. -Will decrease Prolixin to 2.5 mg twice a day for psychosis/aggression and keep patient on the Prolixin when necessary for acute agitation. -Please attempt to avoid giving patient more sedation i.e. benzos or other anesthetics/LAUNCH [employer]ARD depressants as this will worsen his delirium. -Please attempt to limit if able patient's restraints whenever possible. -Will continue to monitor patient and follow-up tomorrow.
[2019-03-13] MEDS: SODIUM CHLORIDE 0.9% 1,000 ML IV SCH (16:36)
[2019-03-13] MEDS: METOPROLOL TARTRATE 50 MG TAB PO SCH (17:03)
[2019-03-13] MEDS: AMIODARONE 200 MG TAB PO SCH (17:03)
[2019-03-13] MEDS: APIXABAN 5 MG TAB PO SCH (17:03)
[2019-03-13] MEDS: LISINOPRIL 5 MG TAB PO SCH (20:25)
--- NOTE | 2019-03-13 21:12 | P.PN ---
Progress Note - Text Progress Note Date: 03/13/19 Interval history: This is a 63-year-old patient whose chronic stable medical conditions include chronic kidney disease stage III, chronic left leg DVT, not on antiplatelet medication for the same, unstable right ankle joint does walk with a limp, pacemaker for sick sinus syndrome, bipolar disorder type I with manic episodes. Also intermittent atrial fibrillation. Patient lives [place] [facility]. Has had frequent admissions to the psychiatry unit for flareup of his bipolar disorder especially. Manic episodes. Patient has a court-appointed guardian. Patient presents to [facility] with atrial fibrillation with rapid ventricular rate. Was admitted to the ICU. Was put on IV amiodarone and IV Cardizem initially. Subsequently patient became very agitated and refused to take his medications. Patient was followed by cardiology and pulmonary in the ICU. As psychiatry services were not available at the other hospital and even though patient was given Geodon 20 mg IM every 12 when necessary and Ativan when necessary he was still refusing to take his oral medications. This resulted in patient being transferred here for higher level of care. Today-In the ICU. Had a T done earlier today. Was successfully DC cardioverted by Dr. Lopez. Patient more awake today today getting better. Eating some. Senna the bedside Review of systems cannot be done as patient she is talking tangentially Active Medications Amiodarone HCl (Cordarone) 400 mg PO BID [facility] Last Admin: 03/13/19 17:03 Dose: 400 mg Documented by: Apixaban (Eliquis) 5 mg PO BID [facility] Last Admin: 03/13/19 17:03 Dose: 5 mg Documented by: Famotidine (Pepcid) 20 mg IV DAILY [facility] Last Admin: 03/13/19 08:26 Dose: 20 mg Documented by: Fluphenazine HCl (Prolixin) 2.5 mg IM Q6HR PRN PRN Reason: Agitation Last Admin: 03/13/19 02:58 Dose: 2.5 mg Documented by: Fluphenazine HCl (Prolixin) 2.5 mg IM BID [facility] Last Admin: 03/13/19 20:22 Dose: 2.5 mg Documented by: Guaifenesin (Robitussin) 200 mg PO TID PRN PRN Reason: Cough Dextrose/Sodium Chloride (Dextrose 5%-1/2ns Iv Soln) 1,000 mls @ 100 mls/hr IV .Q10H [facility] Last Admin: 03/13/19 20:27 Dose: 100 mls/hr Documented by: Sodium Chloride (Saline 0.9%) 1,000 mls @ 20 mls/hr IV .Q24H [facility] Last Admin: 03/13/19 16:36 Dose: Not Given Documented by: Lisinopril (Zestril) 5 mg PO BID [facility] Last Admin: 03/13/19 20:25 Dose: 5 mg Documented by: Lorazepam (Ativan) 2 mg IV Q8HR PRN PRN Reason: Agitation Last Admin: 03/12/19 10:59 Dose: 2 mg Documented by: Metoprolol Tartrate (Lopressor) 50 mg PO BID [facility] Last Admin: 03/13/19 17:03 Dose: 50 mg Documented by: Naloxone HCl (Narcan) 0.2 mg IV Q2M PRN PRN Reason: Opioid Reversal Nicotine (Habitrol 21mg/24hr Patch) 1 patch TRANSDERM DAILY [facility] Last Admin: 03/13/19 08:27 Dose: 1 patch Documented by: Nitroglycerin (Nitro-Bid Oint) 1 inch TOPICAL Q8H [facility] Last Admin: 03/13/19 19:18 Dose: Not Given Documented by: Nystatin (Mycostatin Powder) 1 applic TOPICAL BID [facility] Last Admin: 03/13/19 20:23 Dose: 1 applic Documented by: Oxcarbazepine (Trileptal) 600 mg PO BID [facility] Last Admin: 03/13/19 20:23 Dose: 600 mg Documented by: Physical examination: VITAL SIGNS: 60, 15, 91, 68, 96% GENERAL: Laying in bed, more awake, drink some liquids, . EYES: Pupils equal. Conjunctiva normal. HEENT: External appearance of nose and ears normal, oral cavity grossly normal. NECK: JVD unable to assess; masses not palpable. HEART: Heart sounds irregular; no edema. LUNGS: Respiratory rate increased, diminished breath sounds. ABDOMEN: Soft, nontender, liver spleen not palpable, no masses palpable. PSYCH: Answering questions better today. NEUROLOGICAL: Cranial nerves grossly intact; no facial asymmetry, does move all his limbs. INVESTIGATIONS, reviewed in the clinical context: White count 10.3 hemoglobin 10.3 potassium 4.4 bun 31 and creatinine 2.38 bicarb 20 Admission labs: Patient is BUN and creatinine was 26/1.79 on January 24 2-D echocardiogram-EF 20-30%, severe mitral regurgitation, severe tricuspid regurgitation, moderate pulmonary hypertension Assessment: -Persistent atrial flutter fibrillation with a rapid ventricular rate successfully DC cardioverted today -Hypernatremia and hyperchloremia, probably from free water deficit -Chronic congestive heart failure from diastolic dysfunction EF 20-30% -Severe mitral and tricuspid regurgitation with secondary pulmonary hypertension -Chronic kidney disease stage III from nephrosclerosis -Acute kidney injury, could be prerenal from decrease fluids, cannot rule out ATN, slow to improve -Chronic left leg DVT -Right ankle chronic instability -Bilateral lower extremity venous insufficiency -Sick sinus syndrome with a pacemaker -Obesity BMI 31.8 -Essential hypertension -Bipolar disorder with manic episodes -Acute delirium multifactorial Plan: Patient being followed by cardiology and psychiatry. Status post cardioversion today. Spoke to nurse to encouraged to increase oral intake. Follow with psychiatry.
[2019-03-14 06:18] LABS: Basophils % (A) 0 %; Eosinophils # (A) 0.4 k/uL (0-0.7); Eosinophils % (A) 5 %; HCT 31.9 % (39.0-53.0); HGB 10.1 gm/dL (13.0-17.5); Hypochromasia Moderate; Lymphocytes # (A) 1.4 k/uL (1.0-4.8); Lymphocytes % (A) 17 %; MCHC 31.6 g/dL (31.0-37.0); MCV 91.7 fL (80.0-100.0); Mean Platelet Volume 8.3; Monocytes # (A) 0.7 k/uL (0-1.0); Monocytes % (A) 8 %; Neutrophils # (A) 5.6 k/uL (1.3-7.7); Neutrophils % (A) 67 %; Platelet Count 207 k/uL (150-450); RBC 3.48 m/uL (4.30-5.90); RDW 15.4 % (11.5-15.5); WBC 8.3 k/uL (3.8-10.6)
[2019-03-14 06:28] LABS: Calcium 8.3 mg/dL (8.4-10.2); Magnesium 1.6 mg/dL (1.6-2.3); Potassium 4.6 mmol/L (3.5-5.1)
[2019-03-14] MEDS: LORazepam 2 MG/ML INJ IV PRN (07:02)
[2019-03-14] MEDS: NITROGLYCERIN OINT 1 INCH/GM PACKET TOPICAL SCH ×3 (08:21→17:38)
[2019-03-14] MEDS: DEXTROSE 5%-0.45% NACL 1,000 ML IV SCH ×2 (08:21→12:26)
[2019-03-14] MEDS: AMIODARONE 200 MG TAB PO SCH ×2 (08:31→21:36)
[2019-03-14] MEDS: APIXABAN 5 MG TAB PO SCH (08:31)
[2019-03-14] MEDS: LISINOPRIL 5 MG TAB PO SCH ×2 (08:32→21:36)
[2019-03-14] MEDS: METOPROLOL TARTRATE 50 MG TAB PO SCH ×2 (08:32→21:36)
[2019-03-14] MEDS: OXcarbazepine 300 MG TAB PO SCH ×2 (08:32→21:35)
[2019-03-14] MEDS: FAMOTIDINE 20 MG/2 ML VIAL IV SCH (08:34)
[2019-03-14] MEDS: NICOTINE 21MG/24HR PATCH TRANSDERM SCH (08:38)
[2019-03-14] MEDS: flUPHENAZine 2.5 MG/ML (MDV) 10 ML VIAL IM SCH ×3 (08:40→21:39)
[2019-03-14] MEDS: NYSTATIN 100,000 UNIT/GM POWD 15 GM TOPICAL SCH ×2 (08:46→21:37)
[2019-03-14] MEDS: METOPROLOL TARTRATE 5 MG/5 ML VIAL IVP SCH (09:16)
[2019-03-14] MEDS ORDERED: IPRATROPIUM-ALBUTEROL 3 ML NEB INHALATION PRN ×2 (11:52)
--- NOTE | 2019-03-14 12:44 | XR ---
EXAMINATION TYPE: XR chest 1V portable DATE OF EXAM: 03/14/2019 Comparison: 02/27/2018 Clinical History: 62 year-old male fever and shortness of breath Findings: Heart mildly moderately enlarged. Diffuse interstitial prominence with new multifocal airspace opacit ies, right greater than left. Suggestion of a small right effusion. Left anterior chest wall pacemake r generator with right atrial and right ventricular leads. Impression: Cardiomegaly with new multifocal airspace disease and small right effusion. Correlate for multifocal pneumonia or pulmonary edema.
[2019-03-14] MEDS ORDERED: FUROSEMIDE 10 MG/ML 4 ML VIAL ONE (12:46)
[2019-03-14] MEDS ORDERED: FUROSEMIDE 10 MG/ML 10 ML VIAL IV STA (12:47)
[2019-03-14] MEDS: SODIUM CHLORIDE 0.9% 1,000 ML IV SCH (12:55)
[2019-03-14 13:19] LABS: ABG Base Excess -7.4 mmol/L; ABG HCO3 19 mmol/L (21-25); ABG Oxygen Saturation 97.8 % (94-97); ABG PCO2 40 mmHg (35-45); ABG PH 7.29 (7.35-7.45); ABG PO2 107 mmHg (83-108); ABG TCO2 20 mmol/L (19-24); Allen Test Performed? Yes
--- NOTE | 2019-03-14 13:54 | CONS ---
CONSULTATION Justin is a 63-year-old gentleman who was admitted to hospital with atrial flutter and underwent cardioversion yesterday. He has an underlying psych problem and he appears confused and combative this morning and he received medications to put him to sleep. He is resting comfortably and denies and he is resting comfortably. PHYSICAL EXAM: Heart rate is 80 beats per minute, blood pressure is 140/90, respiratory rate is 18. Chest exam reveals occasional rhonchi at the right base. Heart exam reveals first and second heart sounds. No gallop. Exam of the extremities did not reveal any edema. Peripheral pulses are felt. Patient is currently on Cordarone 400 b.i.d., Eliquis 5 b.i.d., Zestril 5 b.i.d., Lopressor 50 b.i.d., and nitroglycerin paste. ASSESSMENT: 1. Atrial flutter, status post cardioversion. 2. Confusion and agitation. 3. Chronic obstructive pulmonary disease. PLAN: From a cardiac standpoint, patient is stable. Rest of the issues will be addressed by the primary care physician on the case. MMODL / IJN: [id number] /
--- NOTE | 2019-03-14 17:07 | P.PN ---
Progress Note - Text Progress Note Date: 03/14/19 Interval history: This is a 63-year-old patient whose chronic stable medical conditions include chronic kidney disease stage III, chronic left leg DVT, not on antiplatelet medication for the same, unstable right ankle joint does walk with a limp, pacemaker for sick sinus syndrome, bipolar disorder type I with manic episodes. Also intermittent atrial fibrillation. [facility] Has had frequent admissions to the psychiatry unit for flareup of his bipolar disorder especially. Manic episodes. Patient has a court-appointed guardian. Patient presents to [facility] with atrial fibrillation with rapid ventricular rate. Was admitted to the ICU. Was put on IV amiodarone and IV Cardizem initially. Subsequently patient became very agitated and refused to take his medications. Patient was followed by cardiology and pulmonary in the ICU. As psychiatry services were not available at the other hospital and even though patient was given Geodon 20 mg IM every 12 when necessary and Ativan when necessary he was still refusing to take his oral medications. This resulted in patient being transferred here for higher level of care. Patient did undergo SPENSER and cardioversion and went into sinus rhythm. Patient's out of the ICU yesterday. Today-on the medical floor patient became short of breath. Wheezing congested. Chest x-ray showed pulmonary edema and possible aspiration. Nurses called me and I did informed that Dr. Walter was consulted when patient arrived to the ICU. Acute them breathing treatment orders, keep the patient in upright position, empirical antibiotics, and further directions per Dr. Walter from pulmonary. If need be patient may require BiPAP. Patient is rambling and somewhat tired Review of systems cannot be obtained Active Medications Albuterol/Ipratropium (Duoneb 0.5 Mg-3 Mg/3 Ml Soln) 3 ml INHALATION RT-QID PRN PRN Reason: Shortness Of Breath Or Wheezing Last Admin: 03/14/19 12:33 Dose: 3 ml Documented by: Amiodarone HCl (Cordarone) 400 mg PO BID [facility] Last Admin: 03/14/19 08:31 Dose: 400 mg Documented by: Apixaban (Eliquis) 5 mg PO BID [facility] Last Admin: 03/14/19 08:31 Dose: 5 mg Documented by: Famotidine (Pepcid) 20 mg IV DAILY [facility] Last Admin: 03/14/19 08:34 Dose: 20 mg Documented by: Fluphenazine HCl (Prolixin) 2.5 mg IM Q6HR PRN PRN Reason: Agitation Last Admin: 03/13/19 02:58 Dose: 2.5 mg Documented by: Fluphenazine HCl (Prolixin) 2.5 mg IM BID [facility] Last Admin: 03/14/19 08:40 Dose: 2.5 mg Documented by: Guaifenesin (Robitussin) 200 mg PO TID PRN PRN Reason: Cough Dextrose/Sodium Chloride (Dextrose 5%-1/2ns Iv Soln) 1,000 mls @ 100 mls/hr IV .Q10H [facility] Last Admin: 03/14/19 12:26 Dose: Not Given Documented by: Sodium Chloride (Saline 0.9%) 1,000 mls @ 20 mls/hr IV .Q24H [facility] Last Admin: 03/14/19 12:55 Dose: 20 mls/hr Documented by: Lisinopril (Zestril) 5 mg PO BID [facility] Last Admin: 03/14/19 08:32 Dose: 5 mg Documented by: Lorazepam (Ativan) 2 mg IV Q8HR PRN PRN Reason: Agitation Last Admin: 03/14/19 07:02 Dose: 2 mg Documented by: Metoprolol Tartrate (Lopressor) 50 mg PO BID [facility] Last Admin: 03/14/19 08:32 Dose: 50 mg Documented by: Naloxone HCl (Narcan) 0.2 mg IV Q2M PRN PRN Reason: Opioid Reversal Nicotine (Habitrol 21mg/24hr Patch) 1 patch TRANSDERM DAILY [facility] Last Admin: 03/14/19 08:38 Dose: 1 patch Documented by: Nitroglycerin (Nitro-Bid Oint) 1 inch TOPICAL Q8H [facility] Last Admin: 03/14/19 08:44 Dose: 1 inch Documented by: Nystatin (Mycostatin Powder) 1 applic TOPICAL BID [facility] Last Admin: 03/14/19 08:46 Dose: Not Given Documented by: Oxcarbazepine (Trileptal) 600 mg PO BID [facility] Last Admin: 03/14/19 08:32 Dose: 600 mg Documented by: Physical examination: VITAL SIGNS: 98.2, 72, 36, 134/92, 81% on 15 L high flow oxygen GENERAL: Laying in bed, propped up, short of breath with the mask in place, . EYES: Pupils equal. Conjunctiva normal. HEENT: External appearance of nose and ears normal, oral cavity grossly normal. NECK: JVD unable to assess; masses not palpable. HEART: Heart sounds irregular; no edema. LUNGS: Respiratory rate increased, accessory muscles overworking, diminished breath sounds prolonged expiration and wheezing ABDOMEN: Soft, nontender, liver spleen not palpable, no masses palpable. PSYCH: Patient is rambling and talking. INVESTIGATIONS, reviewed in the clinical context: Chest x-ray film personally reviewed by me-shows evidence of pulmonary edema and patchy infiltrate on the right midlung area White count 8.3, hemoglobin 10.1, potassium 4.6 BUN 32 creatinine 2.51 ABGs show a pH of 7.29 Admission labs: Patient is BUN and creatinine was 26/1.79 on January 24 2-D echocardiogram-EF 20-30%, severe mitral regurgitation, severe tricuspid regurgitation, moderate pulmonary hypertension Assessment: -Acute on chronic congestive heart failure exacerbation from diastolic dysfunction EF 20-30% -Acute hypoxic respiratory failure from a combination of CHF and possible aspiration pneumonia -New aspiration pneumonia, from altered mentation -Persistent atrial flutter fibrillation with a rapid ventricular rate successfully DC cardioverted on March 13 -Hypernatremia and hyperchloremia, probably from free water deficit -Severe mitral and tricuspid regurgitation with secondary pulmonary hypertension -Chronic kidney disease stage III from nephrosclerosis -Acute kidney injury, could be prerenal from decrease fluids, cannot rule out ATN, slow to improve -Chronic left leg DVT -Right ankle chronic instability -Bilateral lower extremity venous insufficiency -Sick sinus syndrome with a pacemaker -Obesity BMI 31.8 -Essential hypertension -Bipolar disorder with manic episodes -Acute delirium multifactorial Plan: Earlier portable chest x-ray was ordered. Blood gases were done. Breathing treatments were added. Patient is made to sit up more. Oxygen support was increased. BiPAP with standby. Told the nurse to get hold of Dr. Walter who was consulted earlier when patient comes to the ICU. Give further orders to the nursing staff. If patient does not turn around we'll move the patient ICU. About 35 minutes was spent in the clinical care management of this patient today.
[2019-03-14] MEDS: CLINDAMYCIN 300 MG in DEXTROSE 5% IN WATER 50 ML IVPB SCH ×2 (17:39)
[2019-03-14] MEDS: IPRATROPIUM-ALBUTEROL 3 ML NEB INHALATION SCH ×2 (18:52→20:07)
[2019-03-14] MEDS ORDERED: FAMOTIDINE 20 MG TAB PO SCH (21:00)
[2019-03-15] MEDS: CLINDAMYCIN 300 MG in DEXTROSE 5% IN WATER 50 ML IVPB SCH ×6 (00:50→17:30)
[2019-03-15] MEDS: DEXTROSE 5%-0.45% NACL 1,000 ML IV SCH ×3 (01:05→20:13)
[2019-03-15] MEDS: NITROGLYCERIN OINT 1 INCH/GM PACKET TOPICAL SCH ×2 (03:20→12:59)
[2019-03-15 06:10] LABS: Basophils % (A) 0 %; Eosinophils # (A) 0.4 k/uL (0-0.7); Eosinophils % (A) 6 %; HCT 29.2 % (39.0-53.0); HGB 9.4 gm/dL (13.0-17.5); Hypochromasia Slight; Lymphocytes # (A) 1.4 k/uL (1.0-4.8); Lymphocytes % (A) 18 %; MCH 28.4 pg (25.0-35.0); MCHC 32.3 g/dL (31.0-37.0); MCV 87.9 fL (80.0-100.0); Mean Platelet Volume 7.8; Monocytes # (A) 0.6 k/uL (0-1.0); Monocytes % (A) 8 %; Neutrophils # (A) 5.1 k/uL (1.3-7.7); Neutrophils % (A) 66 %; Platelet Count 221 k/uL (150-450); RBC 3.32 m/uL (4.30-5.90); RDW 15.1 % (11.5-15.5); WBC 7.7 k/uL (3.8-10.6)
[2019-03-15] MEDS: IPRATROPIUM-ALBUTEROL 3 ML NEB INHALATION SCH ×4 (08:22→20:21)
[2019-03-15] MEDS: AMIODARONE 200 MG TAB PO SCH ×2 (09:32→20:19)
[2019-03-15] MEDS: FAMOTIDINE 20 MG TAB PO SCH (09:33)
[2019-03-15] MEDS: METOPROLOL TARTRATE 50 MG TAB PO SCH ×2 (09:33→20:18)
[2019-03-15] MEDS: LISINOPRIL 5 MG TAB PO SCH ×2 (09:33→20:19)
[2019-03-15] MEDS: OXcarbazepine 300 MG TAB PO SCH ×2 (09:33→20:19)
[2019-03-15] MEDS: NYSTATIN 100,000 UNIT/GM POWD 15 GM TOPICAL SCH ×2 (09:33→20:19)
[2019-03-15] MEDS: NICOTINE 21MG/24HR PATCH TRANSDERM SCH (09:34)
[2019-03-15] MEDS: flUPHENAZine 2.5 MG/ML (MDV) 10 ML VIAL IM SCH ×2 (09:39→22:16)
--- NOTE | 2019-03-15 09:52 | XR ---
EXAMINATION TYPE: XR chest 1V DATE OF EXAM: 03/15/2019 COMPARISON: Chest radiograph 03/14/2019 HISTORY: Congestive heart failure, aspiration TECHNIQUE: Single frontal view of the chest is obtained. FINDINGS: Stable enlargement of the cardiac silhouette. Persistent however decreased pulmonary vascular congest ion and pulmonary edema. Scattered areas of superimposed subsegmental atelectasis. Small bilateral pl eural effusions, right larger than left also stable. Dual-chamber cardiac pacemaker noted. IMPRESSION: Persistent although improved pulmonary vascular congestion and airspace opacities favori ng pulmonary edema. Stable small bilateral pleural effusions, right larger than left.
--- NOTE | 2019-03-15 12:17 | CONS ---
CONSULTATION PULMONARY/CRITICAL CARE CONSULTATION: This is a 63-year-old male who apparently was admitted to the hospital on March 11. I was never consulted initially. The patient apparently was brought over by his primary doctor because of the need to eventually see psychiatry. He apparently has a history of chronic kidney disease, chronic left leg DVT, unstable right ankle joint, sick sinus syndrome, status post pacemaker, bipolar disorder, and chronic atrial fibrillation. He apparently resides in a [facility]. Anyway, the patient presented to [facility] with atrial fibrillation and RVR. The patient was placed on IV amiodarone and IV Cardizem, but apparently refused to take his medications, became very agitated. The patient was sent over here for psychiatric evaluation. The patient initially was prescribed Geodon 20 mg IM every 12 hours and Ativan. The patient was admitted from their hospital to our ICU. The patient was then transferred out to the floor. We are seeing the patient today for the first time on March 15. I was called yesterday because of increasing shortness of breath. Chest x-ray apparently showed worsening bilateral infiltrates most consistent with pulmonary edema. He was treated with oxygen therapy, BiPAP, and Lasix. He improved dramatically and today's chest x-ray is much better. He is a heavy smoker and likely also has a component of COPD. Currently, he is feeling much better. He is on 3 or 4 L of O2. MEDICAL HISTORY: A DVT, hypertension, chronic renal disease, stage III; bipolar disorder, previous MRSA infection, intermittent atrial fibrillation, sick sinus syndrome, status post pacemaker insertion. SURGICAL HISTORY: Includes back surgery, hernia repair, pacemaker insertion, tonsillectomy. SOCIAL HISTORY: Positive for previous heavy tobacco use. Denies illicit drug use. Apparently does drink alcohol occasionally. FAMILY HISTORY: Unremarkable. He states his family are in good health. HOME MEDICATIONS: Included Eliquis, Lopressor, Trileptal, Norvasc, Clozaril. ALLERGIES: Include DEPAKOTE, HALDOL, AND LITHIUM. REVIEW OF SYSTEMS: CONSTITUTIONAL negative. NEUROLOGIC negative. HEENT negative. CARDIOVASCULAR: Shortness of breath. PULMONARY: Shortness of breath. GI negative. negative. RHEUMATOLOGIC negative. IMMUNOLOGIC negative. ENDOCRINOLOGIC negative. DERMATOLOGIC negative. PHYSICAL EXAMINATION: VITAL SIGNS: Current vital signs are reviewed. Temperature 98.9, heart rate 74, respiratory rate 18, blood pressure 114/86, mean 95, 5 L saturation 95%. Appears in no acute distress. Feeling much better. Clinically much improved according to the nurse. HEENT examination is grossly unremarkable. Mucous membranes are moist. NECK: Supple. CARDIOVASCULAR examination reveals a regular rhythm and rate. Heart rate 74. S1, S2 normal. No murmur. LUNGS: Bibasilar crackles. A few scattered rhonchi. No wheezes. Breath sounds diminished. ABDOMEN: Soft, bowel sounds are heard. EXTREMITIES reveal some mild edema. SKIN: Without rash. NEUROLOGIC examination is brief but nonfocal. LAB DATA: Reviewed. White count 7.7, hemoglobin 9.4, hematocrit 29.2, platelet count is normal. Blood gases yesterday showed a PO2 of 107, pCO2 of 40 and a pH 7.29. This is 100% initially. Electrolyte profile from yesterday shows a sodium 138, potassium 4.6, chloride 110, CO2 of 18, anion gap is 10, BUN and creatinine were 32 and 0.51. Albumin 2.8. A chest x-ray from yesterday shows fluid overload with cardiomegaly. Today, chest x- ray shows a similar but significantly improved pattern. The patient was given BiPAP and Lasix yesterday and did seem to improve. Medications are reviewed. Currently he is on amiodarone, clindamycin, D5 0.45, Pepcid, Prolixin, Robitussin syrup, DuoNeb, Zestril, Ativan, metoprolol, Narcan, nicotine patch, nitroglycerin ointment, nystatin powder, nicotine patch, Trileptal, and a basic IV. ASSESSMENT: 1. Shortness of breath, with hypoxemic respiratory failure, most likely related to fluid overload/congestive heart failure as the patient responded very nicely to diuretics and BiPAP therapy. 2. Possible underlying pneumonia, less likely. 3. History of chronic tobacco use, rule out chronic obstructive pulmonary disease. 4. History of left leg deep venous thrombosis. 5. Stage 3 chronic kidney disease. 6. History of right ankle joint instability. 7. Sick sinus syndrome, status post pacemaker. 8. History of intermittent atrial fibrillation. 9. Sick sinus syndrome, status post pacemaker insertion. 10.History of manic-depressive disorder. PLAN: Currently, the patient seems to be much more agreeable to therapy. He seems to be relatively calm. Additional recommendations and suggestions are forthcoming. We will review his medications. Likely the patient does have some underlying COPD. Updrafts would not be a bad idea. We will continue to follow closely. ROSEMARIE / BUBBAN: [id number] /
[2019-03-15] MEDS: SODIUM CHLORIDE 0.9% 1,000 ML IV SCH (15:17)
[2019-03-15] MEDS ORDERED: FUROSEMIDE 10 MG/ML 4 ML VIAL IV STA (20:44)
--- NOTE | 2019-03-15 20:44 | P.PN ---
Progress Note - Text Progress Note Date: 03/15/19 Presenting complaint: Short of breath Interval history: This is a 63-year-old patient whose chronic stable medical conditions include chronic kidney disease stage III, chronic left leg DVT, not on antiplatelet medication for the same, unstable right ankle joint does walk with a limp, pacemaker for sick sinus syndrome, bipolar disorder type I with manic episodes. Also intermittent atrial fibrillation. Patient lives at a half-way. Has had frequent admissions to the psychiatry unit for flareup of his bipolar disorder especially. Manic episodes. Patient has a court-appointed guardian. Patient presents to [facility] with atrial fibrillation with rapid ventricular rate. Was admitted to the ICU. Was put on IV amiodarone and IV Cardizem initially. Subsequently patient became very agitated and refused to take his medications. Patient was followed by cardiology and pulmonary in the ICU. As psychiatry services were not available at the other hospital and even though patient was given Geodon 20 mg IM every 12 when necessary and Ativan when necessary he was still refusing to take his oral medications. This resulted in patient being transferred here for higher level of care. Patient did undergo SPENSER and cardioversion and went into sinus rhythm. Patient's out of the ICU. on March 14 patient gone into pulmonary edema, COPD exacerbation and aspiration pneumonia. Today-patient looking much better. Laying in bed. Did also tolerated diet. Remains in sinus rhythm. Communicating. Patient is rambling on. Wants me to go fishing with him. Breathing is much improved.. Review of systems: Was done for constitutional, cardiovascular, GI, pulmonary. Psychiatry relevant finding as above Active Medications Albuterol/Ipratropium (Duoneb 0.5 Mg-3 Mg/3 Ml Soln) 3 ml INHALATION RT-QID PRN PRN Reason: Shortness Of Breath Or Wheezing Last Admin: 03/14/19 12:33 Dose: 3 ml Documented by: Albuterol/Ipratropium (Duoneb 0.5 Mg-3 Mg/3 Ml Soln) 3 ml INHALATION RT-QID [facility] Last Admin: 03/15/19 20:21 Dose: Not Given Documented by: Amiodarone HCl (Cordarone) 400 mg PO BID [facility] Last Admin: 03/15/19 20:19 Dose: 400 mg Documented by: Famotidine (Pepcid) 20 mg PO DAILY [facility] Last Admin: 03/15/19 09:33 Dose: 20 mg Documented by: Fluphenazine HCl (Prolixin) 2.5 mg IM Q6HR PRN PRN Reason: Agitation Last Admin: 03/13/19 02:58 Dose: 2.5 mg Documented by: Fluphenazine HCl (Prolixin) 2.5 mg IM BID [facility] Last Admin: 03/15/19 09:39 Dose: 2.5 mg Documented by: Furosemide (Lasix) 40 mg PO DAILY [facility] Guaifenesin (Robitussin) 200 mg PO TID PRN PRN Reason: Cough Sodium Chloride (Saline 0.9%) 1,000 mls @ 20 mls/hr IV .Q24H [facility] Last Admin: 03/15/19 15:17 Dose: Not Given Documented by: Clindamycin Phosphate 300 mg/ (Dextrose/Water) 52 mls @ 50 mls/hr IVPB Q8HR [facility] Last Admin: 03/15/19 17:30 Dose: 50 mls/hr Documented by: Lisinopril (Zestril) 5 mg PO BID [facility] Last Admin: 03/15/19 20:19 Dose: 5 mg Documented by: Lorazepam (Ativan) 2 mg IV Q8HR PRN PRN Reason: Agitation Last Admin: 03/14/19 07:02 Dose: 2 mg Documented by: Metoprolol Tartrate (Lopressor) 50 mg PO BID [facility] Last Admin: 03/15/19 20:18 Dose: 50 mg Documented by: Naloxone HCl (Narcan) 0.2 mg IV Q2M PRN PRN Reason: Opioid Reversal Nicotine (Habitrol 21mg/24hr Patch) 1 patch TRANSDERM DAILY [facility] Last Admin: 03/15/19 09:34 Dose: 1 patch Documented by: Nystatin (Mycostatin Powder) 1 applic TOPICAL BID [facility] Last Admin: 03/15/19 20:19 Dose: 1 applic Documented by: Oxcarbazepine (Trileptal) 600 mg PO BID [facility] Last Admin: 03/15/19 20:19 Dose: 600 mg Documented by: Physical examination: VITAL SIGNS: 98.2, 66, 16, 120 MB 72, 96% on 3 L GENERAL: Laying in bed, propped up, breathing is much easier, talking. EYES: Pupils equal. Conjunctiva normal. HEENT: External appearance of nose and ears normal, oral cavity grossly normal. NECK: JVD unable to assess; masses not palpable. HEART: First cycle some normal, no edema. LUNGS: Respiratory rate increased, decreased breath sounds, improved wheezing ABDOMEN: Soft, nontender, liver spleen not palpable, no masses palpable. PSYCH: Patient is talking rapidly but making much more sense today.. INVESTIGATIONS, reviewed in the clinical context: White count 7.7, hemoglobin 9.4, Chest x-ray film personally reviewed by me shows fluid overload Previous labs Chest x-ray film personally reviewed by me-shows evidence of pulmonary edema and patchy infiltrate on the right midlung area White count 8.3, hemoglobin 10.1, potassium 4.6 BUN 32 creatinine 2.51 ABGs show a pH of 7.29 Admission labs: Patient is BUN and creatinine was 26/1.79 on January 24 2-D echocardiogram-EF 20-30%, severe mitral regurgitation, severe tricuspid regurgitation, moderate pulmonary hypertension Assessment: -Acute on chronic congestive heart failure exacerbation from diastolic dysf unction EF 20-30%, still appears to be bit radiologically -Acute hypoxic respiratory failure from a combination of CHF and possible aspiration pneumonia, improving -New aspiration pneumonia, from altered mentation -Persistent atrial flutter fibrillation with a rapid ventricular rate successfully DC cardioverted on March 13 -Hypernatremia and hyperchloremia, probably from free water deficit, corrected -Severe mitral and tricuspid regurgitation with secondary pulmonary hypertension -Chronic kidney disease stage III from nephrosclerosis -Acute kidney injury, could be prerenal from decrease fluids, cannot rule out ATN, slow to improve -Chronic left leg DVT -Right ankle chronic instability -Bilateral lower extremity venous insufficiency -Sick sinus syndrome with a pacemaker -Obesity BMI 31.8 -Essential hypertension -Bipolar disorder with manic episodes -Acute delirium multifactorial, improving Plan: Patient is significant improvement since yesterday. Continue current medication treatment plan. On bronchodilators every 6 hours. On IV clindamycin. We will give 1 dose of IV Lasix.
--- NOTE | 2019-03-16 00:29 | PN ---
PROGRESS NOTE Mr. Arndt is a 63-year-old gentleman who was admitted to hospital with atrial flutter and underwent cardioversion. This morning he is feeling much better. He is no longer confused or combative. Had aspiration pneumonia and is currently being treated for the same. EXAM: Comfortable at rest, O2 sat is 94% on 5 L. Vital signs are stable. Chest exam reveals diminished air entry at the bases. Heart exam reveals first and second heart sounds. No gallop. Exam of the extremities did not reveal any edema. Peripheral pulses are felt. ASSESSMENT: Atrial flutter status post cardioversion. PLAN: Patient is doing well. He is on amiodarone 400 b.i.d. with Eliquis 5 b.i.d. which is going to be continued. MMODL / IJN: [id number] /
[2019-03-16] MEDS: CLINDAMYCIN 300 MG in DEXTROSE 5% IN WATER 50 ML IVPB SCH ×6 (00:53→17:34)
[2019-03-16 06:46] LABS: Basophils % (A) 0 %; Eosinophils # (A) 0.5 k/uL (0-0.7); Eosinophils % (A) 6 %; HCT 34.6 % (39.0-53.0); HGB 11.1 gm/dL (13.0-17.5); Hypochromasia Slight; Lymphocytes # (A) 1.8 k/uL (1.0-4.8); Lymphocytes % (A) 20 %; MCH 28.3 pg (25.0-35.0); MCHC 32.2 g/dL (31.0-37.0); MCV 87.9 fL (80.0-100.0); Mean Platelet Volume 7.8; Monocytes # (A) 0.8 k/uL (0-1.0); Monocytes % (A) 9 %; Neutrophils # (A) 5.7 k/uL (1.3-7.7); Neutrophils % (A) 62 %; Platelet Count 268 k/uL (150-450); RBC 3.93 m/uL (4.30-5.90); RDW 15.6 % (11.5-15.5); WBC 9.2 k/uL (3.8-10.6)
[2019-03-16 06:56] LABS: Calcium 9.1 mg/dL (8.4-10.2); Potassium 4.9 mmol/L (3.5-5.1)
[2019-03-16] MEDS: IPRATROPIUM-ALBUTEROL 3 ML NEB INHALATION SCH ×4 (07:27→20:08)
[2019-03-16] MEDS: FUROSEMIDE 40 MG TAB PO SCH (08:11)
[2019-03-16] MEDS: AMIODARONE 200 MG TAB PO SCH ×2 (08:11→19:50)
[2019-03-16] MEDS: NICOTINE 21MG/24HR PATCH TRANSDERM SCH (08:11)
[2019-03-16] MEDS: LISINOPRIL 5 MG TAB PO SCH ×2 (08:12→19:50)
[2019-03-16] MEDS: METOPROLOL TARTRATE 50 MG TAB PO SCH ×2 (08:12→19:50)
[2019-03-16] MEDS: FAMOTIDINE 20 MG TAB PO SCH (08:12)
[2019-03-16] MEDS: OXcarbazepine 300 MG TAB PO SCH ×2 (08:12→19:50)
[2019-03-16] MEDS: NYSTATIN 100,000 UNIT/GM POWD 15 GM TOPICAL SCH ×2 (08:14→19:56)
[2019-03-16] MEDS ORDERED: FUROSEMIDE 10 MG/ML 4 ML VIAL IV STA (09:00)
--- NOTE | 2019-03-16 09:11 | P.PN ---
Subjective Progress Note Date: 03/16/19 Principal diagnosis: Shortness of breath with hypoxemic respiratory failure related to fluid overload/congestive heart failure, underlying pneumonia is less likely On 03/16/2019 patient seen in follow-up on selective care unit, he is awake and alert, he soft. On the edge of the bed, he is half dressed and history close, in no acute distress, he is currently on 3 L of oxygen, with a pulse ox of 96%, afebrile, hemodynamically patient is stable, yesterday patient was given an extra dose of IV Lasix per attending physician, his chest x-ray yesterday showed persistent although improved pulmonary vascular congestion, and airspace opacities favoring pulmonary edema, stable small bilateral pleural effusions right greater than left. He has had significant diuresis, he is in 3210mL fluid balance over the last 24 hours. Today's lab work has been reviewed, showing no leukocytosis, with blood cell count of 9.2, hemoglobin of 11.1, serum sodium of 141, potassium is 4.9, chloride is 109, CO2 23, BUN of 47 creatinine is 2.77. Lung sounds reveal diminished breath sounds at the bases, no significant rhonchi or wheezes, no complex of chest pain, no cough or congestion, patient is on oral amiodarone 400 mg by mouth twice a day, he has been started on oral Lasix 40 mg daily, patient is on nebulized bronchodilators, remains in sinus rhythm with a controlled rate of 73 BPM. Objective - Vital Signs Vital signs: Vital Signs Temp 97.7 F 03/16/19 03:44 Pulse 73 03/16/19 03:44 Resp 18 03/16/19 03:44 BP 129/77 03/16/19 03:44 Pulse Ox 96 03/16/19 03:44 Intake & Output 03/15/19 03/16/19 03/16/19 18:59 06:59 18:59 Intake Total 840 Output Total 1924 2124 Balance -1084 Intake: Oral 840 Output: Urine 1924 2124 Other: Voiding Method Bedside Commode Urinal # Voids 1 2 - Exam GENERAL EXAM: Alert, pleasant, 63-year-old white male, on 3 L of oxygen, with a pulse ox of 96% comfortable in no apparent distress. HEAD: Normocephalic/atraumatic. EYES: Normal reaction of pupils, equal size. Conjunctiva pink, sclera white. NOSE: Clear with pink turbinates. THROAT: No erythema or exudates. NECK: No masses, no JVD, no thyroid enlargement, no adenopathy. CHEST: No chest wall deformity. Symmetrical expansion. LUNGS: Equal air entry with diminished breath sounds at the bases, no rhonchi, no wheezing CVS: Regular rate and rhythm, normal S1 and S2, no gallops, no murmurs, no rubs ABDOMEN: Soft, nontender. No hepatosplenomegaly, normal bowel sounds, no guarding or rigidity. EXTREMITIES: No clubbing, changes of chronic venous stasis present in lower extremities, with mild edema, no cyanosis, 2+ pulses and upper and lower extremities. MUSCULOSKELETAL: Muscle strength and tone normal. SPINE: No scoliosis or deformity SKIN: No rashes CENTRAL NERVOUS SYSTEM: Alert and oriented -3. No focal deficits, tone is normal in all 4 extremities. PSYCHIATRIC: Alert and oriented -3. Appropriate affect. Intact judgment and insight. - Labs CBC & Chem 7: 03/16/19 06:15 03/16/19 06:15 Labs: Abnormal Lab Results - Last 24 Hours (Table) 03/16/19 03/16/19 Range/Units 06:15 06:15 RBC 3.93 L (4.30-5.90) m/uL Hgb 11.1 L (13.0-17.5) gm/dL Hct 34.6 L (39.0-53.0) % RDW 15.6 H (11.5-15.5) % Chloride 109 H (98-107) mmol/L BUN 47 H (9-20) mg/dL Creatinine 2.77 H (0.66-1.25) mg/dL Glucose 104 H (74-99) mg/dL Assessment and Plan Plan: Assessment: #1. Shortness of breath with hypoxemic restaurant failure related to acute con gestive heart failure/fluid overload, with systolic dysfunction, echocardiogram showed a severely impaired LVEF between 25-30%, severe mitral regurgitation, severe tricuspid regurgitation moderate pulmonary hypertension with right-sided pressures of 50.7 mmHg #2. Possibility of underlying pneumonia is less likely, but not entirely excluded #3. A. fib with RVR, status post transesophageal echocardiogram and biphasic cardioversion, currently in sinus rhythm #4. History of chronic tobacco use, rule out chronic obstructive pulmonary disease #5. History of left leg deep venous thrombosis #6. History of stage III chronic kidney disease #7. History of right ankle joint instability #8. Sick sinus syndrome, status post pacemaker insertion #9. History of intermittent atrial fibrillation #10. History of manic depressive disorder #11. Medical noncompliance Plan: We'll give the patient next her dose of IV Lasix, we'll repeat chest x-ray tomorrow, clinically patient denies any dyspnea, yesterday chest x-ray still showed pulmonary vascular congestion, small bilateral pleural effusions, weaning FiO2, will continue with nebulized bronchodilators, patient is on empiric antibiotics, although there has been no significant cough, wheezing or congestion. No fever, no leukocytosis. Remains in sinus rhythm with a controlled rate. We'll continue to follow I performed a history & physical examination of the patient and discussed their management with my nurse practitioner, Xochitl Ingram. I reviewed the nurse practitioner's note and agree with the documented findings and plan of care. Lung sounds are positive for diminished breath sounds. The findings and the impression was discussed with the patient. I attest to the documentation by the nurse practitioner. Time with Patient: Less than 30
[2019-03-16] MEDS: flUPHENAZine 2.5 MG/ML (MDV) 10 ML VIAL IM SCH ×2 (11:02→19:51)
[2019-03-16] MEDS: APIXABAN 5 MG TAB PO SCH ×2 (12:22→19:50)
--- NOTE | 2019-03-16 12:59 | PN ---
PROGRESS NOTE Justin is a 63-year-old gentleman with bipolar mood disorder that is admitted to hospital with atrial flutter and underwent cardioversion. He remains in sinus rhythm. From time to time he is refusing to take his medications. The patient is supposed to be on Eliquis 5 b.i.d. along with amiodarone 400 b.i.d. EXAM: Comfortable at rest. Vital signs are stable. There is no jugular venous distention. Chest is clear to auscultation and percussion. Heart exam reveals first and second heart sounds. No gallop. Exam of the extremities did not reveal any edema. ASSESSMENT: Atrial flutter status post cardioversion. Not sure why the Eliquis had been stopped. We need to resume it as soon as possible. MMODL / IJN: [id number] /
--- NOTE | 2019-03-16 13:47 | P.PN ---
Progress Note - Text Progress Note Date: 03/16/19 Interval History: Psychiatry followed up with patient's case today. Patient has been on Prolixin 2.5 mg twice along with 2.5 mg every 6 hours when necessary for agitation. As per EMR, patient has been cardioverted and currently in sinus rhythm and cardiology and pulmonary have signed off on patient's care. Patient has been taking his Trileptal and Prolixin doses and no when necessary's were given over the weekend. As per nurse, patient has been intrusive, irritable and not following directions and attempted to smoke several times. Privacy Director spoke with and evaluated patient at the bedside and patient was up and alert and sitting on his chair dressed in street clothing. Patient had a foul body odor and appeared to be irritable and demanding discharge. Patient continues to have poor insight and poor judgment. Patient did not endorse delusions at this time. Patient denied any any suicidal or homical ideations, intent or plan. Patient denies any auditory, visual hallucinations and denies any paranoia or delusions. Mental Status Exam: General Appearance: Patient appears to be stated age is alert, however is uncooperative and irritable. Behavior: Patient is sitting on the chair, irritable. Speech: Patient's speech is fluent and nonpressured. Mood/Affect: Mood is improving, affect is congruent and constricted. Suicidality/Homicidality: Patient denies having any suicidal or homicidal ideation intent or plan. Perceptions: Patient denies any auditory or visual hallucinations. Though content/process: Less delusional thought content and thought process is linear and goal-directed. Patient was irritable, focused on discharge. Memory and concentration: AOX3, grossly intact for the purposes of this session Judgment and insight: Poor, improving mildly Assessment Delirium with likely etiology toxic/metabolic, resolved Schizoaffective disorder, bipolar type Plan: -At this time patient will require transfer to the inpatient psychiatric unit for stabilization of symptoms and safety. -Will increase Prolixin to 5 mg twice a day for psychosis/aggression and keep patient on the Prolixin when necessary for acute agitation. -Please attempt to avoid giving patient more sedation i.e. benzos or other anesthetics/[employer] depressants. -Can consider a one-to-one sitter if patient begins wandering on the units are becomes agitated. -Please contact mental health unit for bed when medically stable.
--- NOTE | 2019-03-16 15:15 | P.PN ---
Progress Note - Text Progress Note Date: 03/16/19 Presenting complaint: Short of breath Interval history: This is a 63-year-old patient whose chronic stable medical conditions include chronic kidney disease stage III, chronic left leg DVT, not on antiplatelet medication for the same, unstable right ankle joint does walk with a limp, pacemaker for sick sinus syndrome, bipolar disorder type I with manic episodes. Also intermittent atrial fibrillation. Patient lives at a senior living. Has had frequent admissions to the psychiatry unit for flareup of his bipolar disorder especially. Manic episodes. Patient has a court-appointed guardian. Patient presents to [facility] with atrial fibrillation with rapid ventricular rate. Was admitted to the ICU. Was put on IV amiodarone and IV Cardizem initially. Subsequently patient became very agitated and refused to take his medications. Patient was followed by cardiology and pulmonary in the ICU. As psychiatry services were not available at the other hospital and even though patient was given Geodon 20 mg IM every 12 when necessary and Ativan when necessary he was still refusing to take his oral medications. This resulted in patient being transferred here for higher level of care. Patient did undergo SPENSER and cardioversion and went into sinus rhythm. Patient's out of the ICU. on March 14 patient gone into pulmonary edema, COPD exacerbation and aspiration pneumonia. Today-breathing much improved. Actually up and about in the hallway with a walker. Eating much better. No cough. Refused all his medications this morning. I did talk to the patient to go back and see the room. Has gone back and sat on a chair. Did call the psychiatry unit 3 W. to have the psychiatrist reevaluate the patient for kidney transferred there. Patient medically stable... Review of systems: Was done for constitutional, cardiovascular, GI, pulmonary. Psychiatry relevant finding as above Active Medications Albuterol/Ipratropium (Duoneb 0.5 Mg-3 Mg/3 Ml Soln) 3 ml INHALATION RT-QID PRN PRN Reason: Shortness Of Breath Or Wheezing Last Admin: 03/14/19 12:33 Dose: 3 ml Documented by: Albuterol/Ipratropium (Duoneb 0.5 Mg-3 Mg/3 Ml Soln) 3 ml INHALATION RT-QID [facility] Last Admin: 03/16/19 11:23 Dose: Not Given Documented by: Amiodarone HCl (Cordarone) 200 mg PO BID [facility] Apixaban (Eliquis) 5 mg PO BID [facility] Last Admin: 03/16/19 12:22 Dose: 5 mg Documented by: Famotidine (Pepcid) 20 mg PO DAILY [facility] Last Admin: 03/16/19 08:12 Dose: 20 mg Documented by: Fluphenazine HCl (Prolixin) 2.5 mg IM Q6HR PRN PRN Reason: Agitation Last Admin: 03/13/19 02:58 Dose: 2.5 mg Documented by: Fluphenazine HCl (Prolixin) 5 mg IM BID [facility] Furosemide (Lasix) 40 mg PO DAILY [facility] Last Admin: 03/16/19 08:11 Dose: 40 mg Documented by: Guaifenesin (Robitussin) 200 mg PO TID PRN PRN Reason: Cough Sodium Chloride (Saline 0.9%) 1,000 mls @ 20 mls/hr IV .Q24H [facility] Last Admin: 03/15/19 15:17 Dose: Not Given Documented by: Clindamycin Phosphate 300 mg/ (Dextrose/Water) 52 mls @ 50 mls/hr IVPB Q8HR [facility] Last Admin: 03/16/19 11:02 Dose: Not Given Documented by: Lisinopril (Zestril) 5 mg PO BID [facility] Last Admin: 03/16/19 08:12 Dose: 5 mg Documented by: Lorazepam (Ativan) 2 mg IV Q8HR PRN PRN Reason: Agitation Last Admin: 03/14/19 07:02 Dose: 2 mg Documented by: Metoprolol Tartrate (Lopressor) 50 mg PO BID [facility] Last Admin: 03/16/19 08:12 Dose: 50 mg Documented by: Naloxone HCl (Narcan) 0.2 mg IV Q2M PRN PRN Reason: Opioid Reversal Nicotine (Habitrol 21mg/24hr Patch) 1 patch TRANSDERM DAILY [facility] Last Admin: 03/16/19 08:11 Dose: 1 patch Documented by: Nystatin (Mycostatin Powder) 1 applic TOPICAL BID [facility] Last Admin: 03/16/19 08:14 Dose: 1 applic Documented by: Oxcarbazepine (Trileptal) 600 mg PO BID [facility] Last Admin: 03/16/19 08:12 Dose: 600 mg Documented by: Physical examination: VITAL SIGNS: 98.9, 92, 18, 1 42 x 7 3, 94% room air GENERAL: Sitting up in a chair, comfortable. EYES: Pupils equal. Conjunctiva normal. HEENT: External appearance of nose and ears normal, oral cavity grossly normal. NECK: JVD unable to assess; masses not palpable. HEART: First cycle some normal, no edema. LUNGS: Respiratory rate increased, decreased breath sounds, improved wheezing ABDOMEN: Soft, nontender, liver spleen not palpable, no masses palpable. PSYCH: In a manic state. Answering questions.. INVESTIGATIONS, reviewed in the clinical context: White count 9.2 hemoglobin 11.1 potassium 4.9 bun 47 creatinine 2.77 Previous labs Chest x-ray film personally reviewed by me-shows evidence of pulmonary edema and patchy infiltrate on the right midlung area White count 8.3, hemoglobin 10.1, potassium 4.6 BUN 32 creatinine 2.51 ABGs show a pH of 7.29 Admission labs: Patient is BUN and creatinine was 26/1.79 on January 24 2-D echocardiogram-EF 20-30%, severe mitral regurgitation, severe tricuspid regurgitation, moderate pulmonary hypertension Assessment: -Acute on chronic congestive heart failure exacerbation from diastolic dysfunction EF 20-30%, improved -Acute hypoxic respiratory failure from a combination of CHF and possible aspiration pneumonia, improved -New aspiration pneumonia, from altered mentation -Persistent atrial flutter fibrillation with a rapid ventricular rate succ essfully DC cardioverted on March 13 -Hypernatremia and hyperchloremia, probably from free water deficit, corrected -Severe mitral and tricuspid regurgitation with secondary pulmonary hypertension -Chronic kidney disease stage III from nephrosclerosis -Acute kidney injury, could be prerenal from decrease fluids, cannot rule out ATN, slow to improve -Chronic left leg DVT -Right ankle chronic instability -Bilateral lower extremity venous insufficiency -Sick sinus syndrome with a pacemaker -Obesity BMI 31.8 -Essential hypertension -Bipolar disorder with manic episodes -Acute delirium multifactorial, improved Plan: Spoke to the patient couple of times. Also spoke to the nurse Cindy at length. Spoke to the charge nurse Radha to speak to [address]. to get him a bed there. 3 which request another consult) that was done. Patient refusing all his medications. He has done this in the past. On previous admissions that has precipitated his admission as the [facility]. Total time spent today was about 40 minutes with over 25 minutes of discussion
[2019-03-16] MEDS: SODIUM CHLORIDE 0.9% 1,000 ML IV SCH (17:34)
[2019-03-16] MEDS: CLINDAMYCIN 150 MG CAP PO SCH (22:44)
[2019-03-17 06:06] LABS: Calcium 8.9 mg/dL (8.4-10.2)
[2019-03-17] MEDS: IPRATROPIUM-ALBUTEROL 3 ML NEB INHALATION SCH ×4 (08:00→20:00)
[2019-03-17] MEDS: APIXABAN 5 MG TAB PO SCH ×2 (08:51→22:49)
[2019-03-17] MEDS: CLINDAMYCIN 150 MG CAP PO SCH ×3 (08:51→22:50)
[2019-03-17] MEDS: OXcarbazepine 300 MG TAB PO SCH ×2 (08:51→22:49)
[2019-03-17] MEDS: NICOTINE 21MG/24HR PATCH TRANSDERM SCH (08:52)
[2019-03-17] MEDS: AMIODARONE 200 MG TAB PO SCH ×2 (08:52→22:49)
[2019-03-17] MEDS: METOPROLOL TARTRATE 50 MG TAB PO SCH ×2 (08:52→22:50)
[2019-03-17] MEDS: FAMOTIDINE 20 MG TAB PO SCH (08:52)
[2019-03-17] MEDS: flUPHENAZine 2.5 MG/ML (MDV) 10 ML VIAL IM SCH ×2 (08:53→22:49)
[2019-03-17] MEDS: NYSTATIN 100,000 UNIT/GM POWD 15 GM TOPICAL SCH ×2 (10:32→23:21)
--- NOTE | 2019-03-17 10:46 | XR ---
EXAMINATION TYPE: XR chest 1V portable DATE OF EXAM: 03/17/2019 Comparison: 03/15/2019 Clinical History: 63-year-old male CHF Findings: Left anterior chest wall pacemaker generator with right atrial and right ventricular leads. Slight ri ghtward patient rotation. Heart borderline to mildly enlarged. Slight improving aeration with residua l patchy interstitial densities are residual trace right effusion. Impression: Interval improvement with residual mild pulmonary vascular congestion. Residual trace right effusion with adjacent atelectasis and/or consolidation also shows improvement.
[2019-03-17] MEDS: SODIUM CHLORIDE 0.9% 1,000 ML IV SCH (12:01)
[2019-03-17] MEDS: FUROSEMIDE 40 MG TAB PO SCH (12:01)
[2019-03-17] MEDS: LISINOPRIL 5 MG TAB PO SCH ×2 (12:01→22:50)
--- NOTE | 2019-03-17 13:31 | P.PN ---
Subjective Progress Note Date: 03/17/19 Principal diagnosis: Shortness of breath with hypoxemic respiratory failure related to fluid overload/congestive heart failure, underlying pneumonia is less likely On 03/16/2019 patient seen in follow-up on selective care unit, he is awake and alert, he soft. On the edge of the bed, he is half dressed and history close, in no acute distress, he is currently on 3 L of oxygen, with a pulse ox of 96%, afebrile, hemodynamically patient is stable, yesterday patient was given an extra dose of IV Lasix per attending physician, his chest x-ray yesterday showed persistent although improved pulmonary vascular congestion, and airspace opacities favoring pulmonary edema, stable small bilateral pleural effusions right greater than left. He has had significant diuresis, he is in 3210mL fluid balance over the last 24 hours. Today's lab work has been reviewed, showing no leukocytosis, with blood cell count of 9.2, hemoglobin of 11.1, serum sodium of 141, potassium is 4.9, chloride is 109, CO2 23, BUN of 47 creatinine is 2.77. Lung sounds reveal diminished breath sounds at the bases, no significant rhonchi or wheezes, no complex of chest pain, no cough or congestion, patient is on oral amiodarone 400 mg by mouth twice a day, he has been started on oral Lasix 40 mg daily, patient is on nebulized bronchodilators, remains in sinus rhythm with a controlled rate of 73 BPM. On 03/17/2019 patient seen in follow-up. Doing well, remains in sinus rhythm, room air pulse ox is 94%, and denies any shortness of breath, denies any chest pain. Today's chest x-ray shows interval improvement with residual mild pulmonary vessel congestion, overall improving aeration, with residual trace right pleural effusion and adjacent atelectasis. Patient maintains negative fluid balance. No extremity edema. Lung sounds are positive for minimal crackles at bilateral bases. Today's labs showed continued increase in patient's renal profile, with BUN 47, and creatinine of 2.98. Objective - Vital Signs Vital signs: Vital Signs Temp 97.8 F 03/17/19 11:25 Pulse 100 03/17/19 11:59 Resp 16 03/17/19 11:25 BP 104/66 03/17/19 11:25 Pulse Ox 94 L 03/17/19 11:25 Intake & Output 03/16/19 03/17/19 03/17/19 18:59 06:59 18:59 Intake Total 1080 480 240 Output Total 1701 300 Balance -621 480 -60 Weight 105.7 kg Intake: Oral 1080 480 240 Output: Urine 1700 300 Stool 1 Other: Voiding Method Bedside Commode Toilet Urinal Urinal # Voids 2 # Bowel Movements 0 - Exam GENERAL EXAM: Alert, pleasant, 63-year-old white male, on room air, with a pulse ox of 94% comfortable in no apparent distress. HEAD: Normocephalic/atraumatic. EYES: Normal reaction of pupils, equal size. Conjunctiva pink, sclera white. NOSE: Clear with pink turbinates. THROAT: No erythema or exudates. NECK: No masses, no JVD, no thyroid enlargement, no adenopathy. CHEST: No chest wall deformity. Symmetrical expansion. LUNGS: Equal air entry with diminished breath sounds at the bases, no rhonchi, no wheezing CVS: Regular rate and rhythm, normal S1 and S2, no gallops, no murmurs, no rubs ABDOMEN: Soft, nontender. No hepatosplenomegaly, normal bowel sounds, no guarding or rigidity. EXTREMITIES: No clubbing, changes of chronic venous stasis present in lower extremities, with mild edema, no cyanosis, 2+ pulses and upper and lower extremities. MUSCULOSKELETAL: Muscle strength and tone normal. SPINE: No scoliosis or deformity SKIN: No rashes CENTRAL NERVOUS SYSTEM: Alert and oriented -3. No focal deficits, tone is no rmal in all 4 extremities. PSYCHIATRIC: Alert and oriented -3. Appropriate affect. Intact judgment and insight. - Labs CBC & Chem 7: 03/16/19 06:15 03/17/19 05:23 Labs: Abnormal Lab Results - Last 24 Hours (Table) 03/17/19 Range/Units 05:23 BUN 47 H (9-20) mg/dL Creatinine 2.98 H (0.66-1.25) mg/dL Assessment and Plan Plan: Assessment: #1. Shortness of breath with hypoxemic restaurant failure related to acute congestive heart failure/fluid overload, with systolic dysfunction, echocardiogram showed a severely impaired LVEF between 25-30%, severe mitral re gurgitation, severe tricuspid regurgitation moderate pulmonary hypertension with right-sided pressures of 50.7 mmHg #2. Possibility of underlying pneumonia is less likely, but not entirely excluded #3. A. fib with RVR, status post transesophageal echocardiogram and biphasic cardioversion, currently in sinus rhythm #4. History of chronic tobacco use, rule out chronic obstructive pulmonary dis ease #5. History of left leg deep venous thrombosis #6. History of stage III chronic kidney disease #7. History of right ankle joint instability #8. Sick sinus syndrome, status post pacemaker insertion #9. History of intermittent atrial fibrillation #10. History of manic depressive disorder #11. Medical noncompliance #12. Acute kidney injury related to diuretic therapy Plan: Continue with oral diuretics, today's chest x-ray is showing improvement in terms of pulmonary vascular congestion, and aeration. Stable from pulmonary perspective, wean FiO2. Repeat blood work tomorrow, electrolytes and renal profile. We will sign off and follow on as-needed basis. I performed a history & physical examination of the patient and discussed their management with my nurse practitioner, Xochitl Ingram. I reviewed the nurse practitioner's note and agree with the documented findings and plan of care. Lung sounds are positive for diminished breath sounds. The findings and the impression was discussed with the patient. I attest to the documentation by the nurse practitioner. Time with Patient: Less than 30
--- NOTE | 2019-03-17 14:15 | CDI ---
Documentation Clarification Form Date: 03/17/2019 2:01:20 PM From: Susana Albarran CCS, CCDS Admit Date: 03/11/2019 1:51:00 PM Patient Name: Justin Arndt Visit Number: [id number] Discharge Date: ATTENTION: The Clinical Documentation Specialists (CDI) and [facility] Coding Staff appreciate your assistance in clarifying documentation. Please respond to the clarification below the line at the bottom and electronically sign. The CDI & [facility] Coding staff will review the response and follow-up if needed. Please note: Queries are made part of the Legal Health Record. If you have any questions, please contact the author of this message via ITS. Dr. Alex Umana: Per the 03/11 History & Physical: "Persistent Atrial Flutter Fibrillation with a rapid ventricular rate currently controlled patient had been on Amiodarone." Per the 03/12 Cardiology Consult: "Atrial flutter versus atrial tachycardia; at this time appears more like atrial tachycardia with 2:1 conduction." 03/13 Cardioversion performed for "atrial flutter" 03/16 Cardiology PN: "admitted to hospital with atrial flutter and underwent cardioversion." History/Risk factors: CKD III from nephrosclerosis, Hypertension, Chronic left leg DVT, Bilateral lower extremity venous insufficiency, SSS w/pacemaker, Obesity BMI 31.8. Clinical Indicators: Transferred from [facility] for agitation & atrial fibrillation. Diagnosed with persistent atrial flutter w/RVR. EKG: R 119 Atrial flutter w/2:1 AV conduction. #2: R 120 Atrial flutter w/2:1 AV conduction. Treatment: IV Amiodarone, IV Heparin drip, IV Dextrose/Na Cl, IV Ativan, IM Geodon, SPENSER & Cardioversion In your professional opinion, in order to capture the severity of condition; can you please clarify if the patient is being treated for Atrial Fibrillation with specificity and/or Atrial Flutter with specificity, if known? Atrial Flutter: o Typical/Type I o Atypical/Type II o Other, please specify o Unable to determine Atrial Fibrillation: o Persistent o Paroxysmal o Chronic o Other, please specify o Unable to determine (Last Revision: October 2017) MTDD
--- NOTE | 2019-03-17 15:58 | P.PN ---
Subjective Progress Note Date: 03/17/19 This is a 63-year-old gentleman admitted to the hospital with acute respiratory failure. He has a known history of bipolar disorder, patient was found to be in atrial flutter and underwent cardioversion. He remains in a normal sinus rhythm today. Patient does refuse intermittently to take his medications overall hemodynamically he is stable. Objective - Vital Signs Vital signs: Vital Signs Temp 97.8 F 03/17/19 11:25 Pulse 80 03/17/19 15:33 Resp 16 03/17/19 11:25 BP 104/66 03/17/19 11:25 Pulse Ox 96 03/17/19 15:24 Intake & Output 03/16/19 03/17/19 03/17/19 18:59 06:59 18:59 Intake Total 1080 480 480 Output Total 1701 300 Balance -621 480 180 Weight 105.7 kg Intake: Oral 1080 480 480 Output: Urine 1700 300 Stool 1 Other: Voiding Method Bedside Commode Toilet Urinal Urinal # Voids 2 # Bowel Movements 0 - Exam HEAD: Normocephalic/atraumatic. EYES: Normal reaction of pupils, equal size. Conjunctiva pink, sclera white. NOSE: Clear with pink turbinates. THROAT: No erythema or exudates. NECK: No masses, no JVD, no thyroid enlargement, no adenopathy. CHEST: No chest wall deformity. Symmetrical expansion. LUNGS: Equal air entry with diminished breath sounds at the bases, no rhonchi, no wheezing CVS: Regular rate and rhythm, normal S1 and S2, no gallops, no murmurs, no rubs ABDOMEN: Soft, nontender. No hepatosplenomegaly, normal bowel sounds, no guarding or rigidity. EXTREMITIES: No clubbing, changes of chronic venous stasis present in lower extremities, with mild edema, no cyanosis, 2+ pulses and upper and lower extremities. MUSCULOSKELETAL: Muscle strength and tone normal. SPINE: No scoliosis or deformity SKIN: No rashes CENTRAL NERVOUS SYSTEM: Alert and oriented -3. No focal deficits, tone is normal in all 4 extremities. PSYCHIATRIC: Alert and oriented -3. Appropriate affect. Intact judgment and insight. - Labs CBC & Chem 7: 03/16/19 06:15 03/17/19 05:23 Labs: Abnormal Lab Results - Last 24 Hours (Table) 03/17/19 Range/Units 05:23 BUN 47 H (9-20) mg/dL Creatinine 2.98 H (0.66-1.25) mg/dL Assessment and Plan Plan: Assessment and plan: #1. Shortness of breath with hypoxemic restaurant failure related to acute congestive heart failure/fluid overload, with systolic dysfunction, echocardiogram showed a severely impaired LVEF between 25-30%, severe mitral regurgitation, severe tricuspid regurgitation moderate pulmonary hypertension w ith right-sided pressures of 50.7 mmHg #2. Possibility of underlying pneumonia is less likely, but not entirely excluded #3. Typical A. flutter with RVR, status post transesophageal echocardiogram and biphasic cardioversion, currently in sinus rhythm #4. History of chronic tobacco use, rule out chronic obstructive pulmonary disease #5. History of left leg deep venous thrombosis #6. History of stage III chronic kidney disease #7. History of right ankle joint instability #8. Sick sinus syndrome, status post pacemaker insertion #9. History of intermittent atrial fibrillation #10. History of manic depressive disorder #11. Medical noncompliance #12. Acute kidney injury related to diuretic therapy Plan From cardiology's perspective, we'll recommend to continue the patient on his current medications. We will follow along with you now as needed, please don't hesitate to call with any questions. DNP note has been reviewed, I agree with a documented findings and plan of care. Patient was seen and examined.
--- NOTE | 2019-03-17 15:58 | P.DS ---
Providers Date of admission: 03/11/19 13:51 Expected date of discharge: 03/17/19 Attending physician: Earl Curry Consults: 03/11/19 15:00 Consult Physician Routine Consulting Provider: Garrett Gandhi Consult Reason/Comments: Bipolar Disorder Do you want consulting provider notified?: Already Contacted Consult Physician Routine Consulting Provider: Jacqueline Lopez Consult Reason/Comments: afib Do you want consulting provider notified?: Yes 03/14/19 11:54 Consult Physician Routine Consulting Provider: Darinel Hawkins Consult Reason/Comments: RESPIRATORY CHANGES Do you want consulting provider notified?: Yes 03/16/19 12:39 Consult Physician Routine Consulting Provider: Garrett Gandhi Consult Reason/Comments: Inpatient MHU Do you want consulting provider notified?: Yes Primary care physician: [facility] Course: Hospital course: This is a 63-year-old patient whose chronic stable medical conditions include chronic kidney disease stage III, chronic left leg DVT, not on antiplatelet medication for the same, unstable right ankle joint does walk with a limp, pacemaker for sick sinus syndrome, bipolar disorder type I with manic episodes. Also intermittent atrial fibrillation. Patient lives at a half-way. Has had frequent admissions to the psychiatry unit for flareup of his bipolar disorder especially. Manic episodes. Patient has a court-appointed guardian. Patient presents to [facility] with atrial fibrillation with rapid ventricular rate. Was admitted to the ICU. Was put on IV amiodarone and IV Cardizem initially. Subsequently patient became very agitated and refused to take his medications. Patient was followed by cardiology and pulmonary in the ICU. As psychiatry services were not available at the other hospital and even though patient was given Geodon 20 mg IM every 12 when necessary and Ativan when necessary he was still refusing to take his oral medications. This resulted in patient being transferred here for higher level of care. Patient did undergo SPENSER and cardioversion and went into sinus rhythm. Patient's moved out of the ICU. on March 14 patient gone into pulmonary edema, COPD exacerbation and aspiration pneumonia. Did receive clindamycin. We will DC clindamycin today. Breathing is stable. We'll DC Lasix. Intermittently refuses his medications. No cough no shortness of breath. Patient took his medications this morning. No bed available on the [facility] [address] psychiatry unit. Patient still manic. Care was discussed with the nurse at [address]. No bed available. Spoke to the director of casework department and oncology social work. At length. I was informed short time ago that patient's bed is available at outside facility. P work being done. Discussion and discharge planning more than 35 minutes Consultants: from psychiatry Cardiology associates Dr. Walter and partners from pulmonary Physical examination: VITAL SIGNS: 97.8, 65, 16, 104/66, 94% room air GENERAL: Propped up in bed,, comfortable. EYES: Pupils equal. Conjunctiva normal. HEENT: External appearance of nose and ears normal, oral cavity grossly normal. NECK: JVD unable to assess; masses not palpable. HEART: First cycle some normal, no edema. LUNGS: Respiratory rate increased, decreased breath sounds, improved wheezing ABDOMEN: Soft, nontender, liver spleen not palpable, no masses palpable. PSYCH: Smiling, talking rapidly, wants me to go fishing with him... INVESTIGATIONS, reviewed in the clinical context: White count 9.2 hemoglobin 11.1 potassium 5.0 bun 47 creatinine 2.98 Admission labs: Patient is BUN and creatinine was 26/1.79 on January 24 2-D echocardiogram-EF 20-30%, severe mitral regurgitation, severe tricuspid regurgitation, moderate pulmonary hypertension Discharge diagnosis: -Acute on chronic congestive heart failure exacerbation from diastolic dysfunction EF 20-30%, improved -Acute hypoxic respiratory failure from a combination of CHF and possible aspiration pneumonia, improved -New aspiration pneumonia, from altered mentation, completed course of antibiotic -Persistent atrial flutter fibrillation with a rapid ventricular rate successfully DC cardioverted on March 13 -Hypernatremia and hyperchloremia, probably from free water deficit, corrected -Severe mitral and tricuspid regurgitation with secondary pulmonary hypertension -Chronic kidney disease stage III from nephrosclerosis -Acute kidney injury, could be prerenal from decrease fluids, cannot rule out ATN, slow to improve -Chronic left leg DVT -Right ankle chronic instability -Bilateral lower extremity venous insufficiency -Sick sinus syndrome with a pacemaker -Obesity BMI 31.8 -Essential hypertension -Bipolar disorder with manic episodes -Acute delirium multifactorial, improved Disposition: Outside facility psychiatry unit Patient Condition at Discharge: Undetermined Plan - Discharge Summary Discharge Rx Participant: Yes New Discharge Prescriptions: New Amiodarone [Cordarone] 200 mg PO BID tab Nicotine 21Mg/24Hr Patch [Habitrol] 1 patch TRANSDERM DAILY #14 patch Famotidine [Pepcid] 20 mg PO DAILY tab Lisinopril [Zestril] 5 mg PO BID tab Continue Metoprolol Tartrate [Lopressor] 50 mg PO BID@0800,2100 Apixaban [Eliquis] 5 mg PO BID@0800,2100 OXcarbazepine [Trileptal] 600 mg PO BID@0800,2100 Discontinued amLODIPine [Norvasc] 5 mg PO DAILY@0800 cloZAPine [Clozaril] 200 mg PO HS@2100 Discharge Medication List Apixaban [Eliquis] 5 mg PO BID@0800,209903/11/19 [History] Metoprolol Tartrate [Lopressor] 50 mg PO BID@0800,209903/11/19 [History] OXcarbazepine [Trileptal] 600 mg PO BID@0800,209903/11/19 [History] Amiodarone [Cordarone] 200 mg PO BID tab 03/17/19 [Rx] Famotidine [Pepcid] 20 mg PO DAILY tab 03/17/19 [Rx] Lisinopril [Zestril] 5 mg PO BID tab 03/17/19 [Rx] Nicotine 21Mg/24Hr Patch [Habitrol] 1 patch TRANSDERM DAILY #14 patch 03/17/19 [Rx] Discharge Disposition: TRANSFER TO PSYCH HOSP/UNIT
[2019-03-18 07:14] LABS: Basophils % (A) 0 %; Eosinophils # (A) 0.6 k/uL (0-0.7); Eosinophils % (A) 7 %; HCT 34.4 % (39.0-53.0); HGB 11.3 gm/dL (13.0-17.5); Lymphocytes # (A) 1.8 k/uL (1.0-4.8); Lymphocytes % (A) 21 %; MCH 28.6 pg (25.0-35.0); MCHC 32.9 g/dL (31.0-37.0); MCV 87.1 fL (80.0-100.0); Mean Platelet Volume 7.7; Monocytes # (A) 0.7 k/uL (0-1.0); Monocytes % (A) 8 %; Neutrophils # (A) 5.5 k/uL (1.3-7.7); Neutrophils % (A) 61 %; Platelet Count 278 k/uL (150-450); RBC 3.95 m/uL (4.30-5.90); RDW 15.1 % (11.5-15.5); WBC 8.9 k/uL (3.8-10.6)
[2019-03-18 07:24] LABS: Calcium 8.8 mg/dL (8.4-10.2); Potassium 4.7 mmol/L (3.5-5.1)
[2019-03-18] MEDS: IPRATROPIUM-ALBUTEROL 3 ML NEB INHALATION SCH ×3 (08:53→16:23)
[2019-03-18] MEDS: APIXABAN 5 MG TAB PO SCH (09:12)
[2019-03-18] MEDS: FAMOTIDINE 20 MG TAB PO SCH (09:12)
[2019-03-18] MEDS: METOPROLOL TARTRATE 50 MG TAB PO SCH (09:12)
[2019-03-18] MEDS: FUROSEMIDE 40 MG TAB PO SCH (09:12)
[2019-03-18] MEDS: AMIODARONE 200 MG TAB PO SCH (09:12)
[2019-03-18] MEDS: NICOTINE 21MG/24HR PATCH TRANSDERM SCH (09:12)
[2019-03-18] MEDS: LISINOPRIL 5 MG TAB PO SCH (09:13)
[2019-03-18] MEDS: CLINDAMYCIN 150 MG CAP PO SCH (09:14)
[2019-03-18] MEDS: flUPHENAZine 2.5 MG/ML (MDV) 10 ML VIAL IM SCH (09:15)
[2019-03-18] MEDS: NYSTATIN 100,000 UNIT/GM POWD 15 GM TOPICAL SCH (09:16)
[2019-03-18] MEDS: OXcarbazepine 300 MG TAB PO SCH (11:54)
--- NOTE | 2019-03-18 13:20 | P.PN ---
Progress Note - Text Progress Note Date: 03/17/19 Presenting complaint: Short of breath Interval history: This is a 63-year-old patient whose chronic stable medical conditions include chronic kidney disease stage III, chronic left leg DVT, not on antiplatelet medication for the same, unstable right ankle joint does walk with a limp, pacemaker for sick sinus syndrome, bipolar disorder type I with manic episodes. Also intermittent atrial fibrillation. Patient lives at a halfway. Has had frequent admissions to the psychiatry unit for flareup of his bipolar disorder especially. Manic episodes. Patient has a court-appointed guardian. Patient presents to [facility] with atrial fibrillation with rapid ventricular rate. Was admitted to the ICU. Was put on IV amiodarone and IV Cardizem initially. Subsequently patient became very agitated and refused to take his medications. Patient was followed by cardiology and pulmonary in the ICU. As psychiatry services were not available at the other hospital and even though patient was given Geodon 20 mg IM every 12 when necessary and Ativan when necessary he was still refusing to take his oral medications. This resulted in patient being transferred here for higher level of care. Patient did undergo SPENSER and cardioversion and went into sinus rhythm. Patient's out of the ICU. on March 14 patient gone into pulmonary edema, COPD exacerbation and aspiration pneumonia. Today up and about in the hallway. Eating. Sometimes refusing his medications. Still manic..... Review of systems: Was done for constitutional, cardiovascular, GI, pulmonary. Psychiatry relevant finding as above Physical examination: VITAL SIGNS: 98.5, 60, 16, 10 3 x 61, 95% room air GENERAL: Laying in bed, comfortable. EYES: Pupils equal. Conjunctiva normal. HEENT: External appearance of nose and ears normal, oral cavity grossly normal. NECK: JVD unable to assess; masses not palpable. HEART: First cycle some normal, no edema. LUNGS: Respiratory rate increased, decreased breath sounds, ABDOMEN: Soft, nontender, liver spleen not palpable, no masses palpable. PSYCH: In a manic state. Answering questions.. INVESTIGATIONS, reviewed in the clinical context: Bun 47 creatinine 2.98 Previous labs Chest x-ray film personally reviewed by me-shows evidence of pulmonary edema and patchy infiltrate on the right midlung area White count 8.3, hemoglobin 10.1, potassium 4.6 BUN 32 creatinine 2.51 ABGs show a pH of 7.29 Admission labs: Patient is BUN and creatinine was 26/1.79 on January 24 2-D echocardiogram-EF 20-30%, severe mitral regurgitation, severe tricuspid regurgitation, moderate pulmonary hypertension Assessment: -Acute on chronic congestive heart failure exacerbation from diastolic dysfunction EF 20-30%, improved -Acute hypoxic respiratory failure from a combination of CHF and possible aspiration pneumonia, improved -New aspiration pneumonia, from altered mentation, much improved -Persistent atrial flutter fibrillation with a rapid ventricular rate successfully DC cardioverted on March 13 -Hypernatremia and hyperchloremia, probably from free water deficit, corrected -Severe mitral and tricuspid regurgitation with secondary pulmonary hypertension -Chronic kidney disease stage III from nephrosclerosis -Acute kidney injury, could be prerenal from decrease fluids, cannot rule out ATN, slow to improve -Chronic left leg DVT -Right ankle chronic instability -Bilateral lower extremity venous insufficiency -Sick sinus syndrome with a pacemaker -Obesity BMI 31.8 -Essential hypertension -Bipolar disorder with manic episodes -Acute delirium multifactorial, improved Plan: Waiting for patient to get to go to [facility]. Spoke to manager social services. Also if outs [facility] facility. Other medications to continue. Stop antibiotics.
[2019-03-18 14:24] VITALS: RESP 14
[2019-03-18 14:33] VITALS: TEMP 98.1
[2019-03-18 14:48] VITALS: BMI 30.1
[2019-03-18 16:34] VITALS: PULSE 82
[2019-03-18] MEDS: SODIUM CHLORIDE 0.9% 1,000 ML IV SCH (16:39)
[2019-03-18 16:47] VITALS: BP 111/67
--- NOTE | 2019-03-18 21:14 | P.DS ---
Providers Date of admission: 03/11/19 13:51 Expected date of discharge: 03/18/19 Attending physician: Earl Curry Consults: 03/11/19 15:00 Consult Physician Routine Consulting Provider: Garrett Gandhi Consult Reason/Comments: Bipolar Disorder Do you want consulting provider notified?: Already Contacted Consult Physician Routine Consulting Provider: Jacqueline Lopez Consult Reason/Comments: afib Do you want consulting provider notified?: Yes 03/14/19 11:54 Consult Physician Routine Consulting Provider: Darinel Hawkins Consult Reason/Comments: RESPIRATORY CHANGES Do you want consulting provider notified?: Yes 03/16/19 12:39 Consult Physician Routine Consulting Provider: Garrett Gandhi Consult Reason/Comments: Inpatient MHU Do you want consulting provider notified?: Yes Primary care physician: [facility] Hospital Course: Hospital course: This is a 63-year-old patient whose chronic stable medical conditions include chronic kidney disease stage III, chronic left leg DVT, not on antiplatelet medication for the same, unstable right ankle joint does walk with a limp, pacemaker for sick sinus syndrome, bipolar disorder type I with manic episodes. Also intermittent atrial fibrillation. Patient lives at a longterm. Has had frequent admissions to the psychiatry unit for flareup of his bipolar disorder especially. Manic episodes. Patient has a court-appointed guardian. Patient presents to [facility] with atrial fibrillation with rapid ventricular rate. Was admitted to the ICU. Was put on IV amiodarone and IV Cardizem initially. Subsequently patient became very agitated and refused to take his medications. Patient was followed by cardiology and pulmonary in the ICU. As psychiatry services were not available at the other hospital and even though patient was given Geodon 20 mg IM every 12 when necessary and Ativan when necessary he was still refusing to take his oral medications. This resulted in patient being transferred here for higher level of care. Patient did undergo SPENSER and cardioversion and went into sinus rhythm. Patient's out of the ICU. on March 14 patient gone into pulmonary edema, COPD exacerbation and aspiration pneumonia. Today-patient been taking his medications. Still manic. Spoke to, Including charge nurse and customer technical services manager for 3 W. regarding transfer of patient when bed available. Discussion and discharge planning more than 35 minutes Consultation: Dr. Gandhi from psychiatry [facility] Dr. Smith from pulmonary Physical examination: VITAL SIGNS: 98.1, 63, 14, 11 1 x 67, 96% room air GENERAL: Sitting up comfortable. EYES: Pupils equal. Conjunctiva normal. HEENT: External appearance of nose and ears normal, oral cavity grossly normal. NECK: JVD unable to assess; masses not palpable. HEART: First cycle some normal, no edema. LUNGS: Respiratory rate increased, decreased breath sounds, ABDOMEN: Soft, nontender, liver spleen not palpable, no masses palpable. PSYCH: In a manic state. Answering questions.. INVESTIGATIONS, reviewed in the clinical context: Bun 47 creatinine 2.75 Previous labs Chest x-ray film personally reviewed by me-shows evidence of pulmonary edema and patchy infiltrate on the right midlung area White count 8.3, hemoglobin 10.1, potassium 4.6 BUN 32 creatinine 2.51 ABGs show a pH of 7.29 Admission labs: Patient is BUN and creatinine was 26/1.79 on January 24 2-D echocardiogram-EF 20-30%, severe mitral regurgitation, severe tricuspid regurgitation, moderate pulmonary hypertension Assessment: -Acute on chronic congestive heart failure exacerbation from diastolic dysfunction EF 20-30%, improved -Acute hypoxic respiratory failure from a combination of CHF and possible aspiration pneumonia, improved -New aspiration pneumonia, from altered mentation, much improved -Persistent atrial flutter fibrillation with a rapid ventricular rate successfully DC cardioverted on March 13 -Hypernatremia and hyperchloremia, probably from free water deficit, corrected -Severe mitral and tricuspid regurgitation with secondary pulmonary hypertension -Chronic kidney disease stage III from nephrosclerosis -Acute kidney injury, could be prerenal from decrease fluids, cannot rule out ATN, slow to improve -Chronic left leg DVT -Right ankle chronic instability -Bilateral lower extremity venous insufficiency -Sick sinus syndrome with a pacemaker -Obesity BMI 31.8 -Essential hypertension -Bipolar disorder with manic episodes -Acute delirium multifactorial, improved Disposition: 3 W./psychiatry unit Patient Condition at Discharge: Stable Plan - Discharge Summary Discharge Rx Participant: Yes New Discharge Prescriptions: New Amiodarone [Cordarone] 200 mg PO BID tab Nicotine 21Mg/24Hr Patch [Habitrol] 1 patch TRANSDERM DAILY #14 patch Famotidine [Pepcid] 20 mg PO DAILY tab Lisinopril [Zestril] 5 mg PO BID tab Furosemide [Lasix] 40 mg PO DAILY #30 tablet Continue Metoprolol Tartrate [Lopressor] 50 mg PO BID@0800,2100 Apixaban [Eliquis] 5 mg PO BID@0800,2099 OXcarbazepine [Trileptal] 600 mg PO BID@0800,2099 Discontinued amLODIPine [Norvasc] 5 mg PO DAILY@0800 cloZAPine [Clozaril] 200 mg PO HS@2100 Discharge Medication List Apixaban [Eliquis] 5 mg PO BID@0800,209903/11/19 [History] Metoprolol Tartrate [Lopressor] 50 mg PO BID@0800,209903/11/19 [History] OXcarbazepine [Trileptal] 600 mg PO BID@0800,209903/11/19 [History] Amiodarone [Cordarone] 200 mg PO BID tab 03/17/19 [Rx] Famotidine [Pepcid] 20 mg PO DAILY tab 03/17/19 [Rx] Furosemide [Lasix] 40 mg PO DAILY #30 tablet 03/17/19 [Rx] Lisinopril [Zestril] 5 mg PO BID tab 03/17/19 [Rx] Nicotine 21Mg/24Hr Patch [Habitrol] 1 patch TRANSDERM DAILY #14 patch 03/17/19 [Rx] Follow up Appointment(s)/Referral(s): Event Specialist Food Demonstratordr [Other] - 1 Week Activity/Diet/Wound Care/Special Instructions: cbc,bmp - 2 days Discharge Disposition: TRANSFER TO PSYCH HOSP/UNIT
== END 2019-03-18 17:44 | DRG 308 ==
LOC: 2SICU 13:51 → 3SCARD 03-13 21:49
PROVIDERS: ADMIT Hospitalist; ATTEND Hospitalist
PROC: 5A2204Z Restoration of Cardiac Rhythm, Single (ICD-10-PCS; principal; 2019-03-13 12:30)
DX: I48.3 Typical atrial flutter (principal); J69.0 Pneumonitis due to inhalation of food and vomit; J96.01 Acute respiratory failure with hypoxia; N17.0 Acute kidney failure with tubular necrosis; I50.43 Acute on chronic combined systolic (congestive) and diastolic (congestive) heart failure; F31.2 Bipolar disorder, current episode manic severe with psychotic features; E87.0 Hyperosmolality and hypernatremia; F05 Delirium due to known physiological condition; I13.0 Hypertensive heart and chronic kidney disease with heart failure and stage 1 through stage 4 chronic kidney disease, or unspecified chronic kidney disease; I82.502 Chronic embolism and thrombosis of unspecified deep veins of left lower extremity; J44.1 Chronic obstructive pulmonary disease with (acute) exacerbation; I48.0 Paroxysmal atrial fibrillation; I42.9 Cardiomyopathy, unspecified; E87.8 Other disorders of electrolyte and fluid balance, not elsewhere classified; I27.29 Other secondary pulmonary hypertension; I08.1 Rheumatic disorders of both mitral and tricuspid valves; N18.3 Chronic kidney disease, stage 3 (moderate); E66.9 Obesity, unspecified; F17.200 Nicotine dependence, unspecified, uncomplicated; F43.10 Post-traumatic stress disorder, unspecified; I87.2 Venous insufficiency (chronic) (peripheral); M25.371 Other instability, right ankle; T50.2X5A Adverse effect of carbonic-anhydrase inhibitors, benzothiadiazides and other diuretics, initial encounter; F31.9 Bipolar disorder, unspecified; R45.1 Restlessness and agitation; Z68.31 Body mass index [BMI] 31.0-31.9, adult; Z79.01 Long term (current) use of anticoagulants; Z79.899 Other long term (current) drug therapy; Z86.14 Personal history of Methicillin resistant Staphylococcus aureus infection; Z95.0 Presence of cardiac pacemaker; Z91.19 Patient's noncompliance with other medical treatment and regimen
CPT/HCPCS: 36600; 71045; 80048; 80053; 82805; 83735; 83880; 84443; 85025; 85610; 85730; 92960; 93306; 93312; 93320; 93325; 94640; 94760

== ENCOUNTER 2019-03-18 17:00 | Inpatient (IN) | payer MEDICARE, OTHER ==
[2019-03-18] MEDS ORDERED: MAGNESIUM HYDROXIDE 2,400 MG/10 ML CUP PO PRN (18:18)
[2019-03-18] MEDS ORDERED: ACETAMINOPHEN TAB 325 MG TAB PO PRN (18:18)
[2019-03-18] MEDS: APIXABAN 5 MG TAB PO SCH (21:31)
[2019-03-18] MEDS: OXcarbazepine 300 MG TAB PO SCH (21:31)
[2019-03-18] MEDS: LISINOPRIL 5 MG TAB PO SCH (21:31)
[2019-03-18] MEDS: AMIODARONE 200 MG TAB PO SCH (21:31)
[2019-03-18] MEDS: METOPROLOL TARTRATE 50 MG TAB PO SCH (21:31)
[2019-03-18] MEDS ORDERED: LORazepam 1 MG TAB PO PRN (22:17)
[2019-03-18] MEDS ORDERED: ZIPRASIDONE 20 MG VIAL IM PRN (22:20)
[2019-03-18] MEDS ORDERED: LORazepam 2 MG/ML INJ IM PRN (22:24)
[2019-03-19] MEDS: MAG HYDROX/AL HYDROX/SIMETH 30 ML CUP PO PRN ×2 (05:21→16:20)
[2019-03-19] MEDS: METOPROLOL TARTRATE 50 MG TAB PO SCH ×2 (08:51→21:31)
[2019-03-19] MEDS: APIXABAN 5 MG TAB PO SCH ×2 (08:51→21:31)
[2019-03-19] MEDS: OXcarbazepine 300 MG TAB PO SCH ×2 (08:51→21:31)
[2019-03-19] MEDS: NICOTINE 21MG/24HR PATCH TRANSDERM SCH (08:52)
[2019-03-19] MEDS: FAMOTIDINE 20 MG TAB PO SCH (08:52)
[2019-03-19] MEDS: LISINOPRIL 5 MG TAB PO SCH ×2 (08:52→21:31)
[2019-03-19] MEDS: FUROSEMIDE 40 MG TAB PO SCH (08:52)
[2019-03-19] MEDS: AMIODARONE 200 MG TAB PO SCH ×2 (08:52→21:31)
--- NOTE | 2019-03-19 11:12 | P.HP ---
Psychiatric H&P - . History & Physical: Allergies Allergy/AdvReac Type Severity Reaction Status Date / Time divalproex sodium Allergy Unknown Verified 03/18/19 19:42 [From Depakote] haloperidol [From Haldol] Allergy Unknown Verified 03/18/19 19:42 haloperidol lactate Allergy Unknown Verified 03/18/19 19:42 [From Haldol] lithium Allergy Unknown Verified 03/18/19 19:42 Vital Signs Temp 98.5 F 03/19/19 06:18 Pulse 74 03/19/19 08:58 Resp 18 03/19/19 08:58 BP 119/67 03/19/19 08:58 Pulse Ox Intake & Output 03/18/19 03/19/19 03/19/19 18:59 06:59 18:59 Weight 107.002 kg 03/19/19 11:02 IDENTIFYING DATA: This patient is a 63-year-old who was admitted to the mental health unit as a transfer from the medical floor with presumed symptoms of klaey HPI: The patient is well known to the psychiatric service as he has had numerous admissions on the mental health unit. He carries a diagnosis of bipolar 1 disorder and frequently presents manic with symptoms of psychosis. He was originally admitted to the hospital and placed in the intensive care unit as he was experiencing atrial fibrillation. He underwent testing and subsequent cardioversion. He has a known history of congestive heart failure and experienced some pulmonary edema as well as an aspiration pneumonia. Once stabilized he was sent to the mental health unit for psychiatric stabilization. He was seen in consultation by Dr. Gandhi. The patient presents today stating he feels fine. He is willing to resume the oral clozapine. He has been complying with the Trileptal. Dr. Gandhi had been prescribing him Prolixin while on the medical floor. It was assumed that the patient was experiencing symptoms of delirium due to the medical events noted above. The patient reports no suicidal or homicidal thoughts he endorses no auditory or visual hallucinations. He does tend to lack insight into his psychiatric symptoms. Staff report that he seems to be close to baseline in observing him during group participation today. PAST PSYCHIATRIC HISTORY: The patient has had 10 admissions since 02/04/2014. He has had numerous admissions prior to that. He does follow with [facility] and carries a diagnosis of bipolar 1 disorder most recent manic wi th psychosis. He was receiving claws role 50 mg in the morning 200 mg in the evening Trileptal 600 mg twice daily. He has been on numerous other psychotropic medications in the past including Depakote, lithium, Haldol, Prolixin and others. Suicide attempt history unknown. PMH: He patient has a history of recent A. fib atrial flutter he has a history of cardiac pacer placement several years ago. History of hypertension DVT congestive heart failure's chronic kidney disease stage III ALLERGIES: Depakote, Haldol, lithium these are likely not true ALLERGIES but he has had side effects related to them MEDICATIONS: Referred MAR CHEMICAL DEPENDENCY HISTORY: No reported use of alcohol marijuana or illicit drugs FAMILY PSYCHIATRIC HISTORY: Unknown FAMILY CHEMICAL DEPENDENCY HISTORY: Unknown SOCIAL HISTORY: The patient is 63 years old he is a , he has 2 siblings, he has no children. He resides in a shelter. He is unemployed he receives a disability income. He was briefly in the [employer] at a young age. MENTAL STATUS EXAM: The patient is an overweight male appearing his stated age. He is mobile with a wheelchair. He is pleasant cooperative. He reports his mood is good his affect is expansive he has some exaggerated laughter at times but is redirectable. He demonstrates no verbal or physical agitation. He denies having any suicidal or homicidal ideation intent or plan. He reports no auditory or visual hallucinations or any specific delusions. He is known to chronically have delusions of grandeur. He demonstrates no involuntary repetitive movements. Insight and judgment limited. He is oriented to person place and date month and year. He is able to name the days of the week backwards. STRENGTHS/WEAKNESSES: Strengths: He has a guardian he has income and placement at a shelter weaknesses: Exacerbation of symptoms in the context of cardiac comorbidity INTELLECTUAL FUNCTIONING: Average IMPRESSIONS: [] 1. Bipolar 1 disorder most recent manic with psychosis, recent delirium resolving PLAN: The patient has been admitted to the mental health unit voluntarily. We reviewed his treatment options. We will continue the Trileptal 600 mg twice daily we will restart his clozapine 50 mg in the morning 200 mg at bedtime. The Prolixin will be discontinued. He'll be seen by internal medicine for routine history and physical exam while on the mental health unit. We'll monitor for safety and encourage participation in the milieu. Social work met with the patient to complete a psychosocial assessment and begin discharge planning. We are very familiar with the patient's baseline function. Today he presents fairly well. We will continue to evaluate his safety risk. If he continues to demonstrate the same stability we may be of the transition him back to his shelter setting fairly soon.
[2019-03-19] MEDS: cloZAPine 25 MG TAB PO SCH (11:16)
--- NOTE | 2019-03-19 18:01 | P.CONS ---
History of Present Illness - Reason for Consult Consult date: 03/19/19 Medical management Requesting physician: Marcel Ramirez - Chief Complaint Manic - History of Present Illness Chief Complaint: Manic Consultation: This is a 63-year-old patient whose chronic stable medical conditions include chronic kidney disease stage III, chronic left leg DVT, not on antiplatelet medication for the same, sick sinus syndrome with a pacemaker, unstable right ankle joint does walk with a limp, pacemaker for sick sinus syndrome, , intermittent atrial fibrillation. Patient lives at a longterm. Has had frequent admissions to the psychiatry unit for flareup of his bipolar disorder especially. Manic episodes. Patient has a court-appointed guardian. Patient presents to [facility] with atrial fibrillation with rapid ventricular rate. Was admitted to the ICU. Was put on IV amiodarone and IV Cardizem initially. Subsequently patient became very agitated and refused to take his medications. Patient was followed by cardiology and pulmonary in the ICU. As psychiatry services were not available at the other hospital and even though patient was given Geodon 20 mg IM every 12 when necessary and Ativan when necessary he was still refusing to take his oral medications. This resulted in patient being transferred here for higher level of care. Patient was transferred to the ICU to ICU. Patient did better. Patient was cardioverted by Dr. Lopez went into sinus rhythm. Had an episode of aspiration pneumonia and CHF exacerbation. Was treated with clindamycin and Lasix. Did well. Patient became medically better. But patient intermittently was refusing his medications. Seen by psychiatry. Dr. Gandhi and patient was accepted to the 3 W. psychiatry unit. 2-D echo showed EF of 20-30%. Review of systems: GEN.: Hyperactive EYES: None HEENT: None NECK: None RESPIRATORY: Slight cough CARDIOVASCULAR: None GASTROINTESTINAL: None GENITOURINARY: None MUSCULOSKELETAL: None LYMPHATICS: None HEMATOLOGICAL: None PSYCHIATRY: Manic NEUROLOGICAL: None Past medical history: Left leg DVT chronic not an adequate list for the same, hypertension, chronic kidney disease stage III, bipolar disorder with manic episodes, chronic right ankle dislocation, sick sinus syndrome with a pacemaker, CHF with EF of 20-30%. Atrial flutter fibrillation that was DC cardioverted on 03/13/2019, severe mitral and tricuspid regurgitation with secondary pulmonary hypertension, bilateral lower extremity venous insufficiency. Social history: Smoked for close to 50 years. Used to work in the [employer]. Discharged with [employer]. Living at [facility]. Family history: Patient cannot remember Physical examination: VITAL SIGNS: 98.5, 75, 16, 123/73, GENERAL: BMI 30.3, sitting up in a wheelchair, comfortable. EYES: Pupils equal. Conjunctiva normal. HEENT: External appearance of nose and ears normal, oral cavity grossly normal. NECK: JVD unable to assess; masses not palpable. HEART: First seconds are normal; minimal edema. LUNGS: Respiratory rate increased, diminished breath sounds. ABDOMEN: Soft, nontender, liver spleen not palpable, no masses palpable. PSYCH: Patient able to answer questions but manic. Getting into has been to go fishing with him.. NEUROLOGICAL: Cranial nerves grossly intact; no facial asymmetry, does move all his limbs. LYMPHATICS: No lymph nodes palpable in the axilla and neck INVESTIGATIONS, reviewed in the clinical context: White count 8.9 hemoglobin 11.3 potassium 4.7 bun 47 creatinine 2.75 Assessment: -Paroxysmal atrial flutter fibrillation DC cardioverted on March 13, currently on eliquis -Chronic kidney disease stage III from nephrosclerosis -Chronic left leg DVT not on anticoagulation for the same -Right ankle chronic instability -Bilateral lower extremity venous insufficiency -Sick sinus syndrome with a pacemaker -Chronic congestive heart failure from systolic dysfunction EF 20-30% -Hypertension with chronic kidney disease -Severe mitral and tricuspid regurgitation -Secondary pulmonary hypertension secondary to COPD -Obesity BMI 31.8 Plan: Continue current medication treatment plan. Patient remains on maintenance dose of Lasix for his CHF. Also on eliquis. Should follow with his family doctor upon discharge. Thank you Dr. Ramirez 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; Chronic kidney disease stage 3, bipolar depression History of Any Multi-Drug Resistant Organisms: MRSA Year Discovered:: 04/27/14 MDRO Source:: Right Arm Past Surgical History: Back Surgery, Hernia Repair, Pacemaker, Tonsillectomy Past Anesthesia/Blood Transfusion Reactions: Previous Problems w/ Anesthesia Additional Past Anesthesia/Blood Transfusion Reaction / Comm: STATES "HARD TIME BREATHING LAYING FLAT, I'M A MOUTH BREATHER" Type of Cardiac Device: Permanent Pacemaker Device Placement Date:: 2015 Past Psychological History: Bipolar, Depression Additional Psychological History / Comment(s): 02/27/18 per petition paperwork- pt delusional,left stable housing,physically aggressive when provided assistance. Smoking Status: Former smoker Past Alcohol Use History: Unable to Obtain, Occasional Additional Past Alcohol Use History / Comment(s): poor historian Past Drug Use History: None Reported Additional Drug Use History / Comment(s): . - Past Family History Father History Unknown: Yes Mother History Unknown: Yes Medications and Allergies Home Medications Medication Instructions Recorded Confirmed Type Apixaban [Eliquis] 5 mg PO BID@0800,209903/11/19 03/18/19 History Metoprolol Tartrate [Lopressor] 50 mg PO BID@0800,209903/11/19 03/18/19 History OXcarbazepine [Trileptal] 600 mg PO BID@0800,209903/11/19 03/18/19 History Amiodarone [Cordarone] 200 mg PO BID tab 03/17/19 03/18/19 Rx Famotidine [Pepcid] 20 mg PO DAILY tab 03/17/19 03/18/19 Rx Furosemide [Lasix] 40 mg PO DAILY #30 tablet 03/17/19 03/18/19 Rx Lisinopril [Zestril] 5 mg PO BID tab 03/17/19 03/18/19 Rx Nicotine 21Mg/24Hr Patch [Habitrol] 1 patch TRANSDERM DAILY #14 patch 03/17/19 03/18/19 Rx Allergies Allergy/AdvReac Type Severity Reaction Status Date / Time divalproex sodium Allergy Unknown Verified 03/18/19 19:42 [From Depakote] haloperidol [From Haldol] Allergy Unknown Verified 03/18/19 19:42 haloperidol lactate Allergy Unknown Verified 03/18/19 19:42 [From Haldol] lithium Allergy Unknown Verified 03/18/19 19:42 Physical Exam Vitals: Vital Signs Temp Pulse Pulse Resp BP BP 03/19/19 08:58 74 18 119/67 03/19/19 06:18 98.5 F 75 16 123/73 03/18/19 21:46 79 121/64 03/18/19 19:19 97.2 F L 71 16 130/66 Intake and Output 03/18/19 03/19/19 03/19/19 22:59 06:59 14:59 Other: Weight 107.002 kg
[2019-03-19] MEDS ORDERED: cloZAPine 100 MG TAB PO SCH (21:00)
[2019-03-20 06:46] VITALS: BP 117/81; PULSE 102; RESP 18; TEMP 97.8
[2019-03-20] MEDS: cloZAPine 25 MG TAB PO SCH (09:31)
[2019-03-20] MEDS: NICOTINE 21MG/24HR PATCH TRANSDERM SCH (09:31)
[2019-03-20] MEDS: METOPROLOL TARTRATE 50 MG TAB PO SCH (09:31)
[2019-03-20] MEDS: APIXABAN 5 MG TAB PO SCH (09:31)
[2019-03-20] MEDS: FUROSEMIDE 40 MG TAB PO SCH (09:32)
[2019-03-20] MEDS: AMIODARONE 200 MG TAB PO SCH (09:32)
[2019-03-20] MEDS: LISINOPRIL 5 MG TAB PO SCH (09:32)
[2019-03-20] MEDS: OXcarbazepine 300 MG TAB PO SCH (09:33)
[2019-03-20] MEDS: FAMOTIDINE 20 MG TAB PO SCH (09:35)
[2019-03-20] MEDS: MAG HYDROX/AL HYDROX/SIMETH 30 ML CUP PO PRN (10:16)
--- NOTE | 2019-03-20 11:48 | P.DS ---
Providers Date of admission: 03/18/19 17:33 Expected date of discharge: 03/20/19 Attending physician: Marcel Ramirez Consults: 03/18/19 18:18 Consult Physician Routine Consulting Provider: Earl Curry Consult Reason/Comments: H & P and medical care Do you want consulting provider notified?: Yes Primary care physician: Earl Curry - Discharge Diagnosis(es) (1) Bipolar 1 disorder, manic, moderate Current Visit: Yes Status: Acute Priority: High Hospital Course: Brief summary of admission note: This patient is a 63-year-old who was admitted to the mental health unit as a transfer from the medical floor. He was originally admitted to the hospital with cardiac complications including atrial fibrillation. He was in the intensive care unit underwent testing and subsequent cardioversion. During this time he was reportedly agitated and aggre ssive. He required use of restraints. He was seen in psychiatric consultation by Dr. Gandhi. Once medically cleared he was transferred to our unit. For full details please refer to my psychiatric evaluation dated 03/19/2019. Summary of hospital course: The patient was admitted to the mental health unit voluntarily. We reviewed his presenting symptoms and treatment options. It seems that he experienced a delirium reaction while medically admitted. This has since resolved. his behavior on the mental health unit has been quite good both yesterday and today. He does have a known history of some residual mood and psychotic symptoms at baseline but there are no acute symptoms currently. The patient has been attending groups he has been redirectable. He is demonstrating no loud speech or any agitated behavior. He has been compliant with oral medications and given his diagnosis and known history insight and judgment are grossly intact. He was seen by internal medicine for routine h istory and physical exam. Social work met with him to complete a psychosocial assessment. We have been in contact with [facility] to facilitate his discharge back to the [facility]. Mental status exam: The patient is a tall overweight male appearing his stated age. He is mobile with a wheelchair. Hygiene grooming adequate. Speech is fluent spontaneous nonpressured. Affect is constricted. He is demonstrating no hypomanic or manic symptoms at this time. He demonstrates no loud speech or any agitation. There is no verbal or physical aggressiveness. He demonstrates no involuntary repetitive movements. He denies having any suicidal ideation intent or plan no homicidal ideation intent or plan. He is endorsing no auditory or visual hallucinations. He denies any delusions but he chronically has some grandiose thoughts mostly referring to financial wealth. He is oriented to person place and date. He discusses future oriented thinking. He is agreeable to returning to the [facility]. Impressions 1. Bipolar 1 disorder most recent manic with psychosis, recent delirium resolved Plan: The patient will be discharged mental health unit today is he does not require further hospitalization. He will return to his previous [facility]. Continue on Trileptal 600 mg twice daily clozapine 50 mg in the morning 200 mg at bedtime. He will continue to follow with [facility] for outpatient psychiatric services. Continue abstaining from any use of alcohol marijuana or any illicit drug. At this time there is no imminent safety risk he is appropriate for transition back to outpatient care. He is instructed to return to the hospital with any acute safety concerns. Patient Condition at Discharge: Stable Plan - Discharge Summary New Discharge Prescriptions: New cloZAPine [Clozaril] 50 mg PO DAILY #60 tab cloZAPine [Clozaril] 200 mg PO HS #60 tab Nicotine 21Mg/24Hr Patch [Habitrol] 1 patch TRANSDERM DAILY #14 patch Continue Amiodarone [Cordarone] 200 mg PO BID #60 tab Apixaban [Eliquis] 5 mg PO BID@08,2099 #60 tab Furosemide [Lasix] 40 mg PO DAILY #30 tablet Metoprolol Tartrate [Lopressor] 50 mg PO BID@08,2099 #60 tab Famotidine [Pepcid] 20 mg PO DAILY #30 tab OXcarbazepine [Trileptal] 600 mg PO BID@08,2099 #120 tab Lisinopril [Zestril] 5 mg PO BID #60 tab Discontinued Nicotine 21Mg/24Hr Patch [Habitrol] 1 patch TRANSDERM DAILY #14 patch Discharge Medication List Amiodarone [Cordarone] 200 mg PO BID #60 tab 03/20/19 [Rx] Apixaban [Eliquis] 5 mg PO BID@0800,2100 #60 tab 03/20/19 [Rx] Famotidine [Pepcid] 20 mg PO DAILY #30 tab 03/20/19 [Rx] Furosemide [Lasix] 40 mg PO DAILY #30 tablet 03/20/19 [Rx] Lisinopril [Zestril] 5 mg PO BID #60 tab 03/20/19 [Rx] Metoprolol Tartrate [Lopressor] 50 mg PO BID@0800,2100 #60 tab 03/20/19 [Rx] Nicotine 21Mg/24Hr Patch [Habitrol] 1 patch TRANSDERM DAILY #14 patch 03/20/19 [Rx] OXcarbazepine [Trileptal] 600 mg PO BID@0800,2100 #120 tab 03/20/19 [Rx] cloZAPine [Clozaril] 50 mg PO DAILY #60 tab 03/20/19 [Rx] cloZAPine [Clozaril] 200 mg PO HS #60 tab 03/20/19 [Rx]
== END 2019-03-20 14:20 | disposition home or self-care (01) | DRG 885 ==
LOC: 3MHU 17:33
PROVIDERS: ADMIT Psychiatry & Neurology Psychiatry; ATTEND Psychiatry & Neurology Psychiatry
DX: F31.2 Bipolar disorder, current episode manic severe with psychotic features (principal); I13.0 Hypertensive heart and chronic kidney disease with heart failure and stage 1 through stage 4 chronic kidney disease, or unspecified chronic kidney disease; I50.22 Chronic systolic (congestive) heart failure; I82.502 Chronic embolism and thrombosis of unspecified deep veins of left lower extremity; I27.29 Other secondary pulmonary hypertension; I08.1 Rheumatic disorders of both mitral and tricuspid valves; I48.0 Paroxysmal atrial fibrillation; N18.3 Chronic kidney disease, stage 3 (moderate); E66.9 Obesity, unspecified; I87.2 Venous insufficiency (chronic) (peripheral); J44.9 Chronic obstructive pulmonary disease, unspecified; M25.371 Other instability, right ankle; Z68.31 Body mass index [BMI] 31.0-31.9, adult; Z79.01 Long term (current) use of anticoagulants; Z79.899 Other long term (current) drug therapy; Z87.891 Personal history of nicotine dependence; Z95.0 Presence of cardiac pacemaker

== ENCOUNTER 2019-03-27 09:06 | Emergency (ER) | payer MEDICARE, OTHER ==
[2019-03-27 09:28] VITALS: RESP 18
--- NOTE | 2019-03-27 09:30 | ED ---
General Adult HPI <David Hebert - Last Filed: 03/27/19 17:45> - General Source: patient, police, EMS Mode of arrival: EMS Limitations: no limitations <CarenTracysincere Zuluaga - Last Filed: 03/29/19 16:39> - General Stated complaint: EPS eval Time Seen by Provider: 03/27/19 09:10 - History of Present Illness Initial comments: Dictation was produced using [employer] dictation software. please excuse any grammatical, word or spelling errors. Chief Complaint: 63-year-old male with past medical history of psychiatric disease presents via law enforcement for psychiatric issues. History of Present Illness: Patient is 63-year-old male he is well-known to our emergency department for multiple visitations typically for psychiatric complaints. Patient was brought here by law enforcement for aggressive and uncooperative behavior at the custodial. Patient is a poor historian. He has since history of psychiatric disease and has been admitted to inpatient psych on multiple occasions. Patient was recently admitted to the hospital last week for kaley with psychosis. He was admitted discharge from inpatient psychiatric unit. The ROS documented in this emergency department record has been reviewed and confirmed by me. Those systems with pertinent positive or negative responses have been documented in the HPI. All other systems are other negative and/or noncontributory. PHYSICAL EXAM: General Impression: Alert and oriented x3, not in acute distress HEENT: Normocephalic atraumatic, extra-ocular movements intact, pupils equal and reactive to light bilaterally, mucous membranes moist. Cardiovascular: Heart regular rate and rhythm, S1&S2 audible, no murmurs, rubs or gallops Chest: Lungs clear to auscultation bilaterally, no rhonchi, no wheeze, no rales Abdomen: Bowel sounds present, abdomen soft, non-tender, non-distended, no organomegaly Musculoskeletal: Pulses present and equal in all extremities, no peripheral edema Motor: no focal deficits noted Neurological: CN II-XII grossly intact, no focal motor or sensory deficits noted Skin: Intact with no visualized rashes Psych: Tangential speech. ED course: 63-year-old male presents with aggressive uncooperative behavior. History obtained from EMS. They report that patient has been difficult to control at the custodial. Vital signs upon arrival are within acceptable limits. Physical examination. Patient is well-appearing. Patient care signed out to oncoming physician for follow-up of EPS recommendations. (Herb Fabian) - Related Data Previous Rx's Medication Instructions Recorded Amiodarone [Cordarone] 200 mg PO BID #60 tab 03/20/19 Apixaban [Eliquis] 5 mg PO BID@0800,2100 #60 tab 03/20/19 Famotidine [Pepcid] 20 mg PO DAILY #30 tab 03/20/19 Furosemide [Lasix] 40 mg PO DAILY #30 tablet 03/20/19 Lisinopril [Zestril] 5 mg PO BID #60 tab 03/20/19 Metoprolol Tartrate [Lopressor] 50 mg PO BID@0800,2100 #60 tab 03/20/19 Nicotine 21Mg/24Hr Patch [Habitrol] 1 patch TRANSDERM DAILY #14 patch 03/20/19 OXcarbazepine [Trileptal] 600 mg PO BID@0800,2100 #120 tab 03/20/19 cloZAPine [Clozaril] 50 mg PO DAILY #60 tab 03/20/19 cloZAPine [Clozaril] 200 mg PO HS #60 tab 03/20/19 Allergies Allergy/AdvReac Type Severity Reaction Status Date / Time divalproex sodium Allergy Unknown Verified 03/27/19 09:21 [From Depakote] haloperidol [From Haldol] Allergy Unknown Verified 03/27/19 09:21 haloperidol lactate Allergy Unknown Verified 03/27/19 09:21 [From Haldol] lithium Allergy Unknown Verified 03/27/19 09:21 Review of Systems ROS Other: All systems not noted in ROS Statement are negative. <David Hebert - Last Filed: 03/27/19 17:45> ROS Other: All systems not noted in ROS Statement are negative. <Herb Fabian - Last Filed: 03/29/19 16:39> ROS Statement: Those systems with pertinent positive or pertinent negative responses have been documented in the HPI. 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; Chronic kidney disease stage 3, bipolar depression History of Any Multi-Drug Resistant Organisms: MRSA Date of last positivie culture/infection: 04/27/14 MDRO Source:: Right Arm Past Surgical History: Back Surgery, Hernia Repair, Pacemaker, Tonsillectomy Past Anesthesia/Blood Transfusion Reactions: Previous Problems w/ Anesthesia Additional Past Anesthesia/Blood Transfusion Reaction / Comment(s): STATES "HARD TIME BREATHING LAYING FLAT, I'M A MOUTH BREATHER" Type of Cardiac Device: Permanent Pacemaker Device Placement Date:: 2015 Past Psychological History: Bipolar, Depression Smoking Status: Former smoker Past Alcohol Use History: Unable to Obtain, Occasional Past Drug Use History: None Reported - Past Family History Father History Unknown: Yes Mother History Unknown: Yes <Herb Fabian - Last Filed: 03/29/19 16:39> General Exam Limitations: no limitations <Herb Fabian - Last Filed: 03/29/19 16:39> Course Vital Signs 03/27/19 03/27/19 03/27/19 09:10 11:32 17:57 Temperature 97.2 F L 98.0 F Pulse Rate 71 60 Respiratory 18 18 18 Rate Blood Pressure 133/95 146/93 O2 Sat by Pulse 98 93 L Oximetry Medical Decision Making <David Hebert - Last Filed: 03/27/19 17:45> - Medical Decision Making Patient was seen by mental health services with plans for discharge. Patient is going back to his custodial. They're coming to pick him up. (David Hebert) - Lab Data Lab Results 03/27/19 Range/Units 17:51 Urine Opiates Screen Not Detected (NotDetected) Ur Oxycodone Screen Not Detected (NotDetected) Urine Methadone Screen Not Detected (NotDetected) Ur Propoxyphene Screen Not Detected (NotDetected) Ur Barbiturates Screen Not Detected (NotDetected) U Tricyclic Antidepress Not Detected (NotDetected) Ur Phencyclidine Scrn Not Detected (NotDetected) Ur Amphetamines Screen Not Detected (NotDetected) U Methamphetamines Scrn Not Detected (NotDetected) U Benzodiazepines Scrn Not Detected (NotDetected) Urine Cocaine Screen Not Detected (NotDetected) U Marijuana (THC) Screen Not Detected (NotDetected) Disposition Is patient prescribed a controlled substance at d/c from ED?: No Time of Disposition: 17:47 <David Hebert - Last Filed: 03/27/19 17:45> Is patient prescribed a controlled substance at d/c from ED?: No <CarenHerb D - Last Filed: 03/29/19 16:39> Clinical Impression: Agitation Disposition: HOME SELF-CARE Condition: Stable Instructions (If sedation given, give patient instructions): Bipolar Disorder (ED) Additional Instructions: Please follow-up with mental services as directed. Please follow-up with primary care physician beginning of the week. Return for thoughts of harming yourself or others, worsening symptoms or other concerns. Referrals: Jaspal Melgoza MD [Primary Care Provider] - 1-2 days
[2019-03-27 17:59] VITALS: BP 146/93; PULSE 60; TEMP 98
[2019-03-27 18:44] LABS: Amphetamine Screen,Urine Not Detected (NotDetected); Barbiturate Screen,Urine Not Detected (NotDetected); Benzodiazepines Screen,Urine Not Detected (NotDetected); Cocaine Screen,Urine Not Detected (NotDetected); Methadone Screen, Urine Not Detected (NotDetected); Opiate Screen,Urine Not Detected (NotDetected); Oxycodone Screen, Urine Not Detected (NotDetected); Phencyclidine Screen,Urine Not Detected (NotDetected); Tricyclic Antidepressant,Urine Not Detected (NotDetected); Urn Cannabinoid Scrn Not Detected (NotDetected)
== END 2019-03-27 18:16 | disposition home or self-care (01) ==
LOC: EC 09:06
DX: R45.1 Restlessness and agitation (principal); R45.6 Violent behavior; Z87.891 Personal history of nicotine dependence; Z88.8 Allergy status to other drugs, medicaments and biological substances; Z86.59 Personal history of other mental and behavioral disorders
CPT/HCPCS: 80306; 82075; 99285

== ENCOUNTER 2019-04-01 12:54 | Emergency (ER) | payer MEDICARE, OTHER ==
[2019-04-01 13:13] VITALS: TEMP 98.5
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
[2019-04-01] MEDS ORDERED: LORazepam 1 MG TAB PO STA (16:22)
[2019-04-01] MEDS ORDERED: ZIPRASIDONE 20 MG VIAL IM STA (17:27)
[2019-04-01] MEDS ORDERED: LORazepam 2 MG/ML INJ IM STA (17:27)
[2019-04-01 17:51] LABS: Amphetamine Screen,Urine Not Detected (NotDetected); Barbiturate Screen,Urine Not Detected (NotDetected); Benzodiazepines Screen,Urine Not Detected (NotDetected); Cocaine Screen,Urine Not Detected (NotDetected); Methadone Screen, Urine Not Detected (NotDetected); Opiate Screen,Urine Not Detected (NotDetected); Oxycodone Screen, Urine Not Detected (NotDetected); Phencyclidine Screen,Urine Not Detected (NotDetected); Tricyclic Antidepressant,Urine Not Detected (NotDetected); Urn Cannabinoid Scrn Not Detected (NotDetected)
[2019-04-02] MEDS ORDERED: AMIODARONE 200 MG TAB PO STA (07:35)
[2019-04-02] MEDS ORDERED: METOPROLOL TARTRATE 50 MG TAB PO STA (07:36)
[2019-04-02] MEDS ORDERED: LISINOPRIL 5 MG TAB PO STA (07:36)
[2019-04-02 07:54] VITALS: RESP 18
[2019-04-02 08:58] VITALS: BP 107/75; PULSE 116
== END 2019-04-02 10:55 ==
LOC: EC 12:54
DX: F31.9 Bipolar disorder, unspecified (principal); R45.1 Restlessness and agitation; Z87.891 Personal history of nicotine dependence; Z88.8 Allergy status to other drugs, medicaments and biological substances; Z79.899 Other long term (current) drug therapy; Z86.14 Personal history of Methicillin resistant Staphylococcus aureus infection
CPT/HCPCS: 99285 ×2; 96372 ×3; 82075; 80306; J2060; J3486